=== PATIENT | female | born 1975 | race Caucasian/White ===

== ENCOUNTER → 2016-09-30 | Outpatient (CLI) | payer BC ==
--- NOTE | 2016-09-30 10:00 | US ---
EXAMINATION TYPE: US pelvic complete DATE OF EXAM: 09/30/2016 9:43 AM COMPARISON: No previous CLINICAL HISTORY: R10.2 PELVIC PAIN. 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 Uterus: Surgically absent 2. Endometrium: Surgically absent 3. Right Ovary: not seen due to overlying bowel gas 4. Left Ovary: 2.3 x 1.7 x 2.4cm cystic area 5. Bilateral Adnexa: wnl 6. Posterior cul-de-sac: wnl IMPRESSION: 1. STATUS POST HYSTERECTOMY. 2. SIMPLE APPEARING 2.4 CM LEFT OVARIAN CYST.
== END | disposition home or self-care (01) ==
LOC: RADUSWWP 08:46
PROVIDERS: ATTEND Obstetrics & Gynecology
DX: N83.202 Unspecified ovarian cyst, left side (principal); Z90.710 Acquired absence of both cervix and uterus
CPT/HCPCS: 76830; 76856

== ENCOUNTER → 2016-11-20 | Outpatient (CLI) | payer BC ==
--- NOTE | 2016-11-24 08:10 | MM ---
Reason for exam: screening (asymptomatic). Last mammogram was performed 2 years and 10 months ago. History: Took hormonal contraceptives for 6 years. Physical Findings: A clinical breast exam by your physician is recommended on an annual basis and results should be correlated with mammographic findings. MG Screening Mammo w CAD Bilateral CC and MLO view(s) were taken. Prior study comparison: January 19, 2014, bilateral MG diagnostic mammo w CAD ISAIAS. May 26, 2013, right diagnostic mammogram w/CAD. November 14, 2012, bilateral digital screening mammo w/CAD. There are scattered fibroglandular densities. No significant changes when compared with prior studies. ASSESSMENT: Negative, BI-RAD 1 RECOMMENDATION: Routine screening mammogram of both breasts in 1 year.
== END | disposition home or self-care (01) ==
LOC: RADMAMWWP 09:44
PROVIDERS: ATTEND Family Medicine
DX: Z12.31 Encounter for screening mammogram for malignant neoplasm of breast (principal)

== ENCOUNTER → 2017-01-07 | Outpatient (CLI) | payer BC ==
--- NOTE | 2017-01-07 11:49 | CT ---
EXAMINATION TYPE: CT chest w con DATE OF EXAM: 01/07/2017 COMPARISON: NONE HISTORY: Aaron's granulomatosis CT DLP: 507.8 mGycm Automated exposure control for dose reduction was used. CONTRAST: CT scan of the chest is performed with IV Contrast, patient injected with 100 mL of Omnipaque 300. FINDINGS: There is minimal scarring or atelectasis in the right middle lobe. The lungs are otherwise clear. There is no significant axillary, internal mammary, mediastinal or hilar adenopathy. There is no pleu ral or pericardial fluid. The heart is not enlarged. Within the abdomen, there is fatty infiltration of the liver. Visualized upper abdominal structures a re otherwise normal. No bony destructive lesion is seen. IMPRESSION: 1. Normal CT scan of the chest. 2. Fatty infiltration of the liver.
--- NOTE | 2017-01-07 11:52 | CT ---
EXAMINATION TYPE: CT sinus w con DATE OF EXAM: 01/07/2017 COMPARISON: NONE HISTORY: Aaron's granulomatosis CT DLP: 538.6 mGycm Automated exposure control for dose reduction was used. CONTRAST: Visualized intracranial structures are normal. The soft tissues appear normal. The paranasal sinuses are clear. Both ostiomeatal complexes are patent. The mastoid air cells are roxi ar. IMPRESSION: NORMAL CT SCAN OF THE PARANASAL SINUSES.
== END | disposition home or self-care (01) ==
LOC: RADCTMAIN 11:12
PROVIDERS: ATTEND Internal Medicine Rheumatology
DX: M31.30 Wegener's granulomatosis without renal involvement (principal)
CPT/HCPCS: 71260; 70487; Q9967

== ENCOUNTER 2017-08-26 18:38 | Emergency (ER) | payer BC ==
[2017-08-26 18:50] VITALS: BP 138/83; PULSE 98; RESP 18; TEMP 98.6
[2017-08-26] MEDS ORDERED: DIPH,PERTUS(ACELL)TETVAC-LF 0.5 ML VIAL IM ONE (19:21)
--- NOTE | 2017-08-26 19:47 | XR ---
EXAMINATION TYPE: XR finger RT DATE OF EXAM: 08/26/2017 COMPARISON: NONE HISTORY: Pain TECHNIQUE: 3 views. FINDINGS: I see no fracture nor dislocation. Joint spaces are normal. There is no sign of a foreign body. IMPRESSION: Negative right index finger exam.
--- NOTE | 2017-08-26 20:25 | ED ---
Wound/Laceration HPI - General Chief Complaint: Wound/Laceration Stated Complaint: Cut finger Time Seen by Provider: 08/26/17 19:11 Source: patient, RN notes reviewed Mode of arrival: ambulatory Limitations: no limitations - History of Present Illness Initial Comments: This is a 41-year-old female who presents to the emergency department with chief complaint of right index finger laceration. Patient states that at approximately 6 PM this evening she lacerated the tip of her finger on a kitchen mandolin. States bleeding is controlled. Denies any other injury. States that she does not believe she is up-to-date with her tetanus vaccination. Denies fever, chills, chest pain, shortness of breath, abdominal pain, nausea or vomiting, constipation or diarrhea, dysuria or hematuria, numbness or tingling, headache or vision changes. - Related Data Home Medications Medication Instructions Recorded Confirmed Lisinopril [Zestril] 10 mg PO DAILY 08/26/17 08/26/17 Venlafaxine HCl [Effexor] 75 mg PO DAILY 08/26/17 08/26/17 azaTHIOprine [Imuran] 50 mg PO BID 08/26/17 08/26/17 Previous Rx's Medication Instructions Recorded Cephalexin [Keflex] 500 mg PO Q12HR #20 cap 08/26/17 Allergies Allergy/AdvReac Type Severity Reaction Status Date / Time ciprofloxacin [From Cipro] Allergy Rash/Hives Verified 08/26/17 18:51 erythromycin base Allergy Rash/Hives Verified 08/26/17 18:51 [From Erythrocin] latex Allergy Rash/Hives Verified 08/26/17 18:51 oseltamivir [From Tamiflu] Allergy Rash/Hives Verified 08/26/17 18:51 Penicillins Allergy Rash/Hives Verified 08/26/17 18:51 sulfamethoxazole Allergy Rash/Hives Verified 08/26/17 18:51 [From Bactrim] trimethoprim [From Bactrim] Allergy Rash/Hives Verified 08/26/17 18:51 Review of Systems ROS Statement: Those systems with pertinent positive or pertinent negative responses have been documented in the HPI. ROS Other: All systems not noted in ROS Statement are negative. 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 HEENT: Head atraumatic, normocephalic. Pupils are equal, round and reactive to light. Extraocular movements intact. Neck: Supple. Normal ROM. Cardiovascular: Regular rate and rhythm. No murmurs, rubs or gallops. Chest symmetrical. Respiratory: Lungs clear to auscultation bilaterally. No wheezes, rales or rhonchi. Normal respiratory effort with no use of accessory muscles. s. Musculoskeletal: Patient has normal range of motion of her right index finger. There is an approximately 1.0 cm flap-like laceration distal tip of right index finger with some nail involvement. Bleeding is controlled. Sensation is intact. Radial pulses are 2+ equal and palpable bilaterally. Skin: [place], warm and dry without rashes or lesions. Neurological: Alert and oriented x3. CN II-XII grossly intact. Speech is fluent and answers are appropriate. No focal neuro deficits. Psychiatric: Normal mood and affect. No overt signs of depression or anxiety noted. Limitations: no limitations Course Vital Signs 08/26/17 18:46 Temperature 98.6 F Pulse Rate 98 Respiratory 18 Rate Blood Pressure 138/83 O2 Sat by Pulse 95 Oximetry Procedures - Laceration Laceration #1 Consent Obtained: verbal consent Indication: laceration Site: hand (Distal tip right index finger) Size (cm): 1 Description: flap Depth: simple, single layer Anesthetic Used: lidocaine 1% Anesthesia Technique: nerve block Amount (mls): 3 Pre-repair: wound explored, irrigated extensively, deep structures intact Type of Sutures: nylon Size of Sutures: 5-0 Number of Sutures: 3 Technique: simple, interrupted Patient Tolerated Procedure: well, no complications Medical Decision Making - Medical Decision Making This is a 41-year-old female who presented for evaluation of a right index finger laceration. X-ray revealed no involvement of the bone. Patient sustained a flap-like laceration to the distal tip of her right index finger. 3 sutures were placed and patient tolerated well without complication. She is neurovascularly intact. Patient will be started on a prescription of Keflex. She states that she has a penicillin ALLERGY but has taken Keflex in the past without complications. Patient was made up-to-date with her tetanus vaccination. Recommended removal of sutures in 10-14 days. Patient is in agreement with plan and voices understanding. All questions were answered. - Radiology Data Radiology results: report reviewed Right index finger x-ray findings: I see no fracture nor dislocation. Joint spaces are normal. There is no sign of foreign body. Impression: Negative right index finger exam. Disposition Clinical Impression: Laceration of finger of right hand with damage to nail Disposition: HOME SELF-CARE Condition: Good Instructions: Finger Laceration (ED) Additional Instructions: Please have sutures removed in 10-14 days. Please keep sutures dry for the next 24-48 hours. Please take medications as prescribed. Please follow up with primary care provider within 1-2 days. Return to emergency department if symptoms should worsen or any concerns arise. Prescriptions: Cephalexin [Keflex] 500 mg PO Q12HR #20 cap Referrals: Carlitos Rosas DO [Primary Care Provider] - 1-2 days Time of Disposition: 20:33
== END 2017-08-26 20:46 | disposition home or self-care (01) ==
LOC: EC 18:38
DX: S61.310A Laceration without foreign body of right index finger with damage to nail, initial encounter (principal); Z23 Encounter for immunization; I10 Essential (primary) hypertension; F32.9 Major depressive disorder, single episode, unspecified; Z79.899 Other long term (current) drug therapy; Z88.0 Allergy status to penicillin; Z88.1 Allergy status to other antibiotic agents; Z88.2 Allergy status to sulfonamides; Z91.040 Latex allergy status; Z88.8 Allergy status to other drugs, medicaments and biological substances; W45.8XXA Other foreign body or object entering through skin, initial encounter
CPT/HCPCS: 12001; 90471; 90715; 99283

== ENCOUNTER → 2019-01-26 | Outpatient (CLI) | payer BC ==
[2019-01-26 15:26] LABS: Basophils % (A) 0 %; Eosinophils # (A) 0.1 k/uL (0-0.7); Eosinophils % (A) 1 %; HCT 38.6 % (34.0-46.0); HGB 12.5 gm/dL (11.4-16.0); Lymphocytes # (A) 1.7 k/uL (1.0-4.8); Lymphocytes % (A) 18 %; MCH 32.1 pg (25.0-35.0); MCHC 32.3 g/dL (31.0-37.0); MCV 99.4 fL (80.0-100.0); Macrocytosis Slight; Mean Platelet Volume 6.7; Monocytes # (A) 0.4 k/uL (0-1.0); Monocytes % (A) 5 %; Neutrophils # (A) 6.8 k/uL (1.3-7.7); Neutrophils % (A) 75 %; Platelet Count 362 k/uL (150-450); RBC 3.89 m/uL (3.80-5.40); RDW 15.4 % (11.5-15.5); WBC 9.1 k/uL (3.8-10.6)
[2019-01-26 15:44] LABS: Appearance,Urine Cloudy (Clear); Bacteria,Urine Occasional /hpf; Bilirubin,Urine 1+ (Negative); Blood,Urine Negative (Negative); Color,Urine Yellow; Glucose,Urine (UA) Negative (Negative); Ketones,Urine Negative (Negative); Leukocyte Esterase,Urine Negative (Negative); Mucus,Urine Occasional /hpf; Nitrite,Urine Negative (Negative); Protein,Urine Trace (Negative); RBC,Urine 3 /hpf (0-5); Specific Gravity,Urine 1.024 (1.001-1.035); Squamous Epithelial Cell,Urine 1 /hpf (0-4); Urobilinogen,Urine <2.0 mg/dL (<2.0); WBC,Urine 11 /hpf (0-5)
[2019-01-26 18:37] LABS: African American GFR (CKD) 121.3 (60.0-200.0); Anion Gap 10.7 mmol/L (4.00-12.00); BUN/Creat Ratio 17.14 Ratio (12.00-20.00); C Reactive Protein 2.5 mg/dL (0.0-0.8); Carbon Dioxide 29.3 mmol/L (21.6-31.8); Potassium 3.7 mmol/L (3.5-5.5)
[2019-01-26 19:29] LABS: Creatinine,Urine Random 164.3 mg/dL
[2019-01-26 20:27] LABS: DNA Double-Stranded NEGATIVE (NEGATIVE)
[2019-01-26 20:44] LABS: Total Protein,Urine Random 24.3 mg/dL (0.0-13.5)
[2019-01-27 01:09] LABS: Erythrocyte Sedimentation Rate 22 mm/hr (0-20)
[2019-01-27 14:47] LABS: C-ANCA <1:20 Titer (<1:20); P-ANCA <1:20 Titer (<1:20)
== END ==
LOC: EDSTATUS 10:24 → LABWHC1 14:36
PROVIDERS: ATTEND Internal Medicine Rheumatology
DX: M32.9 Systemic lupus erythematosus, unspecified (principal)
CPT/HCPCS: 36415; 80048; 81001; 82570; 84156; 84450; 84460; 85025; 85652; 86140; 86160; 86162; 86225; 86255

== ENCOUNTER → 2019-04-06 | Outpatient (CLI) | payer BC ==
--- NOTE | 2019-04-11 09:20 | MM ---
Reason for exam: screening (asymptomatic). Last mammogram was performed 2 years and 4 months ago. History: Took hormonal contraceptives for 6 years. Physical Findings: A clinical breast exam by your physician is recommended on an annual basis and results should be correlated with mammographic findings. MG 3D Screening Mammo W/Cad Bilateral CC and MLO view(s) were taken. Prior study comparison: November 20, 2016, bilateral MG screening mammo w CAD. January 19, 2014, bilateral MG diagnostic mammo w CAD ISAIAS. The breast tissue is heterogeneously dense. This may lower the sensitivity of mammography. Focal asymmetry right upper outer quadrant. ASSESSMENT: Incomplete: need additional imaging evaluation, BI-RAD 0 RECOMMENDATION: Special view mammogram of the right breast. If lesion persists on supplemental views, image directed ultrasound is recommended. [facility] will attempt to contact patient to return for supplemental views and ultrasound if indicated.
== END | disposition home or self-care (01) ==
LOC: RADMAMWWP 09:15
PROVIDERS: ATTEND Family Medicine
DX: Z12.31 Encounter for screening mammogram for malignant neoplasm of breast (principal)
CPT/HCPCS: 77063; 77067

== ENCOUNTER → 2019-04-18 | Outpatient (CLI) | payer BC ==
--- NOTE | 2019-04-19 10:27 | MM ---
Reason for exam: additional evaluation requested from abnormal screening. Last mammogram was performed less than 1 month ago. History: Took hormonal contraceptives for 6 years. Physical Findings: Nurse did not find any significant physical abnormalities on exam. MG 3D Work Up W/Cad RT Spot compression CC, spot compression ML, and ML view(s) were taken of the right breast. Prior study comparison: April 06, 2019, bilateral MG 3d screening mammo w/cad. November 20, 2016, bilateral MG screening mammo w CAD. The breast tissue is heterogeneously dense. This may lower the sensitivity of mammography. Right upper outer quadrant focal asymmetry improves on additional views. Precautionary ultrasound will be performed. These results were verbally communicated with the patient and result sheet given to the patient on 04/18/19. ASSESSMENT: Incomplete: need additional imaging evaluation, BI-RAD 0 RECOMMENDATION: Ultrasound of the right breast. (upper outer quadrant)
--- NOTE | 2019-04-19 10:28 | USB ---
Reason for exam: additional evaluation requested from abnormal screening. History: Took hormonal contraceptives for 6 years. US Breast Workup Limited RT Right limited breast ultrasound including focal area of concern, retroareolar and axilla demonstrates no cystic or solid lesion seen. Some scattered areas of dense tissue correspond with the mammographic finding. These results were verbally communicated with the patient and result sheet given to the patient on 04/18/19. ASSESSMENT: Negative, BI-RAD 1 RECOMMENDATION: Return to routine screening mammogram schedule for both breasts.
== END | disposition home or self-care (01) ==
LOC: RADMAMWWP 14:09
PROVIDERS: ATTEND Family Medicine
DX: R92.8 Other abnormal and inconclusive findings on diagnostic imaging of breast (principal)
CPT/HCPCS: 77061; 77065

== ENCOUNTER → 2020-03-12 | Outpatient (CLI) | payer BC ==
[2020-03-12 09:03] LABS: Basophils # (A) 0.1 k/uL (0-0.2); Basophils % (A) 1 %; Eosinophils # (A) 0.1 k/uL (0-0.7); Eosinophils % (A) 2 %; HCT 42.1 % (34.0-46.0); HGB 13.8 gm/dL (11.4-16.0); Lymphocytes % (A) 28 %; MCHC 32.8 g/dL (31.0-37.0); MCV 100.6 fL (80.0-100.0); Macrocytosis Slight; Mean Platelet Volume 6.7; Monocytes # (A) 0.2 k/uL (0-1.0); Monocytes % (A) 3 %; Neutrophils # (A) 4.5 k/uL (1.3-7.7); Neutrophils % (A) 64 %; Platelet Count 275 k/uL (150-450); RBC 4.19 m/uL (3.80-5.40); RDW 13.6 % (11.5-15.5)
[2020-03-12 09:23] LABS: Appearance,Urine Clear (Clear); Bilirubin,Urine Negative (Negative); Blood,Urine Negative (Negative); Color,Urine Light Yellow; Glucose,Urine (UA) Negative (Negative); Ketones,Urine Negative (Negative); Leukocyte Esterase,Urine Negative (Negative); Nitrite,Urine Negative (Negative); PH, Urine 5.5 (5.0-8.0); Protein,Urine Negative (Negative); Specific Gravity,Urine 1.013 (1.001-1.035); Urobilinogen,Urine <2.0 mg/dL (<2.0)
[2020-03-12 17:05] LABS: African American GFR (CKD) 120.4 (60.0-200.0); Albumin 4.7 g/dL (3.80-4.90); Albumin/Globulin Ratio 1.74 (1.60-3.17); Anion Gap 12.7 mmol/L (4.00-12.00); BUN/Creat Ratio 12.86 Ratio (12.00-20.00); Calcium 10.1 mg/dL (8.7-10.3); Carbon Dioxide 30.3 mmol/L (21.6-31.8); Chol/HDL Ratio 3.31; Globulin 2.7 g/dL (1.6-3.3); Non-African American GFR(CKD) 103.9 (60.0-200.0); Potassium 3.9 mmol/L (3.5-5.5); Total Bilirubin 0.6 mg/dL (0.2-1.2); Total Protein 7.4 g/dL (6.2-8.2)
== END | disposition home or self-care (01) ==
LOC: LABWHC1 06:58
PROVIDERS: ATTEND Physician Assistant
DX: Z00.00 Encounter for general adult medical examination without abnormal findings (principal)
CPT/HCPCS: 36415; 80053; 80061; 81003; 84443; 85025

== ENCOUNTER → 2020-04-02 | Outpatient (CLI) | payer BC ==
--- NOTE | 2020-04-02 09:47 | US ---
EXAMINATION TYPE: US transvaginal DATE OF EXAM: 04/02/2020 COMPARISON: US 09/30/16 CLINICAL HISTORY: R10.2 Pelvic and Perineal Pain. TECHNIQUE: Transvaginal (TV). Transabdominal sonographic images of the pelvis were acquired. Trans vaginal sonographic images were medically necessary to better assess the following anatomy: Date of LMP: 2012 EXAM MEASUREMENTS: Uterus: Surgically absent cm Endometrial Stripe: Surgically absent cm Right Ovary: Not seen. cm Left Ovary: Not seen cm 1. Uterus: Surgically absent 2. Endometrium: Surgically absent 3. Right Ovary: Not seen. No masses seen 4. Left Ovary: Not seen. No masses seen Spectral, color and waveform doppler imaging shows good arterial and venous flow within the ovaries ; there is no evidence for ovarian torsion. 5. Bilateral Adnexa: wnl 6. Posterior cul-de-sac: wnl Large amounts of active bowel and bowel gas. IMPRESSION: Postoperative pelvis noted without masses seen.
== END | disposition home or self-care (01) ==
LOC: RADUSWWP 08:15
PROVIDERS: ATTEND Family Medicine
DX: R10.2 Pelvic and perineal pain (principal); Z98.890 Other specified postprocedural states
CPT/HCPCS: 76830

== ENCOUNTER 2020-04-12 05:48 | Emergency (ER) | payer BC ==
[2020-04-12 05:57] VITALS: TEMP 99.5
[2020-04-12] MEDS ORDERED: ACETAMINOPHEN TAB 500 MG TAB PO STA (06:10)
[2020-04-12 06:25] LABS: Appearance,Urine Clear (Clear); Bilirubin,Urine Negative (Negative); Blood,Urine Negative (Negative); Color,Urine Yellow; Glucose,Urine (UA) Negative (Negative); Ketones,Urine Negative (Negative); Leukocyte Esterase,Urine Negative (Negative); Nitrite,Urine Negative (Negative); PH, Urine 5.5 (5.0-8.0); Protein,Urine Trace (Negative); Specific Gravity,Urine 1.015 (1.001-1.035); Urobilinogen,Urine <2.0 mg/dL (<2.0)
--- NOTE | 2020-04-12 06:54 | ED ---
General Adult HPI - General Chief complaint: Urogenital Stated complaint: Abdominal pain, fever Time Seen by Provider: 04/12/20 06:03 Source: patient Mode of arrival: ambulatory Limitations: no limitations - History of Present Illness Initial comments: Patient is a 44-year-old female presenting to the emergency Department with complaints of lower abdominal pressure, urinary frequency. Patient denies any dysuria when she urinates but states this pressure has been building over the past week. Patient states she was having sweats and chills 3 days ago and did stay home from work secondary to this. She did go out and buy a thermometer and her temperature has been 99.9-100. Patient states she does have lower back pain but states this is normal, she is to have an MRI of her lumbar area today. She denies any saddle paresthesia. She denies any increase in her chronic back pain. She denies any nausea, vomiting, diarrhea, chest pain or shortness of breath. She states she has had PID many years ago. She has a history of hysterectomy, she also recently had a transvaginal ultrasound 2 weeks ago. This does not show any abnormalities. She did not take any Tylenol or Motrin today. She has no further complaints. Upon arrival to the ER, her vitals are stable. - Related Data Home Medications Medication Instructions Recorded Confirmed Venlafaxine HCl [Effexor] 75 mg PO DAILY 08/26/17 08/26/17 azaTHIOprine [Imuran] 50 mg PO BID 08/26/17 08/26/17 lisinopriL [Zestril] 10 mg PO DAILY 08/26/17 08/26/17 Previous Rx's Medication Instructions Recorded Cephalexin [Keflex] 500 mg PO Q12HR #20 cap 08/26/17 Amoxicillin/Potassium Clav 1 tab PO BID 10 Days #20 tab 04/12/20 [Augmentin 875-125 Tablet] Allergies Allergy/AdvReac Type Severity Reaction Status Date / Time ciprofloxacin [From Cipro] Allergy Rash/Hives Verified 04/12/20 05:57 erythromycin base Allergy Rash/Hives Verified 04/12/20 05:57 [From Erythrocin] latex Allergy Rash/Hives Verified 04/12/20 05:57 oseltamivir [From Tamiflu] Allergy Rash/Hives Verified 04/12/20 05:57 Penicillins Allergy Rash/Hives Verified 04/12/20 05:57 sulfamethoxazole Allergy Rash/Hives Verified 04/12/20 05:57 [From Bactrim] trimethoprim [From Bactrim] Allergy Rash/Hives Verified 04/12/20 05:57 Review of Systems ROS Statement: Those systems with pertinent positive or pertinent negative responses have been documented in the HPI. ROS Other: All systems not noted in ROS Statement are negative. 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 Patient is nontoxic and in no acute distress. HEAD: Atraumatic, normocephalic. EYES: Pupils equal round and reactive to light, extraocular movements intact, sclera anicteric, conjunctiva are normal. Eyelids were unremarkable. ENT: TMs normal, nares patent, oropharynx clear without exudates. Moist mucous mem branes. NECK: Normal range of motion, supple without lymphadenopathy or JVD. LUNGS: Unlabored respirations. Breath sounds clear to auscultation bilaterally and equal. No wheezes rales or rhonchi. HEART: Regular rate and rhythm without murmurs, rubs or gallops. ABDOMEN: Tender to palpation of the entire lower abdomen. Soft, normoactive bowel sounds. No guarding, no rebound. No masses appreciated. : Deferred MUSCULOSKELETAL: Normal extremities with adequate strength and normal range of motion, no pitting or edema. No clubbing or cyanosis. NEUROLOGICAL: Patient is alert and oriented x 3. Motor and sensory are also intact. Cranial nerves II through XII grossly intact. Symmetrical smile. Normal speech, normal gait. PSYCH: Normal mood, normal affect. SKIN: Warm, Dry, normal turgor, no rashes or lesions noted. Limitations: no limitations Course Vital Signs 04/12/20 04/12/20 05:54 07:29 Temperature 99.5 F Pulse Rate 98 89 Respiratory 20 18 Rate Blood Pressure 123/88 108/78 O2 Sat by Pulse 98 98 Oximetry Medical Decision Making - Medical Decision Making Patient is a 44-year-old female here with lower abdominal pressure, pain as well as urinary frequency for the past week. She has had subjective fevers at home. I did a UA which revealed no evidence of bacteria or WBCs. She also recently had a transvaginal ultrasound which showed no abnormalities. We then did basic labs, CT of the abdomen. Labs show a normal white count, lactic acid is 1.2, liver enzymes are slightly elevated however patient states she is aware of this. CT the abdomen reveals evidence for acute mid sigmoid diverticulitis with [id number] inflammation, no abscess seen. They do recommend direct visualization after treatment. I discussed this with the patient. Patient will be started on Augmentin and I will also give her GI referral. She is in agreement this plan of care. She is stable for discharge. Return parameters were discussed with the patient she verbalized understanding. Case discussed with Dr. Singh. - Lab Data Result diagrams: 04/12/20 06:47 04/12/20 06:47 Lab Results 04/12/20 04/12/20 04/12/20 Range/Units 06:12 06:47 06:47 WBC 9.6 (3.8-10.6) k/uL RBC 4.11 (3.80-5.40) m/uL Hgb 13.8 (11.4-16.0) gm/dL Hct 40.9 (34.0-46.0) % MCV 99.6 (80.0-100.0) fL MCH 33.5 (25.0-35.0) pg MCHC 33.6 (31.0-37.0) g/dL RDW 13.5 (11.5-15.5) % Plt Count 246 (150-450) k/uL Neutrophils % 71 % Lymphocytes % 20 % Monocytes % 4 % Eosinophils % 2 % Basophils % 1 % Neutrophils # 6.8 (1.3-7.7) k/uL Lymphocytes # 1.9 (1.0-4.8) k/uL Monocytes # 0.4 (0-1.0) k/uL Eosinophils # 0.2 (0-0.7) k/uL Basophils # 0.1 (0-0.2) k/uL Sodium 137 (137-145) mmol/L Potassium 3.9 (3.5-5.1) mmol/L Chloride 99 (98-107) mmol/L Carbon Dioxide 27 (22-30) mmol/L Anion Gap 11 mmol/L BUN 9 (7-17) mg/dL Creatinine 0.58 (0.52-1.04) mg/dL Est GFR (CKD-EPI)AfAm >90 (>60 ml/min/1.73 sqM) Est GFR (CKD-EPI)NonAf >90 (>60 ml/min/1.73 sqM) Glucose 107 H (74-99) mg/dL Plasma Lactic Acid Guilherme (0.7-2.0) mmol/L Calcium 10.2 (8.4-10.2) mg/dL Total Bilirubin 1.0 (0.2-1.3) mg/dL AST 42 H (14-36) U/L ALT 39 H (4-34) U/L Alkaline Phosphatase 81 (38-126) U/L Total Protein 8.0 (6.3-8.2) g/dL Albumin 4.8 (3.5-5.0) g/dL Urine Color Yellow Urine Appearance Clear (Clear) Urine pH 5.5 (5.0-8.0) Ur Specific [place] 1.015 (1.001-1.035) Urine Protein Trace H (Negative) Urine Glucose (UA) Negative (Negative) Urine Ketones Negative (Negative) Urine Blood Negative (Negative) Urine Nitrite Negative (Negative) Urine Bilirubin Negative (Negative) Urine Urobilinogen <2.0 (<2.0) mg/dL Ur Leukocyte Esterase Negative (Negative) 04/12/20 Range/Units 06:47 WBC (3.8-10.6) k/uL RBC (3.80-5.40) m/uL Hgb (11.4-16.0) gm/dL Hct (34.0-46.0) % MCV (80.0-100.0) fL MCH (25.0-35.0) pg MCHC (31.0-37.0) g/dL RDW (11.5-15.5) % Plt Count (150-450) k/uL Neutrophils % % Lymphocytes % % Monocytes % % Eosinophils % % Basophils % % Neutrophils # (1.3-7.7) k/uL Lymphocytes # (1.0-4.8) k/uL Monocytes # (0-1.0) k/uL Eosinophils # (0-0.7) k/uL Basophils # (0-0.2) k/uL Sodium (137-145) mmol/L Potassium (3.5-5.1) mmol/L Chloride (98-107) mmol/L Carbon Dioxide (22-30) mmol/L Anion Gap mmol/L BUN (7-17) mg/dL Creatinine (0.52-1.04) mg/dL Est GFR (CKD-EPI)AfAm (>60 ml/min/1.73 sqM) Est GFR (CKD-EPI)NonAf (>60 ml/min/1.73 sqM) Glucose (74-99) mg/dL Plasma Lactic Acid Guilherme 1.2 (0.7-2.0) mmol/L Calcium (8.4-10.2) mg/dL Total Bilirubin (0.2-1.3) mg/dL AST (14-36) U/L ALT (4-34) U/L Alkaline Phosphatase (38-126) U/L Total Protein (6.3-8.2) g/dL Albumin (3.5-5.0) g/dL Urine Color Urine Appearance (Clear) Urine pH (5.0-8.0) Ur Specific [place] (1.001-1.035) Urine Protein (Negative) Urine Glucose (UA) (Negative) Urine Ketones (Negative) Urine Blood (Negative) Urine Nitrite (Negative) Urine Bilirubin (Negative) Urine Urobilinogen (<2.0) mg/dL Ur Leukocyte Esterase (Negative) Disposition Clinical Impression: Sigmoid diverticulitis Disposition: HOME SELF-CARE Condition: Stable Instructions (If sedation given, give patient instructions): Diverticulitis (ED) Additional Instructions: Please return to the Emergency Department if symptoms worsen or any other concerns. Take antibiotic as prescribed. Follow up with GI as discussed. May continue with Tylenol or Motrin as needed for pain. Prescriptions: Amoxicillin/Potassium Clav [Augmentin 875-125 Tablet] 1 tab PO BID 10 Days #20 t ab Is patient prescribed a controlled substance at d/c from ED?: No Referrals: Carlitos Rosas DO [Primary Care Provider] - 1-2 days Maria Fernanda Gonzales MD [STAFF PHYSICIAN] - 1-2 days
[2020-04-12 07:08] LABS: Basophils # (A) 0.1 k/uL (0-0.2); Basophils % (A) 1 %; Eosinophils # (A) 0.2 k/uL (0-0.7); Eosinophils % (A) 2 %; HCT 40.9 % (34.0-46.0); HGB 13.8 gm/dL (11.4-16.0); Lymphocytes # (A) 1.9 k/uL (1.0-4.8); Lymphocytes % (A) 20 %; MCH 33.5 pg (25.0-35.0); MCHC 33.6 g/dL (31.0-37.0); MCV 99.6 fL (80.0-100.0); Mean Platelet Volume 7.2; Monocytes # (A) 0.4 k/uL (0-1.0); Monocytes % (A) 4 %; Neutrophils # (A) 6.8 k/uL (1.3-7.7); Neutrophils % (A) 71 %; Platelet Count 246 k/uL (150-450); RBC 4.11 m/uL (3.80-5.40); RDW 13.5 % (11.5-15.5); WBC 9.6 k/uL (3.8-10.6)
[2020-04-12 07:21] LABS: ALT 39 U/L (4-34); AST 42 U/L (14-36); African American GFR (CKD) >90 (>60 ml/min/1.73 sqM); Albumin 4.8 g/dL (3.5-5.0); Alkaline Phosphatase 81 U/L (38-126); Anion Gap 11 mmol/L; Blood Urea Nitrogen 9 mg/dL (7-17); Calcium 10.2 mg/dL (8.4-10.2); Carbon Dioxide 27 mmol/L (22-30); Chloride 99 mmol/L (98-107); Glucose 107 mg/dL (74-99); Non-African American GFR(CKD) >90 (>60 ml/min/1.73 sqM); Potassium 3.9 mmol/L (3.5-5.1); Sodium 137 mmol/L (137-145)
[2020-04-12 07:30] VITALS: BP 108/78; PULSE 89; RESP 18
--- NOTE | 2020-04-12 07:41 | CT ---
EXAMINATION TYPE: CT abdomen pelvis w con DATE OF EXAM: 04/12/2020 COMPARISON: NONE HISTORY: 44-year-old female with lower abdominal and pelvic pain and fever TECHNIQUE: Contiguous axial scanning of the abdomen and pelvis following administration of 100 ml Iso paul 300 IV contrast. Delayed images through the kidneys and coronal/sagittal reconstructions perform ed. CT DLP: 1597.9 mGycm Automated exposure control for dose reduction was used. FINDINGS: LUNG BASES: No significant abnormality is appreciated. LIVER/GB: Liver enlarged at 23.6 cm. Low attenuation as compared to the spleen. Portal venous system is patent. No biliary ductal dilatation. PANCREAS: No significant abnormality is seen. SPLEEN: No significant abnormality is seen. ADRENALS: No significant abnormality is seen. KIDNEYS: No significant abnormality is seen. LYMPH NODES: Some prominent but not enlarged magnolia hepatic lymph nodes measuring up to 7 mm. 9 mm por tacaval lymph node is also nonenlarged by size criteria. No mesenteric or retroperitoneal lymphadenop athy. BOWEL: Normal appendix. No dilated small bowel, free fluid, or free air. Sigmoid diverticulosis. Mild to moderate short segment wall thickening along the mid sigmoid with a moderate adjacent hazy densit y, refer to axial images 70 through 74. PELVIS: Bladder nondistended. Uterus surgically absent. Both ovaries are visualized. No abnormal flui d collection in the pelvis or pelvic lymphadenopathy. BONES: Sacralized L5 transitional segment. Severe degenerative disc disease above the L4-L5. IMPRESSION: 1. EXAM POSITIVE FOR ACUTE MID SIGMOID DIVERTICULITIS WITH MILD TO MODERATE INFLAMMATION. NO ABSCESS OR FREE AIR. DIRECT VISUALIZATION RECOMMENDED AFTER SUCCESSFUL TREATMENT. 2. HEPATOMEGALY (23.6 CM) WITH HEPATIC STEATOSIS. 3. SACRALIZED L5 TRANSITIONAL SEGMENT. SEVERE DEGENERATIVE DISC DISEASE ABOVE AT L4-L5.
== END 2020-04-12 08:06 | disposition home or self-care (01) ==
LOC: EC 05:48
DX: K57.32 Diverticulitis of large intestine without perforation or abscess without bleeding (principal); R35.0 Frequency of micturition; I10 Essential (primary) hypertension; F32.9 Major depressive disorder, single episode, unspecified; Z79.899 Other long term (current) drug therapy; Z88.0 Allergy status to penicillin; Z88.1 Allergy status to other antibiotic agents; Z88.2 Allergy status to sulfonamides; Z91.040 Latex allergy status; Z90.710 Acquired absence of both cervix and uterus
CPT/HCPCS: 36415; 51798; 74177; 80053; 81003; 83605; 85025; 99284

== ENCOUNTER → 2020-07-22 | Outpatient (CLI) | payer BC ==
--- NOTE | 2020-07-22 13:35 | XR ---
EXAMINATION TYPE: XR chest 2V DATE OF EXAM: 07/22/2020 COMPARISON: NONE TECHNIQUE: PA and lateral views submitted. HISTORY: Cough FINDINGS: The lungs are clear and there is no pneumothorax, pleural effusion, or focal pneumonia. Heart size normal. No overt failure. IMPRESSION: 1. No acute process.
== END | disposition home or self-care (01) ==
LOC: LABWHC1 10:48
PROVIDERS: ATTEND Physician Assistant
DX: R05 Cough (principal)
CPT/HCPCS: 71046; U0003; C9803

== ENCOUNTER → 2020-10-03 | Outpatient (CLI) | payer BC ==
--- NOTE | 2020-10-04 13:57 | MM ---
Reason for exam: screening (asymptomatic). Last mammogram was performed 1 year and 5 months ago. History: Patient is postmenopausal. Took hormonal contraceptives for 6 years. Physical Findings: A clinical breast exam by your physician is recommended on an annual basis and results should be correlated with mammographic findings. MG 3D Screening Mammo W/Cad Bilateral CC and MLO view(s) were taken. Prior study comparison: April 18, 2019, right breast MG 3d work up w/cad RT. April 06, 2019, bilateral MG 3d screening mammo w/cad. The breast tissue is heterogeneously dense. This may lower the sensitivity of mammography. Focal asymmetry upper right breast is stable. No significant changes when compared with prior studies. ASSESSMENT: Benign, BI-RAD 2 RECOMMENDATION: Routine screening mammogram of both breasts in 1 year.
== END ==
LOC: RADMAMWWP 09:11
PROVIDERS: ATTEND Family Medicine
DX: Z12.31 Encounter for screening mammogram for malignant neoplasm of breast (principal)
CPT/HCPCS: 77063; 77067

== ENCOUNTER 2021-01-23 06:21 | Day surgery (SDC) | payer BC ==
[2021-01-22 10:29] VITALS: BMI 32.1
[~2021-01-23 06:21] MED LIST: LACTATED RINGERS 1,000 ML IV SCH
[2021-01-23 06:54] VITALS: TEMP 98.9
[2021-01-23] MEDS ORDERED: LACTATED RINGERS 1,000 ML IV ONE (07:03)
[2021-01-23] MEDS ORDERED: DEXAMETHASONE SOD PHOSPHATE 10 MG/ML 1 ML VIAL ONE (07:35)
[2021-01-23] MEDS ORDERED: fentaNYL (PF) 50 MCG/ML 2 ML AMP ONE (07:35)
[2021-01-23] MEDS ORDERED: IOPAMIDOL M200 10 ML VIAL ONE (07:35)
[2021-01-23] MEDS ORDERED: MIDAZOLAM 2 MG/2 ML VIAL ONE (07:35)
--- NOTE | 2021-01-23 07:53 | P.PCN ---
Date of Procedure: 01/23/21 Anesthesia: MAC Surgeon: uAbrey Stone Pathology: none sent Condition: stable Disposition: PACU Description of Procedure: PROCEDURE 1. Cervical epidural steroid injection under fluoroscopic guidance, C7-T1 in the left paramedian approach. 2. Cervical epidurogram. : PREOPERATIVE DIAGNOSIS: Cervical radiculopathy, cervical spondylosis without myelopathy POSTOPERATIVE DIAGNOSIS: : Same as above ANESTHESIA: Local anesthesia with 1% lidocaine and IV moderate conscious sedation with Versed and Fentanyl . EBL 0 PROCEDURE INDICATION: The patient with neck pain and radiculopathy unresponsive to conservative treatment consents for procedure. PROCEDURE DESCRIPTION / TECHNIQUE: The patient was seen and identified in the preoperative area. Risks, benefits, complications, including but not limited to infections ,bleeding , allergic reactions to the medications ,and not complete pain relief, and alternatives were discussed with the patient, the patient agreed to proceed with the procedure and signed the consent. Patient was taken to the OR and time out was completed. The patient was placed in the prone position on the procedure table. A pillow was placed under the patients chest to increase the flexion of the cervical spine . The cervical area was prepped and draped in the usual sterile fashion. Vital signs were closely monitored during the procedure. Conscious sedation was used during the procedure to decrease patients anxiety. Using anterior-posterior fluoroscopy, the C7-T1 interlaminar space was identified and the skin over this site was marked and then infiltrated with 1% lidocaine subcutaneously. Subsequently, a 20-gauge 3-1/2-inch Tuohy epidural needle was inserted and advanced toward the epidural space by means of loss of resistance to air technique and guided by AP and lateral fluoroscopy. The needle tip contacted the lamina of T1 vertebra first, then it was walked off bone and into the epidural space using the loss of to air and fluoroscopic guidance to identify the epidural space. The correct needle position in the epidural space was verified with the injection of 1 mL of the water soluble contrast dye Isovue and observing an excellent epidurogram with the epidural spread of the dye, after negative aspiration for blood and CSF and in the absence of paresthesias. Again after negative aspiration, 20 mg of Decadron was injected and a washout of epidurogram was seen. Needle was withdrawn intact, skin was cleansed, and bandages were applied. A copy of the needle placement picture was saved to the fluoroscopy machine.
[2021-01-23] MEDS ORDERED: IV FLUID CONTINUATION 1,000 ML IV ONE (07:57)
[2021-01-23 08:14] VITALS: BP 122/78; PULSE 91; RESP 16
--- NOTE | 2021-01-23 09:57 | FL ---
EXAMINATION TYPE: FL guided pain mgmt statistic DATE OF EXAM: 01/23/2021 HISTORY: Fluoroscopy time 8 seconds of fluoroscopy provided. IMPRESSION: 1. Fluoroscopy time.
== END 2021-01-23 08:29 | disposition home or self-care (01) ==
LOC: ORPAIN 06:21
PROVIDERS: ATTEND Anesthesiology
DX: M47.22 Other spondylosis with radiculopathy, cervical region (principal); Z88.2 Allergy status to sulfonamides; Z88.1 Allergy status to other antibiotic agents; Z91.040 Latex allergy status; I10 Essential (primary) hypertension; E78.5 Hyperlipidemia, unspecified
CPT/HCPCS: 62321; J2250; J1100; J3010; Q9966; 99152

== ENCOUNTER 2021-02-06 09:42 | Day surgery (SDC) | payer BC ==
[2021-02-05 08:28] VITALS: BMI 31.9
[2021-02-06] MEDS ORDERED: LIDOCAINE 1% (10MG/ML) FOR IV START INTRADERMA ONE (10:10)
[2021-02-06] MEDS ORDERED: LACTATED RINGERS 1,000 ML IV ONE (10:10)
[2021-02-06 10:11] VITALS: TEMP 97.6
[2021-02-06] MEDS ORDERED: MIDAZOLAM 2 MG/2 ML VIAL ONE (10:14)
[2021-02-06] MEDS ORDERED: fentaNYL (PF) 50 MCG/ML 2 ML AMP ONE (10:14)
[2021-02-06] MEDS ORDERED: DEXAMETHASONE SOD PHOSPHATE 10 MG/ML 1 ML VIAL ONE (10:14)
[2021-02-06] MEDS ORDERED: IOPAMIDOL M200 10 ML VIAL ONE (10:14)
--- NOTE | 2021-02-06 10:25 | P.PCN ---
Date of Procedure: 02/06/21 Procedure(s) Performed: . PROCEDURE 1. Cervical epidural steroid injection under fluoroscopic guidance, C6-7 (fluoroscopy images available in the radiology department ) # 2nd 2. Cervical epidurogram. PREOPERATIVE DIAGNOSIS: 1- Cervical spinal stenosis 2- Cervical radiculopathy., 3-cervical spondylosis with cervical Facet arthropathy without myelopathy POSTOPERATIVE DIAGNOSIS: : 1- Cervical spinal stenosis , 2- Cervical radiculopathy. 3-,cervical spondylosis with cervical Facet arthropathy without myelopathy ANESTHESIA: Local anesthesia with lidocaine 1 % , and moderate sedation, with Versed 2 mg and Fentanyl 50 mcg. EBL 0 PROCEDURE INDICATION: The patient with neck pain and radiculitis unresponsive to conservative treatment consents for procedure. PROCEDURE DESCRIPTION / TECHNIQUE: The patient was seen and identified in the preoperative area. Risks, benefits, complications, including but not limited to infections ,bleeding , allergic reactions to the medications ,and not complete pain releife, and alternatives were discussed with the patient, the patient agreed to proceed with the procedure and signed the consent. Patient was taken to the OR and time out was completed. The patient was placed in the prone position on the procedure table. A pillow was placed under the patients chest to increase the cervical interlaminar space. The cervical area was prepped and draped in the usual sterile fashion. Vital signs were closely monitored during the procedure. Conscious sedation was used during the procedure to decrease patients anxiety. Using anterior-posterior fluoroscopy, the C6-7 interlaminar space was identified and the skin over this site was marked and then infiltrated with 1% lidocaine subcutaneously. Subsequently, a 20-gauge 3-1/2-inch Tuohy epidural needle was inserted ( toward the left paramedial aspect of C6-7 ) and advanced toward the epidural space by means of the ``hanging-drop technique and guided by AP and lateral fluoroscopy. The correct needle position in the epidural space was verified with the injection of 2 mL of the water soluble contrast dye Isovue-200 and observing an excellent epidurogram with the epidural spread of the dye, after negative aspiration for blood and CSF and in the absence of paresthesias. then, mixture containing 20 mg Dexamethasone and 2 ml of preservative-free normal saline injected and a washout of epidurogram was seen. Needle was withdrawn intact, skin was cleansed, and bandages were applied. Complications= none. Disposition= patient was placed in supine position and transferred to the recovery room area in stable condition and there was no evidence of upper or lower extremity motor or sensory deficit after the procedure patient was discharged from recovery room after discharge criteria met and home discharge instructions was given by the staff and patient will follow with the pain clinic in 2-4 weeks
[2021-02-06] MEDS ORDERED: IV FLUID CONTINUATION 700 ML IV ONE (10:29)
[2021-02-06 10:33] VITALS: RESP 20
[2021-02-06] MEDS ORDERED: LACTATED RINGERS 1,000 ML IV SCH (10:34)
[2021-02-06 10:41] VITALS: BP 110/73; PULSE 95
--- NOTE | 2021-02-06 10:44 | FL ---
EXAMINATION TYPE: FL guided pain mgmt statistic DATE OF EXAM: 02/06/2021 HISTORY: Fluoroscopy time 4 seconds of fluoroscopy provided. IMPRESSION: 1. Fluoroscopy time.
== END 2021-02-06 10:58 | disposition home or self-care (01) ==
LOC: ORPAIN 09:42
PROVIDERS: ATTEND Specialist
DX: M47.22 Other spondylosis with radiculopathy, cervical region (principal); M48.02 Spinal stenosis, cervical region; Z88.0 Allergy status to penicillin; Z91.040 Latex allergy status; Z90.710 Acquired absence of both cervix and uterus
CPT/HCPCS: 62321; J2250; J1100; J3010; Q9966

== ENCOUNTER → 2021-03-24 | Outpatient (CLI) | payer BC ==
--- NOTE | 2021-03-24 11:04 | XR ---
EXAMINATION TYPE: XR thoracic spine complete DATE OF EXAM: 03/24/2021 COMPARISON: NONE HISTORY: Pain TECHNIQUE: 3 views submitted FINDINGS: Alignment is anatomic. There is no compression deformities. Mild hypertrophic change and narrowing o f the disc spaces at all levels. IMPRESSION: 1. Mild multilevel degenerative disc disease.
== END | disposition home or self-care (01) ==
LOC: RADXRMAIN 09:32
PROVIDERS: ATTEND Orthopaedic Surgery
DX: M51.34 Other intervertebral disc degeneration, thoracic region (principal)
CPT/HCPCS: 72072

== ENCOUNTER 2021-04-02 15:16 | Observation (INO) | payer BC ==
[2021-04-02 15:22] VITALS: RESP 18
[2021-04-02 16:51] LABS: ALT 197 U/L (4-34); AST 262 U/L (14-36); African American GFR (CKD) >90 (>60 ml/min/1.73 sqM); Albumin 4.8 g/dL (3.5-5.0); Alkaline Phosphatase 821 U/L (38-126); Anion Gap 18 mmol/L; Blood Urea Nitrogen 14 mg/dL (7-17); Calcium 10.1 mg/dL (8.4-10.2); Carbon Dioxide 26 mmol/L (22-30); Chloride 87 mmol/L (98-107); Glucose 112 mg/dL (74-99); Non-African American GFR(CKD) >90 (>60 ml/min/1.73 sqM); Potassium 2.8 mmol/L (3.5-5.1); Sodium 131 mmol/L (137-145); Total Bilirubin 11.4 mg/dL (0.2-1.3); Total Protein 8.2 g/dL (6.3-8.2)
[2021-04-02 16:54] LABS: Basophils # (A) 0.1 k/uL (0-0.2); Basophils % (A) 1 %; Eosinophils # (A) 0.1 k/uL (0-0.7); Eosinophils % (A) 1 %; HCT 40.7 % (34.0-46.0); HGB 13.6 gm/dL (11.4-16.0); Lymphocytes # (A) 1.4 k/uL (1.0-4.8); Lymphocytes % (A) 14 %; MCH 36.7 pg (25.0-35.0); MCHC 33.4 g/dL (31.0-37.0); MCV 109.9 fL (80.0-100.0); Macrocytosis Marked; Mean Platelet Volume 7.6; Monocytes # (A) 0.5 k/uL (0-1.0); Monocytes % (A) 5 %; Neutrophils # (A) 7.6 k/uL (1.3-7.7); Neutrophils % (A) 77 %; Platelet Count 374 k/uL (150-450); WBC 9.9 k/uL (3.8-10.6)
[2021-04-02 17:17] LABS: Prothrombin Time 12.3 sec (9.0-12.0)
--- NOTE | 2021-04-02 17:18 | US ---
EXAMINATION TYPE: US gallbladder DATE OF EXAM: 04/02/2021 COMPARISON: CT CLINICAL HISTORY: jaundice. Jaundice EXAM MEASUREMENTS: Liver Length: 22.5 cm Gallbladder Wall: 0.4 cm CBD: 1.4 cm Right Kidney: 10.1 x 4.0 x 4.7 cm Pancreas: Possible hypoechoic mass at head of the pancreas measuring 2.8 x 2.4 x 2.7 cm. Liver: Enlarged. Slightly hyperechoic and coarsened echotexture. Gallbladder: Normally distended, with dorv-we-kolyflrt sludge. No cholelithiasis, significant gallbl adder wall thickening, or pericholecystic edema. Plater Hot Dip reports negative sonographic Mendez sign. CBD: No intrahepatic biliary ductal dilatation. Common bile duct dilatation measures 1.4 cm. Right Kidney: No hydronephrosis. IMPRESSION: 1. Questionable hypoechoic mass in the pancreatic head measuring 2.8 cm. 2. Mild to moderate gallbladder sludge. No acute cholecystitis. 3. Common bile duct dilated. 4. Recommend MRI MRCP with and without contrast to evaluate the common bile duct dilatation and possi ble pancreatic head mass.
--- NOTE | 2021-04-02 17:27 | ED ---
General Adult HPI - General Chief complaint: Recheck/Abnormal Lab/Rx Stated complaint: Possible Jaundice Source: patient Mode of arrival: ambulatory Limitations: no limitations - History of Present Illness Initial comments: Aracely is a 45-year-old female who presents to the ER today for evaluation of jaundice. She reports that she has a history of an autoimmune disorder with no specific name but has been told her in a levels are elevated the past, she has had elevated liver enzymes in the past. Patient states that she does drink she usually has 2 drinks nightly, commonly wine and then has more drinks on the weekend. She states that she went to work today and her boss noted that she had jaundice of her eyes, patient noted this developing on Wednesday and it has progressively worsened over the weekend. At work today her os insisted that she come to the ER for evaluation. Patient does note that she's had some pruritus. No abdominal pain no nausea or vomiting. - Related Data Home Medications Medication Instructions Recorded Confirmed lisinopriL [Zestril] 20 mg PO DAILY 08/26/17 04/02/21 ALPRAZolam [Xanax] 0.25 tab PO DAILY PRN 01/22/21 04/02/21 Albuterol Inhaler [Ventolin Hfa 2 puff INHALATION RT-QID PRN 01/22/21 04/02/21 Inhaler] Cyclobenzaprine [Flexeril] 10 mg PO DAILY PRN 01/22/21 04/02/21 amLODIPine [Norvasc] 5 mg PO DAILY 01/22/21 04/02/21 hydroCHLOROthiazide [Hydrodiuril] 12.5 mg PO DAILY 01/22/21 04/02/21 traMADol HCL [Ultram] 50 mg PO Q6HR PRN 01/22/21 04/02/21 Meloxicam 15 mg PO DAILY PRN 04/02/21 04/02/21 Venlafaxine HCl [Effexor XR] 150 mg PO DAILY 04/02/21 04/02/21 traZODone HCL [Desyrel] 50 mg PO HS PRN 04/02/21 04/02/21 Allergies Allergy/AdvReac Type Severity Reaction Status Date / Time ciprofloxacin [From Cipro] Allergy Rash/Hives Verified 04/02/21 17:19 erythromycin base Allergy Rash/Hives Verified 04/02/21 17:19 [From Erythrocin] latex Allergy Rash/Hives Verified 04/02/21 17:19 oseltamivir [From Tamiflu] Allergy Rash/Hives Verified 04/02/21 17:19 Penicillins Allergy Rash/Hives Verified 04/02/21 17:19 sulfamethoxazole Allergy Rash/Hives Verified 04/02/21 17:19 [From Bactrim] trimethoprim [From Bactrim] Allergy Rash/Hives Verified 04/02/21 17:19 Review of Systems ROS Statement: Those systems with pertinent positive or pertinent negative responses have been documented in the HPI. ROS Other: All systems not noted in ROS Statement are negative. Past Medical History Past Medical History: Hypertension, Musculoskeletal Disorder Additional Past Medical History / Comment(s): unnamed autoimmune disorder- elevated WENDY, elevated liver enzymes in past, seasonal allergies, cervical degenerative disc disease-has left shoulder pain History of Any Multi-Drug Resistant Organisms: None Reported Past Surgical History: Hernia Repair, Hysterectomy Additional Past Surgical History / Comment(s): lumbar pain procedures Past Anesthesia/Blood Transfusion Reactions: Postoperative Nausea & Vomiting (PONV) Past Psychological History: Anxiety, Depression Smoking Status: Never smoker Past Alcohol Use History: Occasional Past Drug Use History: None Reported - Past Family History Mother Family Medical History: No Reported History General Exam - General Exam Comments Initial Comments: Physical Exam GENERAL: Patient is well-developed and well-nourished. Patient is nontoxic and well- hydrated and is in no distress. HENT: Normocephalic, Atraumatic. EYES: PERRL, EOMI Scleral icterus PULMONARY: Unlabored respirations. No audible rales rhonchi or wheezing was noted. CARDIOVASCULAR: There is a regular rate and rhythm without any murmurs gallops or rubs. ABDOMEN: Soft and nontender with normal bowel sounds. SKIN: Jaundice with excoriations on the arms : Deferred NEUROLOGIC: Patient is alert and oriented x3. Moving all extremities spontaneously MUSCULOSKELETAL: Normal extremities with adequate strength and full range of motion. No lower extremity swelling or edema. No calf tenderness. PSYCHIATRIC: Normal psychiatric evaluation. Limitations: no limitations Course Vital Signs 04/02/21 04/02/21 04/02/21 15:19 17:32 19:04 Temperature 97.8 F Pulse Rate 89 86 90 Respiratory 18 18 18 Rate Blood Pressure 130/83 115/83 116/85 O2 Sat by Pulse 99 98 97 Oximetry 04/02/21 19:57 Temperature Pulse Rate 94 Respiratory 18 Rate Blood Pressure 105/68 O2 Sat by Pulse 95 Oximetry Medical Decision Making - Medical Decision Making the patient was seen and evaluated, history was obtained from the patient 45-year-old female who is a daily drinker but has never had a problem with alcohol never had pancreatitis is presenting to the ER today with painless jaundice Labs were obtained reveal transaminitis and a bilirubin of greater than 11 Ultrasound does reveal dilated common bile duct, gallbladder hydrops and likely pancreatic head Mass. Computed tomography scan of the abdomen was obtained and again shows large gallbladder, common bile duct dilatation and likely pancreatic head Mass. Patient care was discussed with Dr. Gonzales gastroenterology who states the patient can be admitted here for further workup but would recommend eventual transfer to [facility] for evaluation. Patient care was discussed with Dr. Wilcox who accepts the admission patient will be admitted MRI of the abdomen was ordered as recommended by radiology. - Lab Data Result diagrams: 04/02/21 16:31 04/02/21 16:31 Lab Results 04/02/21 04/02/21 04/02/21 Range/Units 16:31 16:31 16:32 WBC 9.9 (3.8-10.6) k/uL RBC 3.70 L (3.80-5.40) m/uL Hgb 13.6 (11.4-16.0) gm/dL Hct 40.7 (34.0-46.0) % MCV 109.9 H (80.0-100.0) fL MCH 36.7 H (25.0-35.0) pg MCHC 33.4 (31.0-37.0) g/dL RDW 15.0 (11.5-15.5) % Plt Count 374 (150-450) k/uL MPV 7.6 Neutrophils % 77 % Lymphocytes % 14 % Monocytes % 5 % Eosinophils % 1 % Basophils % 1 % Neutrophils # 7.6 (1.3-7.7) k/uL Lymphocytes # 1.4 (1.0-4.8) k/uL Monocytes # 0.5 (0-1.0) k/uL Eosinophils # 0.1 (0-0.7) k/uL Basophils # 0.1 (0-0.2) k/uL Macrocytosis Marked A PT 12.3 H (9.0-12.0) sec INR 1.2 H (<1.2) APTT 26.9 (22.0-30.0) sec Sodium 131 L (137-145) mmol/L Potassium 2.8 L (3.5-5.1) mmol/L Chloride 87 L (98-107) mmol/L Carbon Dioxide 26 (22-30) mmol/L Anion Gap 18 mmol/L BUN 14 (7-17) mg/dL Creatinine 0.66 (0.52-1.04) mg/dL Est GFR (CKD-EPI)AfAm >90 (>60 ml/min/1.73 sqM) Est GFR (CKD-EPI)NonAf >90 (>60 ml/min/1.73 sqM) Glucose 112 H (74-99) mg/dL Calcium 10.1 (8.4-10.2) mg/dL Total Bilirubin 11.4 H (0.2-1.3) mg/dL AST 262 H (14-36) U/L ALT 197 H (4-34) U/L Alkaline Phosphatase 821 H (38-126) U/L Total Protein 8.2 (6.3-8.2) g/dL Albumin 4.8 (3.5-5.0) g/dL Disposition Clinical Impression: Pancreatic abnormality, Painless jaundice, Hypokalemia, Transaminitis Disposition: ADMITTED IP TO THIS [facility] Condition: Serious Referrals: Carlitos Rosas DO [Primary Care Provider] - 1-2 days
[2021-04-02 17:46] LABS: INR 1.2 (<1.2); Partial Thromboplastin Time 26.9 sec (22.0-30.0)
[2021-04-02] MEDS ORDERED: Potassium Replacement Protocol 1 EACH MISC MISCELLANE PRN (18:42)
[2021-04-02] MEDS: POTASSIUM CHLORIDE 10 MEQ in WATER FOR INJECTION 1 100ML.BAG IVPB SCH ×3 (19:00→22:52)
[2021-04-02] MEDS: POTASSIUM BICARBONATE/CIT AC 20 MEQ TABLET.EFF NG-TUBE SCH ×3 (19:21→21:07)
[2021-04-02] MEDS ORDERED: ONDANSETRON 4 MG/2 ML VIAL IVP STA (19:55)
--- NOTE | 2021-04-02 20:01 | CT ---
EXAMINATION TYPE: CT abdomen pelvis w con DATE OF EXAM: 04/02/2021 COMPARISON: Same day limited right upper quadrant ultrasound HISTORY: Yellowing of eyes x [address] DLP: 1171.7 mGycm Automated exposure control for dose reduction was used. TECHNIQUE: Helical acquisition of images was performed from the lung bases through the pelvis. CONTRAST: Performed without Oral Contrast and with IV Contrast, patient injected with 100 mL of Isovue 300. FINDINGS: LUNG BASES: Normal. LIVER: Fatty liver. BILIARY SYSTEM: Hydropic gallbladder. There is intrahepatic and extrahepatic biliary ductal dilatatio n redemonstrated. There is abrupt cut off of the distal common bile duct near the hilum. PANCREAS: There is a 0.9 x 1.5 x 1.4 cm hypodense lesion at the uncinate process. The upstream pancre as is normal. SPLEEN: Normal. ADRENALS: Normal. KIDNEYS: Normal. BOWEL: No evidence of bowel obstruction. The proximal sigmoid colon demonstrates a 5.5 cm length seg ment of circumferential wall thickening, and a segment of bowel which is well-distended. There is no significant pericolic inflammatory stranding. Colonic diverticulosis. No acute diverticulitis. Normal appendix. PERITONEUM: No pneumoperitoneum. No free fluid. LYMPH NODES: No lymphadenopathy. PELVIS: Status post hysterectomy. Normal urinary bladder. VASCULATURE: No abdominal aortic aneurysm. MUSCULOSKELETAL: Degenerative changes at L5-S1. IMPRESSION: 1. Gallbladder hydrops. There is intrahepatic and extrahepatic biliary ductal dilatation. Abrupt cut off of the distal common bile duct near the hilum may be due to stricture, mass, or nonvisualized ch oledocholithiasis. MRI abdomen MRCP with and without contrast is again recommended. 2. Pancreatic uncinate process 0.9 x 1.5 x 1.4 cm hypodense lesion is indeterminate. It could be fur ther evaluated on MRI.
[2021-04-02] MEDS ORDERED: NALOXONE 0.4 MG/ML 1 ML VIAL IV PRN (20:37)
[2021-04-02] MEDS: SODIUM CHLORIDE 0.9% 1,000 ML IV SCH (22:51)
[2021-04-02] MEDS: LORazepam 0.5 MG TAB PO PRN (23:11)
[2021-04-03] MEDS: POTASSIUM CHLORIDE 10 MEQ in WATER FOR INJECTION 1 100ML.BAG IVPB SCH ×3 (00:02→02:36)
[2021-04-03 04:46] LABS: Hepatitis A Antibody IgM Non-Reactive (Non-Reactive); Hepatitis B Core IgM Non-Reactive (Non-Reactive); Hepatitis B Surface Antigen Non-Reactive (Non-Reactive); Hepatitis C IgG Antibody Non-Reactive (Non-Reactive)
[2021-04-03] MEDS ORDERED: traMADol 50 MG TAB PO PRN (07:18)
[2021-04-03] MEDS ORDERED: ALBUTEROL NEBULIZED 2.5 MG/3 ML INHALATION PRN (07:18)
[2021-04-03] MEDS ORDERED: traZODone HCL 50 MG TAB PO PRN (07:18)
[2021-04-03] MEDS ORDERED: HEPARIN SODIUM,PORCINE/PF 5,000 UNIT/0.5 ML SYRINGE SQ SCH (09:00)
[2021-04-03] MEDS ORDERED: VENLAFAXINE HCL ER 150 MG CAP PO SCH (09:00)
[2021-04-03] MEDS ORDERED: FAMOTIDINE 20 MG/2 ML VIAL IV SCH (09:00)
[2021-04-03 09:07] LABS: ALT 171 U/L (4-34); AST 220 U/L (14-36); African American GFR (CKD) >90 (>60 ml/min/1.73 sqM); Albumin 4.1 g/dL (3.5-5.0); Albumin/Globulin Ratio 1.4; Alkaline Phosphatase 727 U/L (38-126); Anion Gap 15 mmol/L; Bilirubin, Conjugated 5.2 mg/dL (0.0-0.3); Bilirubin,Unconjugated 1.5 mg/dL (0.0-1.1); Blood Urea Nitrogen 10 mg/dL (7-17); Calcium 9.6 mg/dL (8.4-10.2); Carbon Dioxide 26 mmol/L (22-30); Chloride 95 mmol/L (98-107); Globulin 2.9 g/dL; Glucose 118 mg/dL (74-99); Non-African American GFR(CKD) >90 (>60 ml/min/1.73 sqM); Potassium 4.2 mmol/L (3.5-5.1); Sodium 136 mmol/L (137-145); Total Bilirubin 9.8 mg/dL (0.2-1.3)
[2021-04-03 09:21] LABS: Basophils % (A) 0 %; Eosinophils # (A) 0.1 k/uL (0-0.7); Eosinophils % (A) 1 %; HCT 36.7 % (34.0-46.0); HGB 12.3 gm/dL (11.4-16.0); Lymphocytes # (A) 1.1 k/uL (1.0-4.8); Lymphocytes % (A) 15 %; MCH 36.8 pg (25.0-35.0); MCHC 33.6 g/dL (31.0-37.0); MCV 109.6 fL (80.0-100.0); Macrocytosis Marked; Mean Platelet Volume 7.8; Monocytes # (A) 0.4 k/uL (0-1.0); Monocytes % (A) 5 %; Neutrophils # (A) 5.7 k/uL (1.3-7.7); Neutrophils % (A) 76 %; Platelet Count 328 k/uL (150-450); RBC 3.35 m/uL (3.80-5.40); RDW 15.1 % (11.5-15.5); WBC 7.6 k/uL (3.8-10.6)
[2021-04-03] MEDS ORDERED: ALPRAZolam 0.25 MG TAB PO STA (10:52)
[2021-04-03 11:32] LABS: Stomatocytes Present
[2021-04-03] MEDS ORDERED: LORazepam 2 MG/ML INJ IV PRN (11:43)
--- NOTE | 2021-04-03 11:47 | P.HPIM ---
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 Patient had some poor appetite for 1 week , no significant abdominal pain. At baseline Shahrira and she is she has bowel movement however she feels tired She denies chest pain or dyspnea. No fever Denies smoking, she drinks alcohol every day but she quit about 20 week ago. Illicit drugs. She has history of depression and her depressive symptoms controlled on medication. No suicidal or homicidal ideation Vital signs stable unremarkable cbc, inr basic metabolic panel showing low sodium of 131, low potassium of 2.8, corrected to 4.0, creatinine normal 0.6. Elevated liver enzymes of AST at 262 and ALT 179 with increased bilirubin at 11.4. Hepatitis panel is negative CT of the abdomen and pelvis: Intrahepatic and extrahepatic biliary duct dilatation with abrupt cutoff of the distal common bile duct at the hilum may be due to stricture, mass or visualizecholedocholithiasisandrecommendedMRCP Pancreatic uncinate process 0.9x1.5x1.4cm Proximal sigmoid colon on 5.5 cm length segment of circumferential wall thickening. Differential includes neoplasm and recommended colonoscopy Gallbladder ultrasound: Pancreatic head mass 2.8 cm. Bile sludge but no acute cholecystitis. Dilated common bile duct In the emergency room she received normal saline at 75 mL/h and Zofran. MR of abdomen with and without contrast was ordered GI team were consulted and emergency room. They evaluated the patient and or dered MRI however they recommended transferring the patient to tertiary care center for higher level of care Review of Systems CONSTITUTIONAL: No fever, no malaise, no fatigue. HEENT: No recent visual problems or hearing problems. Denied any sore throat. CARDIOVASCULAR: No orthopnea, PND, no palpitations, no syncope. PULMONARY: No shortness of breath, no cough, no hemoptysis. GASTROINTESTINAL: No diarrhea, no nausea, no vomiting, no abdominal pain. Normoactive bowel sounds. NEUROLOGICAL: No headaches, no weakness, no numbness. HEMATOLOGICAL: Denies any bleeding or petechiae. GENITOURINARY: Denies any burning micturition, frequency, or urgency. MUSCULOSKELETAL/RHEUMATOLOGICAL: Denies any joint pain, swelling, or any muscle pain. ENDOCRINE: Denies any polyuria or polydipsia. Past Medical History Past Medical History: Hypertension, Musculoskeletal Disorder Additional Past Medical History / Comment(s): unnamed autoimmune disorder- elevated WENDY, elevated liver enzymes in past, seasonal allergies, cervical degenerative disc disease-has left shoulder pain History of Any Multi-Drug Resistant Organisms: None Reported Past Surgical History: Hernia Repair, Hysterectomy Additional Past Surgical History / Comment(s): lumbar pain procedures Past Anesthesia/Blood Transfusion Reactions: Postoperative Nausea & Vomiting (PONV) Past Psychological History: Anxiety, Depression Smoking Status: Never smoker Past Alcohol Use History: Heavy Past Drug Use History: None Reported - Past Family History Mother Family Medical History: No Reported History Medications and Allergies Home Medications Medication Instructions Recorded Confirmed Type lisinopriL [Zestril] 20 mg PO DAILY 08/26/17 04/02/21 History ALPRAZolam [Xanax] 0.25 tab PO DAILY PRN 01/22/21 04/02/21 History Albuterol Inhaler [Ventolin Hfa 2 puff INHALATION RT-QID PRN 01/22/21 04/02/21 History Inhaler] Cyclobenzaprine [Flexeril] 10 mg PO DAILY PRN 01/22/21 04/02/21 History amLODIPine [Norvasc] 5 mg PO DAILY 01/22/21 04/02/21 History hydroCHLOROthiazide [Hydrodiuril] 12.5 mg PO DAILY 01/22/21 04/02/21 History traMADol HCL [Ultram] 50 mg PO Q6HR PRN 01/22/21 04/02/21 History Meloxicam 15 mg PO DAILY PRN 04/02/21 04/02/21 History Venlafaxine HCl [Effexor XR] 150 mg PO DAILY 04/02/21 04/02/21 History traZODone HCL [Desyrel] 50 mg PO HS PRN 04/02/21 04/02/21 History Allergies Allergy/AdvReac Type Severity Reaction Status Date / Time ciprofloxacin [From Cipro] Allergy Rash/Hives Verified 04/02/21 17:19 erythromycin base Allergy Rash/Hives Verified 04/02/21 17:19 [From Erythrocin] latex Allergy Rash/Hives Verified 04/02/21 17:19 oseltamivir [From Tamiflu] Allergy Rash/Hives Verified 04/02/21 17:19 Penicillins Allergy Rash/Hives Verified 04/02/21 17:19 sulfamethoxazole Allergy Rash/Hives Verified 04/02/21 17:19 [From Bactrim] trimethoprim [From Bactrim] Allergy Rash/Hives Verified 04/02/21 17:19 Physical Exam Vitals: Vital Signs Temp Pulse Pulse Resp BP BP Pulse Ox 04/03/21 04:49 98.4 F 82 18 100/65 95 04/02/21 21:55 98.7 F 89 18 114/75 96 04/02/21 21:15 97.6 F 90 18 106/66 97 04/02/21 19:57 94 18 105/68 95 04/02/21 19:04 90 18 116/85 97 04/02/21 17:32 86 18 115/83 98 04/02/21 15:19 97.8 F 89 18 130/83 99 Intake and Output 04/02/21 04/03/21 04/03/21 22:59 06:59 14:59 Intake Total 350 Balance 350 Intake: Oral 350 Other: Voiding Method Toilet # Voids 1 Weight 83.007 kg GENERAL: The patient is alert and oriented x3, not in any acute distress. Well developed, well nourished. HEENT: Pupils are round and equally reacting to light. EOMI. No scleral icterus. No conjunctival pallor. Normocephalic, atraumatic. No pharyngeal erythema. No thyromegaly. CARDIOVASCULAR: S1 and S2 present. No murmurs, rubs, or gallops. PULMONARY: Chest is clear to auscultation, no wheezing or crackles. ABDOMEN: Soft, nontender, nondistended, normoactive bowel sounds. No palpable organomegaly. MUSCULOSKELETAL: No joint swelling or deformity. EXTREMITIES: No cyanosis, clubbing, or pedal edema. NEUROLOGICAL: Gross neurological examination did not reveal any focal deficits. SKIN: No rashes. No petechiae Results CBC & Chem 7: 04/03/21 08:29 04/03/21 08:29 Labs: Abnormal Lab Results - Last 24 Hours (Table) 04/02/21 04/02/21 04/02/21 Range/Units 16:31 16:31 16:32 RBC 3.70 L (3.80-5.40) m/uL MCV 109.9 H (80.0-100.0) fL MCH 36.7 H (25.0-35.0) pg Macrocytosis Marked A PT 12.3 H (9.0-12.0) sec INR 1.2 H (<1.2) Sodium 131 L (137-145) mmol/L Potassium 2.8 L (3.5-5.1) mmol/L Chloride 87 L (98-107) mmol/L Glucose 112 H (74-99) mg/dL Total Bilirubin 11.4 H (0.2-1.3) mg/dL AST 262 H (14-36) U/L ALT 197 H (4-34) U/L Alkaline Phosphatase 821 H (38-126) U/L Thrombosis Risk Factor Assmnt - Choose All That Apply Any of the Below Risk Factors Present?: Yes Each Factor Represents 1 point: Age 41-60 years, Obesity (BMI >25) Other Risk Factors: No Other congenital or acquired thrombophilia - If yes, enter type in comment: No Thrombosis Risk Factor Assessment Total Risk Factor Score: 2 Thrombosis Risk Factor Assessment Level: Low Risk Assessment and Plan Assessment: Possible pancreatic mass 0.9 x 1.5 x 1.4 cm Elevated liver enzymes and bilirubin/jaundice with dilated intrahepatic and extrahepatic bile duct Sigmoid colon thickening by 5.5 cm in length questionable pancreatic head mass 2.8 cm, gallbladder sludge but no acute cholecystitis. Common bile duct dilated Alcohol dependent at risk of alcohol withdrawal hypertension History of exactly and depression, not an active issue claustrophobia Plan: This is a pleasant 45 years old female who presents with pancreatic mass, jau ndice and sigmoid colon thickening Continue with IV fluids and symptomatic treatment Follow-up results of MRCP Follow-up recommendation by GI team Hold antihypertensive medication as blood pressure is borderline Labs and medication were reviewed.. Continue same treatment. Continue with symptomatic treatment. Resume home medication. Monitor lytes and vitals. DVT and GI prophylaxis. Further recommendations depends on the clinical course of the patient DVT prophylaxis: Subcutaneous heparin GI Prophylaxis: Pepcid PT/OT: Pending Prognosis is guarded
--- NOTE | 2021-04-03 12:22 | P.CONS ---
History of Present Illness - Reason for Consult Consult date: 04/03/21 Jaundice, pancreatic mass Requesting physician: Remy E Sheet - Chief Complaint Jaundice - History of Present Illness This a pleasant 45-year-old female who was admitted to the hospital with jaundice. Patient states she's been noticing that she's been getting yellow in her eyes up and getting yellow for the last 1-2 weeks. She was at work yesterday and a colleague said she needed to have evaluation and she came to the emergency department. He has a past medical history of hypertension, chronic back pain with cervical degenerative disc disease, fatty liver, and history of alcoholism. Patient states she drinks 2-3 with skin: A day more on the weekend, for the last at least 10 years. States she was told several years ago that she had fatty liver, and this runs in her family. She denies any previous gallbladder disease. Denies any previous pancreatitis. No new medications. On admission she was noted to have WBC 9, hemoglobin 13, hematocrit 40, platelet count 374,000, INR 1.2, total bilirubin 11.4, alkaline phosphatase 821, AST 262, ALT 197, acute hepatitis panel negative. CEA and CA 19 pending. Ultrasound of the gallbladder shows questionable hypoechoic mass in the pancreatic head measuring 2.8 cm. Mild to moderate gallbladder sludge. No acute cholecystitis. Common bile duct dilated. Recommend MRI MRCP with and without contrast to evaluate common bile duct dilation and possible pancreatic head mass. CT of the abdomen and pelvis show gallbladder hydrops. Intrahepatic and extrahepatic biliary ductal dilation. Abrupt cutoff of the distal common bile duct near the hilum may be due to stricture, mass, or nonvisualized choledochal lithiasis. MRI of the abdomen MRCP with and without contrast is again recommended. Pancreatic process 0.9 x 1.5 x 1.4 cm hypodense lesion is indeterminate. Could be further evaluated on MRI. Proximal sigmoid colon 5.5 cm length segment of circumferential wall thickening. Differential includes neoplasm. Recommend correlation with colonoscopy. A shunt denies any abdominal pain, nausea, or vomiting. States that she was supposed to follow-up with gastroenterology in July for a CT of the abdomen that showed diverticulosis with sigmoid wall thickening however patient never followed up. She does state that she has 3-4 loose bowel movements a day with nonbloody. Review of Systems REVIEW OF SYSTEMS: CARDIOPULMONARY: No chest pain or shortness of breath. Gastrointestinal: No nausea or vomiting. No nausea or vomiting. No hematemesis, coffee-ground emesis. No rectal bleeding, or melena. Frequent Loose bowels. GENITOURINARY: No dysuria or hematuria. MUSCULOSKELETAL: Reports normal range of motion., Joint pain. SKIN: No rashes. Jaundice. ENDOCRINE: No chills, fevers. No excessive weight gain or loss. No polydipsia or polyuria. PSYCHIATRIC: Unremarkable. NEUROLOGY: No change in mental status. Denies dizziness, headache. ENT: Vision unremarkable. CONSTITUTIONAL: No recent weight loss. No fever, chills, night sweats. Past Medical History Past Medical History: Hypertension, Musculoskeletal Disorder Additional Past Medical History / Comment(s): unnamed autoimmune disorder- elevated WENDY, elevated liver enzymes in past, seasonal allergies, cervical degenerative disc disease-has left shoulder pain History of Any Multi-Drug Resistant Organisms: None Reported Past Surgical History: Hernia Repair, Hysterectomy Additional Past Surgical History / Comment(s): lumbar pain procedures Past Anesthesia/Blood Transfusion Reactions: Postoperative Nausea & Vomiting (PONV) Past Psychological History: Anxiety, Depression Smoking Status: Never smoker Past Alcohol Use History: Heavy Past Drug Use History: None Reported - Past Family History Mother Family Medical History: No Reported History Medications and Allergies Home Medications Medication Instructions Recorded Confirmed Type lisinopriL [Zestril] 20 mg PO DAILY 08/26/17 04/02/21 History ALPRAZolam [Xanax] 0.25 tab PO DAILY PRN 01/22/21 04/02/21 History Albuterol Inhaler [Ventolin Hfa 2 puff INHALATION RT-QID PRN 01/22/21 04/02/21 History Inhaler] Cyclobenzaprine [Flexeril] 10 mg PO DAILY PRN 01/22/21 04/02/21 History amLODIPine [Norvasc] 5 mg PO DAILY 01/22/21 04/02/21 History hydroCHLOROthiazide [Hydrodiuril] 12.5 mg PO DAILY 01/22/21 04/02/21 History traMADol HCL [Ultram] 50 mg PO Q6HR PRN 01/22/21 04/02/21 History Meloxicam 15 mg PO DAILY PRN 04/02/21 04/02/21 History Venlafaxine HCl [Effexor XR] 150 mg PO DAILY 04/02/21 04/02/21 History traZODone HCL [Desyrel] 50 mg PO HS PRN 04/02/21 04/02/21 History Allergies Allergy/AdvReac Type Severity Reaction Status Date / Time ciprofloxacin [From Cipro] Allergy Rash/Hives Verified 04/02/21 17:19 erythromycin base Allergy Rash/Hives Verified 04/02/21 17:19 [From Erythrocin] latex Allergy Rash/Hives Verified 04/02/21 17:19 oseltamivir [From Tamiflu] Allergy Rash/Hives Verified 04/02/21 17:19 Penicillins Allergy Rash/Hives Verified 04/02/21 17:19 sulfamethoxazole Allergy Rash/Hives Verified 04/02/21 17:19 [From Bactrim] trimethoprim [From Bactrim] Allergy Rash/Hives Verified 04/02/21 17:19 Physical Exam Vitals: Vital Signs Temp Pulse Pulse Resp BP BP Pulse Ox 04/03/21 08:13 106/68 04/03/21 08:00 82 18 04/03/21 04:49 98.4 F 82 18 100/65 95 04/02/21 21:55 98.7 F 89 18 114/75 96 04/02/21 21:15 97.6 F 90 18 106/66 97 04/02/21 19:57 94 18 105/68 95 04/02/21 19:04 90 18 116/85 97 04/02/21 17:32 86 18 115/83 98 04/02/21 15:19 97.8 F 89 18 130/83 99 Intake and Output 04/02/21 04/03/21 04/03/21 22:59 06:59 14:59 Intake Total 350 Balance 350 Intake: Oral 350 Other: Voiding Method Toilet Toilet # Voids 1 Weight 83.007 kg General appearance: The patient is alert, oriented, appears in no acute distress. HET: Head is normocephalic and atraumatic. Conjunctiva pink. Sclera icterus. Neck: Supple without lymphadenopathy. Trachea midline. Heart: S1 S2. Regular rate and rhythm. Lungs: Clear to auscultation. Abdomen: Soft, tender, nondistended with bowel sounds. No guarding or rigidity. Skin: No rashes. Jaundice. Extremities: Normal skin color and turgor. No pedal edema. Neurological: No focal deficits. Alert and oriented 3.. Results CBC & Chem 7: 04/03/21 08:29 04/03/21 08:29 Labs: Abnormal Lab Results - Last 24 Hours (Table) 04/02/21 04/02/21 04/02/21 Range/Units 16:31 16:31 16:32 RBC 3.70 L (3.80-5.40) m/uL MCV 109.9 H (80.0-100.0) fL MCH 36.7 H (25.0-35.0) pg Macrocytosis Marked A PT 12.3 H (9.0-12.0) sec INR 1.2 H (<1.2) Sodium 131 L (137-145) mmol/L Potassium 2.8 L (3.5-5.1) mmol/L Chloride 87 L (98-107) mmol/L Creatinine (0.52-1.04) mg/dL Glucose 112 H (74-99) mg/dL Total Bilirubin 11.4 H (0.2-1.3) mg/dL Conjugated Bilirubin (0.0-0.3) mg/dL Unconjugated Bilirubin (0.0-1.1) mg/dL AST 262 H (14-36) U/L ALT 197 H (4-34) U/L Alkaline Phosphatase 821 H (38-126) U/L 04/03/21 04/03/21 Range/Units 08:29 08:29 RBC 3.35 L (3.80-5.40) m/uL MCV 109.6 H (80.0-100.0) fL MCH 36.8 H (25.0-35.0) pg Macrocytosis Marked A PT (9.0-12.0) sec INR (<1.2) Sodium 136 L (137-145) mmol/L Potassium (3.5-5.1) mmol/L Chloride 95 L (98-107) mmol/L Creatinine 0.49 L (0.52-1.04) mg/dL Glucose 118 H (74-99) mg/dL Total Bilirubin 9.8 H (0.2-1.3) mg/dL Conjugated Bilirubin 5.2 H (0.0-0.3) mg/dL Unconjugated Bilirubin 1.5 H (0.0-1.1) mg/dL AST 220 H (14-36) U/L ALT 171 H (4-34) U/L Alkaline Phosphatase 727 H (38-126) U/L Comments: Ultrasound of the gallbladder shows questionable hypoechoic mass in the pancreatic head measuring 2.8 cm. Mild to moderate gallbladder sludge. No acute cholecystitis. Common bile duct dilated. Recommend MRI MRCP with and without contrast to evaluate common bile duct dilation and possible pancreatic head mass. CT of the abdomen and pelvis show gallbladder hydrops. Intrahepatic and extrahepatic biliary ductal dilation. Abrupt cutoff of the distal common bile duct near the hilum may be due to stricture, mass, or nonvisualized choledochal lithiasis. MRI of the abdomen MRCP with and without contrast is again recommended. Pancreatic process 0.9 x 1.5 x 1.4 cm hypodense lesion is indeterminate. Could be further evaluated on MRI. Proximal sigmoid colon 5.5 cm length segment of circumferential wall thickening. Differential includes neoplasm. Recommend correlation with colonoscopy. Assessment and Plan (1) Painless jaundice Narrative/Plan: Patient is 45-year-old female who presented to the emergency department yesterday for yellowing of skin. She noticed that she started having yellowing of skin 1-2 weeks ago however did not act on it. Yesterday at work a calmly told her she should have evaluation because her eyes were really yellow. She does have a history of alcohol abuse and drinks 2-3 skin color looks daily, more on the weekend. States when she was younger she drank quite heavily. She's been drinking at least 10 years. Patient also states she has a history of fatty liver which was diagnosed several years ago. She states she always has some mild elevation in her LFTs. She denies any history of gallbladder disease, p ancreatitis, no abdominal pain, nausea, or vomiting. Initial labs showed elevation of total bilirubin is 11.4, alkaline phosphatase 821, AST 262, ALT 197. WBC 9, hemoglobin 13, hematocrit 40, platelet count 314,000, INR 1.2. She had a hepatitis panel which was nonreactive. Ultrasound of the gallbladder showed small hypoechoic mass in the pancreatic head measuring 2.8 cm. Mild to moderate gallbladder sludge. No acute cholecystitis. Common bile duct dilated. Recommend MRI MRCP with and without contrast for further evaluation. CT of the abdomen shows gallbladder hydrops intrahepatic and extrahepatic biliary ductal dilation. Upper cutoff of the distal common bile duct near the hilum may be due to stricture'mass, or nonvisualized choledocholithiasis. MRI abdomen MRCP with and without contrast again recommended. Pancreatic ucinate process 0.9 x 1.5 x 1.4 cm hypodense lesion is indeterminate. Could be further evaluated on MRI. Proximal sigmoid colon 5.5 cm in length segment of circum-pharyngeal wall thickening. Differential includes neoplasm. Recommend correlate with colonos copy. Current Visit: Yes Status: Acute Code(s): R17 - UNSPECIFIED JAUNDICE SNOMED Code(s): 43655459 (2) Pancreatic abnormality Current Visit: Yes Status: Acute Code(s): Q45.3 - OTH CONGENITAL MALFO RMATIONS OF PANCREAS AND PANCREATIC DUCT SNOMED Code(s): 9440038 (3) Transaminitis Current Visit: Yes Status: Acute Code(s): R74.01 - ELEVATION OF LEVELS OF LIVER TRANSAMINASE LEVELS SNOMED Code(s): 125339605 Plan: 1. Continue symptomatic and supportive care 2. Repeat daily CMP, lipase 3. Await CA-19 and CEA results 4. MRI canceled 5. Recommend transfer to [facility] or other tertiary center with ced perez endoscopist, further evaluation with EUS/ERCP Thank you for this consultation, we will continue to follow. Dr. Manjula Gonzales I agree with the dictator's note, documented as a scribe by Kayleen Knott.
[2021-04-03] MEDS: SODIUM CHLORIDE 0.9% 1,000 ML IV SCH ×2 (13:01→17:48)
[2021-04-03 14:13] VITALS: BP 117/71; PULSE 96; TEMP 98
[2021-04-03 15:14] LABS: Carcinoembryonic Antigen 0.7 ng/mL (0.0-4.9)
[2021-04-03] MEDS: LORazepam 0.5 MG TAB PO PRN (17:48)
== END 2021-04-03 19:45 | disposition short-term general hospital, planned readmission (82) ==
LOC: EC 15:16 → 5NMEDONC 20:40 → INTOOBSV 20:40 → UNDODISIN 04-03 19:45
PROVIDERS: ADMIT Hospitalist; ATTEND Hospitalist
DX: R74.8 Abnormal levels of other serum enzymes (principal); R17 Unspecified jaundice; E80.6 Other disorders of bilirubin metabolism; R74.01 Elevation of levels of liver transaminase levels; K83.8 Other specified diseases of biliary tract; K82.1 Hydrops of gallbladder; L29.9 Pruritus, unspecified; I10 Essential (primary) hypertension; D89.89 Other specified disorders involving the immune mechanism, not elsewhere classified; J30.2 Other seasonal allergic rhinitis; M50.30 Other cervical disc degeneration, unspecified cervical region; F41.9 Anxiety disorder, unspecified; F32.9 Major depressive disorder, single episode, unspecified; E87.6 Hypokalemia; R63.0 Anorexia; E66.9 Obesity, unspecified; Z68.30 Body mass index [BMI] 30.0-30.9, adult; F10.20 Alcohol dependence, uncomplicated; F40.240 Claustrophobia; G89.29 Other chronic pain; M54.9 Dorsalgia, unspecified; Z20.822 Contact with and (suspected) exposure to COVID-19; Z91.19 Patient's noncompliance with other medical treatment and regimen; Z79.899 Other long term (current) drug therapy; Z88.0 Allergy status to penicillin; Z88.2 Allergy status to sulfonamides; Z88.8 Allergy status to other drugs, medicaments and biological substances; Z88.1 Allergy status to other antibiotic agents; Z91.040 Latex allergy status; Z90.710 Acquired absence of both cervix and uterus; Z98.890 Other specified postprocedural states; Z87.19 Personal history of other diseases of the digestive system
CPT/HCPCS: 96366 ×3; 96372; 96375 ×2; 96365; 99285; 36415; 80053; 80048; 80076; 80074; 82378; 83735; 84132; 85025 ×2; 85610; 85730; 86301; 87635; 76705; 74177; G0378 ×2; J2405; J3480 ×2; Q9967; J1644; 96374

== ENCOUNTER 2021-04-17 20:00 | Emergency (ER) | payer BC, OTHER ==
--- NOTE | 2021-04-17 21:10 | ED ---
General Adult HPI - General Source: patient, RN notes reviewed Mode of arrival: ambulatory Limitations: no limitations <Daniel Meyers - Last Filed: 04/19/21 06:04> - History of Present Illness Onset/Timin -: hour(s) Location: abdomen Quality: aching Consistency: constant Improves with: none Worsens with: none Associated Symptoms: nausea/vomiting Treatments Prior to Arrival: none <Galileo Mack - Last Filed: 04/19/21 13:51> - General Stated complaint: ABD PAIN Time Seen by Provider: 04/17/21 21:08 - History of Present Illness Initial comments: This is a 45-year-old female presents emergency Department chief complaint of increasing abdominal pain. Patient diagnosed with pancreatic cancer 2 weeks ago. Patient was transferred down to [facility] in which she did have a stent placed patient states that she did have jaundice at that time. She states she's not had any pain throughout the last couple weeks was states the pain has been persistent for last 10-12 hours. Patient had increasing nausea, vomiting today. No reported fevers. Patient has seen a surgeon at [facility] in which they have discussed doing a Whipple procedure. Patient has appointment with Dr. Hoyt to discuss possible chemotherapy before after surgery. (Daniel Meyers) - Related Data Home Medications Medication Instructions Recorded Confirmed lisinopriL [Zestril] 20 mg PO DAILY 08/26/17 04/17/21 ALPRAZolam [Xanax] 0.25 tab PO DAILY PRN 01/22/21 04/17/21 Albuterol Inhaler [Ventolin Hfa 2 puff INHALATION RT-QID PRN 01/22/21 04/17/21 Inhaler] Cyclobenzaprine [Flexeril] 10 mg PO DAILY PRN 01/22/21 04/17/21 amLODIPine [Norvasc] 5 mg PO DAILY 01/22/21 04/17/21 traMADol HCL [Ultram] 50 mg PO Q6HR PRN 01/22/21 04/17/21 Meloxicam 15 mg PO DAILY PRN 04/02/21 04/17/21 Previous Rx's Medication Instructions Recorded HYDROcodone/APAP 5-325MG [[place] 1 tab PO Q4HR PRN 3 Days #18 tab 04/17/21 5-325] Ondansetron Odt [Zofran ODT] 4 mg PO Q8HR PRN #10 tab 04/17/21 Allergies Allergy/AdvReac Type Severity Reaction Status Date / Time ciprofloxacin [From Cipro] Allergy Rash/Hives Verified 04/17/21 21:55 erythromycin base Allergy Rash/Hives Verified 04/17/21 21:55 [From Erythrocin] latex Allergy Rash/Hives Verified 04/17/21 21:55 oseltamivir [From Tamiflu] Allergy Rash/Hives Verified 04/17/21 21:55 Penicillins Allergy Rash/Hives Verified 04/17/21 21:55 sulfamethoxazole Allergy Rash/Hives Verified 04/17/21 21:55 [From Bactrim] trimethoprim [From Bactrim] Allergy Rash/Hives Verified 04/17/21 21:55 Review of Systems ROS Other: All systems not noted in ROS Statement are negative. <Daniel Meyers - Last Filed: 04/19/21 06:04> ROS Other: All systems not noted in ROS Statement are negative. Constitutional: Denies: fever, chills Respiratory: Denies: cough, dyspnea Cardiovascular: Denies: chest pain, palpitations Gastrointestinal: Reports: abdominal pain, nausea, vomiting. Denies: diarrhea, constipation, melena, hematochezia Genitourinary: Denies: dysuria, frequency, hematuria Musculoskeletal: Denies: back pain Skin: Denies: rash Neurological: Denies: headache, weakness <Galileo Mack - Last Filed: 04/19/21 13:51> ROS Statement: Those systems with pertinent positive or pertinent negative responses have been documented in the HPI. Past Medical History Past Medical History: Hypertension, Musculoskeletal Disorder Additional Past Medical History / Comment(s): unnamed autoimmune disorder- elevated WENDY, elevated liver enzymes in past, seasonal allergies, cervical degenerative disc disease-has left shoulder pain History of Any Multi-Drug Resistant Organisms: None Reported Past Surgical History: Hernia Repair, Hysterectomy Additional Past Surgical History / Comment(s): lumbar pain procedures Past Anesthesia/Blood Transfusion Reactions: Postoperative Nausea & Vomiting (PONV) Past Psychological History: Anxiety, Depression Smoking Status: Never smoker Past Alcohol Use History: Heavy Past Drug Use History: None Reported - Past Family History Mother Family Medical History: No Reported History <Daniel Meyers - Last Filed: 04/19/21 06:04> General Exam General appearance: alert, in no apparent distress Head exam: Present: atraumatic, normocephalic Eye exam: Present: normal appearance. Absent: scleral icterus, conjunctival injection Respiratory exam: Present: normal lung sounds bilaterally. Absent: respiratory distress, wheezes, rales, rhonchi, stridor Cardiovascular Exam: Present: regular rate, normal rhythm, normal heart sounds. Absent: systolic murmur, diastolic murmur, rubs, gallop GI/Abdominal exam: Present: soft, tenderness (Right upper quadrant), normal bowel sounds. Absent: distended, guarding, rebound, rigid, mass, pulsatile mass, hernia Extremities exam: Present: normal inspection, normal capillary refill. Absent: pedal edema, calf tenderness Back exam: Present: normal inspection. Absent: CVA tenderness (R), CVA tenderness (L) Neurological exam: Present: alert Skin exam: Present: warm, dry, intact, normal color. Absent: rash <Galileo Mack - Last Filed: 04/19/21 13:51> Course Vital Signs 04/17/21 04/17/21 04/18/21 21:05 22:08 00:54 Temperature 98.2 F 98.3 F Pulse Rate 89 78 76 Respiratory 20 18 20 Rate Blood Pressure 156/92 174/98 143/90 O2 Sat by Pulse 98 100 98 Oximetry Medical Decision Making - Lab Data Result diagrams: 04/17/21 21:54 04/17/21 21:54 <Daniel Meyers - Last Filed: 04/19/21 06:04> - Lab Data Result diagrams: 04/17/21 21:54 04/17/21 21:54 <Galileo Mack - Last Filed: 04/19/21 13:51> - Medical Decision Making I saw this patient in conjunction with the physician assistant signal maintainer. I performed independent history and physical exam. Agree with case management. (Galileo Mack) - Lab Data Lab Results 04/17/21 04/17/21 04/17/21 Range/Units 21:54 21:54 21:54 WBC 11.3 H (3.8-10.6) k/uL RBC 3.20 L (3.80-5.40) m/uL Hgb 11.6 (11.4-16.0) gm/dL Hct 33.3 L (34.0-46.0) % MCV 103.9 H D (80.0-100.0) fL MCH 36.3 H (25.0-35.0) pg MCHC 34.9 (31.0-37.0) g/dL RDW 14.6 (11.5-15.5) % Plt Count 337 (150-450) k/uL MPV 6.8 Neutrophils % 83 % Lymphocytes % 10 % Monocytes % 3 % Eosinophils % 2 % Basophils % 0 % Neutrophils # 9.4 H (1.3-7.7) k/uL Lymphocytes # 1.2 (1.0-4.8) k/uL Monocytes # 0.3 (0-1.0) k/uL Eosinophils # 0.2 (0-0.7) k/uL Basophils # 0.0 (0-0.2) k/uL Macrocytosis Slight PT 10.6 (9.0-12.0) sec INR 1.0 (<1.2) APTT 21.4 L (22.0-30.0) sec Sodium (137-145) mmol/L Potassium (3.5-5.1) mmol/L Chloride (98-107) mmol/L Carbon Dioxide (22-30) mmol/L Anion Gap mmol/L BUN (7-17) mg/dL Creatinine (0.52-1.04) mg/dL Est GFR (CKD-EPI)AfAm (>60 ml/min/1.73 sqM) Est GFR (CKD-EPI)NonAf (>60 ml/min/1.73 sqM) Glucose (74-99) mg/dL Plasma Lactic Acid Guilherme (0.7-2.0) mmol/L Calcium (8.4-10.2) mg/dL Total Bilirubin (0.2-1.3) mg/dL AST (14-36) U/L ALT (4-34) U/L Alkaline Phosphatase (38-126) U/L Total Protein (6.3-8.2) g/dL Albumin (3.5-5.0) g/dL Amylase (30-110) U/L Lipase (23-300) U/L Urine Color Dark Yellow Urine Appearance Clear (Clear) Urine pH 6.0 (5.0-8.0) Ur Specific [place] 1.022 (1.001-1.035) Urine Protein Trace H (Negative) Urine Glucose (UA) Negative (Negative) Urine Ketones Negative (Negative) Urine Blood Negative (Negative) Urine Nitrite Negative (Negative) Urine Bilirubin 1+ H (Negative) Urine Urobilinogen 2.0 (<2.0) mg/dL Ur Leukocyte Esterase Negative (Negative) 04/17/21 04/17/21 Range/Units 21:54 21:54 WBC (3.8-10.6) k/uL RBC (3.80-5.40) m/uL Hgb (11.4-16.0) gm/dL Hct (34.0-46.0) % MCV (80.0-100.0) fL MCH (25.0-35.0) pg MCHC (31.0-37.0) g/dL RDW (11.5-15.5) % Plt Count (150-450) k/uL MPV Neutrophils % % Lymphocytes % % Monocytes % % Eosinophils % % Basophils % % Neutrophils # (1.3-7.7) k/uL Lymphocytes # (1.0-4.8) k/uL Monocytes # (0-1.0) k/uL Eosinophils # (0-0.7) k/uL Basophils # (0-0.2) k/uL Macrocytosis PT (9.0-12.0) sec INR (<1.2) APTT (22.0-30.0) sec Sodium 139 (137-145) mmol/L Potassium 3.5 (3.5-5.1) mmol/L Chloride 102 (98-107) mmol/L Carbon Dioxide 25 (22-30) mmol/L Anion Gap 12 mmol/L BUN 5 L (7-17) mg/dL Creatinine 0.41 L (0.52-1.04) mg/dL Est GFR (CKD-EPI)AfAm >90 (>60 ml/min/1.73 sqM) Est GFR (CKD-EPI)NonAf >90 (>60 ml/min/1.73 sqM) Glucose 122 H (74-99) mg/dL Plasma Lactic Acid Guilherme 1.9 (0.7-2.0) mmol/L Calcium 9.7 (8.4-10.2) mg/dL Total Bilirubin 3.6 H (0.2-1.3) mg/dL AST 149 H (14-36) U/L ALT 108 H (4-34) U/L Alkaline Phosphatase 354 H (38-126) U/L Total Protein 6.9 (6.3-8.2) g/dL Albumin 3.9 (3.5-5.0) g/dL Amylase 42 (30-110) U/L Lipase 81 (23-300) U/L Urine Color Urine Appearance (Clear) Urine pH (5.0-8.0) Ur Specific [place] (1.001-1.035) Urine Protein (Negative) Urine Glucose (UA) (Negative) Urine Ketones (Negative) Urine Blood (Negative) Urine Nitrite (Negative) Urine Bilirubin (Negative) Urine Urobilinogen (<2.0) mg/dL Ur Leukocyte Esterase (Negative) Disposition Is patient prescribed a controlled substance at d/c from ED?: Yes <Daniel Meyers - Last Filed: 04/19/21 06:04> Is patient prescribed a controlled substance at d/c from ED?: Yes When asked, does pt state using other controlled substances?: No If prescribed controlled substance>3 days was MAPS reviewed?: Prescribed <3 Days If opioid is for acute pain is fill amount 7 days or less?: Yes If Rx opioid, was Start Talking consent form obtained?: Yes <Galileo Mack - Last Filed: 04/19/21 13:51> Clinical Impression: Abdominal pain Disposition: HOME SELF-CARE Condition: Good Instructions (If sedation given, give patient instructions): Abdominal Pain (ED) Prescriptions: HYDROcodone/APAP 5-325MG [[place] 5-325] 1 tab PO Q4HR PRN 3 Days #18 tab PRN Reason: Pain Ondansetron Odt [Zofran ODT] 4 mg PO Q8HR PRN #10 tab PRN Reason: Nausea Referrals: Carlitos Rosas DO [Primary Care Provider] - 1-2 days
[2021-04-17] MEDS ORDERED: SODIUM CHLORIDE 0.9% 500 ML 500 ML IV STA (21:45)
[2021-04-17] MEDS ORDERED: HYDROmorphone 0.5 MG/0.5 ML SYRINGE IVP STA ×2 (21:45→23:40)
[2021-04-17] MEDS ORDERED: ONDANSETRON 4 MG/2 ML VIAL IVP STA (21:45)
[2021-04-17 22:26] LABS: Basophils % (A) 0 %; Eosinophils # (A) 0.2 k/uL (0-0.7); Eosinophils % (A) 2 %; HCT 33.3 % (34.0-46.0); HGB 11.6 gm/dL (11.4-16.0); Lymphocytes # (A) 1.2 k/uL (1.0-4.8); Lymphocytes % (A) 10 %; MCH 36.3 pg (25.0-35.0); MCHC 34.9 g/dL (31.0-37.0); MCV 103.9 fL (80.0-100.0); Macrocytosis Slight; Mean Platelet Volume 6.8; Monocytes # (A) 0.3 k/uL (0-1.0); Monocytes % (A) 3 %; Neutrophils # (A) 9.4 k/uL (1.3-7.7); Neutrophils % (A) 83 %; Platelet Count 337 k/uL (150-450); RDW 14.6 % (11.5-15.5); WBC 11.3 k/uL (3.8-10.6)
[2021-04-17 22:37] LABS: ALT 108 U/L (4-34); AST 149 U/L (14-36); African American GFR (CKD) >90 (>60 ml/min/1.73 sqM); Albumin 3.9 g/dL (3.5-5.0); Alkaline Phosphatase 354 U/L (38-126); Amylase 42 U/L (30-110); Anion Gap 12 mmol/L; Blood Urea Nitrogen 5 mg/dL (7-17); Calcium 9.7 mg/dL (8.4-10.2); Carbon Dioxide 25 mmol/L (22-30); Chloride 102 mmol/L (98-107); Glucose 122 mg/dL (74-99); Lipase 81 U/L (23-300); Non-African American GFR(CKD) >90 (>60 ml/min/1.73 sqM); Potassium 3.5 mmol/L (3.5-5.1); Sodium 139 mmol/L (137-145); Total Bilirubin 3.6 mg/dL (0.2-1.3); Total Protein 6.9 g/dL (6.3-8.2)
[2021-04-17 22:46] LABS: Partial Thromboplastin Time 21.4 sec (22.0-30.0); Prothrombin Time 10.6 sec (9.0-12.0)
[2021-04-18 00:15] LABS: Appearance,Urine Clear (Clear); Bilirubin,Urine 1+ (Negative); Blood,Urine Negative (Negative); Color,Urine Dark Yellow; Glucose,Urine (UA) Negative (Negative); Ketones,Urine Negative (Negative); Leukocyte Esterase,Urine Negative (Negative); Nitrite,Urine Negative (Negative); Protein,Urine Trace (Negative); Specific Gravity,Urine 1.022 (1.001-1.035)
[2021-04-18 00:57] VITALS: BP 143/90; PULSE 76; RESP 20; TEMP 98.3
== END 2021-04-18 00:57 | disposition home or self-care (01) ==
LOC: EC 20:00
DX: R10.11 Right upper quadrant pain (principal); I10 Essential (primary) hypertension; F32.9 Major depressive disorder, single episode, unspecified; F41.9 Anxiety disorder, unspecified; Z79.51 Long term (current) use of inhaled steroids; Z79.899 Other long term (current) drug therapy; Z88.0 Allergy status to penicillin; Z88.1 Allergy status to other antibiotic agents; Z88.8 Allergy status to other drugs, medicaments and biological substances
CPT/HCPCS: 36415; 80053; 82150; 83605; 83690; 85025; 85610; 85730; 81003; 96374; 96375; 96376; 96361; 99284; J2405; J1170

== ENCOUNTER 2021-05-19 11:27 | Day surgery (SDC) | payer BC, OTHER ==
[2021-05-16 09:46] VITALS: BMI 29.2
[~2021-05-19 11:27] MED LIST changes: +ACETAMINOPHEN TAB 500 MG TAB PO PRN; +HEPARIN SODIUM,PORCINE/PF 5,000 UNIT/0.5 ML SYRINGE SQ PRN; +Pre Op ABX Message 1 EACH MISC MISCELLANE ONE; +fentaNYL (PF) 50 MCG/ML 2 ML AMP IV PRN
[2021-05-19 12:12] VITALS: TEMP 97.9
[2021-05-19] MEDS ORDERED: ONDANSETRON 4 MG/2 ML VIAL ONE (12:40)
[2021-05-19] MEDS ORDERED: MIDAZOLAM 2 MG/2 ML VIAL IVP ONE (12:50)
--- NOTE | 2021-05-19 13:28 | P.GSHP ---
History of Present Illness H&P Date: 05/19/21 Chief Complaint: Pancreatic cancer This is a 45-year-old female who's recently diagnosed cancer. Patient rents today for Port-A-Cath insertion. Past Medical History Past Medical History: Cancer, GERD/Reflux, Hypertension, Musculoskeletal Disorder Additional Past Medical History / Comment(s): Current pancreatic cancer. Unnamed autoimmune disorder-elevated WENDY. Fatty liver, hx elevated liver enzymes, seasonal allergies, cervical degenerative disc disease-has left shoulder pain. History of Any Multi-Drug Resistant Organisms: None Reported Past Surgical History: Hernia Repair, Hysterectomy Additional Past Surgical History / Comment(s): Lumbar pain procedures, Whipple Procedure 04/30/21. Past Anesthesia/Blood Transfusion Reactions: Postoperative Nausea & Vomiting (PONV) Past Psychological History: Anxiety, Depression Smoking Status: Never smoker Past Alcohol Use History: None Reported Past Drug Use History: None Reported - Past Family History Mother Family Medical History: No Reported History Brother(s) Family Medical History: Cancer Additional Family Medical History / Comment(s): Testicular cancer. Medications and Allergies Home Medications Medication Instructions Recorded Confirmed Type lisinopriL [Zestril] 20 mg PO QAM 08/26/17 05/19/21 History ALPRAZolam [Xanax] 0.25 tab PO DAILY PRN 01/22/21 05/16/21 History Albuterol Inhaler [Ventolin Hfa 2 puff INHALATION RT-QID PRN 01/22/21 05/16/21 History Inhaler] Cyclobenzaprine [Flexeril] 10 mg PO DAILY PRN 01/22/21 05/16/21 History amLODIPine [Norvasc] 5 mg PO QAM 01/22/21 05/19/21 History traMADol HCL [Ultram] 50 mg PO Q6HR PRN 01/22/21 05/16/21 History HYDROcodone/APAP 5-325MG [[place] 1 tab PO Q4HR PRN 3 Days #18 tab 04/17/21 05/16/21 Rx 5-325] Ondansetron Odt [Zofran ODT] 4 mg PO Q8HR PRN #10 tab 04/17/21 05/16/21 Rx Omeprazole 20 mg PO QAM 05/16/21 05/19/21 History LORazepam [Ativan] 1 mg PO PRN 05/19/21 History Allergies Allergy/AdvReac Type Severity Reaction Status Date / Time ciprofloxacin [From Cipro] Allergy Rash/Hives Verified 05/19/21 12:19 erythromycin base Allergy Rash/Hives Verified 05/19/21 12:19 [From Erythrocin] latex Allergy Rash/Hives Verified 05/19/21 12:19 oseltamivir [From Tamiflu] Allergy Rash/Hives Verified 05/19/21 12:19 Penicillins Allergy Rash/Hives Verified 05/19/21 12:19 sulfamethoxazole Allergy Rash/Hives Verified 05/19/21 12:19 [From Bactrim] trimethoprim [From Bactrim] Allergy Rash/Hives Verified 05/19/21 12:19 Surgical - Exam Vital Signs Temp Pulse Resp BP Pulse Ox 97.9 F 106 H 16 112/76 98 05/19/21 12:10 05/19/21 12:10 05/19/21 12:10 05/19/21 12:10 05/19/21 12:10 - General well developed, well nourished, no distress - Eyes PERRL - ENT normal pinna - Neck no masses - Respiratory normal expansion - Cardiovascular Rhythm: regular - Abdomen Chevron incision Abdomen: soft, non tender Assessment and Plan Assessment: History of pancreatic cancer. We'll perform Port-A-Cath insertion.
[2021-05-19] MEDS ORDERED: fentaNYL (PF) 50 MCG/ML 2 ML AMP ONE (13:34)
[2021-05-19] MEDS ORDERED: MIDAZOLAM 2 MG/2 ML VIAL ONE (13:34)
[2021-05-19] MEDS ORDERED: PROPOFOL 10 MG/ML 20 ML VIAL IV ONE (13:34)
[2021-05-19] MEDS ORDERED: BUPIVACAINE (PF) 0.25% 30 ML VIAL SQ ONE ×2 (13:36)
[2021-05-19] MEDS ORDERED: SODIUM CHLORIDE 0.9% 100 ML with ceFAZolin 2,000 MG IV ONE ×2 (13:38)
[2021-05-19] MEDS ORDERED: LACTATED RINGERS 1,000 ML IV ONE (14:30)
--- NOTE | 2021-05-19 14:48 | P.OP ---
Date of Procedure: 05/19/21 Preoperative Diagnosis: Pancreatic cancer Postoperative Diagnosis: Pancreatic cancer Procedure(s) Performed: Insertion of left subclavian Port-A-Cath Anesthesia: MAC Surgeon: Yaya Laws Pathology: none sent Condition: stable Disposition: PACU Description of Procedure: MPROCEDURE: The patient was placed on the operating table in the supine position. She received MAC anesthetic. The [left chest was prepped and draped in the usual sterile fashion. The skin underneath the right clavicle was anesth etized with 1% Xylocaine and using Seldinger technique, the right subclavian vein was cannulized. The wire was placed through the needle and positioned under fluoroscopy. Next, the needle was removed and the port site was anesthetized with 1% Xylocaine. Skin was incised with #15 blade and port pocket was made using blunt and sharp dissection. Following this the catheter was attached to the sport and the port was flushed. The port was positioned into the pocket site and was secured with 3-0 Vicryl suture. The catheter was then brought out through the wire site and then the dilator sheath was placed over the wire and the dilator and the wire were removed. The catheter was placed through the sheath and the sheath was removed. The port was flushed with hep- lock solution. Skin was closed with interrupted 3-0 Vicryl sutures. Steri- Strips were applied. The patient tolerated the procedure well. The patient was sent to recovery room for chest x-ray after the procedure.
--- NOTE | 2021-05-19 14:59 | FL ---
EXAMINATION TYPE: FL guided central line placemt DATE OF EXAM: 05/19/2021 CLINICAL HISTORY: Fluoroscopy TECHNIQUE: Fluoroscopy. COMPARISON: None. FINDINGS: Fluoroscopic guidance was provided during procedure. IMPRESSION: As Above.
[2021-05-19 15:12] VITALS: RESP 20
--- NOTE | 2021-05-19 15:23 | XR ---
EXAMINATION TYPE: XR chest 1V portable DATE OF EXAM: 05/19/2021 COMPARISON: Chest x-ray 07/22/2020 HISTORY: Line placement TECHNIQUE: Single frontal view of the chest is obtained. FINDINGS: There is been interval placement of a port in the left pectoral region, catheter courses v ia left subclavian approach, distal tip is overlying superior vena cava. No evident pneumothorax. Exa m is expiratory, patchy basilar density is noted. Prominence of the heart size may be technical. IMPRESSION: No evident complication status post port placement. Distal tip may abut the lateral efrain in of the superior vena cava. There may be basilar atelectasis. Expiratory rotated exam.
[2021-05-19 15:36] VITALS: BP 115/70; PULSE 88
== END 2021-05-19 15:56 | disposition home or self-care (01) ==
LOC: OR 11:27
PROVIDERS: ATTEND Surgery
DX: C25.9 Malignant neoplasm of pancreas, unspecified (principal); K21.9 Gastro-esophageal reflux disease without esophagitis; I10 Essential (primary) hypertension; D89.89 Other specified disorders involving the immune mechanism, not elsewhere classified; K76.0 Fatty (change of) liver, not elsewhere classified; R74.8 Abnormal levels of other serum enzymes; J45.909 Unspecified asthma, uncomplicated; M19.90 Unspecified osteoarthritis, unspecified site; Z98.890 Other specified postprocedural states; F41.9 Anxiety disorder, unspecified; F32.9 Major depressive disorder, single episode, unspecified; Z90.49 Acquired absence of other specified parts of digestive tract; Z90.710 Acquired absence of both cervix and uterus; Z80.8 Family history of malignant neoplasm of other organs or systems; Z80.42 Family history of malignant neoplasm of prostate; Z83.1 Family history of other infectious and parasitic diseases; Z84.89 Family history of other specified conditions; Z80.43 Family history of malignant neoplasm of testis; Z79.899 Other long term (current) drug therapy; Z88.0 Allergy status to penicillin; Z88.2 Allergy status to sulfonamides; Z88.8 Allergy status to other drugs, medicaments and biological substances; Z88.1 Allergy status to other antibiotic agents; Z91.040 Latex allergy status
CPT/HCPCS: 77001; 71045; 36561; C1788; J2250; J2405; J0690; J3010; J1642; J2704; J1644

== ENCOUNTER → 2021-05-30 | Outpatient (CLI) | payer OTHER ==
--- NOTE | 2021-06-02 08:56 | PE ---
EXAMINATION TYPE: PET CT fusion skull to thigh DATE OF EXAM: 05/30/2021 COMPARISON: Most recent CT April 02, 2021 and older CTs HISTORY: Pancreatic cancer diagnosed April 12, 2021 had surgery April 30, 2021 TECHNIQUE: Following the intravenous administration of 9.31 mCi of F-18 FDG, whole body images are p erformed from the skull base to the midthigh. Images are reviewed on the computer in the coronal, ax ial, and sagittal planes. Reconstructed rotating images are created on independent workstation and r eviewed on the computer. A localization and attenuation correction CT is performed in conjunction w ith the PET scan. Blood glucose level equals 104. SCAN: Subsequent Scan FINDINGS: SKULL BASE AND NECK: No areas of abnormal hypermetabolic uptake CHEST, MEDIASTINUM, AND HILAR REGION: No areas of abnormal hypermetabolic uptake. ABDOMEN AND PELVIS: Interval surgical changes from Whipple procedure. Nonspecific hypermetabolic fo cus in the cecum axial image 182 with max SUV 6.47 could reflect villous polyp. Correlate with colono scopy advised. Excretion. No additional areas of abnormal hypermetabolic uptake. OSSEOUS STRUCTURES: No additional areas of abnormal hypermetabolic uptake. OTHER CT: There is left subclavian central venous catheter terminating in SVC. Low lung volumes and c ardiomegaly is present. Ascending aorta measures up to 3.5 cm in diameter. Linear sutures in the stomach and duodenum. Additional surgical clips and sutures are present. [place] ing anterior abdominal wall scarring. Incidental normal-appearing appendix. Incidental sigmoid coloni c diverticula. Uterus is surgically absent. IMPRESSION: Postsurgical changes as detailed above. Nonspecific focus of hypermetabolic uptake in the cecum warrants colonoscopy follow-up if has not been performed recently otherwise no suspicious hype rmetabolic uptake to suggest residual or metastatic disease.
== END | disposition home or self-care (01) ==
LOC: RADPETMAIN 08:02
PROVIDERS: ATTEND Internal Medicine Hematology & Oncology
DX: C25.0 Malignant neoplasm of head of pancreas (principal); Z85.07 Personal history of malignant neoplasm of pancreas
CPT/HCPCS: 78815; A9552

== ENCOUNTER → 2021-07-28 | Outpatient (CLI) | payer OTHER ==
[2021-07-28 11:43] LABS: African American GFR (CKD) >90 (>60 ml/min/1.73 sqM); Blood Urea Nitrogen 8 mg/dL (7-17); Non-African American GFR(CKD) >90 (>60 ml/min/1.73 sqM)
--- NOTE | 2021-07-28 14:33 | CT ---
EXAMINATION TYPE: CT ChestAbdPelvis w con DATE OF EXAM: 07/28/2021 COMPARISON: 05/30/2021, 04/02/2021 HISTORY: 45-year-old female Z03.89, C25.0, Pancreatic cancer, suspected mets TECHNIQUE: Contiguous axial scanning of the chest, abdomen, and pelvis performed with IV Contrast, pa tient injected with 100 mL of Isovue 300. Delayed images through the kidneys were obtained. Coronal/s agittal reconstructions performed. CT DLP: 899.7 mGycm Automated exposure control for dose reduction was used. FINDINGS: CHEST: The heart is normal size without pericardial effusion. Aorta normal caliber with low-lying configuration to the aortic arch. Left anterior chest wall injection port with catheter tip at the mid SVC. No thoracic lymphadenopathy by CT size criteria. Scattered areas of atelectasis in the lower lungs. Tiny 3 mm right mid lung pulmonary nodule, axial image 31. A couple tiny 3 mm left lower lobe pulmonary nodules, axial image 32 and 34. Not clearly seen previously. No pleural effusion. ABDOMEN: Liver is enlarged measuring 23.2 cm with diffuse low-attenuation of focal fatty sparing along the gal lbladder fossa. Portal venous system is patent. Post surgical change of Whipple procedure. Prominent strandy density relating to postoperative change . Metallic stent along the hepaticojejunostomy. Large 1.9 cm arron hepatic lymph node and adjacent 1.0 cm lymph node should be reassessed at follow-u p. Adjacent 7 mm aortocaval lymph node, axial image 64 and a couple borderline-sized 9 mm peripancreatic lymph nodes, axial image 68 and 78 should be reassessed at follow-up. Gallbladder surgically absent. Adrenal glands, kidneys, and residual pancreatic tail show no gross ab normal. Splenomegaly at 15.0 cm versus 13.7 cm, previously. No dilated small bowel, free fluid, or free air. Normal appendix. Oral contrast progressed to the upper descending colon. Left-sided colonic diverticu losis. Moderate stool within the sigmoid colon and rectum. No definite pericolonic inflammatory platt e. PELVIS: Bladder distended. Uterus surgically absent. Suspect visualization of small bilateral ovaries. No abn ormal fluid collection in the pelvis or pelvic lymphadenopathy. BONES: Moderate degenerative disc disease L5-S1. No osseous destructive process. IMPRESSION: 1. STATUS POST WHIPPLE PROCEDURE. RESIDUAL POSTSURGICAL FAT STRANDING ALONG THE RETROPERITONEUM. SANDIP ELATE WITH PATIENT'S SYMPTOMS TO EXCLUDE ANY ACUTE INFLAMMATION/ENTERITIS. 2. AN ENLARGED 1.9 CM AND ADJACENT 1.0 CM ARRON HEPATIC LYMPH NODES. A COUPLE BORDERLINE SIZED PERIPA NCREATIC LYMPH NODES MEASURING 9 MM AND AN ADJACENT 7 MM AORTOCAVAL LYMPH NODE. THESE MAY BE REACTIVE . CLOSE FOLLOW-UP RECOMMENDED TO EXCLUDE EARLY METASTATIC LYMPHADENOPATHY. 3. A COUPLE TINY 3 MM LEFT LOWER LOBE PULMONARY NODULES AND A TINY 3 MM RIGHT MID LUNG PULMONARY NODU LE NOT CLEARLY SEEN PREVIOUSLY. THESE SHOULD ALSO BE REASSESSED AT FOLLOW-UP TO EXCLUDE EARLY PULMONA RY METASTASES. 4. HEPATOSPLENOMEGALY (LIVER 23.2 CM AND SPLEEN 15.0 CM) WITH HEPATIC STEATOSIS.
== END | disposition home or self-care (01) ==
LOC: RADPROMAIN 09:33
PROVIDERS: ATTEND Internal Medicine Hematology & Oncology
DX: C25.0 Malignant neoplasm of head of pancreas (principal); K76.0 Fatty (change of) liver, not elsewhere classified; R16.2 Hepatomegaly with splenomegaly, not elsewhere classified; Z90.49 Acquired absence of other specified parts of digestive tract
CPT/HCPCS: 82565; 84520; 71260; 74177; J1642; Q9967

== ENCOUNTER 2021-08-14 08:54 | Day surgery (SDC) | payer OTHER ==
[2021-08-11 15:37] VITALS: BMI 26.9
[~2021-08-14 08:54] MED LIST changes: -ACETAMINOPHEN TAB 500 MG TAB PO PRN; -HEPARIN SODIUM,PORCINE/PF 5,000 UNIT/0.5 ML SYRINGE SQ PRN; +LIDOCAINE 1% (10MG/ML) FOR IV START INTRADERMA PRN; -Pre Op ABX Message 1 EACH MISC MISCELLANE ONE; -fentaNYL (PF) 50 MCG/ML 2 ML AMP IV PRN
[2021-08-14 10:04] VITALS: RESP 16; TEMP 97.6
[2021-08-14] MEDS ORDERED: LIDOCAINE 1% INJ 10MG/ML (20 ML MDV) ONE (10:34)
[2021-08-14] MEDS ORDERED: PROPOFOL 10 MG/ML 20 ML VIAL IV ONE (10:34)
--- NOTE | 2021-08-14 10:44 | P.GSHP ---
History of Present Illness H&P Date: 08/14/21 Chief Complaint: GI bleed Is a 45-year-old female with history of GI bleed. Patient's is history of pancreas cancer. She presents today for colonoscopy. Past Medical History Past Medical History: Cancer, GERD/Reflux, Hypertension, Musculoskeletal Disorder Additional Past Medical History / Comment(s): Current pancreatic cancer. Unnamed autoimmune disorder-elevated WENDY. Fatty liver, hx elevated liver enzymes, seasonal allergies, cervical degenerative disc disease-has left shoulder pain. History of Any Multi-Drug Resistant Organisms: None Reported Past Surgical History: Hernia Repair, Hysterectomy Additional Past Surgical History / Comment(s): Lumbar pain procedures, Whipple Procedure 04/30/21. Past Anesthesia/Blood Transfusion Reactions: Postoperative Nausea & Vomiting (PONV) Smoking Status: Never smoker - Past Family History Mother Family Medical History: No Reported History Brother(s) Family Medical History: Cancer Additional Family Medical History / Comment(s): Testicular cancer. Medications and Allergies Home Medications Medication Instructions Recorded Confirmed Type lisinopriL [Zestril] 20 mg PO QAM 08/26/17 08/14/21 History Albuterol Inhaler [Ventolin Hfa 2 puff INHALATION RT-QID PRN 01/22/21 08/14/21 History Inhaler] HYDROcodone/APAP 5-325MG [[place] 1 tab PO Q4HR PRN 3 Days #18 tab 04/17/21 08/14/21 Rx 5-325] Ondansetron Odt [Zofran ODT] 4 mg PO Q8HR PRN #10 tab 04/17/21 08/14/21 Rx Omeprazole 20 mg PO QAM 05/16/21 08/14/21 History LORazepam [Ativan] 1 mg PO TID 05/19/21 08/14/21 History Cholecalciferol [Vitamin D3 (10 PO DAILY 08/14/21 History Mcg = 400 Iu)] Folic Acid PO DAILY 08/14/21 History Allergies Allergy/AdvReac Type Severity Reaction Status Date / Time ciprofloxacin [From Cipro] Allergy Rash/Hives Verified 08/14/21 09:50 erythromycin base Allergy Rash/Hives Verified 08/14/21 09:50 [From Erythrocin] latex Allergy Rash/Hives Verified 08/14/21 09:50 oseltamivir [From Tamiflu] Allergy Rash/Hives Verified 08/14/21 09:50 Penicillins Allergy Rash/Hives Verified 08/14/21 09:50 sulfamethoxazole Allergy Rash/Hives Verified 08/14/21 09:50 [From Bactrim] trimethoprim [From Bactrim] Allergy Rash/Hives Verified 08/14/21 09:50 Surgical - Exam Vital Signs Temp Resp BP Pulse Ox 97.6 F 16 118/72 97 08/14/21 10:03 08/14/21 10:03 08/14/21 10:03 08/14/21 10:03 - General well developed, well nourished, no distress - Eyes PERRL - ENT normal pinna - Neck no masses - Respiratory normal expansion - Cardiovascular Rhythm: regular - Abdomen Abdomen: soft, non tender Assessment and Plan Assessment: We'll perform colonoscopy.
--- NOTE | 2021-08-14 11:02 | P.OP ---
Date of Procedure: 08/14/21 Preoperative Diagnosis: GI bleed Postoperative Diagnosis: External hemorrhoids Procedure(s) Performed: Colonoscopy Anesthesia: MAC Surgeon: Yaya Laws Pathology: none sent Condition: stable Disposition: PACU Description of Procedure: The patient's placed on the endoscopy table in the lateral position. She received IV sedation. Digital rectal exam was performed which revealed external hemorrhoids. The possible colonoscope was then placed patient anus passed throughout the entire colon. The ileocecal valve was visualized. The cecum was visualized. The cecum and ascending colon appeared normal. The transverse colon appeared normal the descending; a few scattered diverticula. Scope was br ought back the rectum this appeared normal. Scope withdrawn for patient. Presumed patient's bleeding was due to external hemorrhoids
[2021-08-14 11:40] VITALS: BP 125/79; PULSE 95
== END 2021-08-14 12:13 | disposition home or self-care (01) ==
LOC: ORWHC2ENDO 08:54
PROVIDERS: ATTEND Surgery
DX: K64.4 Residual hemorrhoidal skin tags (principal); Z85.9 Personal history of malignant neoplasm, unspecified; K21.9 Gastro-esophageal reflux disease without esophagitis; I10 Essential (primary) hypertension
CPT/HCPCS: 45378; J2001; J2704

== ENCOUNTER 2021-10-11 17:10 | Emergency (ER) | payer OTHER ==
[2021-10-11 17:21] VITALS: TEMP 100.8
--- NOTE | 2021-10-11 17:53 | ED ---
SOB HPI - General Chief Complaint: Shortness of Breath Stated Complaint: JE Time Seen by Provider: 10/11/21 17:25 Source: patient, family, RN notes reviewed Mode of arrival: ambulatory Limitations: no limitations - History of Present Illness Initial Comments: 46-year-old female with history of pancreatic cancer last chemotherapy was on the for the next one due in 2 days who is had a slight fever last night she states normally runs a low grade temperature at night she was 100.4 last evening 100.8 upon arrival here she has shortness of breath and started yesterday some upper abdominal discomfort she feels tired and fatigued. No runny nose no earache sore throat no overt cough or phlegm. Lyrica. No dysuria. She states her cough is dry she has some wheezing with it today with complaints modifying factors she thought she was eating and drinking well MD Complaint: shortness of breath - Related Data Home Medications Medication Instructions Recorded Confirmed lisinopriL [Zestril] 20 mg PO QAM 08/26/17 08/14/21 Albuterol Inhaler [Ventolin Hfa 2 puff INHALATION RT-QID PRN 01/22/21 08/14/21 Inhaler] Omeprazole 20 mg PO QAM 05/16/21 08/14/21 LORazepam [Ativan] 1 mg PO TID 05/19/21 08/14/21 Cholecalciferol [Vitamin D3 (10 PO DAILY 08/14/21 Mcg = 400 Iu)] Folic Acid PO DAILY 08/14/21 Previous Rx's Medication Instructions Recorded HYDROcodone/APAP 5-325MG [Lerona 1 tab PO Q4HR PRN 3 Days #18 tab 04/17/21 5-325] Ondansetron Odt [Zofran ODT] 4 mg PO Q8HR PRN #10 tab 04/17/21 Allergies Allergy/AdvReac Type Severity Reaction Status Date / Time ciprofloxacin [From Cipro] Allergy Rash/Hives Verified 10/11/21 17:20 erythromycin base Allergy Rash/Hives Verified 10/11/21 17:20 [From Erythrocin] latex Allergy Rash/Hives Verified 10/11/21 17:20 oseltamivir [From Tamiflu] Allergy Rash/Hives Verified 10/11/21 17:20 Penicillins Allergy Rash/Hives Verified 10/11/21 17:20 sulfamethoxazole Allergy Rash/Hives Verified 10/11/21 17:20 [From Bactrim] trimethoprim [From Bactrim] Allergy Rash/Hives Verified 10/11/21 17:20 Review of Systems ROS Statement: Those systems with pertinent positive or pertinent negative responses have been documented in the HPI. ROS Other: All systems not noted in ROS Statement are negative. Past Medical History Past Medical History: Cancer, GERD/Reflux, Hypertension, Musculoskeletal Disorder Additional Past Medical History / Comment(s): Current pancreatic cancer. Unnamed autoimmune disorder-elevated WENDY. Fatty liver, hx elevated liver enzymes, seasonal allergies, cervical degenerative disc disease-has left shoulder pain. History of Any Multi-Drug Resistant Organisms: None Reported Past Surgical History: Hernia Repair, Hysterectomy Additional Past Surgical History / Comment(s): Lumbar pain procedures, Whipple P rocedure 04/30/21. Past Anesthesia/Blood Transfusion Reactions: Postoperative Nausea & Vomiting (PONV) Past Psychological History: Anxiety, Depression Smoking Status: Never smoker Past Alcohol Use History: None Reported Past Drug Use History: None Reported - Past Family History Mother Family Medical History: No Reported History Brother(s) Family Medical History: Cancer Additional Family Medical History / Comment(s): Testicular cancer. General Exam - General Exam Comments Initial Comments: This is a well-developed well-nourished awake alert oriented 3 female Limitations: no limitations General appearance: alert, in no apparent distress Head exam: Present: atraumatic, normocephalic, normal inspection Eye exam: Present: normal appearance, PERRL, EOMI. Absent: scleral icterus, conjunctival injection, periorbital swelling ENT exam: Present: mucous membranes dry Neck exam: Present: normal inspection, full ROM, other (No surgery or bruits). Absent: tenderness, meningismus, lymphadenopathy Respiratory exam: Present: normal lung sounds bilaterally. Absent: respiratory distress, wheezes, rales, rhonchi, stridor Cardiovascular Exam: Present: normal rhythm, tachycardia, normal heart sounds. Absent: systolic murmur, diastolic murmur, rubs, gallop, clicks GI/Abdominal exam: Present: soft, normal bowel sounds. Absent: distended, tenderness, guarding, rebound, rigid Extremities exam: Present: normal inspection, full ROM, normal capillary refill. Absent: tenderness, pedal edema, joint swelling, calf tenderness Back exam: Present: normal inspection Neurological exam: Present: alert, oriented X3, CN II-XII intact Psychiatric exam: Present: normal affect, normal mood Skin exam: Present: warm, dry, intact, normal color. Absent: rash Course Vital Signs 10/11/21 10/11/21 10/11/21 17:16 17:50 19:10 Temperature 100.8 F H Pulse Rate 109 H 104 H Respiratory 22 20 18 Rate Blood Pressure 139/8 128/76 O2 Sat by Pulse 99 100 Oximetry 10/11/21 10/11/21 20:16 21:13 Temperature Pulse Rate 104 H 105 H Respiratory 18 Rate Blood Pressure 139/89 O2 Sat by Pulse 98 99 Oximetry Medical Decision Making - Medical Decision Making I did discuss Pf[employer] the patient and her . Patient is a Jehovah witness and does not want any blood products. She does have potassium and magnesium prescriptions already at home. She is feeling much improved after IV fluids he did get IV magnesium. She does not want to be admitted tonight at this time it appears to be consistent with her typical low-grade temperature she has described previously. No infectious processes are identified at this time after long discussion and discussed return parameters she will be discharged. - Lab Data Result diagrams: 10/11/21 18:24 10/11/21 18:24 Lab Results 10/11/21 10/11/21 10/11/21 Range/Units 18:24 18:24 18:24 WBC 7.8 (3.8-10.6) k/uL RBC 1.90 L (3.80-5.40) m/uL Hgb 6.7 L* (11.4-16.0) gm/dL Hct 19.5 L* (34.0-46.0) % MCV 102.7 H (80.0-100.0) fL MCH 35.2 H (25.0-35.0) pg MCHC 34.3 (31.0-37.0) g/dL RDW 20.5 H (11.5-15.5) % Plt Count 109 L (150-450) k/uL MPV 8.3 Neutrophils % 72 % Lymphocytes % 16 % Monocytes % 10 % Eosinophils % 1 % Basophils % 0 % Neutrophils # 5.6 (1.3-7.7) k/uL Lymphocytes # 1.2 (1.0-4.8) k/uL Monocytes # 0.8 (0-1.0) k/uL Eosinophils # 0.1 (0-0.7) k/uL Basophils # 0.0 (0-0.2) k/uL Hypochromasia Slight Poikilocytosis Slight Anisocytosis Moderate Macrocytosis Moderate PT 13.4 H (9.0-12.0) sec INR 1.3 H (<1.2) APTT 28.7 (22.0-30.0) sec D-Dimer 4.36 H (<0.60) mg/L FEU Sodium 136 L (137-145) mmol/L Potassium 2.3 L* (3.5-5.1) mmol/L Chloride 100 (98-107) mmol/L Carbon Dioxide 25 (22-30) mmol/L Anion Gap 11 mmol/L BUN 6 L (7-17) mg/dL Creatinine 0.42 L (0.52-1.04) mg/dL Est GFR (CKD-EPI)AfAm >90 (>60 ml/min/1.73 sqM) Est GFR (CKD-EPI)NonAf >90 (>60 ml/min/1.73 sqM) Glucose 117 H (74-99) mg/dL Lactic Ac Sepsis Rflx Plasma Lactic Acid Guilherme (0.7-2.0) mmol/L Calcium 8.3 L (8.4-10.2) mg/dL Magnesium 1.5 L (1.6-2.3) mg/dL Total Bilirubin 1.1 (0.2-1.3) mg/dL AST 42 H (14-36) U/L ALT 19 (4-34) U/L Alkaline Phosphatase 214 H (38-126) U/L Troponin I (0.000-0.034) ng/mL NT-Pro-B Natriuret Pep pg/mL Total Protein 6.0 L (6.3-8.2) g/dL Albumin 3.3 L (3.5-5.0) g/dL Urine Color Urine Appearance (Clear) Urine pH (5.0-8.0) Ur Specific [place] (1.001-1.035) Urine Protein (Negative) Urine Glucose (UA) (Negative) Urine Ketones (Negative) Urine Blood (Negative) Urine Nitrite (Negative) Urine Bilirubin (Negative) Urine Urobilinogen (<2.0) mg/dL Ur Leukocyte Esterase (Negative) Influenza Type A (PCR) (Not Detectd) Influenza Type B (PCR) (Not Detectd) RSV (PCR) (Not Detectd) SARS-CoV-2 (PCR) (Not Detectd) 10/11/21 10/11/21 10/11/21 Range/Units 18:24 18:24 18:24 WBC (3.8-10.6) k/uL RBC (3.80-5.40) m/uL Hgb (11.4-16.0) gm/dL Hct (34.0-46.0) % MCV (80.0-100.0) fL MCH (25.0-35.0) pg MCHC (31.0-37.0) g/dL RDW (11.5-15.5) % Plt Count (150-450) k/uL MPV Neutrophils % % Lymphocytes % % Monocytes % % Eosinophils % % Basophils % % Neutrophils # (1.3-7.7) k/uL Lymphocytes # (1.0-4.8) k/uL Monocytes # (0-1.0) k/uL Eosinophils # (0-0.7) k/uL Basophils # (0-0.2) k/uL Hypochromasia Poikilocytosis Anisocytosis Macrocytosis PT (9.0-12.0) sec INR (<1.2) APTT (22.0-30.0) sec D-Dimer (<0.60) mg/L FEU Sodium (137-145) mmol/L Potassium (3.5-5.1) mmol/L Chloride (98-107) mmol/L Carbon Dioxide (22-30) mmol/L Anion Gap mmol/L BUN (7-17) mg/dL Creatinine (0.52-1.04) mg/dL Est GFR (CKD-EPI)AfAm (>60 ml/min/1.73 sqM) Est GFR (CKD-EPI)NonAf (>60 ml/min/1.73 sqM) Glucose (74-99) mg/dL Lactic Ac Sepsis Rflx Plasma Lactic Acid Guilherme 2.6 H* (0.7-2.0) mmol/L Calcium (8.4-10.2) mg/dL Magnesium (1.6-2.3) mg/dL Total Bilirubin (0.2-1.3) mg/dL AST (14-36) U/L ALT (4-34) U/L Alkaline Phosphatase (38-126) U/L Troponin I <0.012 (0.000-0.034) ng/mL NT-Pro-B Natriuret Pep 567 pg/mL Total Protein (6.3-8.2) g/dL Albumin (3.5-5.0) g/dL Urine Color Urine Appearance (Clear) Urine pH (5.0-8.0) Ur Specific [place] (1.001-1.035) Urine Protein (Negative) Urine Glucose (UA) (Negative) Urine Ketones (Negative) Urine Blood (Negative) Urine Nitrite (Negative) Urine Bilirubin (Negative) Urine Urobilinogen (<2.0) mg/dL Ur Leukocyte Esterase (Negative) Influenza Type A (PCR) (Not Detectd) Influenza Type B (PCR) (Not Detectd) RSV (PCR) (Not Detectd) SARS-CoV-2 (PCR) (Not Detectd) 10/11/21 10/11/21 10/11/21 Range/Units 18:28 19:24 20:54 WBC (3.8-10.6) k/uL RBC (3.80-5.40) m/uL Hgb (11.4-16.0) gm/dL Hct (34.0-46.0) % MCV (80.0-100.0) fL MCH (25.0-35.0) pg MCHC (31.0-37.0) g/dL RDW (11.5-15.5) % Plt Count (150-450) k/uL MPV Neutrophils % % Lymphocytes % % Monocytes % % Eosinophils % % Basophils % % Neutrophils # (1.3-7.7) k/uL Lymphocytes # (1.0-4.8) k/uL Monocytes # (0-1.0) k/uL Eosinophils # (0-0.7) k/uL Basophils # (0-0.2) k/uL Hypochromasia Poikilocytosis Anisocytosis Macrocytosis PT (9.0-12.0) sec INR (<1.2) APTT (22.0-30.0) sec D-Dimer (<0.60) mg/L FEU Sodium (137-145) mmol/L Potassium (3.5-5.1) mmol/L Chloride (98-107) mmol/L Carbon Dioxide (22-30) mmol/L Anion Gap mmol/L BUN (7-17) mg/dL Creatinine (0.52-1.04) mg/dL Est GFR (CKD-EPI)AfAm (>60 ml/min/1.73 sqM) Est GFR (CKD-EPI)NonAf (>60 ml/min/1.73 sqM) Glucose (74-99) mg/dL Lactic Ac Sepsis Rflx Y Plasma Lactic Acid Guilherme (0.7-2.0) mmol/L Calcium (8.4-10.2) mg/dL Magnesium (1.6-2.3) mg/dL Total Bilirubin (0.2-1.3) mg/dL AST (14-36) U/L ALT (4-34) U/L Alkaline Phosphatase (38-126) U/L Troponin I (0.000-0.034) ng/mL NT-Pro-B Natriuret Pep pg/mL Total Protein (6.3-8.2) g/dL Albumin (3.5-5.0) g/dL Urine Color Light Yellow Urine Appearance Clear (Clear) Urine pH 7.0 (5.0-8.0) Ur Specific [place] 1.024 (1.001-1.035) Urine Protein Negative (Negative) Urine Glucose (UA) Negative (Negative) Urine Ketones Negative (Negative) Urine Blood Negative (Negative) Urine Nitrite Negative (Negative) Urine Bilirubin Negative (Negative) Urine Urobilinogen <2.0 (<2.0) mg/dL Ur Leukocyte Esterase Negative (Negative) Influenza Type A (PCR) Not Detected (Not Detectd) Influenza Type B (PCR) Not Detected (Not Detectd) RSV (PCR) Not Detected (Not Detectd) SARS-CoV-2 (PCR) Not Detected (Not Detectd) - EKG Data -: EKG Interpreted by Me EKG shows normal: sinus rhythm EKG Comments: Sinus tachycardia rate 100. We'll 136 QRS duration 86 QT since QTC 372/[address]-T wave changes - Radiology Data Radiology results: report reviewed, image reviewed (No evidence of PE same.) Disposition Clinical Impression: Hypomagnesemia, Hypokalemia, Fever, Pancreatic cancer, Anemia Disposition: HOME SELF-CARE Condition: Good Instructions (If sedation given, give patient instructions): Hypokalemia (ED), Hypomagnesemia (ED), Dehydration (ED), Fever in Adults (ED) Is patient prescribed a controlled substance at d/c from ED?: No Referrals: Carlitos Rosas DO [Primary Care Provider] - 1-2 days
[2021-10-11] MEDS ORDERED: SODIUM CHLORIDE 0.9% 1,000 ML IV STA (18:07)
[2021-10-11 19:11] VITALS: RESP 18
--- NOTE | 2021-10-11 19:12 | XR ---
EXAMINATION TYPE: XR chest 2V DATE OF EXAM: 10/11/2021 COMPARISON: 05/19/2021 HISTORY: Short of breath TECHNIQUE: 2 views FINDINGS: There is no heart failure nor confluent pneumonic infiltrate. There is some mild linear den sity left lower lung field. There is left-sided central venous catheter with tip in the superior vena cava. IMPRESSION: Mild subsegmental atelectasis is improved compared to last exam. Normal heart.
[2021-10-11 19:15] LABS: Influenza A Not Detected (Not Detectd); Influenza B Not Detected (Not Detectd)
[2021-10-11 19:23] LABS: ALT 19 U/L (4-34); AST 42 U/L (14-36); African American GFR (CKD) >90 (>60 ml/min/1.73 sqM); Albumin 3.3 g/dL (3.5-5.0); Alkaline Phosphatase 214 U/L (38-126); Anion Gap 11 mmol/L; Blood Urea Nitrogen 6 mg/dL (7-17); Calcium 8.3 mg/dL (8.4-10.2); Carbon Dioxide 25 mmol/L (22-30); Chloride 100 mmol/L (98-107); Glucose 117 mg/dL (74-99); Magnesium 1.5 mg/dL (1.6-2.3); Non-African American GFR(CKD) >90 (>60 ml/min/1.73 sqM); Sodium 136 mmol/L (137-145); Total Bilirubin 1.1 mg/dL (0.2-1.3)
[2021-10-11 19:24] LABS: Potassium 2.3 mmol/L (3.5-5.1)
[2021-10-11 19:41] LABS: INR 1.3 (<1.2); Partial Thromboplastin Time 28.7 sec (22.0-30.0); Prothrombin Time 13.4 sec (9.0-12.0)
[2021-10-11] MEDS ORDERED: MAGNESIUM SULFATE-D5W PMX 1 GM in DEXTROSE/WATER 1 100ML.BAG IVPB ONE (19:55)
[2021-10-11] MEDS ORDERED: POTASSIUM CHLORIDE ER 20 MEQ TAB.ER PO STA (19:56)
[2021-10-11 20:03] LABS: Anisocytosis Moderate; Basophils % (A) 0 %; Eosinophils # (A) 0.1 k/uL (0-0.7); Eosinophils % (A) 1 %; Hypochromasia Slight; Lymphocytes # (A) 1.2 k/uL (1.0-4.8); Lymphocytes % (A) 16 %; MCH 35.2 pg (25.0-35.0); MCHC 34.3 g/dL (31.0-37.0); MCV 102.7 fL (80.0-100.0); Macrocytosis Moderate; Mean Platelet Volume 8.3; Monocytes # (A) 0.8 k/uL (0-1.0); Monocytes % (A) 10 %; Neutrophils # (A) 5.6 k/uL (1.3-7.7); Neutrophils % (A) 72 %; Platelet Count 109 k/uL (150-450); Poikilocytosis Slight; RDW 20.5 % (11.5-15.5); WBC 7.8 k/uL (3.8-10.6)
[2021-10-11 20:09] LABS: HCT 19.5 % (34.0-46.0); HGB 6.7 gm/dL (11.4-16.0)
--- NOTE | 2021-10-11 20:58 | CT ---
EXAMINATION TYPE: CT angio chest DATE OF EXAM: 10/11/2021 COMPARISON: None HISTORY: shortness of breath CT DLP: 352.1 mGycm Automated exposure control for dose reduction was used. CONTRAST: Performed with IV Contrast, patient injected with 100 mL of Isovue 370. There are Three-D postprocessed images. Mediastinum is normal. Thoracic aorta is intact. There is no aneurysm or dissection. The ascending ao rta measures 3.4 cm. There are no hilar masses. There is normal contrast opacification of the pulmona ry arteries. There are no filling defects. There is no pleural effusion. There is some pleural thickening along the left lateral chest wall in t he lingula left upper lobe. This area measures 2 cm. Spleen is enlarged and measures 16.5 cm. There i s some fluid around the liver. There is limited evaluation of the upper abdomen. The thoracic vertebra show normal alignment. There is no compression fracture. Sternum is intact. IMPRESSION: No evidence of pulmonary embolism. There is moderate splenomegaly. There is abdominal ascites which a ppears increased compared to the PET/CT scan of 08/15/2021.
[2021-10-11 21:18] LABS: Appearance,Urine Clear (Clear); Bilirubin,Urine Negative (Negative); Blood,Urine Negative (Negative); Color,Urine Light Yellow; Glucose,Urine (UA) Negative (Negative); Ketones,Urine Negative (Negative); Leukocyte Esterase,Urine Negative (Negative); Nitrite,Urine Negative (Negative); Protein,Urine Negative (Negative); Specific Gravity,Urine 1.024 (1.001-1.035); Urobilinogen,Urine <2.0 mg/dL (<2.0)
[2021-10-11 22:03] VITALS: BP 136/88; PULSE 102
== END 2021-10-11 22:00 | disposition home or self-care (01) ==
LOC: EC 17:10
DX: C25.9 Malignant neoplasm of pancreas, unspecified (principal); E83.42 Hypomagnesemia; E87.6 Hypokalemia; D64.9 Anemia, unspecified; Z20.822 Contact with and (suspected) exposure to COVID-19; I10 Essential (primary) hypertension; K21.9 Gastro-esophageal reflux disease without esophagitis; F32.A Depression, unspecified; F41.9 Anxiety disorder, unspecified; Z79.51 Long term (current) use of inhaled steroids; Z79.899 Other long term (current) drug therapy
CPT/HCPCS: 36415; 93005; 85379; 83880; 80053; 83605; 83735; 84484; 85025; 85610; 85730; 81003; 87040; 87636; 71046; 71275; 99285; 96374; J3475; Q9967

== ENCOUNTER → 2021-10-21 | Outpatient (CLI) | payer OTHER ==
--- NOTE | 2021-10-21 10:05 | XR ---
EXAMINATION TYPE: XR abdomen complete w decub DATE OF EXAM: 10/21/2021 COMPARISON: NONE HISTORY: Pain TECHNIQUE: Supine, upright, and left side down lateral decubitus views of the abdomen are obtained. FINDINGS: The bowel gas pattern is nonspecific. There is a catheter in the right upper quadrant of in determinate etiology. Calcification the right pelvis likely vascular. Arthropathy of the hips. IMPRESSION: 1. Nonspecific abdomen. 2. Nonspecific linear wire or catheter in the right upper quadrant correlate clinically.
--- NOTE | 2021-10-21 13:21 | US ---
EXAMINATION TYPE: US abdomen complete DATE OF EXAM: 10/21/2021 COMPARISON: 04/02/2021 CLINICAL HISTORY: 46-year-old female R140, R109. Abdomen distension. Hx pancreatic cancer. Partial p ancreas removed. GB removed. TECHNIQUE: Multiple sonographic images of the abdomen are obtained. FINDINGS: EXAM MEASUREMENTS: Liver Length: 20.1 cm CBD: 0.5 cm Spleen: 14.7 cm Right Kidney: 9.7 x 4.6 x 4.2 cm Left Kidney: 10.2 x 4.6 x 5.0 cm Pancreas: Limited visualization. Portions seen appear echogenic. Liver: Enlarged in size. Parenchyma is coarse and echogenic. No focal lesion seen. Gallbladder: Surgically absent Evidence for sonographic Mendez's sign: neg CBD: wnl Spleen: Mildly enlarged. Right Kidney: No hydronephrosis or masses seen Left Kidney: No hydronephrosis or masses seen Upper IVC: wnl Abd Aorta: Mid and distal obscured by overlying bowel gas . Mild ascites fluid adjacent to the liver IMPRESSION: 1. Hepatosplenomegaly (liver 20.1 cm and spleen 14.7 cm). 2. In addition, there is echogenic and coarsened liver parenchyma suggesting either hepatic steatosis or nonspecific hepatocellular disease. 3. Status post cholecystectomy. No biliary ductal dilatation.
== END | disposition home or self-care (01) ==
LOC: RADUSWWP 08:54
PROVIDERS: ATTEND Internal Medicine Hematology & Oncology
DX: R16.2 Hepatomegaly with splenomegaly, not elsewhere classified (principal); K76.89 Other specified diseases of liver; Z90.49 Acquired absence of other specified parts of digestive tract
CPT/HCPCS: 74021; 76700

== ENCOUNTER → 2021-11-28 | Outpatient (CLI) | payer OTHER ==
[2021-11-28 15:33] LABS: African American GFR (CKD) >90 (>60 ml/min/1.73 sqM); Blood Urea Nitrogen 8 mg/dL (7-17); Non-African American GFR(CKD) >90 (>60 ml/min/1.73 sqM)
--- NOTE | 2021-11-29 09:31 | CT ---
EXAMINATION TYPE: CT ChestAbdPelvis w con DATE OF EXAM: 11/28/2021 COMPARISON: PET/CT 08/15/2021, CT 07/28/2021, CT 10/11/2021 HISTORY: f/u pancreatic ca CT DLP: 1074.5 mGycm Automated exposure control for dose reduction was used. CONTRAST: CT scan of the chest, abdomen and pelvis is performed with Oral Contrast and with IV Contrast, patien t injected with 100 mL of Isovue 300. FINDINGS: Support the left pectoral region, catheter courses via a left subclavian approach such that the distal tip is near the cavoatrial junction level. A linear density is present within the biliary system coursing into the bowel. By previous reports patient is status post Whipple procedure. Large varix present along the falciform ligament region and anterior to the liver in the subxiphoid region LUNGS: The lungs are grossly clear, there is no concerning parenchymal mass or nodule identified. T here is no pleural effusion or pneumothorax seen. The tracheobronchial tree is patent. MEDIASTINUM: There are no greater than 1 cm hilar or mediastinal lymph nodes. No pericardial effusi on is seen. AORTA: No significant abnormality is seen. OTHER: No additional significant abnormality is seen. LIVER/GB: No significant abnormality is appreciated. PANCREAS: Distortion is present, postop changes, low-attenuation present within the pancreatic body a nd head region similar to prior exams. SPLEEN: Enlarged, splenic vein is dilated, portal vein enlarged. ADRENALS: No significant abnormality is seen. KIDNEYS: No significant abnormality is seen. REPRODUCTIVE ORGANS: No gross abnormality seen. BOWEL: Colonic wall thickening is nonspecific. FREE AIR: No Free Air visible. ASCITES: Mild ascites is present RETROPERITONEAL ADENOPATHY: No retroperitoneal adenopathy is seen. LYMPH NODES: At the level of the retroperitoneum there is soft tissue attenuation present which is mo re conspicuous than on CT dated 2020 towards the root of the mesentery level and adjacent to the supe rior mesenteric vein there is soft tissue present similar to prior exam, overall increased attenuatio n is present within the mesentery. URINARY BLADDER: No significant abnormality is seen. PELVIC ADENOPATHY: None visualized. OSSEOUS STRUCTURES: No significant abnormality is seen. IMPRESSION: There has been progression of ascites since CT dated 2020. Postop changes and splenomegal y. Adenopathy could be obscured by abnormal increased attenuation seen within the retroperitoneal and mesenteric fat.
== END | disposition home or self-care (01) ==
LOC: RADPROMAIN 13:37
PROVIDERS: ATTEND Internal Medicine Hematology & Oncology
DX: C25.9 Malignant neoplasm of pancreas, unspecified (principal); R18.8 Other ascites; R16.1 Splenomegaly, not elsewhere classified
CPT/HCPCS: 82565; 84520; 71260; 74177; 36415; J1642; Q9967

== ENCOUNTER → 2021-12-31 | Outpatient (CLI) | payer OTHER ==
--- NOTE | 2021-12-31 10:02 | XR ---
EXAMINATION TYPE: XR chest 2V DATE OF EXAM: 12/31/2021 COMPARISON: Chest x-ray dated 10/11/2021 HISTORY: C 25.0, I 10 TECHNIQUE: Frontal and lateral views of the chest are obtained. FINDINGS: There is a port in the left pectoral region, catheter courses via subclavian approach, dist al tip is overlying superior vena cava. Catheter shows a stable appearance. There is no focal air spa ce opacity, pleural effusion, or pneumothorax seen. The cardiac silhouette size is within normal peoples its. The osseous structures are intact. IMPRESSION: No acute cardiopulmonary process.
[2021-12-31 10:51] LABS: African American GFR (CKD) >90 (>60 ml/min/1.73 sqM); Blood Urea Nitrogen 9 mg/dL (7-17); Non-African American GFR(CKD) >90 (>60 ml/min/1.73 sqM)
--- NOTE | 2021-12-31 14:59 | CT ---
EXAMINATION TYPE: CT ChestAbdPelvis w con DATE OF EXAM: 12/31/2021 COMPARISON: CT dated 11/28/2021 HISTORY: follow up to pancreas CA CT DLP: 849 mGycm Automated exposure control for dose reduction was used. CONTRAST: CT scan of the chest, abdomen and pelvis is performed with Oral Contrast and with IV Contrast, patien t injected with 100 mL of Isovue 300. FINDINGS: LUNGS: The lungs are grossly clear, there is no concerning parenchymal mass or nodule identified. T here is no pleural effusion or pneumothorax seen. The tracheobronchial tree is patent. MEDIASTINUM: There are no greater than 1 cm hilar or mediastinal lymph nodes. Tiny coronary arterial calcification. No pericardial effusion is seen. OTHER: No aggressive bone lesion. LIVER/GB: Hypodense hepatic parenchyma, possibly due to hepatic steatosis versus hepatic edema. Previ ous cholecystectomy. Suspected choledochojejunostomy. PANCREAS: Atrophic pancreatic body and tail. Nonvisualized pancreatic head likely due to previous res ection. Questionable pancreaticojejunostomy. Significant retroperitoneal fat stranding/infiltration s een posterior to the superior mesenteric vessels and anterior to the abdominal aorta/IVC, appreciated previously. This could be inflammatory/infectious in etiology however residual/recurrent pancreatic cancer cannot be excluded. SPLEEN: Markedly enlarged spleen measuring 17 cm suggestive of portal hypertension. Associated recana lization of the paraumbilical vein. ADRENALS: No significant abnormality is seen. KIDNEYS: No significant abnormality is seen. BOWEL: Previous gastrojejunostomy. No evidence of bowel obstruction. Diffuse wall thickening of the small and large bowel with congested mesenteric vessels, omental nodularity and peritoneal fat strand ing, possibly secondary to portal hypertension however peritoneal carcinomatosis cannot be excluded. Small amount of abdominal and pelvic ascites. Acute small or large bowel inflammation/infection can't be excluded by this CT scan. Normal appendix. REPRODUCTIVE ORGANS: Previous hysterectomy. No gross adnexal mass. LYMPH NODES: No pathologically enlarged pelvic or retroperitoneal lymph nodes. Mesenteric lymph nodes are suboptimally assessed. OSSEOUS STRUCTURES: Degenerative changes of the lower lumbar spine. No aggressive bone lesion. OTHER: Unremarkable abdominal aorta and IVC. IMPRESSION: 1. No evidence of metastatic disease seen in the chest. 2. Postoperative changes as detailed above. 3. Suspected hepatic disease, associated with splenomegaly and portal hypertension as described above . 4. Retroperitoneal fat stranding/infiltration which could be inflammatory/infectious or related to po rtal hypertension however residual/recurrent pancreatic cancer can't be excluded. 5. The described peritoneal changes could be related to portal hypertension however peritoneal carcin omatosis cannot be excluded. Further PET scan assessment can be considered. Other interval changes an d incidental findings as described above.
== END | disposition home or self-care (01) ==
LOC: RADPROMAIN 09:14
PROVIDERS: ATTEND Internal Medicine Hematology & Oncology
DX: C25.0 Malignant neoplasm of head of pancreas (principal); I10 Essential (primary) hypertension; R16.1 Splenomegaly, not elsewhere classified; K76.6 Portal hypertension
CPT/HCPCS: 82565; 84520; 71046; 71260; 74177; J1642; Q9967

== ENCOUNTER → 2022-01-23 | Outpatient (CLI) | payer OTHER ==
--- NOTE | 2022-01-23 15:53 | PE ---
Medicine PET/CT HISTORY: Pancreatic carcinoma, subsequent Patient received 11.3 mCi F-18 FDG intravenously and delayed scanning was performed from the skull ba se to the mid thighs. Localization and attenuation correction CT scan was performed. Average mediastinal uptake 1.7 SUV, average SUV liver 2.1 Chest and neck: There is no supraclavicular or cervical adenopathy. There is a port over the left pec desiree region, catheter courses via subclavian approach, distal tip in the superior vena cava. There i s no endobronchial lesion, pleural or pericardial effusion. No evident lung mass. There is no axillar y, mediastinal, or hilar adenopathy. Coronary artery calcifications present. ABDOMEN: The spleen is markedly enlarged. Postop changes are noted to the abdomen as on prior exam. N o suspicious uptake is evident. Increased attenuation present within the mesentery. Uptake along the colon is felt likely to be physiologic. No pelvic adenopathy. There is some free fluid in the pelvis. Osseous structures show no suspicious uptake, marrow activity has normalized. IMPRESSION: No suspicious uptake is evident.
== END | disposition home or self-care (01) ==
LOC: RADXRMAIN 07:38
PROVIDERS: ATTEND Internal Medicine Hematology & Oncology
DX: C25.0 Malignant neoplasm of head of pancreas (principal)
CPT/HCPCS: 78815; A9552

== ENCOUNTER → 2022-03-06 | Outpatient (CLI) | payer OTHER ==
--- NOTE | 2022-03-06 10:17 | XR ---
Left knee HISTORY: Pain, [id number] I10 N129 C250 3 views of the left knee Bone mineralization, joint spaces, alignment are maintained. No fracture or dislocation. IMPRESSION: No abnormality evident to account for patient's symptoms.
== END | disposition home or self-care (01) ==
LOC: RADXRMAIN 09:52
PROVIDERS: ATTEND Internal Medicine Hematology & Oncology
DX: C25.0 Malignant neoplasm of head of pancreas (principal); I10 Essential (primary) hypertension; M12.9 Arthropathy, unspecified; J45.998 Other asthma

== ENCOUNTER → 2022-04-29 | Outpatient (CLI) | payer OTHER ==
[2022-04-29 12:31] LABS: African American GFR (CKD) >90 (>60 ml/min/1.73 sqM); Blood Urea Nitrogen 11 mg/dL (7-17); Non-African American GFR(CKD) >90 (>60 ml/min/1.73 sqM)
--- NOTE | 2022-04-29 16:07 | CT ---
EXAMINATION TYPE: CT ChestAbdPelvis w con DATE OF EXAM: 04/29/2022 INDICATION: f/u pancreatic ca COMPARISON: PET CT 01/23/2022, CT chest abdomen pelvis 12/31/2021 CT DLP: 734.4 mGycm CONTRAST: Performed with Oral Contrast and with IV Contrast, patient injected with 70cc mL of Isovue 300. TECHNIQUE: Axial images at 5 mm thick sections. Reconstructed images in the coronal plane. Delayed images through the kidneys. FINDINGS: CT CHEST: Portion of the thyroid visualized is normal. No suspicious lung nodules or focal infiltrates are present. No enlarged mediastinal or hilar adenopathy is evident. The ascending aorta diameter at the level of the main pulmonary artery is 3.3 cm. The main pulmonary artery diameter at the bifurcation is 2.[address] ABDOMEN: Liver: Normal Spleen: Enlarged measuring 13.6 cm cranial caudal dimension. Pancreas: There is diffuse increased signal through the mesenteric fat adjacent to the pancreas. Panc reatic head is hypodense and may contain ar 1.8 cm mass. Pancreatic duct dilatation is not identified . Adrenal glands: The adrenal glands are normal. Gallbladder: Normal Kidneys: No masses are evident. No hydronephrosis is present. No cysts are present. Delayed images were obtained through the kidneys, which remain unremarkable. Aorta: Vascular calcification is within the aorta. Inferior vena cava: Normal. CT PELVIS: There is diffuse thickening to the descending colon and sigmoid colon. Correlate for colitis. No sign ificant diverticular changes are evident. There are loops of bowel which are incompletely distended o r lack oral contrast limiting their evaluation. Appendix: Normal as visualized. Urinary bladder: Normal. Genitourinary structures: Uterus and ovaries are not identified. Osseous structures: No suspicious lytic or sclerotic lesions. IMPRESSIONS: 1. Inflammatory changes in the retroperitoneal fat adjacent to the head of the pancreas. Pancreatic h ead hypodensity is present compatible with the patient's known pancreatic cancer. 2. Diffuse thickening through the descending colon and sigmoid colon. Correlate for colitis.
== END | disposition home or self-care (01) ==
LOC: RADPROMAIN 11:50
PROVIDERS: ATTEND Internal Medicine Hematology & Oncology
DX: C25.0 Malignant neoplasm of head of pancreas (principal); K63.89 Other specified diseases of intestine
CPT/HCPCS: 82565; 84520; 71260; 74177; 36415; J1642; Q9967

== ENCOUNTER → 2022-05-18 | Outpatient (CLI) | payer OTHER ==
--- NOTE | 2022-05-19 14:14 | MM ---
Reason for Exam: Screening (asymptomatic). Last mammogram was performed 1 year(s) and 8 month(s) ago. Patient History: Menarche at age 11. Hysterectomy at age 36. Postmenopausal. Pancreatic cancer, age 45. Patient used Hormonal Contraceptives for 6 years. Risk Values: Elizabeth 5 year model risk: 0.7%. NCI Lifetime model risk: 6.7%. Prior Study Comparison: 11/20/2016 Bilateral Screening Mammogram, [facility]. 04/06/2019 Bilateral Screening Mammogram, [facility]. 04/18/2019 Right Diagnostic Mammogram, [facility]. 10/03/2020 Bilateral Screening Mammogram, [facility]. Tissue Density: There are scattered fibroglandular densities. Findings: Analyzed By CAD. There is no suspicious group of microcalcifications or new suspicious mass in either breast. Overall Assessment: Benign, BI-RAD 2 Management: Screening Mammogram of both breasts in 1 year. A clinical breast exam by your physician is recommended on an annual basis and results should be correlated with mammographic findings. Electronically signed and approved by: Gaurav Argueta M.D. Radiologis
== END | disposition home or self-care (01) ==
LOC: RADMAMWWP 07:59
PROVIDERS: ATTEND Internal Medicine Hematology & Oncology
DX: Z12.31 Encounter for screening mammogram for malignant neoplasm of breast (principal)
CPT/HCPCS: 77063; 77067

== ENCOUNTER → 2022-07-15 | Outpatient (CLI) | payer OTHER ==
[2022-07-15 10:35] LABS: African American GFR (CKD) >90 (>60 ml/min/1.73 sqM); Blood Urea Nitrogen 13 mg/dL (7-17); Non-African American GFR(CKD) >90 (>60 ml/min/1.73 sqM)
--- NOTE | 2022-07-15 12:10 | CT ---
EXAMINATION TYPE: CT ChestAbdPelvis w con DATE OF EXAM: 07/15/2022 COMPARISON: Most recent CT April 29, 2021 and older studies. HISTORY: Follow up for pancreatic cancer. Cancer diagnosed April 2021 with surgery that month and completed chemotherapy end 2020. CT DLP: 737.5 mGycm. Automated Exposure Control for Dose Reduction was Utilized. CONTRAST: CT scan of the thorax, abdomen and pelvis is performed without oral and with IV Contrast, patient inj ected with 70ml mL of Isovue 300. FINDINGS: LUNGS: The lungs the remaining grossly clear, there is no concerning new Greater than 5 mm parenchymal mass or nodule identified. There is no pleural effusion or pneumothor ax seen. The tracheobronchial tree is patent. MEDIASTINUM: There are no greater than 1 cm hilar or mediastinal lymph nodes. No cardiomegaly or pe ricardial effusion is seen. OTHER: Stable left subclavian Mediport catheter. LIVER/GB: Persistent hepatomegaly and heterogeneous hypodense liver consistent with fatty infiltrativ e hepatocellular disease. Gallbladder is surgically absent. Patent but slightly tortuous and promine nt portal venous system is redemonstrated. PANCREAS: Pancreas completely surgically absent. Mild soft tissue surrounding celiac artery and SMA w ith more prominent soft tissue surrounding the mid SMA near axial image 65 has similar appearance to most recent prior studies. Some ill-defined fluid at this level is likely present similar to prior st udies. No obvious new mass at this level. Few punctate calcifications at level of the [place] process and inferior negative pancreatic head are redemonstrated. SPLEEN: Persistent splenomegaly measuring 15.7 cm long axis axial image 55. ADRENALS: No significant abnormality is seen. KIDNEYS: No significant abnormality is seen. BOWEL: Surgical changes from distal gastrectomy and small bowel anastomosis are redemonstrated. Remna nt second portion of duodenum has similar appearance to prior study. Ligament of Treitz is right of m idline or has been resected similar to prior. Incidental normal-appearing appendix from base of cecum redemonstrated. Slightly suboptimal evaluation without enteric contrast. A few tiny diverticula in t he sigmoid colon are present. Fluid-filled rectum noted current study. This is abnormal findings sugg esting mild uncomplicated colitis and/or diarrhea. GENITAL ORGANS: Uterus surgically absent. LYMPH NODES: No new greater than 1cm abdominal or pelvic lymph nodes are appreciated. Mild fat strand ing in the mesentery and the anterior peritoneal cavity is slightly more prominent from most recent p rior CT study. OSSEOUS STRUCTURES: Disc space narrowing lumbosacral junction redemonstrated. OTHER: No significant additional abnormality is seen. IMPRESSION: 1. Slightly more prominent mild peritoneal fluid suspected minimal ascites. No definitive new nodula rity or adenopathy or suspicious mass at level of the pancreas to definitively suggest active neoplas tic recurrence. 2. Possible mild uncomplicated distal colitis and/or diarrhea. Correlate clinically.
== END | disposition home or self-care (01) ==
LOC: RADPROMAIN 09:56
PROVIDERS: ATTEND Internal Medicine Hematology & Oncology
DX: C25.0 Malignant neoplasm of head of pancreas (principal)
CPT/HCPCS: 82565; 84520; 71260; 74177; 36415; J1642; Q9967

== ENCOUNTER → 2022-09-04 | Outpatient (CLI) | payer OTHER | END | disposition home or self-care (01) | LOC: LABWHC1 11:00 | PROVIDERS: ATTEND Internal Medicine Gastroenterology | DX: K52.9 Noninfective gastroenteritis and colitis, unspecified (principal) | CPT/HCPCS: 36415; 82656; 83516; 85652; 86140 ==

== ENCOUNTER → 2023-01-18 | Outpatient (CLI) | payer OTHER ==
--- NOTE | 2023-01-19 18:04 | CT ---
EXAMINATION TYPE: CT ChestAbdPelvis w con DATE OF EXAM: 01/18/2023 INDICATION: Follow up for pancreatic cancer. COMPARISON: 10/15/2022 CT DLP: 939.3 mGycm CONTRAST: Performed with Oral Contrast and with IV Contrast, patient injected with r mL of Isovue 300. TECHNIQUE: Axial images at 5 mm thick sections. Reconstructed images in the coronal plane. Delayed images through the kidneys. FINDINGS: CT CHEST: Portion of the thyroid visualized is normal. No suspicious lung nodules or focal infiltrates are present. No enlarged mediastinal or hilar adenopathy is evident. The ascending aorta diameter at the level of the main pulmonary artery is 3.1 cm. The main pulmonary artery diameter at the bifurcation is 2.[address] ABDOMEN: Liver: There is mild fatty infiltration of liver. Spleen: Splenomegaly is present. Pancreas: Pancreas is stable in appearance. Whipple's procedure has been performed. No new masses are evident. Adrenal glands: The adrenal glands are normal. Gallbladder: Normal as visualized Kidneys: No masses are evident. No hydronephrosis is present. No cysts are present. Aorta: Vascular calcification is within the aorta. Inferior vena cava: Normal. CT PELVIS: Loops of bowel within the abdomen and pelvis are normal. Few diverticuli within the sigmoid colon. So me mild wall thickening within the sigmoid colon is not excluded. This could be related to incomplete distention. There are loops of bowel which are incompletely distended or lack oral contrast limit ing their evaluation. Appendix: Normal as visualized. Urinary bladder: Decompressed limiting evaluation. Genitourinary structures: Uterus and ovaries are not identified. Osseous structures: No suspicious lytic or sclerotic lesions. IMPRESSIONS: 1. Diverticulosis without acute diverticulitis. 2. No suspicious interval change within the pancreas suggestive of recurrent or metastatic neoplasm t he pancreas
== END | disposition home or self-care (01) ==
LOC: RADCTMAIN 08:52
PROVIDERS: ATTEND Internal Medicine Hematology & Oncology
DX: C25.0 Malignant neoplasm of head of pancreas (principal); D50.9 Iron deficiency anemia, unspecified; I10 Essential (primary) hypertension; M12.9 Arthropathy, unspecified; K57.30 Diverticulosis of large intestine without perforation or abscess without bleeding
CPT/HCPCS: 71260; 74177; Q9967

== ENCOUNTER → 2023-05-19 | Outpatient (CLI) | payer OTHER ==
--- NOTE | 2023-05-19 13:32 | CT ---
EXAMINATION TYPE: CT ChestAbdPelvis w con DATE OF EXAM: 05/19/2023 COMPARISON: 01/18/2023 and 10/15/2022 HISTORY: 47-year-old female C25.0 MALIGNANT NEOPLASM OF HEAD OF PANCREAS TECHNIQUE: Contiguous axial scanning of the chest, abdomen, and pelvis performed with IV Contrast, pa tient injected with 100 mL of Isovue 300. Delayed images through the kidneys were obtained. Coronal/s agittal reconstructions performed. CT DLP: 1009.3 mGycm Automated exposure control for dose reduction was used. FINDINGS: CHEST: Left anterior chest wall injection port with catheter tip within the SVC. Heart normal size without pericardial effusion. Aorta normal caliber with bovine configuration to the aortic arch. No thoracic lymphadenopathy by CT size criteria. No consolidation or pleural effusion. ABDOMEN: Liver enlarged at 19.8 cm. No focal liver lesion. Portal venous system is patent. However, there aditi ears to be recanalization of the umbilical vein and large caliber to the splenic vein up to 1.6 cm in the main portal vein up to 1.5 cm. There appears to be postsurgical change of Whipple procedure. Extensive soft tissue stranding through out the magnolia hepatis, lesser sac, and upper to mid abdominal retroperitoneum appears similar compare d to prior exam. Atrophic residual body and tail of the pancreas. No suspicious enlarging soft tissue or lymphadenopathy is identified in the abdomen. Adrenal glands and kidneys within normal limits. Spleen enlarged at 14.9 cm. No dilated small bowel, free fluid, or free air. Normal appendix. No significant stool burden. Oral contrast progressed to the rectum. Scattered left- sided colonic diverticulosis. Circumferential wall thickening throughout the left side of the colon a ppears to have been present previously as well and may in part relate to nondistention. PELVIS: Bladder partially distended. Mild presacral stranding/edema. Uterus surgically absent. Small bilatera l ovaries are unchanged. No abnormal fluid collection in the pelvis or pelvic lymphadenopathy. BONES: Moderate degenerative disc disease L5-S1. No osseous destructive process. IMPRESSION: 1. STATUS POST WHIPPLE PROCEDURE. SOFT TISSUE STRANDING THROUGHOUT THE PORTAHEPATIS, LESSER SAC, AND UPPER TO MID RETROPERITONEUM REMAINS LARGELY UNCHANGED. NO SUSPICIOUS LYMPHADENOPATHY OR MASS TO YOSELIN SHUBHAM RECURRENT DISEASE. 2. RECANALIZATION OF THE UMBILICAL VEIN, SPLENOMEGALY (14.9 CM), AND LARGE CALIBER TO THE MAIN PORTAL VEIN AND SPLENIC VEIN. THESE MAY BE INDICATORS OF UNDERLYING PORTAL VENOUS HYPERTENSION. CLINICALLY CORRELATE. 3. SCATTERED COLONIC DIVERTICULOSIS WITHOUT ACUTE DIVERTICULITIS.
== END | disposition home or self-care (01) ==
LOC: RADCTMAIN 08:42
PROVIDERS: ATTEND Internal Medicine Hematology & Oncology
DX: C25.0 Malignant neoplasm of head of pancreas (principal); D50.9 Iron deficiency anemia, unspecified; I10 Essential (primary) hypertension; M12.9 Arthropathy, unspecified; R16.1 Splenomegaly, not elsewhere classified; K57.30 Diverticulosis of large intestine without perforation or abscess without bleeding
CPT/HCPCS: 71260; 74177; Q9967

== ENCOUNTER → 2023-08-20 | Outpatient (CLI) | payer OTHER ==
--- NOTE | 2023-08-23 17:08 | MM ---
Reason for Exam: Screening (asymptomatic). Last mammogram was performed 1 year(s) and 3 month(s) ago. Patient History: Menarche at age 11. Patient has no children. Hysterectomy at age 36. Postmenopausal. Pancreatic cancer, age 45. Previous chemotherapy at age 45. Patient used Hormonal Contraceptives for 6 years. Risk Values: Elizabeth 5 year model risk: 1.0%. NCI Lifetime model risk: 10.0%. Prior Study Comparison: 01/19/2014 Bilateral Diagnostic Mammogram, [facility]. 11/20/2016 Bilateral Screening Mammogram, [facility]. 04/06/2019 Bilateral Screening Mammogram, [facility]. 04/18/2019 Right Diagnostic Mammogram, [facility]. 10/03/2020 Bilateral Screening Mammogram, [facility]. 05/18/2022 Bilateral MG 3D screening mammo w/cad, [facility]. Tissue Density: There are scattered fibroglandular densities. Findings: Analyzed By CAD. Unchanged focal asymmetry right upper outer quadrant. Injection port on the left. There is no suspicious group of microcalcifications or new suspicious mass in either breast. Overall Assessment: Benign, BI-RAD 2 Management: Screening Mammogram of both breasts in 1 year. . Patient should continue monthly self-breast exams. A clinical breast exam by your physician is recommended on an annual basis. This exam should not preclude additional follow-up of suspicious palpable abnormalities. Note on Elizabeth scores and lifetime risk: 1. A Elizabeth score greater than 3% is considered moderate risk. If this is the case, consider specialist referral to assess eligibility for a risk reducing agent. 2. If overall lifetime risk for the development of breast cancer is 20% or higher, the patient may qualify for future screening with alternating mammogram and breast MRI. Electronically signed and approved by: Griselda Thompson M.D. Radiologist
== END | disposition home or self-care (01) ==
LOC: RADMAMWWP 10:48
PROVIDERS: ATTEND Family Medicine
DX: Z12.31 Encounter for screening mammogram for malignant neoplasm of breast (principal); Z78.0 Asymptomatic menopausal state
CPT/HCPCS: 77063; 77067

== ENCOUNTER → 2023-09-21 | Outpatient (CLI) | payer MEDICARE ==
--- NOTE | 2023-09-23 11:46 | CT ---
EXAMINATION TYPE: CT ChestAbdPelvis w con DATE OF EXAM: 09/21/2023 INDICATION: Pancreatic ca, hx whipple, routine follow up, c/o back pain COMPARISON: 05/19/2023 CT DLP: 740.80 mGycm CONTRAST: Performed with Oral Contrast and with IV Contrast, patient injected with 100 mL of Isovue 300. TECHNIQUE: Axial images at 5 mm thick sections. Reconstructed images in the coronal plane. Delayed images through the kidneys. FINDINGS: CT CHEST: Portion of the thyroid visualized is normal. No suspicious lung nodules or focal infiltrates are present. No enlarged mediastinal or hilar adenopathy is evident. The ascending aorta diameter at the level of the main pulmonary artery is 3.3 cm. The main pulmonary artery diameter at the bifurcation is 2.[address] ABDOMEN: Liver: Diffuse diminished density is seen in the liver compatible with moderate fatty infiltration. N o focal mass is evident. Spleen: Prominent Pancreas: Status post Whipple procedure. Distal body and tail of the pancreas appears normal. No unus ual mass density at the junction with the stomach. There is some increased density surrounding the superior mesenteric artery posterior to the splenic a rtery. Splenic artery is prominent. Inflammatory changes are within the soft tissues at the previous pancreatic head level. Findings appear to be present previously without significant interval change. Adrenal glands: The adrenal glands are normal. Gallbladder: Normal as visualized Kidneys: No masses are evident. No hydronephrosis is present. No cysts are present. Delayed images were obtained through the kidneys, which remain unremarkable. Aorta: Normal Inferior vena cava: Normal. CT PELVIS: Some incomplete distention or mild wall thickening to the sigmoid colon may be present. Correlate for mild colitis. No suspicious adjacent inflammatory changes to the sigmoid colon. Findings appear fidelia lar to comparison. Loops of bowel within the abdomen and pelvis are otherwise unremarkable. There are loops of bowel which are incompletely distended or lack oral contrast limiting their evaluation. Appendix: Normal as visualized. The mesenteric inflammatory changes extends towards the right paracol ic gutter. Suspicious inflammatory changes centered on the appendix however are not evident. Urinary bladder: Decompressed, normal is visualized Genitourinary structures: Uterus and ovaries are not identified. Osseous structures: No suspicious lytic or sclerotic lesions. IMPRESSION: 1. Stable appearing inflammatory changes within the upper epigastric region. Suspicious changes for m etastatic or recurrent pancreatic cancer not identified. 2. Patient is status post Whipple procedure. 3. Mild stable wall thickening versus incomplete distention of the sigmoid colon.
== END | disposition home or self-care (01) ==
LOC: RADCTMAIN 08:50
PROVIDERS: ATTEND Internal Medicine Hematology & Oncology
DX: K63.89 Other specified diseases of intestine (principal); C25.0 Malignant neoplasm of head of pancreas; I10 Essential (primary) hypertension; M12.9 Arthropathy, unspecified; D50.9 Iron deficiency anemia, unspecified; Z90.411 Acquired partial absence of pancreas
CPT/HCPCS: 71260; 74177; 36415; Q9967

== ENCOUNTER → 2024-01-21 | Outpatient (CLI) | payer MEDICARE ==
[2024-01-21 16:38] LABS: Appearance,Urine Turbid (Clear); Bilirubin,Urine Negative (Negative); Blood,Urine Negative (Negative); Color,Urine Dark Yellow (Yellow); Ketones,Urine Negative (Negative); Nitrite,Urine Negative (Negative); PH, Urine 5.5; Specific Gravity,Urine 1.017 (1.001-1.030)
[2024-01-21 17:07] LABS: Bacteria,Urine None Seen (None Seen); Calcium Oxalate Crystals,Urine Present (None Seen)
== END | disposition home or self-care (01) ==
LOC: LABWHC1 11:03
PROVIDERS: ATTEND Nurse Practitioner Family
DX: K86.81 Exocrine pancreatic insufficiency (principal); R30.0 Dysuria
CPT/HCPCS: 81001; 82653; 87086

== ENCOUNTER → 2024-01-21 | Outpatient (CLI) | payer MEDICARE ==
--- NOTE | 2024-01-21 14:25 | CT ---
EXAMINATION TYPE: CT ChestAbdPelvis w con DATE OF EXAM: 01/21/2024 COMPARISON: 09/21/2023 HISTORY: f/u pancreatic ca CT DLP: 1304 mGycm Automated exposure control for dose reduction was used. CONTRAST: CT scan of the chest, abdomen and pelvis is performed with Oral Contrast and with IV Contrast, patien t injected with 100 mL of Isovue 300. FINDINGS: CT chest: There is a stable 5 mm left lower lobe pulmonary nodule. There is no abnormal airspace/consolidative density or abnormal interstitial density. There is no pleural effusion, pleural thickening or pneumothorax. The great vessels and chest are normal there is no mediastinal, hilar or axillary adenopathy. No focal osseous lesions are seen. CT abdomen and pelvis: There is surgical absence of the gallbladder.. There a possible changes consistent with a Whipple pro cedure. There is no biliary ductal dilatation. There is diffuse fatty infiltration liver. Previously the spleen measured 14 cm and now measures approximately 15.3 cm consistent with a develop ment of mild splenomegaly. There is no solid renal mass or hydronephrosis. There is no retroperitoneal adenopathy or hemorrhage in the caliber of the abdominal aorta is normal. The bowel loops are normal in caliber and there is no dilatation or obstruction. No inflammatory schmidt ges identified in the bowel wall and mesentery. There is no free intracranial air or fluid. There is no pelvic mass or adenopathy. There is no free fluid within the pelvis. No focal osseous lesions are seen. Soft tissue the abdomen and pelvis are normal. There are surgical absence of the uterus. IMPRESSION: 1. Stable 4 to 5 mm left lower lobe pulmonary nodule. 2. Whipple procedure. 3. Diffuse steatosis. 4. Development of mild splenomegaly 5. No definite evidence of recurrent or metastatic disease
== END | disposition home or self-care (01) ==
LOC: RADCTMAIN 11:51
PROVIDERS: ATTEND Internal Medicine Hematology & Oncology
DX: C25.0 Malignant neoplasm of head of pancreas (principal); R91.1 Solitary pulmonary nodule; R16.1 Splenomegaly, not elsewhere classified; D50.9 Iron deficiency anemia, unspecified; M12.9 Arthropathy, unspecified; I10 Essential (primary) hypertension; E88.89 Other specified metabolic disorders
CPT/HCPCS: 71260; 74177; Q9967

== ENCOUNTER → 2024-05-26 | Outpatient (CLI) | payer MEDICARE ==
--- NOTE | 2024-05-26 16:17 | CT ---
EXAMINATION TYPE: CT ChestAbdPelvis w con CT DLP: 708.2 mGycm, Automated exposure control for dose reduction was used. DATE OF EXAM: 05/26/2024 2:26 PM COMPARISON: Multiple CT Chest Abdomen Pelvis with most recent 01/21/2024 CLINICAL INDICATION:Female, 48 years old with history of C25.0 PANCREATIC; PHH, pancreatic CA Technique: Multiple axial images of the chest, abdomen, and pelvis were obtained following the intrav enous administration of 100 mL Isovue-300. Oral contrast was administered Two-dimensional coronal and sagittal reconstructions were obtained. Findings: CHEST: LUNGS/ PLEURA: No pleural effusion, pneumothorax, focal consolidation. Stable lateral left lower lob e 5 mm nodular density (series 4 image 34). No new or enlarging pulmonary nodules. AIRWAY: Patent and unremarkable.. HEART: Size within normal limits. No pericardial effusion. Small coronary artery calcifications. MEDIASTINUM: No evidence of adenopathy. VASCULATURE: No aortic aneurysm. Left chest wall subclavian approach Mediport catheter distal tip te rminating in the mid SVC. MUSCULOSKELETAL: No acute osseous abnormalities. No aggressive osseous lesion. SOFT TISSUES/LYMPH NODES: Unremarkable. LOWER NECK: No significant findings. ABDOMEN: ABDOMEN LIVER: Diffusely hypoattenuating parenchyma. No focal lesion identified. No definite surface nodulari ty. GALLBLADDER AND BILE DUCTS: Gallbladder surgically absent. PANCREAS: Surgically absent from Whipple procedure. SPLEEN: Enlarged measuring 14.9 cm in AP dimension. ADRENAL GLANDS: Unremarkable. KIDNEYS AND URETERS: No evidence of hydronephrosis or renal calculus. The kidneys enhance symmetrical ly. Contrast demonstrated within both collecting systems on the delayed phase. PELVIS BLADDER: Incompletely distended but grossly unremarkable. REPRODUCTIVE: The uterus is surgically absent. ABDOMEN & PELVIS STOMACH AND BOWEL: Postsurgical changes from Whipple procedure. Enteric contrast reaches the rectum. Distal colonic diverticulosis without evidence for acute diverticulitis. The appendix is within peggy l limits. No evidence of bowel obstruction. PERITONEUM/RETROPERITONEUM: No evidence of pneumoperitoneum or free fluid. Fat stranding within the p geovanna hepatis region and mid and upper retroperitoneum are demonstrated with increasing soft tissue ap pearance measuring 2.2 x 2.0 cm within the upper periportal region (series 3, image 67). Abuts the SM A and SMV. VASCULATURE: No evidence of aortic aneurysm. Dilated portal venous system most pronounced involving t he main portal and splenic veins. Gastrohepatic collateral vessels. Recanalization of umbilical vein. MUSCULOSKELETAL: No acute osseous abnormalities. No aggressive osseous lesion. Degenerative disc dise ase most prominent at L5-S1. LYMPH NODES: No evidence for lymphadenopathy greater than 1 cm short axis.. SOFT TISSUE/ABDOMINAL WALL: Unremarkable IMPRESSION: 1. Postsurgical changes from Whipple procedure with more defined soft tissue appearance within the p eriportal region measuring 2.2 x 2.0 cm just lateral to the SMV and SMA concerning for recurrence. No other evidence for metastatic disease within the visualized abdomen and pelvis. Correlate with CA-19 -9 levels. 2. Redemonstration of dilated portal venous system involving the main portal vein and splenic veins with gastrohepatic collateral vessels, splenomegaly, recanalization of umbilical vein. Findings again suggest portal venous hypertension. 3. Stable left lower lobe 5 mm pulmonary nodule. No new pulmonary nodules. [facility], , 05/26/2024 4:15 PM
== END ==
LOC: RADCTMAIN 10:46
PROVIDERS: ATTEND Internal Medicine Hematology & Oncology
CPT/HCPCS: 71260; 74177

== ENCOUNTER → 2024-06-15 | Outpatient (CLI) | payer MEDICARE ==
--- NOTE | 2024-06-15 17:00 | PE ---
EXAMINATION TYPE: PET CT fusion skull to thigh DATE OF EXAM: 06/15/2024 CLINICAL INDICATION:Female, 48 years old with history of C25.0 PANCREAS CANCER; TECHNIQUE: Following the intravenous administration of 12.11 mCi of F-18 FDG, whole body images are performed from the skull base to the midthigh. Images are reviewed on the computer in the coronal, axial, and sagittal planes. Reconstructed rotating images are created on independent workstation and reviewed on the computer. A non-contrast CT is performed in conjunction with the PET scan. Glucose level 100 mg/dL CT DLP: 288.44 mGycm, Automated exposure control for dose reduction was used. COMPARISON: CT 05/26/2024, 01/21/2024, 09/21/2023, 05/19/2023, 01/18/2023, 10/15/2022, 07/15/2022, PET/CT , 08/15/2021, 05/30/2021, MRI: None FINDINGS: Mediastinal SUV mean is 2.2. Hepatic parenchyma SUV mean is 2.6. SKULL BASE AND NECK: No suspicious radiotracer activity. CHEST, MEDIASTINUM, AND HILAR REGION: No suspicious radiotracer activity. Increasing size of left lower lobe 6.8 mm pulmonary nodule (series 3, image 89). No FDG activity iden tified which may be below the sensitivity of PET CT. ABDOMEN AND PELVIS: Postsurgical changes from Whipple procedure with redemonstration of soft tissue measuring grossly 1.7 x 1.5 cm within the periportal region into the SMA and SMV. This demonstrates FDG activity with a ma ximum SUV of 7.6. Additional focus of adjacent radiotracer activity right lateral and slightly superi or to this which may represent a enlarged lymph node which measures 6 mm. Demonstrates a maximum SUV 5.4. MUSCULOSKELETAL STRUCTURES: No suspicious radiotracer activity. OTHER CT: Left chest wall subclavian approach central venous catheter distal tip terminating in the m id SVC. LAD coronary artery calcifications. Hepatic steatosis. Splenomegaly redemonstrated. Stranding changes redemonstrated throughout the mesentery. Distal colonic diverticulosis. Posthysterectomy lev nges. Recannulation of the umbilical vein with known dilated portal venous system better appreciated on prior CT. IMPRESSION: 1. Previously seen abnormal soft tissue within the periportal region near the SMV and SMA demonstrat es focal FDG activity likely representing recurrence. Additional focus just superior and right latera l may also represent metastatic lymph node/recurrence. No other sites of suspicious radiotracer activ ity. 2. Increasing size of left lower lobe 6.8 mm pulmonary nodule without FDG activity identified. This may be below the sensitivity of PET/CT. Follow-up CT chest in 3 months is recommended. [facility], , 06/15/2024 4:58 PM
== END | disposition home or self-care (01) ==
LOC: RADPETMAIN 07:01
PROVIDERS: ATTEND Internal Medicine Hematology & Oncology
DX: C25.0 Malignant neoplasm of head of pancreas (principal); R91.1 Solitary pulmonary nodule
CPT/HCPCS: 78815; A9552

== ENCOUNTER → 2024-06-26 | Outpatient (CLI) | payer MEDICARE ==
[2024-06-26 08:02] VITALS: BP 144/87; PULSE 89; RESP 16
--- NOTE | 2024-06-26 15:04 | P.PAINPG ---
PQRS Measure Charge Sheet Comment: HISTORY OF PRESENT ILLNESS: A 48 yr old female w and mother at side as a referral from [facility] presents today w severe and chronic abd pain since 2020 secondary to pancreatic CA for evaluation. Pt states pain level is provoked at 5-6 /10 in intensity, constant, localized in the upper abdomen, predominantly axial, achy in character w occasional shooting pain towards the mid back. Pain is provoked by laying supine. Pain is alleviated by medications (Lidoderm), repositioning and rest . PMH: OA, Pancreatic CA, GERD, HTN, an elevated WENDY Disorder, MDD/ Anxiety PSH: Hernia Repair, Hysterectomy, Whipple (2020), Colonoscopy (2021) SH: Negative x3 FH: Mo- No Reported History. Bro- Testicular CA All: See list Meds: See list REVIEW OF ORGAN SYSTEMS: CONSTITUTIONAL: No fevers or chills. No recent weight loss. NEUROLOGICAL: + numbness and tingling along the distal extremities. No seizure disorders or headaches. MUSCULOSKELETAL: + pain PSYCHIATRIC: Denies current depression or suicidal thoughts. Physical Examinations : Constitutional : Cooperative , not in acute distress . Neurologic : Cranial nerve II to XII intact. No focal neurological deficits. Psychiatric : alert & oriented x 3. Matching mood & appropriate affect. Judgment & insight intact. Musculoskeletal : +Diffuse abd TTP Cervical Spine Motor strength in the deltoid and biceps: Normal right side. Normal Left side Motor strength biceps and the wrist extensors: Normal right side . Normal left side Motor strength in the triceps muscle: Normal right side. Normal left side Deep tendon reflexes: Normal at the biceps. Normal at Brachioradialis. Normal at triceps Vertebral body tenderness to deep palpation over Cervical facet loading test: positive bilaterally Spurling test: positive bilaterally Neck distraction test: positive bilaterally Angel sign: positive bilaterally Lumbar spine Poor pedal 2pt discrimination Motor strength lower extremities ,thigh and legs 5/5 Right side , 5/5 Left side Deep tendon reflexes : Normal Knee Jerk. Normal Ankle Jerk Vertebral body tenderness over Livingston Test positive Lumbar facet Loading Test: positive Right / positive Left Range of motion of the lumbar spine Flexion 30 degrees, extension 10 degrees Straight Leg Raise test: Left/ Right positive at degrees Zana test: positive right / positive left. Severe tenderness over the Sacroiliac joint on the Right / Left sides Gaenslen test: positive bilaterally Seated flexion test: positive bilaterally. Sacral spine : Severe tenderness over the Sacroiliac joint: right side / left side Range of motion: Flexion of the lumbar spine <60 degrees Range of motion: Extension of the lumbar spine <20 degrees Gaenslen's Test positive Zana test: positive right side / left side Thigh Thrust Test Sacral Thrust Test Imaging: PET CT skull to [facility] from reviewed CT w contrast Chest/ Abd/ Pelvis from 05/26/[address] w contrast Chest/ Abd/ Pelvis from 01/21/24 reviewed Assessment/ Plan : Pancreatic CA Recommendation of Celiac Plexus Block #1. Risks, benefits of procedure discussed and patient verbalized understanding. Admits to anti- coagulant use or medical history of diabetes. Protocol for discontinuation/ continuation of medications jorge procedure discussed. Minimal anesthesia provided, if clinically indicated, consisting of Versed and Fentanyl. 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 Using Lidoderm 4% OTC patches with little benefit. Would benefit from Lidoderm 5% to apply daily, remove at bedtime G62.0 . All questions answered. I have spent greater than 30 minutes on patient care today. Dr Alvarez was available by phone for the evaluation of this patient. The time was used to review the medical records including relevant urine studies and Prescription history (MAPs), review of the available imaging, evaluation and examination of the patient, coordination of care with the medical staff and if applicable referring physicians, as well as creation of the medical record - Pain Location Back Non-Pharmacological Interventions: Heat, Ice Pharmacological Interventions: Medication, PRN Medication, Topical Medication PQRS Narrative: Smoking Status Never smoker Home Medications: Ambulatory Orders Albuterol Inhaler [Ventolin Hfa Inhaler] 2 puff INHALATION RT-QID PRN 01/22/21 Omeprazole 20 mg PO BID 05/16/21 Acetaminophen Tab [Tylenol Tab] 1,000 mg PO Q6H PRN 10/11/21 Cholecalciferol [Vitamin D3 (125 Mcg = 5000 Iu)] 125 mcg PO DAILY 10/11/21 Cyanocobalamin (Vitamin B-12) [Vitamin B12] 5,000 mcg PO DAILY 10/11/21 Dicyclomine [Bentyl] 10 mg PO DIRECTED 10/11/21 Docusate [Colace] 100 mg PO DAILY PRN 10/11/21 Folic Acid 1 mg PO DAILY 10/11/21 HYDROcodone/APAP 5-325MG [[place] 5-325] 1 tab PO BID 10/11/21 LORazepam [Ativan] 0.5 mg PO BID 10/11/21 Lidocaine(Unknown) 1 applic TOPICAL DAILY PRN 10/11/21 Loperamide HCl [Imodium A-D] 2 - 4 mg PO QID PRN 10/11/21 Magnesium Oxide 400 mg PO DAILY 10/11/21 OLANZapine 5 mg PO DIRECTED 10/11/21 Ondansetron Odt [Zofran ODT] 4 mg PO DIRECTED PRN 10/11/21 Lidocaine 5% Patch [Lidoderm] 1 each TP DAILY 30 Days #30 patch 06/26/24 Controlled Substance Measures - Controlled Substance Measures Is patient prescribed a controlled substance at discharge?: No
== END ==
LOC: PNWHC3 07:41
PROVIDERS: ATTEND Specialist
DX: C25.0 Malignant neoplasm of head of pancreas (principal); Z88.1 Allergy status to other antibiotic agents; Z88.0 Allergy status to penicillin; Z91.040 Latex allergy status; Z88.8 Allergy status to other drugs, medicaments and biological substances; Z88.2 Allergy status to sulfonamides
CPT/HCPCS: 99211

== ENCOUNTER 2024-06-29 11:40 | Day surgery (SDC) | payer MEDICARE ==
[2024-06-29 13:12] VITALS: TEMP 103
[2024-06-29] MEDS: LACTATED RINGERS 1,000 ML BAG IV STA (13:15)
[2024-06-29] MEDS: IV FLUID CONTINUATION 1,000 ML IV ONE ×2 (13:15→14:36)
[2024-06-29] MEDS: LIDOCAINE 1% (10MG/ML) FOR IV START INTRADERMA STA (13:15)
[2024-06-29] MEDS ORDERED: LACTATED RINGERS 1,000 ML IV SCH (13:18)
[2024-06-29] MEDS ORDERED: methylPREDNISolone ACETATE 80 MG/ML 1 ML VIAL ONE (14:10)
[2024-06-29] MEDS ORDERED: IOPAMIDOL M200 10 ML VIAL ONE (14:10)
[2024-06-29] MEDS ORDERED: MIDAZOLAM 2 MG/2 ML VIAL ONE (14:10)
[2024-06-29] MEDS ORDERED: ONDANSETRON 4 MG/2 ML VIAL ONE (14:10)
[2024-06-29] MEDS ORDERED: fentaNYL (PF) 50 MCG/ML 2 ML AMP ONE (14:10)
[2024-06-29] MEDS ORDERED: ROPIVACAINE 5MG/ML 20ML VIAL ONE (14:10)
--- NOTE | 2024-06-29 14:33 | P.PCN ---
Date of Procedure: 06/29/24 Procedure(s) Performed: PREOPERATIVE DIAGNOSIS: Pancreatic cancer with intractable abdominal pain. POSTOPERATIVE DIAGNOSIS: Pancreatic cancer with intractable abdominal pain. PROCEDURE: Diagnostic celiac plexus block under fluoroscopy guidance (fluoroscopy images available in the audiology Department ) ANESTHESIA: Moderate sedation with Versed 4 mg and Fentanyl 200 Mcg (duration started 1410, 1427 ) EBL: Minimal PROCEDURE INDICATION: The patient has a history of abdominal pain secondary to pancreatic cancer that is non responsive to more conservative treatments. PROCEDURE DESCRIPTION: The patient was seen and identified in the preoperative area. Risks, benefits, complications, and alternatives were discussed with the patient. The patient agreed to proceed with the procedure and signed the consent. IV was started, and vital signs were stable. Patient was taken to the OR and time out was completed.The patient was placed in the prone position on procedure table and a pillow was placed under the abdomen to reduce lumbar lordosis. The lumbosacral area was prepped and draped in the usual sterile fashion. Critical pause was taken. Vital signs were closely monitored during the procedure. Conscious sedation was used during the procedure to decrease patients anxiety. The procedure was performed in a similar fashion on the right side and on the left side. Using anterior-posterior fluoroscopy, the L1 spinous process and vertebral body were identified. Then, the fluoroscope was turned obliquely until the transverse process of L1 vertebra was totally behind the L1 vertebral body. Skin was then marked and infiltrated with Lidocaine 1% subcutaneously with a 25-guage needle at the level of the L1 vertebral body. Subsequently, a 20-guage 6-inch spinal needles was inserted and advanced toward anterior side of the L1 vertebral body under oblique fluoroscopic guidance and while keeping a ``tunnel view of the needle. Subsequently, 3 ml of the water soluble dye Omnipaque was injected under life fluoroscopy to confirm needle position. The spread of the dye along the anterior side of the L1 vertebral body was verified with AP and latter fluoroscopy. After satisfactory positioning of the needle and negative aspiration for CSF, blood, or any other contents, a total of 10 mL of 0.5% preservative-free Ropivacaine was injected with 3 ml increments and intermittent aspiration. Washout of the dye was seen and the needle was then withdrawn intact. Procedure was done bilaterally using the same technique on the right and left sides. A total of 20 ml of 0.5% preservative-free Ropivacaine ( mixed with 80 mg Depo-Medrol was used during the procedure.At the end of the procedure, the operated areas were cleaned. Band-Aids were applied. COMPLICATIONS: None DISPOSITION / PLANS: The patient was placed in a supine position and transferred to the recovery area in a stable condition for observation and was discharged from the recovery room after meeting discharge criteria.Home discharge instructions given to the patient by the staff.The patient was reexamined prior to discharge. We will schedule a neurolytic block in one week if patient has more than 50% pain relief from this block.
[2024-06-29 14:50] VITALS: RESP 14
[2024-06-29 15:05] VITALS: BP 120/80; PULSE 95
--- NOTE | 2024-06-29 15:45 | FL ---
EXAMINATION TYPE: FL guided pain mgmt statistic DATE OF EXAM: 06/29/2024 3:01 PM COMPARISON: Pre Operative Images if available both CT/MRI or plain film CLINICAL INDICATION: Female, 48 years old with history of PAIN; TECHNIQUE: FL guided pain mgmt statistic, multiple fluoroscopic images provided for procedure. Total fluoroscopy time: 12.3 seconds Total submitted images to PACS: 5 DAP: [id number] mGym2 Gycm2 uGym2 cGycm2 or equivalent. FINDINGS: Fluoroscopic images during injection for pain management demonstrate multilevel degeneration changes throughout the spine. No evidence for fracture. No acute process identified. IMPRESSION: 1. No evidence for intraoperative complication. 2. Please see the operative/procedural note for further details. [facility], , 06/29/2024 3:42 PM
== END 2024-06-29 15:13 | disposition home or self-care (01) ==
LOC: ORPAIN 11:40
PROVIDERS: ATTEND Specialist
DX: C25.9 Malignant neoplasm of pancreas, unspecified (principal); R10.9 Unspecified abdominal pain
CPT/HCPCS: 99152; 64530; J2250; J2405; J3010; Q9966; J2795; J1010

== ENCOUNTER → 2024-07-17 | Outpatient (CLI) | payer MEDICARE ==
[2024-07-17 07:49] VITALS: BP 128/83; PULSE 101; RESP 16; TEMP 97.7
--- NOTE | 2024-07-17 15:19 | P.PAINPG ---
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 Pt states she experienced 70 % pain relief x 2 wks s/p procedure. Pt states pain level is provoked at 2 /10 in intensity, constant, localized in the upper abdomen, predominantly axial, achy in character w occasional shooting pain towards the mid back. Pain is provoked by laying supine. Pain is alleviated by medications, repositioning and rest . Interventional procedures include Celiac Plexus Block x1 Medications include Lidoderm REVIEW OF ORGAN SYSTEMS: CONSTITUTIONAL: No fevers or chills. No recent weight loss. NEUROLOGICAL: + numbness and tingling along the distal extremities. No seizure disorders or headaches. MUSCULOSKELETAL: + pain PSYCHIATRIC: Denies current depression or suicidal thoughts. Physical Examinations : Constitutional : Cooperative , not in acute distress . Neurologic : Cranial nerve II to XII intact. No focal neurological deficits. Psychiatric : alert & oriented x 3. Matching mood & appropriate affect. Judgment & insight intact. Musculoskeletal : +Diffuse abd TTP Cervical Spine Motor strength in the deltoid and biceps: Normal right side. Normal Left side Motor strength biceps and the wrist extensors: Normal right side . Normal left side Motor strength in the triceps muscle: Normal right side. Normal left side Deep tendon reflexes: Normal at the biceps. Normal at Brachioradialis. Normal at triceps Vertebral body tenderness to deep palpation over Cervical facet loading test: positive bilaterally Spurling test: positive bilaterally Neck distraction test: positive bilaterally Angel sign: positive bilaterally Lumbar spine Poor pedal 2pt discrimination Motor strength lower extremities ,thigh and legs 5/5 Right side , 5/5 Left side Deep tendon reflexes : Normal Knee Jerk. Normal Ankle Jerk Vertebral body tenderness over Livingston Test positive Lumbar facet Loading Test: positive Right / positive Left Range of motion of the lumbar spine Flexion 30 degrees, extension 10 degrees Straight Leg Raise test: Left/ Right positive at degrees Zana test: positive right / positive left. Severe tenderness over the Sacroiliac joint on the Right / Left sides Gaenslen test: positive bilaterally Seated flexion test: positive bilaterally. Sacral spine : Severe tenderness over the Sacroiliac joint: right side / left side Range of motion: Flexion of the lumbar spine <60 degrees Range of motion: Extension of the lumbar spine <20 degrees Gaenslen's Test positive Zana test: positive right side / left side Thigh Thrust Test Sacral Thrust Test Imaging: PET CT skull to tigh from reviewed CT w contrast Chest/ Abd/ Pelvis from 05/26/[address] w contrast Chest/ Abd/ Pelvis from 01/21/24 reviewed Assessment/ Plan : Pancreatic CA Will manage residual pain and may RTC on an as needed basis . All questions answered. I have spent greater than 30 minutes on patient care today. Dr Alvarez was available by phone for the evaluation of this patient. The time was used to review the medical records including relevant urine studies and Prescription history (MAPs), review of the available imaging, evaluation and examination of the patient, coordination of care with the medical staff and if applicable referring physicians, as well as creation of the medical record PQRS Narrative: Smoking Status Never smoker Hx Alcohol Use (MH) No Home Medications: Ambulatory Orders Albuterol Inhaler [Ventolin Hfa Inhaler] 2 puff INHALATION RT-QID PRN 01/22/21 Omeprazole 20 mg PO BID 05/16/21 Acetaminophen Tab [Tylenol Tab] 1,000 mg PO Q6H PRN 10/11/21 Cholecalciferol [Vitamin D3 (125 Mcg = 5000 Iu)] 125 mcg PO DAILY 10/11/21 Cyanocobalamin (Vitamin B-12) [Vitamin B12] 5,000 mcg PO DAILY 10/11/21 Dicyclomine [Bentyl] 10 mg PO BID 10/11/21 Folic Acid 1 mg PO DAILY 10/11/21 LORazepam [Ativan] 0.5 mg PO BID PRN 10/11/21 Lidocaine(Unknown) 1 applic TOPICAL DAILY PRN 10/11/21 Loperamide HCl [Imodium A-D] 2 - 4 mg PO QID PRN 10/11/21 Ondansetron Odt [Zofran ODT] 4 mg PO DIRECTED PRN 10/11/21 Lidocaine 5% Patch [Lidoderm] 1 each TP DAILY 30 Days #30 patch 06/26/24 Floradix 1 dose PO MOWEFR 06/27/24 Milk Thistle 240 mg PO MOWEFR 06/27/24 Controlled Substance Measures - Controlled Substance Measures Is patient prescribed a controlled substance at discharge?: No
== END ==
LOC: PNWHC3 07:36
PROVIDERS: ATTEND Specialist
DX: C25.9 Malignant neoplasm of pancreas, unspecified (principal); Z88.1 Allergy status to other antibiotic agents; Z91.040 Latex allergy status; Z88.0 Allergy status to penicillin; Z88.2 Allergy status to sulfonamides; Z88.8 Allergy status to other drugs, medicaments and biological substances
CPT/HCPCS: 99211

== ENCOUNTER 2024-08-24 17:34 | Emergency (ER) | payer MEDICARE ==
[2024-08-24 18:34] VITALS: RESP 18; TEMP 98.8
--- NOTE | 2024-08-24 18:40 | ED ---
Abdominal Pain HPI - General Source: patient, RN notes reviewed Mode of arrival: ambulatory Limitations: no limitations - History of Present Illness MD Complaint: abdominal pain <Noble Robles - Last Filed: 08/24/24 18:47> <Yaya Rivera - Last Filed: 08/24/24 21:31> - General Chief Complaint: Abdominal Pain Stated Complaint: abd pain from Chemo Time Seen by Provider: 08/24/24 17:47 - History of Present Illness Initial Comments: Quick note: This is a 48-year-old female with history of pancreatic cancer and Whipple procedure presenting with mid abdominal pain (01/16) since last night. Patient states that the epigastric region of her abdomen feels hard following the sixth round of chemotherapy. Patient endorses some associated dry heaving but denies current nausea. States she spoke to Dr. Hoyt who advised an abdominal x-ray to rule out ascites. (Noble Robles) Dictation was produced using [employer] dictation software. please excuse any grammatical, word or spelling errors. Chief Complaint: 48-year-old female with pancreatic cancer presents with abdominal pain History of Present Illness: Patient is a 48-year-old female she is currently on chemotherapy for treatment of pancreatic cancer. Vital signs upon arrival shows heart rate 120, blood pressure 99/57. Patient states she just had chemotherapy 2 days ago. Shortly after she started to have some epigastric abdominal pain and abdominal bloating. Complains of some mild nausea. She states she does have some diarrhea. States that the pain is dull and moderate in nature. States that she has a history of Whipple surgery when she was initially treated for pancreatic cancer years ago. Any fevers. Her oncologist is Dr. Hoyt The ROS documented in this emergency department record has been reviewed and confirmed by me. Those systems with pertinent positive or negative responses have been documented in the HPI. All other systems are other negative and/or noncontributory. (Yaya Rivera) - Related Data Home Medications Medication Instructions Recorded Confirmed Albuterol Inhaler [Ventolin Hfa 2 puff INHALATION RT-QID PRN 01/22/21 07/17/24 Inhaler] Omeprazole 20 mg PO BID 05/16/21 07/17/24 Acetaminophen Tab [Tylenol Tab] 1,000 mg PO Q6H PRN 10/11/21 07/17/24 Cholecalciferol [Vitamin D3 (125 125 mcg PO DAILY 10/11/21 07/17/24 Mcg = 5000 Iu)] Cyanocobalamin (Vitamin B-12) 5,000 mcg PO DAILY 10/11/21 07/17/24 [Vitamin B12] Dicyclomine [Bentyl] 10 mg PO BID 10/11/21 07/17/24 Folic Acid 1 mg PO DAILY 10/11/21 07/17/24 LORazepam [Ativan] 0.5 mg PO BID PRN 10/11/21 07/17/24 Lidocaine(Unknown) 1 applic TOPICAL DAILY PRN 10/11/21 07/17/24 Loperamide HCl [Imodium A-D] 2 - 4 mg PO QID PRN 10/11/21 07/17/24 Ondansetron Odt [Zofran ODT] 4 mg PO DIRECTED PRN 10/11/21 07/17/24 Floradix 1 dose PO MOWEFR 06/27/24 07/17/24 Milk Thistle 240 mg PO MOWEFR 06/27/24 07/17/24 Previous Rx's Medication Instructions Recorded Lidocaine 5% Patch [Lidoderm] 1 each TP DAILY 30 Days #30 patch 06/26/24 Allergies Allergy/AdvReac Type Severity Reaction Status Date / Time ciprofloxacin [From Cipro] Allergy Rash/Hives Verified 08/24/24 18:38 erythromycin base Allergy Rash/Hives Verified 08/24/24 18:38 [From Erythrocin] latex Allergy Rash/Hives Verified 08/24/24 18:38 oseltamivir [From Tamiflu] Allergy Rash/Hives Verified 08/24/24 18:38 Penicillins Allergy Rash/Hives Verified 08/24/24 18:38 sulfamethoxazole Allergy Rash/Hives Verified 08/24/24 18:38 [From Bactrim] trimethoprim [From Bactrim] Allergy Rash/Hives Verified 08/24/24 18:38 Review of Systems ROS Other: All systems not noted in ROS Statement are negative. <Noble Robles - Last Filed: 08/24/24 18:47> ROS Other: All systems not noted in ROS Statement are negative. <Yaya Rivera - Last Filed: 08/24/24 21:31> ROS Statement: Those systems with pertinent positive or pertinent negative responses have been documented in the HPI. Past Medical History Past Medical History: Cancer, GERD/Reflux, Hypertension, Musculoskeletal Disorder Additional Past Medical History / Comment(s): Current pancreatic cancer. Unnamed autoimmune disorder-elevated WENDY. 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 Past Anesthesia/Blood Transfusion Reactions: Postoperative Nausea & Vomiting (PONV) Past Psychological History: Anxiety, Depression Smoking Status: Never smoker Past Alcohol Use History: Occasional Past Drug Use History: None Reported - Past Family History Brother(s) Family Medical History: Cancer Additional Family Medical History / Comment(s): Testicular cancer. <Noble Robles - Last Filed: 08/24/24 18:47> General Exam Limitations: no limitations <Noble Robles - Last Filed: 08/24/24 18:47> <Yaya Rivera - Last Filed: 08/24/24 21:31> - General Exam Comments Initial Comments: Visual Physical Exam Vital signs reviewed General: Well-appearing, nontoxic. Patient tearful Head: Normocephalic, atraumatic Eyes: PERRLA, EOMI ENT: Airway patent Chest: Nonlabored breathing Skin: No visual rash, normal skin tone Neuro: Alert and oriented 3 Musculoskeletal: No gross abnormalities (Noble Robles) PHYSICAL EXAM: General Impression: Alert and oriented x3, not in acute distress HEENT: Normocephalic atraumatic, extra-ocular movements intact, pupils equal and reactive to light bilaterally, mucous membranes moist. Cardiovascular: Heart regular rate and rhythm Chest: Able to complete full sentences, no retractions, no tachypnea Abdomen: abdomen soft, distended, nontympanitic abdomen, no organomegaly fluid wave Musculoskeletal: Pulses present and equal in all extremities, no peripheral edema Motor: no focal deficits noted Neurological: CN II-XII grossly intact, no focal motor or sensory deficits noted Skin: Intact with no visualized rashes Psych: Normal affect and mood (Yaya Rivera) Course Vital Signs 08/24/24 18:25 Temperature 98.8 F Pulse Rate 128 H Respiratory 18 Rate Blood Pressure 99/57 O2 Sat by Pulse 97 Oximetry Medical Decision Making <Noble Robles - Last Filed: 08/24/24 18:47> - Lab Data Result diagrams: 08/24/24 19:08 08/24/24 19:08 <Yaya Rivera - Last Filed: 08/24/24 21:31> - Medical Decision Making I completed the quick note portion of this chart signed CRISTOBAL Torres (Noble Robles) Was pt. sent in by a medical professional or institution (LUAN Muñoz, [employer], urgent care, hospital, or detention...) When possible be specific @ -No Did you speak to anyone other than the patient for history (EMS, parent, family, police, friend...)? What history was obtained from this source @ -No Did you review nursing and triage notes (agree or disagree)? Why? @ -I reviewed and agree with nursing and triage notes Were old charts reviewed (outside hosp., previous admission, EMS record, old EKG, old radiological studies, urgent care reports/EKG's, detention records)? Report findings @ -No old charts were reviewed Differential Diagnosis (chest pain, altered mental status, abdominal pain women, abdominal pain men, vaginal bleeding, musculoskeletal, weakness, fever, dyspnea, syncope, headache, dizziness, GI bleed, back pain, seizure, CVA, palpatations, mental health)? @ -Differential Abdominal Pain Women: Appendicitis, Cholecystitis, diverticulosis, ischemic bowel, pancreatitis, hepatitis, UTI, gastroenteritis, AAA, incarcerated hernia, bowel obstruction, constipation, inflammatory bowel, hepatitis, peptic ulcer disease, splenic infarction, perforated viscus, vulvitis, ovarian torsion, PID, kidney stone, placenta abruption, this is not meant to be an all-inclusive list EKG interpreted by me (3pts min.). @ -None done X-rays interpreted by me (1pt min.). @ -None done CT interpreted by me (1pt min.). @ -Pending CT abdomen pelvis with contrast U/S interpreted by me (1pt. min.). @ -None done What testing was considered but not performed or refused? (CT, X-rays, U/S, labs)? Why? @ -None What meds were considered but not given or refused? Why? @ -None Was smoking cessation discussed for >3mins.? @ -No Were there social determinants of health that impacted care today? How? (Homelessness, low income, unemployed, alcoholism, drug addiction, transportation, low edu. Level, literacy, decrease access to med. care, usp, rehab)? @ -No Was there de-escalation of care discussed even if they declined (Discuss DNR or withdrawal of care, Hospice)? DNR status @ -No What co-morbidities impacted this encounter? (DM, HTN, Smoking, COPD, CAD, Cancer, CVA, ARF, Chemo, Hep., AIDS, mental health diagnosis, sleep apnea, morbid obesity)? @ -Pancreatic cancer Was patient admitted / discharged? Hospital course, mention meds given and route, prescriptions, significant lab abnormalities, going to OR and other pertinent info. @ -48-year-old female presents emergency department for abdominal pain. Patient currently being treated for pancreatic cancer. She had chemotherapy 2 days ago. Patient has tender abdomen. She does have history of abdominal surgery. Rodney evaluation obtained. Mild leukocytosis of 13.9. Hemoglobin 8.7 which is around her baseline. Metabolic panel shows hyponatremia 131 with potassium 3.1. Lactic acidosis 2.2. Rest of labs within acceptable limits. CT abdomen pelvis shows splenomegaly and ascites fluid-filled small bowel loops within the colon suspicious for gastroenteritis this is likely chemotherapy- induced. Patient reevaluated the bedside at 9:29 PM as she feels significantly improved. She is happy to hear that her CT does not show any radiographic evidence of pancreatic cancer. Patient would like to be discharged. She states that she can follow-up closely with her oncologist. She is offered pain medication and other medications for symptomatic treatment she states that she has those at home. Did you discuss the management of the patient with other professionals (professionals i.e. , PA, [employer]PERATOR, lab, RT, psych nurse, social services, job order clerk, teacher, hearing officer, medical case manager)? Give summary @ -No Was critical care preformed (if so, how long)? @ -No Undiagnosed new problem with uncertain prognosis? @ -No Drug Therapy requiring intensive monitoring for toxicity (Heparin, Nitro, Insulin, Cardizem)? @ -No Were any procedures done? @ -No Diagnosis/symptom? Acute, or Chronic, or Acute on Chronic? Uncomplicated (without systemic symptoms) or Complicated (systemic symptoms)? @ -Abdominal pain Side effects of treatment? @ -No Exacerbation, Progression, or Severe Exacerbation? @ -No Poses a threat to life or bodily function? How? (Chest pain, USA, DC, pneumonia, PE, COPD, DKA, ARF, appy, cholecystitis, CVA, Diverticulitis, Homicidal, Suicidal, threat to staff... and all critical care pts) @ -yes (Yaya Rivera) - Lab Data Lab Results 08/24/24 08/24/24 08/24/24 Range/Units 19:08 19:08 19:08 WBC 13.9 H (3.8-10.6) k/uL RBC 2.47 L (3.80-5.40) m/uL Hgb 8.7 L (11.4-16.0) gm/dL Hct 26.4 L (34.0-46.0) % MCV 107.1 H (80.0-100.0) fL MCH 35.1 H (25.0-35.0) pg MCHC 32.8 (31.0-37.0) g/dL RDW 17.5 H (11.5-15.5) % Plt Count 200 (150-450) k/uL MPV 8.4 Neutrophils % 96 % Lymphocytes % 2 % Monocytes % 1 % Eosinophils % 0 % Basophils % 1 % Neutrophils # 13.3 H (1.3-7.7) k/uL Lymphocytes # 0.3 L (1.0-4.8) k/uL Monocytes # 0.1 (0-1.0) k/uL Eosinophils # 0.1 (0-0.7) k/uL Basophils # 0.1 (0-0.2) k/uL Manual Slide Review Performed Hypochromasia Moderate Poikilocytosis Slight Anisocytosis Slight Macrocytosis Marked A Sodium 131 L (137-145) mmol/L Potassium 3.1 L (3.5-5.1) mmol/L Chloride 99 (98-107) mmol/L Carbon Dioxide 24 (22-30) mmol/L Anion Gap 8 mmol/L BUN 11 (7-17) mg/dL Creatinine 0.59 (0.52-1.04) mg/dL Est GFR (CKD-EPI)AfAm >90 (>60 ml/min/1.73 sqM) Est GFR (CKD-EPI)NonAf >90 (>60 ml/min/1.73 sqM) Glucose 108 H (74-99) mg/dL Plasma Lactic Acid Guilherme 2.2 H* (0.7-2.0) mmol/L Calcium 8.2 L (8.4-10.2) mg/dL Total Bilirubin 2.3 H (0.2-1.3) mg/dL AST 46 H (14-36) U/L ALT 18 (4-34) U/L Alkaline Phosphatase 179 H (38-126) U/L Total Protein 5.8 L (6.3-8.2) g/dL Albumin 3.0 L (3.5-5.0) g/dL Lipase <10 L (23-300) U/L Disposition <Noble Robles - Last Filed: 08/24/24 18:47> Is patient prescribed a controlled substance at d/c from ED?: No Time of Disposition: 21:31 <Yaya Rivera - Last Filed: 08/24/24 21:31> Clinical Impression: Abdominal pain Disposition: HOME SELF-CARE Condition: Fair Instructions (If sedation given, give patient instructions): Abdominal Pain (ED) Referrals: Carlitos Rosas DO [Primary Care Provider] - 1-2 [address] [facility] [STAFF PHYSICIAN] - 1-2 days
[2024-08-24 19:21] LABS: Anisocytosis Slight; Basophils # (A) 0.1 k/uL (0-0.2); Basophils % (A) 1 %; Eosinophils # (A) 0.1 k/uL (0-0.7); Eosinophils % (A) 0 %; HCT 26.4 % (34.0-46.0); HGB 8.7 gm/dL (11.4-16.0); Hypochromasia Moderate; Lymphocytes # (A) 0.3 k/uL (1.0-4.8); Lymphocytes % (A) 2 %; MCH 35.1 pg (25.0-35.0); MCHC 32.8 g/dL (31.0-37.0); MCV 107.1 fL (80.0-100.0); Macrocytosis Marked; Mean Platelet Volume 8.4; Monocytes # (A) 0.1 k/uL (0-1.0); Monocytes % (A) 1 %; Neutrophils # (A) 13.3 k/uL (1.3-7.7); Neutrophils % (A) 96 %; Platelet Count 200 k/uL (150-450); Poikilocytosis Slight; RBC 2.47 m/uL (3.80-5.40); RDW 17.5 % (11.5-15.5); WBC 13.9 k/uL (3.8-10.6)
[2024-08-24 19:23] LABS: ALT 18 U/L (4-34); AST 46 U/L (14-36); African American GFR (CKD) >90 (>60 ml/min/1.73 sqM); Alkaline Phosphatase 179 U/L (38-126); Anion Gap 8 mmol/L; Blood Urea Nitrogen 11 mg/dL (7-17); Calcium 8.2 mg/dL (8.4-10.2); Carbon Dioxide 24 mmol/L (22-30); Chloride 99 mmol/L (98-107); Glucose 108 mg/dL (74-99); Lipase <10 U/L (23-300); Non-African American GFR(CKD) >90 (>60 ml/min/1.73 sqM); Potassium 3.1 mmol/L (3.5-5.1); Sodium 131 mmol/L (137-145); Total Bilirubin 2.3 mg/dL (0.2-1.3); Total Protein 5.8 g/dL (6.3-8.2)
[2024-08-24] MEDS: HYDROmorphone 0.5 MG/0.5 ML SYRINGE IVP STA (19:46)
[2024-08-24] MEDS: SODIUM CHLORIDE 0.9% 1,000 ML IV STA (19:47)
--- NOTE | 2024-08-24 21:20 | CT ---
EXAMINATION TYPE: CT abdomen pelvis w con DATE OF EXAM: 08/24/2024 8:49 PM COMPARISON: None. CLINICAL INDICATION: Female, 48 years old with history of abdominal pain, Patient reports pancreatic cancer, having upper abdominal pain/swelling that started last night. TECHNIQUE: Axial images were obtained from above the diaphragm to the pubic rami in the axial plane a t 5 mm thick sections. Reconstructed images are reviewed on the computer in the coronal plane. CONTRAST: 100ml mL of Isovue 300. Study performed without Oral Contrast DLP: 794.7 mGycm, Automated exposure control for dose reduction was used. FINDINGS: Limited CT sections are obtained the lung bases. The lung bases are clear. CT ABDOMEN: Liver: Normal. Small amount of ascites adjacent to the liver. Spleen: Markedly enlarged, this measures 14.3 cm in craniocaudal dimension. Normal less than 12.5 cm. Pancreas: Atrophic. Patient's reported pancreatic cancer is not identified. There is diffuse increase d mesenteric density adjacent to the pancreatic head. This area appears to correlate with the PET/CT findings Adrenal glands: The adrenal glands are normal. Gallbladder: Distended. Small amount of inflammatory change may be adjacent Kidneys: No masses are evident. No hydronephrosis is present. No cysts are present. Delayed images were obtained through the kidneys, which remain unremarkable. Aorta: Normal Inferior vena cava: Normal. CT PELVIS: Fluid filled small bowel loops are present within the abdomen. Small amount of fluid is paracolic gut ters. Colon appears nondilated. A couple of diverticuli within the proximal sigmoid colon. Correlate for gastroenteritis. Appendix: Not identified. No dilated tubular structure or inflammatory change is evident. Urinary bladder: Normal. Genitourinary structures: Uterus and ovaries are not identified. Osseous structures: There is a circumscribed lytic area within the T10 vertebral level on the left. M etastatic lesion is not excluded. IMPRESSION: 1. Patient's reported pancreatic cancer not clearly identified. 2. Possible metastatic lesion to the left T10 vertebral body. 3. Splenomegaly. 4. Ascites. 5. Fluid-filled small bowel loops with some fluid within the colon. Correlate for gastroenteritis. [facility], , 08/24/2024 9:17 PM
[2024-08-24 21:52] VITALS: BP 113/73; PULSE 112
== END 2024-08-24 21:51 | disposition home or self-care (01) ==
LOC: EC 17:34
DX: R10.13 Epigastric pain (principal); E87.1 Hypo-osmolality and hyponatremia; D72.829 Elevated white blood cell count, unspecified; R16.1 Splenomegaly, not elsewhere classified; R18.8 Other ascites; C25.9 Malignant neoplasm of pancreas, unspecified; Z88.1 Allergy status to other antibiotic agents; Z91.040 Latex allergy status; Z88.0 Allergy status to penicillin; Z88.2 Allergy status to sulfonamides; Z88.8 Allergy status to other drugs, medicaments and biological substances; Z90.49 Acquired absence of other specified parts of digestive tract
CPT/HCPCS: 36415; 80053; 83605; 83690; 85025; 74177; 99284; 96374; 96361; J1171; Q9967

== ENCOUNTER → 2024-09-06 | Outpatient (CLI) | payer MEDICARE ==
--- NOTE | 2024-09-06 14:47 | MM ---
Reason for Exam: Screening (asymptomatic). Last screening mammogram was performed 12 month(s) ago. Patient History: Menarche at age 11. Patient has no children. Hysterectomy at age 36. Postmenopausal. Pancreatic cancer, age 45. Previous chemotherapy at age 45. Patient used Hormonal Contraceptives for 6 years. Risk Values: Elizabeth 5 year model risk: 1.1%. NCI Lifetime model risk: 9.9%. Prior Study Comparison: 10/03/2020 Bilateral Screening Mammogram, [facility]. 05/18/2022 Bilateral MG 3D screening mammo w/cad, [facility]. 08/20/2023 Bilateral MG 3D screening mammo w/cad, [facility]. Tissue Density: There are scattered areas of fibroglandular density. Findings: Analyzed By CAD. Right breast: There is no suspicious group of microcalcifications or new suspicious mass. Left breast: There is no suspicious group of microcalcifications or new suspicious mass. Overall Assessment: Negative, BI-RAD 1 Management: Screening Mammogram of both breasts in [address] [facility] will attempt to contact patient to return for supplemental views and ultrasound if indicated. Patient should continue monthly self-breast exams. A clinical breast exam by your physician is recommended on an annual basis. This exam should not preclude additional follow-up of suspicious palpable abnormalities. Note on Elizabeth scores and lifetime risk: 1. A Elizabeth score greater than 3% is considered moderate risk. If this is the case, consider specialist referral to assess eligibility for a risk reducing agent. 2. If overall lifetime risk for the development of breast cancer is 20% or higher, the patient may qualify for future screening with alternating mammogram and breast MRI. [facility], , 09/06/2024 2:44 PM. Electronically signed and approved by: Sadiq Gonzales DO
== END | disposition home or self-care (01) ==
LOC: RADMAMWWP 12:53
PROVIDERS: ATTEND Internal Medicine Hematology & Oncology
DX: Z12.31 Encounter for screening mammogram for malignant neoplasm of breast (principal); R92.323 Mammographic fibroglandular density, bilateral breasts; Z78.0 Asymptomatic menopausal state
CPT/HCPCS: 77063; 77067

== ENCOUNTER → 2024-09-28 | Outpatient (CLI) | payer MEDICARE ==
--- NOTE | 2024-10-01 00:05 | PE ---
EXAMINATION TYPE: PET CT fusion skull to thigh DATE OF EXAM: 09/28/2024 CLINICAL INDICATION:Female, 49 years old with history of C25.0 PANCREATIC CANCER; TECHNIQUE: Following the intravenous administration of 9.71 mCi of F-18 FDG, whole body images are performed from the skull base to the midthigh. Images are reviewed on the computer in the coronal, a xial, and sagittal planes. Reconstructed rotating images are created on independent workstation and reviewed on the computer. A non-contrast CT is performed in conjunction with the PET scan. Glucose level 90 mg/dL CT DLP: 383.01 mGycm, Automated exposure control for dose reduction was used. COMPARISON: CT most recent 08/24/2024, PET/CT 06/15/2024, 01/23/2022, 08/15/2021, 05/30/2021, MRI: None FINDINGS: Mediastinal SUV mean is 1.3. Hepatic parenchyma SUV mean is 1.9. SKULL BASE AND NECK: No suspicious radiotracer activity. CHEST, MEDIASTINUM, AND HILAR REGION: Previously seen left lower lobe pulmonary nodule is not visualized with now mild subsegmental atelect asis is demonstrated in this region. Additional regions of linear atelectasis within the lingula and right middle lobe. Development of nodular opacities within the anterior aspects of the bilateral uppe r lobes. Maximum SUV on the left is 3.6. Max SUV on the right is 2.2. ABDOMEN AND PELVIS: Postsurgical changes from Whipple procedure . Decreased FDG activity at site of previously seen suspe cted recurrence demonstrating a maximum SUV of 4.7. Previously 7.6. Additional decreased FDG activity with the site of the suspected lymph node in the right periportal region. This is a max SUV of 2.3, previously 5.4. FDG activity within the rectum which is likely physiologic. MUSCULOSKELETAL STRUCTURES: Diffuse osseous uptake likely related to posttreatment change. Focal region of radiotracer photopenia involving the T11 vertebral body likely related to post treatment change. Similar lytic lesion involving the left aspect of the T10 vertebral body without focal FDG activity. OTHER CT: Left chest wall subclavian approach central venous catheter distal tip terminating in the m id SVC. LAD coronary artery calcifications. Hepatic steatosis. Splenomegaly redemonstrated. Small to moderate volume ascites throughout the abdomen and pelvis. Distal colonic diverticulosis. Posthystere ctomy changes. Recannulation of the umbilical vein with known dilated portal venous system better aditi reciated on prior CT. Mild diffuse anasarca. IMPRESSION: 1. Positive response to therapy with decreasing FDG activity as suspected regions of pancreatic canc er recurrence and lymphadenopathy in the periportal/pancreatic surgical site. 2. Development of pulmonary nodular opacities within the anterior bilateral upper lobes with indeter minate mild FDG activity. Could represent an infectious/inflammatory nodularity versus developing met astasis. Follow-up CT chest in 3 months is recommended. [facility], , 10/01/2024 12:02 AM
== END | disposition home or self-care (01) ==
LOC: RADPETMAIN 07:54
PROVIDERS: ATTEND Internal Medicine Hematology & Oncology
DX: C25.0 Malignant neoplasm of head of pancreas (principal); R91.1 Solitary pulmonary nodule; K57.30 Diverticulosis of large intestine without perforation or abscess without bleeding; K76.0 Fatty (change of) liver, not elsewhere classified
CPT/HCPCS: 78815; A9552

== ENCOUNTER 2024-10-06 12:49 | Inpatient (IN) | payer MEDICARE ==
--- NOTE | 2024-10-06 13:27 | ED ---
General Adult HPI - General Chief complaint: Shortness of Breath Stated complaint: JE, leg swelling Time Seen by Provider: 10/06/24 13:09 Source: patient, RN notes reviewed Mode of arrival: ambulatory Limitations: no limitations - History of Present Illness Initial comments: 49-year-old female with a past medical history of pancreatic cancer presents to the emergency department for evaluation of shortness of breath and bilateral lower extremity edema. Patient states that this has been ongoing for around a week. She notes that she also has been short of breath and has had to keep the head of her bed elevated. She has a history of pancreatic cancer and follows with Dr. Hoyt. She states that her last chemotherapy was 10 days ago. She gets neulasta after her chemo. She denies any fever, chills. Denies cough, congestion. Denies chest pain. - Related Data Home Medications Medication Instructions Recorded Confirmed Albuterol Inhaler [Ventolin Hfa 2 puff INHALATION RT-Q4H PRN 01/22/21 10/06/24 Inhaler] Omeprazole 20 mg PO BID PRN 05/16/21 10/06/24 Acetaminophen Tab [Tylenol Tab] 1,000 mg PO Q6H PRN 10/11/21 10/06/24 Cholecalciferol [Vitamin D3 (125 125 mcg PO DAILY 10/11/21 10/06/24 Mcg = 5000 Iu)] Cyanocobalamin (Vitamin B-12) 5,000 mcg PO Q48H 10/11/21 10/06/24 [Vitamin B12] Folic Acid 1 mg PO DAILY 10/11/21 10/06/24 LORazepam [Ativan] 0.5 mg PO TID PRN 10/11/21 10/06/24 Loperamide HCl [Imodium A-D] 2 - 4 mg PO QID PRN 10/11/21 10/06/24 Ondansetron Odt [Zofran ODT] 4 mg PO Q6H PRN 10/11/21 10/06/24 Milk Thistle 150 mg PO DAILY 06/27/24 10/06/24 Bitter Apricot Kernels Supplement 1 dose PO DAILY 10/06/24 10/06/24 Adams Superfood Greens Supplement 1 dose PO DAILY 10/06/24 10/06/24 Doxycycline Monohydrate 100 mg PO BID 10/06/24 10/06/24 Floradix Liquid Iron Supplement 1 tbsp PO Q48H 10/06/24 10/06/24 Lipase/Protease/Amylase [Nayla Bhardwaj 3 cap PO TID-W/MEALS 10/06/24 10/06/24 36,000 Unit Capsule] Mirtazapine 7.5 mg PO HS 10/06/24 10/06/24 Nature's Craft Water Away 1 cap PO DAILY 10/06/24 10/06/24 Supplement Potassium Chloride ER [K-Dur 20] 20 meq PO DAILY 10/06/24 10/06/24 Prochlorperazine [Compazine] 10 mg PO Q6H PRN 10/06/24 10/06/24 Pure Herbs Supplement 1 dose PO DAILY 10/06/24 10/06/24 methylPREDNISolone Dose Pack See Taper PO DIRECTED 10/06/24 10/06/24 [Medrol Dose Pack] Allergies Allergy/AdvReac Type Severity Reaction Status Date / Time ciprofloxacin [From Cipro] Allergy Rash/Hives Verified 10/06/24 15:38 erythromycin base Allergy Rash/Hives Verified 10/06/24 15:38 [From Erythrocin] latex Allergy Rash/Hives Verified 10/06/24 15:38 oseltamivir [From Tamiflu] Allergy Rash/Hives Verified 10/06/24 15:38 Penicillins Allergy Rash/Hives Verified 10/06/24 15:38 sulfamethoxazole Allergy Rash/Hives Verified 10/06/24 15:38 [From Bactrim] trimethoprim [From Bactrim] Allergy Rash/Hives Verified 10/06/24 15:38 Review of Systems ROS Statement: Those systems with pertinent positive or pertinent negative responses have been documented in the HPI. ROS Other: All systems not noted in ROS Statement are negative. Past Medical History Past Medical History: Cancer, GERD/Reflux, Hypertension, Musculoskeletal Disorder Additional Past Medical History / Comment(s): Current pancreatic cancer. Unnamed autoimmune disorder-elevated WENDY. 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 Past Anesthesia/Blood Transfusion Reactions: Postoperative Nausea & Vomiting (PONV) Past Psychological History: Anxiety, Depression Smoking Status: Never smoker Past Alcohol Use History: Occasional Past Drug Use History: None Reported - Past Family History Brother(s) Family Medical History: Cancer Additional Family Medical History / Comment(s): Testicular cancer. General Exam Limitations: no limitations General appearance: alert, in no apparent distress Head exam: Present: atraumatic, normocephalic, normal inspection Respiratory exam: Present: wheezes, rhonchi. Absent: respiratory distress, r ales, stridor Cardiovascular Exam: Present: regular rate, normal rhythm, normal heart sounds. Absent: systolic murmur, diastolic murmur, rubs, gallop, clicks GI/Abdominal exam: Present: distended, normal bowel sounds. Absent: tenderness, guarding, rebound, rigid Extremities exam: Present: full ROM, tenderness, pedal edema, other (3+ pitting edema in bilateral leg) Neurological exam: Present: alert, oriented X3 Psychiatric exam: Present: normal affect, normal mood Skin exam: Present: warm, dry, intact, normal color. Absent: rash Course Vital Signs 10/06/24 10/06/24 10/06/24 12:52 14:01 14:23 Temperature 97.8 F Pulse Rate 107 H 93 Pulse Rate [ Chip Loft Worker ] Respiratory 20 19 17 Rate Blood Pressure 131/72 120/71 Blood Pressure [Right Arm] O2 Sat by Pulse 97 93 L Oximetry 10/06/24 10/06/24 10/06/24 16:12 18:42 21:30 Temperature 97.8 F Pulse Rate 92 94 91 Pulse Rate [ Chip Loft Worker ] Respiratory 16 20 18 Rate Blood Pressure 127/79 119/76 114/73 Blood Pressure [Right Arm] O2 Sat by Pulse 94 L 97 93 L Oximetry 10/06/24 10/07/24 10/07/24 23:32 02:00 08:00 Temperature 98.1 F Pulse Rate Pulse Rate [ 87 70 Chip Loft Worker ] Respiratory 18 18 18 Rate Blood Pressure Blood Pressure 125/56 [Right Arm] O2 Sat by Pulse 90 L 95 Oximetry Medical Decision Making - Medical Decision Making Was pt. sent in by a medical professional or institution (, PA, SPEED READING TEACHER, urgent care, hospital, or intermediate...) When possible be specific @ -No Did you speak to anyone other than the patient for history (EMS, parent, family, police, friend...)? What history was obtained from this source @ -No Did you review nursing and triage notes (agree or disagree)? Why? @ -I reviewed and agree with nursing and triage notes Were old charts reviewed (outside hosp., previous admission, EMS record, old EKG, old radiological studies, urgent care reports/EKG's, intermediate records)? Report findings @ -No old charts were reviewed Differential Diagnosis (chest pain, altered mental status, abdominal pain women, abdominal pain men, vaginal bleeding, weakness, fever, dyspnea, syncope, headache, dizziness, GI bleed, back pain, seizure, CVA, palpatations, mental health, musculoskeletal)? @ -Differential Dyspnea: Coronary syndrome, arrhythmia, tamponade, asthma, COPD, pulmonary embolism, pneumonia, pneumothorax, pulmonary effusion, anaphylaxis, diabetic ketoacidosis, flailed chest, pulmonary contusion, diaphragmatic rupture, anemia, neuromuscular, this is not meant to be an all-inclusive list. EKG interpreted by me (3pts min.). @ -EKG at 1339 shows sinus rhythm rate 94, OK 153, QRS 87, QT/QTc [id number] X-rays interpreted by me (1pt min.). @ -Chest x-ray shows evidence of venous congestion CT interpreted by me (1pt min.). @ -None done U/S interpreted by me (1pt. min.). @ -None done What testing was considered but not performed or refused? (CT, X-rays, U/S, labs)? Why? @ -None What meds were considered but not given or refused? Why? @ -None Did you discuss the management of the patient with other professionals (professionals i.e. , PA, SPEED READING TEACHER, lab, RT, psych nurse, certified social workers in health care, metal buggy operator, teacher, fare enforcement officer, rehabilitation case coordinator)? Give summary @ -Case discussed with Dr. Hawkins with [facility] who is accepting of the admission. Was smoking cessation discussed for >3mins.? @ -No Was critical care preformed (if so, how long)? @ -No Were there social determinants of health that impacted care today? How? (Homelessness, low income, unemployed, alcoholism, drug addiction, transportation, low edu. Level, literacy, decrease access to med. care, fdc, rehab)? @ -No Was there de-escalation of care discussed even if they declined (Discuss DNR or withdrawal of care, Hospice)? DNR status @ -No What co-morbidities impacted this encounter? (DM, HTN, Smoking, COPD, CAD, Cancer, CVA, ARF, Chemo, Hep., AIDS, mental health diagnosis, sleep apnea, morbid obesity)? @ -None Was patient admitted / discharged? Hospital course, mention meds given and route, prescriptions, significant lab abnormalities, going to OR and other pertinent info. @ -Admitted. Patient presented emergency department for lower extremity edema and shortness of breath.Laboratory studies obtained revealing leukocytosis at 31.9, hemoglobin 7.1. Patient notes that she receives Neulasta and is likely the source of her leukocytosis. Patient has elevated coagulation studies. She also has hyponatremia at 127, potassium 3.0 likely dilutional due to the patient's fluid retention. Negative troponin. BNP elevated at 3480. Patient was administered 40 mg of Lasix. She be on fluid restricted diet. Case is discussed with Dr. Hooks who is accepting of the admission. Case discussed with Dr. Jenkins Undiagnosed new problem with uncertain prognosis? @ -No Drug Therapy requiring intensive monitoring for toxicity (Heparin, Nitro, Insulin, Cardizem)? @ -No Were any procedures done? @ -No Diagnosis/symptom? @ -Fluid retention, hyponatremia, history of pancreatic cancer Acute, or Chronic, or Acute on Chronic? @ -Acute Uncomplicated (without systemic symptoms) or Complicated (systemic symptoms)? @ -Uncomplicated Side effects of treatment? @ -No Exacerbation, Progression, or Severe Exacerbation? @ -No Poses a threat to life or bodily function? How? (Chest pain, [place], [place], pneumonia, PE, COPD, DKA, ARF, appy, cholecystitis, CVA, Diverticulitis, Homicidal, Suicidal, threat to staff... and all critical care pts) @ -No - Lab Data Result diagrams: 10/07/24 10:51 10/07/24 10:51 Lab Results 10/06/24 10/06/24 10/06/24 Range/Units 14:01 14:01 14:01 WBC 31.9 H (3.8-10.6) k/uL RBC 2.11 L (3.80-5.40) m/uL Hgb 7.1 L D (11.4-16.0) gm/dL Hct 23.3 L (34.0-46.0) % MCV 110.5 H (80.0-100.0) fL MCH 33.5 (25.0-35.0) pg MCHC 30.4 L (31.0-37.0) g/dL RDW 21.1 H (11.5-15.5) % Plt Count 92 L D (150-450) k/uL MPV 8.3 Neutrophils % (Manual) 94 % Band Neuts % (Manual) 1 % Lymphocytes % (Manual) 2 % Monocytes % (Manual) 3 % Metamyelocytes % 1 % Myelocytes % 1 % Neutrophils # (Manual) 30.30 H (1.3-7.7) k/uL Lymphocytes # (Manual) 0.64 L (1.0-4.8) k/uL Monocytes # (Manual) 0.96 (0-1.0) k/uL Metamyelocytes # (Man) 0.32 H (0) k/uL Myelocytes # (Manual) 0.32 H (0) k/uL Nucleated RBCs 0 (0-0) /100 WBC Manual Slide Review Performed Hypochromasia Slight Anisocytosis Moderate Macrocytosis Marked A PT 25.9 H (10.0-12.5) sec INR 2.6 H (<1.2) APTT 33.1 H (22.0-30.0) sec Sodium 127 L (137-145) mmol/L Potassium 3.0 L (3.5-5.1) mmol/L Chloride 94 L (98-107) mmol/L Carbon Dioxide 28 (22-30) mmol/L Anion Gap 5 mmol/L BUN 13 (7-17) mg/dL Creatinine 0.76 (0.52-1.04) mg/dL Est GFR (CKD-EPI)AfAm >90 (>60 ml/min/1.73 sqM) Est GFR (CKD-EPI)NonAf >90 (>60 ml/min/1.73 sqM) Glucose 97 (74-99) mg/dL Calcium 8.1 L (8.4-10.2) mg/dL Total Bilirubin 1.6 H (0.2-1.3) mg/dL AST 128 H (14-36) U/L ALT 24 (4-34) U/L Alkaline Phosphatase 406 H (38-126) U/L Troponin I (0.000-0.034) ng/mL NT-Pro-B Natriuret Pep 3480 pg/mL Total Protein 5.3 L (6.3-8.2) g/dL Albumin 2.4 L (3.5-5.0) g/dL 10/06/24 Range/Units 14:01 WBC (3.8-10.6) k/uL RBC (3.80-5.40) m/uL Hgb (11.4-16.0) gm/dL Hct (34.0-46.0) % MCV (80.0-100.0) fL MCH (25.0-35.0) pg MCHC (31.0-37.0) g/dL RDW (11.5-15.5) % Plt Count (150-450) k/uL MPV Neutrophils % (Manual) % Band Neuts % (Manual) % Lymphocytes % (Manual) % Monocytes % (Manual) % Metamyelocytes % % Myelocytes % % Neutrophils # (Manual) (1.3-7.7) k/uL Lymphocytes # (Manual) (1.0-4.8) k/uL Monocytes # (Manual) (0-1.0) k/uL Metamyelocytes # (Man) (0) k/uL Myelocytes # (Manual) (0) k/uL Nucleated RBCs (0-0) /100 WBC Manual Slide Review Hypochromasia Anisocytosis Macrocytosis PT (10.0-12.5) sec INR (<1.2) APTT (22.0-30.0) sec Sodium (137-145) mmol/L Potassium (3.5-5.1) mmol/L Chloride (98-107) mmol/L Carbon Dioxide (22-30) mmol/L Anion Gap mmol/L BUN (7-17) mg/dL Creatinine (0.52-1.04) mg/dL Est GFR (CKD-EPI)AfAm (>60 ml/min/1.73 sqM) Est GFR (CKD-EPI)NonAf (>60 ml/min/1.73 sqM) Glucose (74-99) mg/dL Calcium (8.4-10.2) mg/dL Total Bilirubin (0.2-1.3) mg/dL AST (14-36) U/L ALT (4-34) U/L Alkaline Phosphatase (38-126) U/L Troponin I <0.012 (0.000-0.034) ng/mL NT-Pro-B Natriuret Pep pg/mL Total Protein (6.3-8.2) g/dL Albumin (3.5-5.0) g/dL Disposition Clinical Impression: Fluid retention, Shortness of breath, History of pancreatic cancer Disposition: ADMITTED IP TO THIS HOSP Condition: Stable Is patient prescribed a controlled substance at d/c from ED?: No
[2024-10-06 14:27] LABS: ALT 24 U/L (4-34); AST 128 U/L (14-36); African American GFR (CKD) >90 (>60 ml/min/1.73 sqM); Albumin 2.4 g/dL (3.5-5.0); Alkaline Phosphatase 406 U/L (38-126); Anion Gap 5 mmol/L; Anisocytosis Moderate; Blood Urea Nitrogen 13 mg/dL (7-17); Calcium 8.1 mg/dL (8.4-10.2); Carbon Dioxide 28 mmol/L (22-30); Chloride 94 mmol/L (98-107); Glucose 97 mg/dL (74-99); HCT 23.3 % (34.0-46.0); Hypochromasia Slight; MCH 33.5 pg (25.0-35.0); MCHC 30.4 g/dL (31.0-37.0); MCV 110.5 fL (80.0-100.0); Macrocytosis Marked; Mean Platelet Volume 8.3; Non-African American GFR(CKD) >90 (>60 ml/min/1.73 sqM); RBC 2.11 m/uL (3.80-5.40); RDW 21.1 % (11.5-15.5); Sodium 127 mmol/L (137-145); Total Bilirubin 1.6 mg/dL (0.2-1.3); Total Protein 5.3 g/dL (6.3-8.2); WBC 31.9 k/uL (3.8-10.6)
[2024-10-06 14:31] LABS: INR 2.6 (<1.2); Partial Thromboplastin Time 33.1 sec (22.0-30.0); Prothrombin Time 25.9 sec (10.0-12.5)
[2024-10-06 14:32] LABS: HGB 7.1 gm/dL (11.4-16.0)
[2024-10-06 14:36] LABS: NT-Pro-B-Type Natriuretic Pept 3480 pg/mL
--- NOTE | 2024-10-06 15:06 | XR ---
EXAMINATION TYPE: XR chest 2V DATE OF EXAM: 10/06/2024 3:02 PM COMPARISON: Whole-body CT May 26, 2024 CLINICAL INDICATION: Female, 49 years old with history of difficulty breathing, TECHNIQUE: Frontal and lateral views of the chest are obtained. FINDINGS: Stable left subclavian Mediport catheter. There is no focal air space opacity, pleural eff usion, or pneumothorax seen. The cardiac silhouette size is within normal limits. The osseous stru ctures are intact. IMPRESSION: No acute pulmonary process. [facility], , 10/06/2024 3:04 PM
[2024-10-06 15:17] LABS: Band Neutrophils % 1 %; Lymphocytes # (M) 0.64 k/uL (1.0-4.8); Metamyelocytes # (M) 0.32 k/uL (0); Metamyelocytes % 1 %; Monocytes # (M) 0.96 k/uL (0-1.0); Myelocytes # (M) 0.32 k/uL (0); Myelocytes % 1 %; Neutrophils % (M) 94 %; Nucleated Red Blood Cells 0 /100 WBC (0-0); Total Cells Counted 200
[2024-10-06 15:20] LABS: Platelet Count 92 k/uL (150-450)
[2024-10-06] MEDS ORDERED: ONDANSETRON 4 MG/2 ML VIAL IVP PRN (16:05)
[2024-10-06] MEDS ORDERED: MORPHINE SULFATE 4 MG/ML SYRINGE IV PRN (16:05)
[2024-10-06] MEDS ORDERED: KETOROLAC 15 MG/ML 1 ML VIAL IVP PRN (16:05)
[2024-10-06] MEDS ORDERED: NALOXONE 0.4 MG/ML 1 ML VIAL IV PRN (16:05)
[2024-10-06] MEDS: POTASSIUM CHLORIDE ER 20 MEQ TAB.ER PO STA (16:15)
[2024-10-06] MEDS: FUROSEMIDE 10 MG/ML 4 ML VIAL IV STA (16:15)
[2024-10-06] MEDS ORDERED: LORazepam 1 MG TAB PO PRN (16:27)
[2024-10-06] MEDS: LORazepam 0.5 MG TAB PO PRN (17:23)
[2024-10-06] MEDS ORDERED: LOPERAMIDE 2 MG CAP PO PRN (20:08)
[2024-10-06] MEDS ORDERED: PANTOPRAZOLE 40 MG TABLET PO PRN (20:08)
[2024-10-06] MEDS ORDERED: ACETAMINOPHEN TAB 500 MG TAB PO PRN (20:08)
[2024-10-06] MEDS ORDERED: methylPREDNISolone 4 MG TAB TAPER PO SCH (20:15)
[2024-10-06 20:39] LABS: Influenza A Detected (Not Detectd); Influenza B Not Detected (Not Detectd); RSV Not Detected (Not Detectd)
[2024-10-06] MEDS: DOXYCYCLINE 100 MG TABLET PO SCH (21:26)
[2024-10-06] MEDS: MIRTAZAPINE 15 MG TAB PO SCH (21:26)
[2024-10-07] MEDS: guaiFENesin-DM 100-10MG/5ML 10 ML CUP PO PRN (01:00)
[2024-10-07] MEDS: LIPASE 20,000/PROTEASE 63,000/AMYLASE 84,000 PO SCH (09:05)
[2024-10-07] MEDS: FOLIC ACID 1 MG TAB PO SCH (09:10)
[2024-10-07] MEDS: POTASSIUM CHLORIDE ER 20 MEQ TAB.ER PO SCH ×2 (09:11→18:53)
[2024-10-07] MEDS: methylPREDNISolone 4 MG TAB PO SCH (09:11)
[2024-10-07] MEDS: CHOLECALCIFEROL 125 MCG (5000 IU) TABLET PO SCH (09:11)
[2024-10-07] MEDS: CYANOCOBALAMIN 500 MCG TAB PO SCH (09:13)
--- NOTE | 2024-10-07 11:14 | P.NPCON ---
History of Present Illness - Reason for Consult hyponatremia - History of Present Illness Reason for consultation: Hyponatremia History of present illness: Patient is a 49-year-old female seen in renal consultation for hyponatremia. Patient was seen and examined in the emergency room. Patient sodium level on admission was 127. Patient states she was initially diagnosed with pancreatic cancer and 2020 and underwent Whipple's procedure and also completed chemotherapy and radiation and was then in remission. Patient states in follow- up 2023 they found another lesion and lymph node and resumed chemotherapy for recurrence of pancreatic cancer. She is awaiting a biopsy of the pancreatic lesion. Patient states over the last week she has noticed swelling in her lower extremities and has gained about 10 pounds in the last week or so. She is currently receiving IV Lasix 20 mg twice daily. Admits to good urine output. No gross hematuria or dysuria. She admits to drinking 50 to 60 ounces of water daily. Denies alcohol abuse. Denies use of diuretics at home. She also complains of a productive cough over the course of last 1 week. Denies any body aches. No fever. Vital signs are stable. General: No acute distress. HEENT: Head exam is unremarkable. LUNGS: No audible rhonchi or wheezes. HEART: Rate and Rhythm are regular. ABDOMEN: Nontender. EXTREMITITES: 2+ edema. Past Medical History Past Medical History: Cancer, GERD/Reflux, Hypertension, Musculoskeletal Disorder Additional Past Medical History / Comment(s): Current pancreatic cancer. Unnamed autoimmune disorder-elevated WENDY. 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 Past Anesthesia/Blood Transfusion Reactions: Postoperative Nausea & Vomiting (PONV) Past Psychological History: Anxiety, Depression Smoking Status: Never smoker Past Alcohol Use History: Occasional Additional Past Alcohol Use History / Comment(s): 4-5 drinks/week Past Drug Use History: None Reported - Past Family History Brother(s) Family Medical History: Cancer Additional Family Medical History / Comment(s): Testicular cancer. Medications and Allergies Home Medications Medication Instructions Recorded Confirmed Type Albuterol Inhaler [Ventolin Hfa 2 puff INHALATION RT-Q4H PRN 01/22/21 10/06/24 History Inhaler] Omeprazole 20 mg PO BID PRN 05/16/21 10/06/24 History Acetaminophen Tab [Tylenol Tab] 1,000 mg PO Q6H PRN 10/11/21 10/06/24 History Cholecalciferol [Vitamin D3 (125 125 mcg PO DAILY 10/11/21 10/06/24 History Mcg = 5000 Iu)] Cyanocobalamin (Vitamin B-12) 5,000 mcg PO Q48H 10/11/21 10/06/24 History [Vitamin B12] Folic Acid 1 mg PO DAILY 10/11/21 10/06/24 History LORazepam [Ativan] 0.5 mg PO TID PRN 10/11/21 10/06/24 History Loperamide HCl [Imodium A-D] 2 - 4 mg PO QID PRN 10/11/21 10/06/24 History Ondansetron Odt [Zofran ODT] 4 mg PO Q6H PRN 10/11/21 10/06/24 History Milk Thistle 150 mg PO DAILY 06/27/24 10/06/24 History Bitter Apricot Kernels Supplement 1 dose PO DAILY 10/06/24 10/06/24 History Adams Superfood Greens Supplement 1 dose PO DAILY 10/06/24 10/06/24 History Doxycycline Monohydrate 100 mg PO BID 10/06/24 10/06/24 History Floradix Liquid Iron Supplement 1 tbsp PO Q48H 10/06/24 10/06/24 History Lipase/Protease/Amylase [Nayla Bhardwaj 3 cap PO TID-W/MEALS 10/06/24 10/06/24 History 36,000 Unit Capsule] Mirtazapine 7.5 mg PO HS 10/06/24 10/06/24 History Nature's Craft Water Away 1 cap PO DAILY 10/06/24 10/06/24 History Supplement Potassium Chloride ER [K-Dur 20] 20 meq PO DAILY 10/06/24 10/06/24 History Prochlorperazine [Compazine] 10 mg PO Q6H PRN 10/06/24 10/06/24 History Pure Herbs Supplement 1 dose PO DAILY 10/06/24 10/06/24 History methylPREDNISolone Dose Pack See Taper PO DIRECTED 10/06/24 10/06/24 History [Medrol Dose Pack] Allergies Allergy/AdvReac Type Severity Reaction Status Date / Time ciprofloxacin [From Cipro] Allergy Rash/Hives Verified 10/06/24 15:38 erythromycin base Allergy Rash/Hives Verified 10/06/24 15:38 [From Erythrocin] latex Allergy Rash/Hives Verified 10/06/24 15:38 oseltamivir [From Tamiflu] Allergy Rash/Hives Verified 10/06/24 15:38 Penicillins Allergy Rash/Hives Verified 10/06/24 15:38 sulfamethoxazole Allergy Rash/Hives Verified 10/06/24 15:38 [From Bactrim] trimethoprim [From Bactrim] Allergy Rash/Hives Verified 10/06/24 15:38 Physical Exam Vitals: Vital Signs Temp Pulse Pulse Resp BP BP Pulse Ox 10/07/24 08:00 98.1 F 70 18 125/56 95 10/07/24 02:00 87 18 90 L 10/06/24 23:32 18 10/06/24 21:30 91 18 114/73 93 L 10/06/24 18:42 94 20 119/76 97 10/06/24 16:12 97.8 F 92 16 127/79 94 L 10/06/24 14:23 17 10/06/24 14:01 93 19 120/71 93 L 10/06/24 12:52 97.8 F 107 H 20 131/72 97 Intake and Output 10/06/24 10/07/24 10/07/24 22:59 06:59 14:59 Other: # Voids 2 Weight 68.946 kg Results - Lab Results Most recent lab results Calcium 8.1 mg/dL (8.4-10.2) L 10/06/24 14:01 10/06/24 14:01 10/06/24 14:01 Assessment and Plan Plan: Assessment: 1. Hypervolemic hyponatremia. Further worsened with respiratory infection and underlying malignancy which can both cause SIADH. Sodium level 127 on admission yesterday. 2. Influenza A infection. 3. Pancreatic cancer maintained on chemotherapy. 4. Hypokalemia from poor intake and diuresis. Replaced. Rule out magnesium deficiency. 5. Pancytopenia likely from underlying malignancy. 6. Fluid overload. Plan: Maintain IV Lasix. Add 1200 cc fluid restriction. Check serum and urine osmolality and urine sodium level. Check TSH. Check magnesium level. Follow-up morning labs. Replace electrolytes as needed. Thank you for the consultation. I will continue to follow the patient with you during her hospital stay.
[2024-10-07 11:18] LABS: African American GFR (CKD) >90 (>60 ml/min/1.73 sqM); Anion Gap 6 mmol/L; Blood Urea Nitrogen 17 mg/dL (7-17); Calcium 7.8 mg/dL (8.4-10.2); Carbon Dioxide 30 mmol/L (22-30); Chloride 94 mmol/L (98-107); Glucose 90 mg/dL (74-99); Non-African American GFR(CKD) >90 (>60 ml/min/1.73 sqM); Potassium 3.1 mmol/L (3.5-5.1); Sodium 130 mmol/L (137-145)
[2024-10-07 11:25] LABS: Anisocytosis Moderate; HCT 22.8 % (34.0-46.0); Hypochromasia Moderate; MCH 34.4 pg (25.0-35.0); MCHC 30.6 g/dL (31.0-37.0); MCV 112.5 fL (80.0-100.0); Macrocytosis Marked; Mean Platelet Volume 8.2; Platelet Count 108 k/uL (150-450); RBC 2.03 m/uL (3.80-5.40); RDW 21.4 % (11.5-15.5); WBC 23.4 k/uL (3.8-10.6)
[2024-10-07 11:47] LABS: Band Neutrophils % 4 %; Metamyelocytes # (M) 0.47 k/uL (0); Metamyelocytes % 2 %; Monocytes # (M) 1.87 k/uL (0-1.0); Myelocytes # (M) 0.23 k/uL (0); Myelocytes % 1 %; Neutrophils % (M) 84 %; Nucleated Red Blood Cells 0 /100 WBC (0-0); Total Cells Counted 200
[2024-10-07 11:49] LABS: Poikilocytosis (M) Present; Tear Drop Cells Present
[2024-10-07] MEDS: FUROSEMIDE 10 MG/ML 2 ML VIAL IV SCH (12:09)
[2024-10-07 12:27] LABS: Magnesium 1.2 mg/dL (1.6-2.3)
[2024-10-07 13:35] LABS: T4, Free (Free Thyroxine) 1.29 ng/dL (0.78-2.19)
--- NOTE | 2024-10-07 16:29 | P.HPIM ---
History of Present Illness H&P Date: 10/07/24 Chief Complaint: Leg swelling/shortness of breath 49-year-old female with a past medical history of hypertension, gastroesophageal reflux disease, pancreatic cancer presents to the emergency department for evaluation of shortness of breath and bilateral lower extremity edema. Patient states that this has been ongoing for around a week. She notes that she also has been short of breath and has had to keep the head of her bed elevated. She has a history of pancreatic cancer and follows with Dr. Hoyt. She states that her last chemotherapy was 10 days ago. She denies any fever, chills. Denies cough, congestion. Denies chest pain. Blood work completed in ED reveals a WBC of 31.9, hemoglobin of 7.1 and platelet count of 92, PT of 25.9, INR 2.6, sodium 127, potassium 3.0, BUNs/creatinine of 13/0.76, total bilirubin 1.6, AST mildly elevated at 128, alkaline phosphatase of 406, BNP of 3480; influenza A PCR is positive Chest x-ray is negative for any acute pulmonary process Review of Systems REVIEW OF SYSTEMS: CONSTITUTIONAL: No fever, no malaise, no fatigue. HEENT: No recent visual problems or hearing problems. Denied any sore throat. CARDIOVASCULAR: No chest pain, orthopnea, PND, no palpitations, no syncope. PULMONARY: No shortness of breath, no cough, no hemoptysis. GASTROINTESTINAL: No diarrhea, no nausea, no vomiting, no abdominal pain. NEUROLOGICAL: No headaches, no weakness, no numbness. HEMATOLOGICAL: Denies any bleeding or petechiae. GENITOURINARY: Denies any burning micturition, frequency, or urgency. MUSCULOSKELETAL/RHEUMATOLOGICAL: Denies any joint pain, swelling, or any muscle pain. ENDOCRINE: Denies any polyuria or polydipsia. The rest of the 14-point review of systems is negative. Past Medical History Past Medical History: Cancer, GERD/Reflux, Hypertension, Musculoskeletal Disorder Additional Past Medical History / Comment(s): Current pancreatic cancer. Unnamed autoimmune disorder-elevated WENDY. 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 Past Anesthesia/Blood Transfusion Reactions: Postoperative Nausea & Vomiting (PONV) Past Psychological History: Anxiety, Depression Smoking Status: Never smoker Past Alcohol Use History: Occasional Additional Past Alcohol Use History / Comment(s): 4-5 drinks/week Past Drug Use History: None Reported - Past Family History Brother(s) Family Medical History: Cancer Additional Family Medical History / Comment(s): Testicular cancer. Medications and Allergies Home Medications Medication Instructions Recorded Confirmed Type Albuterol Inhaler [Ventolin Hfa 2 puff INHALATION RT-Q4H PRN 01/22/21 10/06/24 History Inhaler] Omeprazole 20 mg PO BID PRN 05/16/21 10/06/24 History Acetaminophen Tab [Tylenol Tab] 1,000 mg PO Q6H PRN 10/11/21 10/06/24 History Cholecalciferol [Vitamin D3 (125 125 mcg PO DAILY 10/11/21 10/06/24 History Mcg = 5000 Iu)] Cyanocobalamin (Vitamin B-12) 5,000 mcg PO Q48H 10/11/21 10/06/24 History [Vitamin B12] Folic Acid 1 mg PO DAILY 10/11/21 10/06/24 History LORazepam [Ativan] 0.5 mg PO TID PRN 10/11/21 10/06/24 History Loperamide HCl [Imodium A-D] 2 - 4 mg PO QID PRN 10/11/21 10/06/24 History Ondansetron Odt [Zofran ODT] 4 mg PO Q6H PRN 10/11/21 10/06/24 History Milk Thistle 150 mg PO DAILY 06/27/24 10/06/24 History Bitter Apricot Kernels Supplement 1 dose PO DAILY 10/06/24 10/06/24 History [employer] Greens Supplement 1 dose PO DAILY 10/06/24 10/06/24 History Doxycycline Monohydrate 100 mg PO BID 10/06/24 10/06/24 History Floradix Liquid Iron Supplement 1 tbsp PO Q48H 10/06/24 10/06/24 History Lipase/Protease/Amylase [Creon Dr 3 cap PO TID-W/MEALS 10/06/24 10/06/24 History 36,000 Unit Capsule] Mirtazapine 7.5 mg PO HS 10/06/24 10/06/24 History [employer] Water Away 1 cap PO DAILY 10/06/24 10/06/24 History Supplement Potassium Chloride ER [K-Dur 20] 20 meq PO DAILY 10/06/24 10/06/24 History Prochlorperazine [Compazine] 10 mg PO Q6H PRN 10/06/24 10/06/24 History Pure Herbs Supplement 1 dose PO DAILY 10/06/24 10/06/24 History methylPREDNISolone Dose Pack See Taper PO DIRECTED 10/06/24 10/06/24 History [Medrol Dose Pack] Allergies Allergy/AdvReac Type Severity Reaction Status Date / Time ciprofloxacin [From Cipro] Allergy Rash/Hives Verified 10/06/24 15:38 erythromycin base Allergy Rash/Hives Verified 10/06/24 15:38 [From Erythrocin] latex Allergy Rash/Hives Verified 10/06/24 15:38 oseltamivir [From Tamiflu] Allergy Rash/Hives Verified 10/06/24 15:38 Penicillins Allergy Rash/Hives Verified 10/06/24 15:38 sulfamethoxazole Allergy Rash/Hives Verified 10/06/24 15:38 [From Bactrim] trimethoprim [From Bactrim] Allergy Rash/Hives Verified 10/06/24 15:38 Physical Exam Vitals: Vital Signs Temp Pulse Pulse Resp BP BP Pulse Ox 10/07/24 08:00 98.1 F 70 18 125/56 95 10/07/24 02:00 87 18 90 L 10/06/24 23:32 18 10/06/24 21:30 91 18 114/73 93 L 10/06/24 18:42 94 20 119/76 97 10/06/24 16:12 97.8 F 92 16 127/79 94 L 10/06/24 14:23 17 10/06/24 14:01 93 19 120/71 93 L 10/06/24 12:52 97.8 F 107 H 20 131/72 97 Intake and Output 10/06/24 10/07/24 10/07/24 22:59 06:59 14:59 Other: # Voids 2 Weight 68.946 kg General appearance: alert, in no apparent distress Head exam: Present: atraumatic, normocephalic, normal inspection Respiratory exam: Present: wheezes, rhonchi. Absent: respiratory distress, r ales, stridor Cardiovascular Exam: Present: regular rate, normal rhythm, normal heart sounds. Absent: systolic murmur, diastolic murmur, rubs, gallop, clicks GI/Abdominal exam: Present: distended, normal bowel sounds. Absent: tenderness, guarding, rebound, rigid Extremities exam: Present: full ROM, tenderness, pedal edema, other (3+ pitting edema in bilateral leg) Neurological exam: Present: alert, oriented X3 Psychiatric exam: Present: normal affect, normal mood Skin exam: Present: warm, dry, intact, normal color. Absent: rash Results CBC & Chem 7: 10/07/24 10:51 10/07/24 10:51 Labs: Abnormal Lab Results - Last 24 Hours (Table) 10/06/24 10/06/24 10/06/24 Range/Units 14:01 14:01 14:01 WBC 31.9 H (3.8-10.6) k/uL RBC 2.11 L (3.80-5.40) m/uL Hgb 7.1 L D (11.4-16.0) gm/dL Hct 23.3 L (34.0-46.0) % MCV 110.5 H (80.0-100.0) fL MCHC 30.4 L (31.0-37.0) g/dL RDW 21.1 H (11.5-15.5) % Plt Count 92 L D (150-450) k/uL Neutrophils # (Manual) 30.30 H (1.3-7.7) k/uL Lymphocytes # (Manual) 0.64 L (1.0-4.8) k/uL Metamyelocytes # (Man) 0.32 H (0) k/uL Myelocytes # (Manual) 0.32 H (0) k/uL Macrocytosis Marked A PT 25.9 H (10.0-12.5) sec INR 2.6 H (<1.2) APTT 33.1 H (22.0-30.0) sec Sodium 127 L (137-145) mmol/L Potassium 3.0 L (3.5-5.1) mmol/L Chloride 94 L (98-107) mmol/L Calcium 8.1 L (8.4-10.2) mg/dL Total Bilirubin 1.6 H (0.2-1.3) mg/dL AST 128 H (14-36) U/L Alkaline Phosphatase 406 H (38-126) U/L Total Protein 5.3 L (6.3-8.2) g/dL Albumin 2.4 L (3.5-5.0) g/dL Influenza Type A (PCR) (Not Detectd) 10/06/24 Range/Units 19:55 WBC (3.8-10.6) k/uL RBC (3.80-5.40) m/uL Hgb (11.4-16.0) gm/dL Hct (34.0-46.0) % MCV (80.0-100.0) fL MCHC (31.0-37.0) g/dL RDW (11.5-15.5) % Plt Count (150-450) k/uL Neutrophils # (Manual) (1.3-7.7) k/uL Lymphocytes # (Manual) (1.0-4.8) k/uL Metamyelocytes # (Man) (0) k/uL Myelocytes # (Manual) (0) k/uL Macrocytosis PT (10.0-12.5) sec INR (<1.2) APTT (22.0-30.0) sec Sodium (137-145) mmol/L Potassium (3.5-5.1) mmol/L Chloride (98-107) mmol/L Calcium (8.4-10.2) mg/dL Total Bilirubin (0.2-1.3) mg/dL AST (14-36) U/L Alkaline Phosphatase (38-126) U/L Total Protein (6.3-8.2) g/dL Albumin (3.5-5.0) g/dL Influenza Type A (PCR) Detected A (Not Detectd) Thrombosis Risk Factor Assmnt - Choose All That Apply Any of the Below Risk Factors Present?: Yes Each Factor Represents 1 point: Age 41-60 years, Swollen legs (current) Other Risk Factors: No Other congenital or acquired thrombophilia - If yes, enter type in comment: No Thrombosis Risk Factor Assessment Total Risk Factor Score: 2 Thrombosis Risk Factor Assessment Level: Low Risk Assessment and Plan Assessment: 1. 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 Influenza A infection/acute bronchitis; symptomatic treatment; patient is allergic to oseltamivir; continue with doxycycline 100 mg daily; Medrol Dosepak 3. Hypokalemia; related to diuresis; will supplement and monitor electrolytes 4. Leukocytosis/anemia/thrombocytopenia; likely related to hemotherapy 5. Pancreatic cancer; patient is getting chemotherapy for recurrence of pancreatic cancer 6. Vitamin deficiency; continue vitamin D and vitamin B12 supplement; folic acid 1 mg daily 7. Protein calorie malnutrition; mirtazapine 7.5 mg p.o. q.hs DVT prophylaxis; SCDs CODE STATUS; full code
[2024-10-07] MEDS ORDERED: POTASSIUM CHLORIDE ER 20 MEQ TAB.ER PO STA (17:49)
[2024-10-07] MEDS ORDERED: Magnesium Replacement Protocol 1 EACH MISC MISCELLANE PRN (18:12)
[2024-10-07] MEDS ORDERED: Potassium Replacement Protocol 1 EACH MISC MISCELLANE PRN (18:12)
[2024-10-07] MEDS: MAGNESIUM SULFATE-D5W PMX 1 GM in DEXTROSE/WATER 1 100ML.BAG IVPB SCH (18:52)
[2024-10-08] MEDS: ALBUTEROL NEBULIZED 2.5 MG/3 ML INHALATION PRN (08:48)
[2024-10-08] MEDS: methylPREDNISolone 4 MG TAB PO SCH (09:01)
[2024-10-08 09:58] LABS: BUN/Creat Ratio 21.14 Ratio (12.00-20.00); Blood Urea Nitrogen 14.8 mg/dL (9.0-27.0); Calcium 7.9 mg/dL (8.7-10.3); Carbon Dioxide 26.8 mmol/L (21.6-31.8); Chloride 100 mmol/L (96-109); Glucose 71 mg/dL (70-110); Magnesium 1.7 mg/dL (1.5-2.4); Potassium 3.6 mmol/L (3.5-5.5); Sodium 137 mmol/L (135-145)
[2024-10-08 10:30] LABS: HCT 20.9 % (37.2-46.3); HGB 6.5 g/dL (12.0-15.0); Lymphocytes # (M) 0.22 X 10*3/uL (0.90-5.00); MCH 35.3 pg (27.0-32.0); MCHC 31.1 g/dL (32.0-37.0); MCV 113.6 FL (80.0-97.0); Macrocytosis (M) 2+ (None Seen); Mean Platelet Volume 10.7 FL (9.5-12.2); Monocytes # (M) 0.22 X 10*3/uL (0.20-1.00); Neutrophils % (M) 97 %; Platelet Count 92 X 10*3/uL (140-440); RBC 1.84 X 10*6/uL (4.10-5.20); RDW 21.8 % (11.5-14.5); Stomatocytes 2+ (None Seen); WBC 22.03 X 10*3/uL (4.50-10.00)
[2024-10-08 10:31] LABS: Basophils # (M) 0 X 10*3/uL (0.00-0.10); Eosinophils # (M) 0 X 10*3/uL (0.04-0.35); Metamyelocytes % 1 % (0-0); Neutrophils # (M) 21.37 X 10*3/uL (1.80-7.70)
--- NOTE | 2024-10-08 10:34 | P.PN ---
Subjective Patient is seen in follow-up for hyponatremia. Sodium level better. Admits to good urine output. Vital signs are stable. General: No acute distress. HEENT: Head exam is unremarkable. LUNGS: No audible rhonchi or wheezes. HEART: Rate and Rhythm are regular. ABDOMEN: Nontender. EXTREMITITES: 1+ edema. Objective - Vital Signs Vital signs: Vital Signs Temp 98.2 F 10/08/24 07:41 Pulse 70 10/08/24 08:58 Resp 18 10/08/24 07:41 BP 96/64 10/08/24 07:41 Pulse Ox 91 L 10/08/24 07:41 FiO2 Intake & Output 10/07/24 10/08/24 10/08/24 18:59 06:59 18:59 Other: # Voids 2 1 - Labs CBC & Chem 7: 10/07/24 10:51 10/08/24 05:32 Labs: Abnormal Lab Results - Last 24 Hours (Table) 10/07/24 10/07/24 10/07/24 Range/Units 10:51 10:51 10:51 WBC 23.4 H (3.8-10.6) k/uL RBC 2.03 L (3.80-5.40) m/uL Hgb 7.0 L (11.4-16.0) gm/dL Hct 22.8 L (34.0-46.0) % MCV 112.5 H (80.0-100.0) fL MCHC 30.6 L (31.0-37.0) g/dL RDW 21.4 H (11.5-15.5) % Plt Count 108 L (150-450) k/uL Neutrophils # (Manual) 20.50 H (1.3-7.7) k/uL Lymphocytes # (Manual) 0.70 L (1.0-4.8) k/uL Monocytes # (Manual) 1.87 H (0-1.0) k/uL Metamyelocytes # (Man) 0.47 H (0) k/uL Myelocytes # (Manual) 0.23 H (0) k/uL Macrocytosis Marked A Sodium 130 L (137-145) mmol/L Potassium 3.1 L (3.5-5.1) mmol/L Chloride 94 L (98-107) mmol/L BUN/Creatinine Ratio (12.00-20.00) Ratio Osmolality 274 L (275-295) mOsm/kg Calcium 7.8 L (8.4-10.2) mg/dL Magnesium 1.2 L (1.6-2.3) mg/dL TSH 5.140 H (0.465-4.680) mIU/L Urine Osmolality (400-1100) mOsm/kg 10/07/24 10/08/24 Range/Units 15:47 05:32 WBC (3.8-10.6) k/uL RBC (3.80-5.40) m/uL Hgb (11.4-16.0) gm/dL Hct (34.0-46.0) % MCV (80.0-100.0) fL MCHC (31.0-37.0) g/dL RDW (11.5-15.5) % Plt Count (150-450) k/uL Neutrophils # (Manual) (1.3-7.7) k/uL Lymphocytes # (Manual) (1.0-4.8) k/uL Monocytes # (Manual) (0-1.0) k/uL Metamyelocytes # (Man) (0) k/uL Myelocytes # (Manual) (0) k/uL Macrocytosis Sodium (137-145) mmol/L Potassium (3.5-5.1) mmol/L Chloride (98-107) mmol/L BUN/Creatinine Ratio 21.14 H (12.00-20.00) Ratio Osmolality (275-295) mOsm/kg Calcium 7.9 L (8.4-10.2) mg/dL Magnesium (1.6-2.3) mg/dL TSH (0.465-4.680) mIU/L Urine Osmolality 260 L (400-1100) mOsm/kg Assessment and Plan Plan: Assessment: 1. Hypervolemic hyponatremia. Further worsened with respiratory infection and underlying malignancy which can both cause SIADH. Sodium level 127 on admission September 28, 2024 and is 137 today. Urine osmolality 260. TSH mildly high at 5.1. 2. Influenza A infection. 3. Pancreatic cancer maintained on chemotherapy. 4. Hypokalemia from poor intake and diuresis. Also component of magnesium deficiency. Replaced. 5. Pancytopenia likely from underlying malignancy. 6. Fluid overload. Improved with diuresis. 7. Hypomagnesemia from poor intake and diuresis. Replaced. Better. Plan: Transition to oral Lasix 20 mg twice daily. Maintain potassium supplementation. Add oral magnesium oxide. Encouraged oral intake. Maintain 1200 cc fluid restriction.
[2024-10-08] MEDS: MAGNESIUM OXIDE 400 MG TAB PO SCH (12:33)
[2024-10-08] MEDS: POTASSIUM CHLORIDE ER 20 MEQ TAB.ER PO STA (12:34)
[2024-10-08] MEDS: DARBEPOETIN ALFA 60 MCG/0.3 ML SYRINGE SQ SCH (13:16)
--- NOTE | 2024-10-08 15:13 | P.PN ---
Subjective Progress Note Date: 10/08/24 49-year-old female with a past medical history of hypertension, gastroesophageal reflux disease, pancreatic cancer presents to the emergency department for evaluation of shortness of breath and bilateral lower extremity edema. Patient states that this has been ongoing for around a week. She notes that she also has been short of breath and has had to keep the head of her bed elevated. She has a history of pancreatic cancer and follows with Dr. Hoyt. She states that her last chemotherapy was 10 days ago. She denies any fever, chills. Denies cough, congestion. Denies chest pain. Blood work completed in ED reveals a WBC of 31.9, hemoglobin of 7.1 and platelet count of 92, PT of 25.9, INR 2.6, sodium 127, potassium 3.0, BUNs/creatinine of 13/0.76, total bilirubin 1.6, AST mildly elevated at 128, alkaline phosphatase of 406, BNP of 3480; influenza A PCR is positive Chest x-ray is negative for any acute pulmonary process --Blood work completed this morning reveals sodium level of 137; hemoglobin is down to 6.5; patient is a Hindu and does not take blood transfusion -- Oncology recommending injection of erythropoietin; we will continue to monitor CBC Possible discharge in next 24 hours if hemoglobin stabilizes Objective - Vital Signs Vital signs: Vital Signs Temp 98.2 F 10/08/24 07:41 Pulse 70 10/08/24 08:58 Resp 18 10/08/24 07:41 BP 96/64 10/08/24 07:41 Pulse Ox 91 L 10/08/24 07:41 FiO2 Intake & Output 10/07/24 10/08/24 10/08/24 18:59 06:59 18:59 Other: # Voids 2 1 - Exam General appearance: alert, in no apparent distress Head exam: Present: atraumatic, normocephalic, normal inspection Respiratory exam: Present: wheezes, rhonchi. Absent: respiratory distress, rales, stridor Cardiovascular Exam: Present: regular rate, normal rhythm, normal heart sounds. Absent: systolic murmur, diastolic murmur, rubs, gallop, clicks GI/Abdominal exam: Present: distended, normal bowel sounds. Absent: tenderness, guarding, rebound, rigid Extremities exam: Present: full ROM, tenderness, pedal edema, other (3+ pitting edema in bilateral leg) Neurological exam: Present: alert, oriented X3 Psychiatric exam: Present: normal affect, normal mood Skin exam: Present: warm, dry, intact, normal color. Absent: rash - Labs CBC & Chem 7: 10/08/24 05:32 10/08/24 05:32 Labs: Abnormal Lab Results - Last 24 Hours (Table) 10/07/24 10/07/24 10/07/24 Range/Units 10:51 10:51 10:51 WBC 23.4 H (3.8-10.6) k/uL RBC 2.03 L (3.80-5.40) m/uL Hgb 7.0 L (11.4-16.0) gm/dL Hct 22.8 L (34.0-46.0) % MCV 112.5 H (80.0-100.0) fL MCH (27.0-32.0) pg MCHC 30.6 L (31.0-37.0) g/dL RDW 21.4 H (11.5-15.5) % Plt Count 108 L (150-450) k/uL Neutrophils # (Manual) 20.50 H (1.3-7.7) k/uL Lymphocytes # (Manual) 0.70 L (1.0-4.8) k/uL Monocytes # (Manual) 1.87 H (0-1.0) k/uL Eosinophils # (Manual) (0.04-0.35) X 10*3/uL Metamyelocytes # (Man) 0.47 H (0) k/uL Myelocytes # (Manual) 0.23 H (0) k/uL NRBC/100 WBC Diff (0.00-0.01) X 10*3/uL Macrocytosis Marked A Macrocytosis (manual) (None Seen) Stomatocytes (None Seen) Sodium 130 L (137-145) mmol/L Potassium 3.1 L (3.5-5.1) mmol/L Chloride 94 L (98-107) mmol/L BUN/Creatinine Ratio (12.00-20.00) Ratio Osmolality 274 L (275-295) mOsm/kg Calcium 7.8 L (8.4-10.2) mg/dL Magnesium 1.2 L (1.6-2.3) mg/dL TSH 5.140 H (0.465-4.680) mIU/L Urine Osmolality (400-1100) mOsm/kg 10/07/24 10/08/24 10/08/24 Range/Units 15:47 05:32 05:32 WBC 22.03 H (3.8-10.6) k/uL RBC 1.84 L (3.80-5.40) m/uL Hgb 6.5 A* (11.4-16.0) gm/dL Hct 20.9 L (34.0-46.0) % MCV 113.6 H (80.0-100.0) fL MCH 35.3 H (27.0-32.0) pg MCHC 31.1 L (31.0-37.0) g/dL RDW 21.8 H (11.5-15.5) % Plt Count 92 L (150-450) k/uL Neutrophils # (Manual) 21.37 H (1.3-7.7) k/uL Lymphocytes # (Manual) 0.22 L (1.0-4.8) k/uL Monocytes # (Manual) (0-1.0) k/uL Eosinophils # (Manual) 0 L (0.04-0.35) X 10*3/uL Metamyelocytes # (Man) (0) k/uL Myelocytes # (Manual) (0) k/uL NRBC/100 WBC Diff 0.10 H (0.00-0.01) X 10*3/uL Macrocytosis Macrocytosis (manual) 2+ A (None Seen) Stomatocytes 2+ A (None Seen) Sodium (137-145) mmol/L Potassium (3.5-5.1) mmol/L Chloride (98-107) mmol/L BUN/Creatinine Ratio 21.14 H (12.00-20.00) Ratio Osmolality (275-295) mOsm/kg Calcium 7.9 L (8.4-10.2) mg/dL Magnesium (1.6-2.3) mg/dL TSH (0.465-4.680) mIU/L Urine Osmolality 260 L (400-1100) mOsm/kg Assessment and Plan Assessment: 1. 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 Influenza A infection/acute bronchitis; symptomatic treatment; patient is allergic to oseltamivir; continue with doxycycline 100 mg daily; Medrol Dosepak 3. Hypokalemia; related to diuresis; will supplement and monitor electrolytes 4. Leukocytosis/anemia/thrombocytopenia; likely related to hemotherapy 5. Pancreatic cancer; patient is getting chemotherapy for recurrence of pancreatic cancer 6. Vitamin deficiency; continue vitamin D and vitamin B12 supplement; folic acid 1 mg daily 7. Protein calorie malnutrition; mirtazapine 7.5 mg p.o. q.hs DVT prophylaxis; SCDs CODE STATUS; full code
[2024-10-08] MEDS: FUROSEMIDE 20 MG TAB PO SCH (17:18)
--- NOTE | 2024-10-08 17:39 | P.CONS ---
History of Present Illness - Reason for Consult Consult date: 10/08/24 Pancreatic cancer on chemo Requesting physician: Mona Hooks - Chief Complaint Leg swelling and shortness of breath - History of Present Illness Ms. Hardy is a very pleasant 49-year-old female with a history of locally recurrent pancreatic cancer on chemotherapy with Dr. Terry, who is here for shortness of breath and leg swelling. Workup revealed significant leukocytosis of 31.9, hemoglobin 7.1, platelet 92. Sodium was 127, AST 128, alk phos 406 influenza A was positive. BNP was 3000. She was started on Medrol Dosepak due to allergy to Tamiflu and admitted. Chest x-ray unremarkable. She is status post 3 cycles of Gemzar and Abraxane, C3D15 given on 09/26/24. She was recently treated with antibiotics for an incidentally found pneumonia at [facility] when she was seen in the ER for abdominal distention and found to have ascites, status post paracentesis. She states feeling a little bit better. Says that she has been off of agatha motherapy with the plan of holding this for the next couple weeks so that she can recover. Especially her hemoglobin as this has been low from chemotherapy and she is Sabianism and does not accept blood transfusions. Plan for patient was to hold chemo for a couple weeks and continue ASHLEIGH therapy to maintain her hemoglobin, and proceed with possible repeat biopsy. Oncologic History: Patient follows with Dr. Hoyt. Ms Vizcarra is a pleasant white female, with overall minor and well-controlled medical problems at baseline. 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 Patient had imaging with ultrasound and CT of the abdomen and pelvis. This showed intrahepatic and extra hepatic very ductal addition with cut off of the distal CBD near the hilum. There was a hypodense lesion in the pancreas measur ing 0.9 x 1.5 [address] Liver was noted to be slightly enlarged. On ultrasound the pancreatic mass was about 2.8 x 2.4 cm. The patient was transferred to [facility]. She underwent ERCP with stent placement on 04/05/21. She then had an EUS on 04/07/21. This revealed erosive gastropathy and no adenopathy. A 1.9 x 1.7 cm mass was seen in the pancreatic head, with possibility of invasion into the SMV, manifested by abutment. No suspicious adenopathy was noted. Biopsy of the pelvic mass was positive for adenocarcinoma. The patient had a CT of the chest with IV contrast on 04/06/21 that was negative for metastasis. She had an MRCP also on the same day, that showed no evidence of liver metastasis. There appeared to be some minimal diffuse hepatic steatosis. 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 She was evaluated by surgical oncology and was felt to be a good candidate for upfront surgery. She underwent the same on 04/30/21. Final pathology revealed 3.6 cm grade 2 adenocarcinoma with invasion of the duodenal wall, and vascular bed/growth corresponding to the SMV/portal vein. Lymphovascular and perineural invasion were present. All margins were negative. 07/30 lymph nodes were involved. The patient tolerated surgery well and was discharged after a 5 day hospit alization. She had lost about 20 pounds prior to surgery but after surgery actually has noted significant stabilization of weight and improvement in appetite. At the time of her initial consultation here on 05/13/21 2 felt that she was back to about 70-80% of her baseline in terms of energy. Is no prior personal history of malignancy. Father had a history of low stage cancer and brother was diagnosed with testicular cancer at age 25. The patient was recommended adjuvant chemotherapy with FOLFIRINOX. Case was also discussed with medical oncology at [facility], who confirmed that they would recommend the same regimen. Status post-port placement. She had a PET scan done that showed no evidence of metastatic disease. Nonspecific uptake was noted in the cecum. she started adjuvant chemotherapy with the above regimen on 06/20/21 and is status post 11 cycles. she was unable to receive the 5-FU CI , with C2 as she developed severe chest tightness initially and then with rechallenge though her vitals remained stable. She was however able to tolerate and subsequently with adjustment of premedications. 08/12/21-Pt here today for acute visit. She has urinary symptoms of urgency, dysuria x 2 days, denies fever, diarrhea. Her Hgb and Plt are noted to be significantly lower then previously. Back aches which is not new, no new pains. No other c/o on a 10 point ROS As above. The above symptoms responded with treatment for UTI. Her culture had been positive for Escherichia coli. the patient had a colonoscopy in 08/30 to workup the uptake in the cecum, which was negative for any malignancy. She required dose delay with C 10 and 11, and dose reduction with C 9, due to anemia ( She is a Sabianism). After discussion of risks versus benefit, as well as relative contraindication for erythropoietin supplementation in patients being treated with curative intent, the patient decided to start erythropoietin. She had gone to the ER in early 10/28 with shortness of breath. Her initial workup was negative and she was discharged. Her blood cultures subsequently came back positive for gram-positive cocci. The patient refused to go back to the emergency room, and was given a prescription for Keflex. She states that her symptoms resolved and she had no new issues. She also had abdominal x-ray and ultrasound none subsequently with cycle #10, and she was experiencing increased abdominal bloating. This did not show any evidence of obstruction or excessive fluid. cycle 11 had to be delayed by 2 weeks because of low hemoglobin. She completed 12 cycles on 12/13/21 She had follow-up imaging with CT scans in 12/28 and then PET scan in 01/28, showing no evidence of residual disease. She was therefore referred to radiation oncology for chemoradiation. Her hemoglobin however remained low requiring increase in ASHLEIGH to 40,000 units every week. She started chemo RT on 02/16/22, with Xeloda, and completed the same on 03/26/22 She denied any fever/chills/vomiting. She did have some progressive nausea and blistering on the feet towards the end of her regimen. These have rapidly improved since. She received IV iron in 05/30. she was on ASHLEIGH, every 2 weeks as needed , based on improvement in hemoglobin. she has been off ASHLEIGH since her visit in 01/29 Patient reports some bloating, as well as nausea with her current antidepressant medications. the patient continues follow-up with GI, with adjustment of her pancreatic enzyme supplement depending on her symptoms. They are also following her for her finding of hepatic steatosis/splenomegaly at her visit in 01/30, she was noted to have drop in blood counts again. She therefore underwent a bone marrow aspiration biopsy in 02/03/24. This revealed mildly hypocellular marrow, with nonspecific mild dysplastic changes. Flow cytometric, and MDS FISH were negative. Repeat anemia workup at her follow-up visit in 03/01 showed iron deficiency. Patient therefore received IV iron. She was referred for GI w/ and is scheduled in 08/01. She had reported increased lower back pain, in early 04/01, and MRI was ordered. However the patient decided to cancel the same, as she stated that her symptoms at return back to her usual baseline. Of note she has had on his lower back pain, for which she had been following with PMR even prior to her cancer diagnosis patient's follow-up CT scans in 06/01 showed increase in size of the density in the surgical bed. She therefore had a PET scan done, that showed suspicious uptake in this area, as well as an adjacent nodular density, possibly a lymph node. There was note of a mild increase in size of the left lower lobe lung nodule, into the 6-7mm range, without any FDG uptake however. she reported recurrence of mid back pain, with some radiation to the flank and towards the front. This was not well-controlled with Tylenol and is interfering with her sleep and functioning. Pt was started back on treatment with gemcitabine and Abraxane on 07/04/24. She is status post 3 cycles. She has been supported with G-CSF, as well as ASHLEIGH ( 20K U sq q wk). C2 D15, and C 3D15 had to be delayed because of low hemoglobin. Patient also had a celiac plexus block, with improvement in her symptoms. She canceled her repeat EUS, because of low hemoglobin and has rescheduled it for 10/25/24. She was in the ER 2 days after C2D15 with abdominal pain and distention. CT scan showed mild fluid, not enough for paracentesis, and some nonspecific enteritis. She was sent to the ER again because of abdominal distention and pain, for cycle [address] scan this time did show increase in ascites, and she is scheduled for paracentesis at [facility]. She was incidentally also found to have pneumonia, and started on antibiotic Last seen 10/04/24 in clinic: She denied any fever/chills/vomiting. She typically has some shakiness, nausea lasting for about 1-2 days after each treatment. The patient reports significant cumulative fatigue and weakness. She is continuing on pancreatic enzyme supplement. She has had some mild intermittent diarrhea, as well as alternating constipation. She does have episo dic drops in blood glucose. patient is able to continue to perform all her ADLs. Neuropathy is prominent, although stable, in her feet, but further improved in her hands. She stopped gabapentin in 09/01, as she did not feel it was improving her symptoms. No unusual lymphadenopathy noted. Systems otherwise as per HPI and negative out of 10. The patient is status post 3 cycles, with PET scan showing response in the mass in the tumor bed, as well as adjacent nodes. Nodular opacities, with mild PET uptake are noted 1 in each lung, felt to more likely represent inflammation although early metastasis is not ruled out. Results were discussed with her. - Given the recent diagnosis of pneumonia, and associated symptoms, the findings in the lung are more likely to be inflammation. Complete antibiotic treatment. He'll also be given a prescription for steroid pack as she is having significant cough. Repeat imaging in about 4-5 weeks - The patient will also have paracentesis with fluid cytology performed. - She was advised that if the lung opacity and the ascitic fluid are proven to b e nonmalignant, it would be reasonable for her to have a surgical opinion regarding the possibility of repeat surgery given the localized nature of her recurrence, and response to systemic therapy. She will be referred back to her surgical oncologist - The patient is having significant cumulative fatigue and weakness with treatment and would like to take a break for a few weeks. The patient was therefore be on hold until she is seen back in 4-5 weeks. During that time, she can have her surgical evaluation, her EUS, as well as paracentesis. - The discussed that if indeed more extensive metastatic disease were found, then there will definitely not be any role for definitive surgical intervention. Systemic options, which in that case would be limited, were discussed with her. Past Medical History Past Medical History: Cancer, GERD/Reflux, Hypertension, Musculoskeletal Disorder Additional Past Medical History / Comment(s): Current pancreatic cancer. Unnamed autoimmune disorder-elevated WENDY. 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 Past Anesthesia/Blood Transfusion Reactions: Postoperative Nausea & Vomiting (PONV) Past Psychological History: Anxiety, Depression Smoking Status: Never smoker Past Alcohol Use History: Occasional Past Drug Use History: None Reported - Past Family History Brother(s) Family Medical History: Cancer Additional Family Medical History / Comment(s): Testicular cancer. Medications and Allergies Home Medications Medication Instructions Recorded Confirmed Type Albuterol Inhaler [Ventolin Hfa 2 puff INHALATION RT-Q4H PRN 01/22/21 10/06/24 History Inhaler] Omeprazole 20 mg PO BID PRN 05/16/21 10/06/24 History Acetaminophen Tab [Tylenol Tab] 1,000 mg PO Q6H PRN 10/11/21 10/06/24 History Cholecalciferol [Vitamin D3 (125 125 mcg PO DAILY 10/11/21 10/06/24 History Mcg = 5000 Iu)] Cyanocobalamin (Vitamin B-12) 5,000 mcg PO Q48H 10/11/21 10/06/24 History [Vitamin B12] Folic Acid 1 mg PO DAILY 10/11/21 10/06/24 History LORazepam [Ativan] 0.5 mg PO TID PRN 10/11/21 10/06/24 History Loperamide HCl [Imodium A-D] 2 - 4 mg PO QID PRN 10/11/21 10/06/24 History Ondansetron Odt [Zofran ODT] 4 mg PO Q6H PRN 10/11/21 10/06/24 History Milk Thistle 150 mg PO DAILY 06/27/24 10/06/24 History Bitter Apricot Kernels Supplement 1 dose PO DAILY 10/06/24 10/06/24 History [employer] Greens Supplement 1 dose PO DAILY 10/06/24 10/06/24 History Doxycycline Monohydrate 100 mg PO BID 10/06/24 10/06/24 History Floradix Liquid Iron Supplement 1 tbsp PO Q48H 10/06/24 10/06/24 History Lipase/Protease/Amylase [Creon Dr 3 cap PO TID-W/MEALS 10/06/24 10/06/24 History 36,000 Unit Capsule] Mirtazapine 7.5 mg PO HS 10/06/24 10/06/24 History Nature's Craft Water Away 1 cap PO DAILY 10/06/24 10/06/24 History Supplement Potassium Chloride ER [K-Dur 20] 20 meq PO DAILY 10/06/24 10/06/24 History Prochlorperazine [Compazine] 10 mg PO Q6H PRN 10/06/24 10/06/24 History Pure Herbs Supplement 1 dose PO DAILY 10/06/24 10/06/24 History methylPREDNISolone Dose Pack See Taper PO DIRECTED 10/06/24 10/06/24 History [Medrol Dose Pack] Allergies Allergy/AdvReac Type Severity Reaction Status Date / Time ciprofloxacin [From Cipro] Allergy Rash/Hives Verified 10/06/24 15:38 erythromycin base Allergy Rash/Hives Verified 10/06/24 15:38 [From Erythrocin] latex Allergy Rash/Hives Verified 10/06/24 15:38 oseltamivir [From Tamiflu] Allergy Rash/Hives Verified 10/06/24 15:38 Penicillins Allergy Rash/Hives Verified 10/06/24 15:38 sulfamethoxazole Allergy Rash/Hives Verified 10/06/24 15:38 [From Bactrim] trimethoprim [From Bactrim] Allergy Rash/Hives Verified 10/06/24 15:38 Physical Exam Vitals: Vital Signs Temp Pulse Pulse Resp BP Pulse Ox 10/08/24 07:41 98.2 F 95 18 96/64 91 L 10/08/24 01:41 97.9 F 89 14 106/66 91 L 10/07/24 21:10 92 16 10/07/24 19:04 97.9 F 92 16 109/68 96 10/07/24 14:00 98.4 F 84 18 127/84 98 Intake and Output 10/07/24 10/08/24 10/08/24 22:59 06:59 14:59 Other: # Voids 2 1 Patient appears to be in no significant acute distress. Alert and oriented x 3. She does have 2+ pitting edema in her legs. In no respiratory distress. Results CBC & Chem 7: 10/08/24 05:32 10/08/24 05:32 Labs: Abnormal Lab Results - Last 24 Hours (Table) 10/07/24 10/07/24 10/07/24 Range/Units 10:51 10:51 10:51 WBC 23.4 H (3.8-10.6) k/uL RBC 2.03 L (3.80-5.40) m/uL Hgb 7.0 L (11.4-16.0) gm/dL Hct 22.8 L (34.0-46.0) % MCV 112.5 H (80.0-100.0) fL MCHC 30.6 L (31.0-37.0) g/dL RDW 21.4 H (11.5-15.5) % Plt Count 108 L (150-450) k/uL Neutrophils # (Manual) 20.50 H (1.3-7.7) k/uL Lymphocytes # (Manual) 0.70 L (1.0-4.8) k/uL Monocytes # (Manual) 1.87 H (0-1.0) k/uL Metamyelocytes # (Man) 0.47 H (0) k/uL Myelocytes # (Manual) 0.23 H (0) k/uL Macrocytosis Marked A Sodium 130 L (137-145) mmol/L Potassium 3.1 L (3.5-5.1) mmol/L Chloride 94 L (98-107) mmol/L Calcium 7.8 L (8.4-10.2) mg/dL Magnesium 1.2 L (1.6-2.3) mg/dL TSH 5.140 H (0.465-4.680) mIU/L Chest x-ray: report reviewed Assessment and Plan Assessment: 1. Influenza A 2. Pancreatic cancer on chemotherapy 3. Bicytopenia, anemia and thrombocytopenia, likely due to chemotherapy and viral infection 4. Leukocytosis, likely reactive due to underlying infection 5. Hyponatremia likely due to SIADH 6. Elevated BNP Plan: Ms. Hardy is a very pleasant 49-year-old female with a history of locally recurrent pancreatic cancer status post C3D15 of Gemzar Abraxane on 09/26/2024, who is here for shortness of breath and leg swelling, found to have influenza A and elevated BNP and hyponatremia. -Pancreatic cancer with signs of disease response on recent imaging -Hold chemotherapy until patient's acute illness resolves -Nephrology on board for hyponatremia, appreciate recommendations -Steroids for influenza A as well as symptomatic control, patient allergic to T amiflu -Leukocytosis likely reactive due to infection, will monitor -Anemia and thrombocytopenia likely due to chemotherapy and acute infection, monitor CBC and recommendation is to transfuse to maintain hemoglobin above 7, however patient is Sabianism and declines blood transfusion -Continue ASHLEIGH -monitor for bleeding Discussed with patient she is agreeable to the plan. All of her questions were answered. Discussed with nursing staff
[2024-10-09 08:32] VITALS: RESP 18
[2024-10-09] MEDS: methylPREDNISolone 4 MG TAB PO SCH (08:43)
[2024-10-09 10:58] LABS: Blood Urea Nitrogen 12.6 mg/dL (9.0-27.0); Calcium 8.1 mg/dL (8.7-10.3); Carbon Dioxide 30.5 mmol/L (21.6-31.8); Chloride 97 mmol/L (96-109); Glucose 77 mg/dL (70-110); Magnesium 1.4 mg/dL (1.5-2.4); Sodium 137 mmol/L (135-145)
[2024-10-09 10:59] LABS: Basophils # (M) 0 X 10*3/uL (0.00-0.10); Eosinophils # (M) 0 X 10*3/uL (0.04-0.35); HCT 20.2 % (37.2-46.3); HGB 6.2 g/dL (12.0-15.0); Immature Platelet Fraction 2.1 % (1.1-6.1); Lymphocytes # (M) 0.27 X 10*3/uL (0.90-5.00); MCH 35.4 pg (27.0-32.0); MCHC 30.7 g/dL (32.0-37.0); MCV 115.4 FL (80.0-97.0); Mean Platelet Volume 10.3 FL (9.5-12.2); Metamyelocytes % 1 % (0-0); Monocytes # (M) 0.14 X 10*3/uL (0.20-1.00); NRBC Per 100 WBC 0.04 X 10*3/uL (0.00-0.01); Neutrophils # (M) 13.08 X 10*3/uL (1.80-7.70); Neutrophils % (M) 96 %; Platelet Count 91 X 10*3/uL (140-440); RBC 1.75 X 10*6/uL (4.10-5.20); RDW 22.4 % (11.5-14.5); WBC 13.62 X 10*3/uL (4.50-10.00)
--- NOTE | 2024-10-09 11:15 | P.PN ---
Subjective Patient is seen for follow-up for hyponatremia. Tested positive for influenza A. Currently being diuresed for volume overload. Serum sodium at 137 today. Potassium was low at 3.0. Patient feels much better and wants to go home. Hemoglobin however was 6.2 g/dL today. Objective - Vital Signs Vital signs: Vital Signs Temp 98.4 F 10/09/24 07:55 Pulse 84 10/09/24 08:03 Resp 18 10/09/24 07:55 BP 108/70 10/09/24 07:55 Pulse Ox 100 10/09/24 07:55 FiO2 Intake & Output 10/08/24 10/09/24 10/09/24 18:59 06:59 18:59 Other: Voiding Method Toilet # Voids 1 - Exam Patient is awake, comfortable, no acute distress. Alert oriented x 3 Examination of the heart S1 and S2 Examination of the lungs bilateral breath sounds are heard Abdomen is soft nontender Examination of lower extremities shows edema 1+ bilaterally [employer] exam grossly intact - Labs CBC & Chem 7: 10/09/24 06:28 10/09/24 06:28 Labs: Abnormal Lab Results - Last 24 Hours (Table) 10/09/24 10/09/24 Range/Units 06:28 06:28 WBC 13.62 H (4.50-10.00) X 10*3/uL RBC 1.75 L (4.10-5.20) X 10*6/uL Hgb 6.2 A* (12.0-15.0) g/dL Hct 20.2 L (37.2-46.3) % MCV 115.4 H (80.0-97.0) FL MCH 35.4 H (27.0-32.0) pg MCHC 30.7 L (32.0-37.0) g/dL RDW 22.4 H (11.5-14.5) % Plt Count 91 L (140-440) X 10*3/uL Neutrophils # (Manual) 13.08 H (1.80-7.70) X 10*3/uL Lymphocytes # (Manual) 0.27 L (0.90-5.00) X 10*3/uL Monocytes # (Manual) 0.14 L (0.20-1.00) X 10*3/uL Eosinophils # (Manual) 0 L (0.04-0.35) X 10*3/uL NRBC/100 WBC Diff 0.04 H (0.00-0.01) X 10*3/uL Potassium 3.0 L (3.5-5.5) mmol/L Calcium 8.1 L (8.7-10.3) mg/dL Magnesium 1.4 L (1.5-2.4) mg/dL
[2024-10-09 15:27] VITALS: BP 97/60; TEMP 98.6
--- NOTE | 2024-10-09 15:43 | CDI ---
Documentation Clarification Form Date: 10/09/2024 03:02:06 PM From: Jesika Solitario RN, CCDS Phone: [phone] Admit Date: 10/06/2024 03:22:00 PM Patient Name: Aracely Hardy Visit Number: [id number] Discharge Date: ATTENTION: The Clinical Documentation Specialists (CDI) and [facility] Coding Staff appreciate your assistance in clarifying documentation. Please respond to the clarification below the line at the bottom and electronically sign. The CDI & [facility] Coding staff will review the response and follow-up if needed. Please note: Queries are made part of the Legal Health Record. If you have any questions, please contact the author of this message via ITS. Doctor. Mona Hooks Malnutrition is documented in your H/P and subsequent progress notes. Additional clarification regarding the severity of malnutrition is requested. History/Risk Factors: pancreatic cancer, Vitamin deficiency, on chemotherapy Clinical Indicators: 49-year-old female with pancreatic cancer present to ED with shortness of breath and 3+ bilateral lower extremity edema. Na 127, K+ 3.0, Influenza A Current BMI: 26.1 Pancreatic cancer on chemotherapy 60 lbs. wt. loss with chemo (no time frame given) Treatment: Mirtazapine 7.5 MG PO Q HS 1200 cc fluid restriction Please clarify the severity of malnutrition, if known: [ ] Mild Protein-Calorie Malnutrition [ @@ ] Moderate Protein-Calorie Malnutrition [ ] Severe Protein-Calorie Malnutrition [ ] Other condition, please specify [ ] Unable to Determine (Template Last Revised: February 2023) MTDD
[2024-10-09 15:57] VITALS: PULSE 88
--- NOTE | 2024-10-13 05:23 | P.DS ---
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 Patient will follow-up with Dr. Rosas in the outpatient setting upon discharge. Patient is to continue with current medications and close outpatient follow-up with oncology and nephrology as scheduled. Repeat labs in the outpatient setting. Total time taken is greater than 35 minutes. Hospital course This is a 49-year-old female who was recently admitted with significant hyponatremia along with pancytopenia being closely monitored by oncology as well as nephrology. Patient with significant history of pancreatic cancer currently undergoing chemotherapy treatment. Multiple electrolyte abnormalities noted and corrected and patient is improving. Patient with acute influenza A with no upper respiratory symptoms other than occasional cough and upper respiratory sinus congestion. Patient hemoglobin is low at 6.2 although refusing blood as patient is Jehovah witness. Patient started on Aranesp and will follow-up with neurology outpatient. Patient reports to feeling improved and would like to go home. Patient has been cleared by consultations. Please refer to consultation notes for further HPI. Currently no reports of chest pain, shortness of breath, or palpitations. Patient is afebrile. No reports of nausea or vomiting and patient is tolerating diet. Patient will be discharged home today. Physical exam: Gen: This is a 49-year-old female who is awake, alert and oriented x 3, well- developed, thin built, elderly appearing, ill-appearing HEENT: Head is atraumatic, normocephalic. Pupils equal, round. Sclerae is anicteric. NECK: Supple. No JVD. No lymphadenopathy. No thyromegaly. LUNGS: Diminished breath sounds bilaterally otherwise clear to auscultation. No wheezes or rhonchi. No intercostal retractions. HEART: Regular rate and rhythm. No murmur. ABDOMEN: Soft. Bowel sounds are present. No masses. No tenderness. EXTREMITIES: No pedal edema. No calf tenderness. NEUROLOGICAL: Patient is awake, alert and oriented x3. Cranial nerves 2 through 12 are grossly intact. Please refer to medication reconciliation sheet for a list of medications. The impression and plan of care has been dictated by Ena Suárez, Nurse Practitioner as directed. Dr. Deepali MD I have performed a history and examination and MDM of this patient, discussed the same with the dictator, and agree with the dictator's assessment and plan as written ,documented as a scribe. Based on total visit time, I have performed more than 50% of the visit. Patient Condition at Discharge: Stable Plan - Discharge Summary Discharge Rx Participant: No New Discharge Prescriptions: New Darbepoetin Hank [Aranesp] 60 mcg SQ Q7D 30 Days #4 each Furosemide [Lasix] 20 mg PO BID@0900,1600 #60 tab Magnesium Oxide [Mag-Ox] 400 mg PO DAILY #30 tab guaiFENesin-DM 100-10MG/5ML [Robitussin DM] 10 ml PO Q6HR PRN #120 ml PRN Reason: Cough Continue Albuterol Inhaler [Ventolin Hfa Inhaler] 2 puff INHALATION RT-Q4H PRN PRN Reason: Shortness Of Breath Folic Acid 1 mg PO DAILY Cholecalciferol [Vitamin D3 (125 Mcg = 5000 Iu)] 125 mcg PO DAILY Ondansetron Odt [Zofran ODT] 4 mg PO Q6H PRN PRN Reason: Nausea Pure Herbs Supplement 1 dose PO DAILY [employer] Greens Supplement 1 dose PO DAILY Prochlorperazine [Compazine] 10 mg PO Q6H PRN PRN Reason: Nausea methylPREDNISolone Dose Pack [Medrol Dose Pack] See Taper PO DIRECTED Omeprazole 20 mg PO BID PRN PRN Reason: acid reflux Acetaminophen Tab [Tylenol] 1,000 mg PO Q6H PRN PRN Reason: Fever And/ Or Pain LORazepam [Ativan] 0.5 mg PO TID PRN PRN Reason: Anxiety Cyanocobalamin (Vitamin B-12) [Vitamin B-12] 5,000 mcg PO Q48H Loperamide HCl [Imodium A-D] 2 - 4 mg PO QID PRN PRN Reason: Diarrhea Milk Thistle 150 mg PO DAILY Floradix Liquid Iron Supplement 1 tbsp PO Q48H Bitter Apricot Kernels Supplement 1 dose PO DAILY Mirtazapine 7.5 mg PO HS Nature's Craft Water Away Supplement 1 cap PO DAILY Lipase/Protease/Amylase [Nayla Bhardwaj 36,000 Unit Capsule] 3 cap PO TID-W/MEALS Changed Potassium Chloride ER [K-Dur 20] 20 meq PO BID #60 tab Discontinued Doxycycline Monohydrate 100 mg PO BID Discharge Medication List Albuterol Inhaler [Ventolin Hfa Inhaler] 2 puff INHALATION RT-Q4H PRN 01/22/21 [ History] Omeprazole 20 mg PO BID PRN 05/16/21 [History] Acetaminophen Tab [Tylenol] 1,000 mg PO Q6H PRN 10/11/21 [History] Cholecalciferol [Vitamin D3 (125 Mcg = 5000 Iu)] 125 mcg PO DAILY 10/11/21 [H istory] Cyanocobalamin (Vitamin B-12) [Vitamin B-12] 5,000 mcg PO Q48H 10/11/21 [History] Folic Acid 1 mg PO DAILY 10/11/21 [History] LORazepam [Ativan] 0.5 mg PO TID PRN 10/11/21 [History] Loperamide HCl [Imodium A-D] 2 - 4 mg PO QID PRN 10/11/21 [History] Ondansetron Odt [Zofran ODT] 4 mg PO Q6H PRN 10/11/21 [History] Milk Thistle 150 mg PO DAILY 06/27/24 [History] Bitter Apricot Kernels Supplement 1 dose PO DAILY 10/06/24 [History] [employer] Greens Supplement 1 dose PO DAILY 10/06/24 [History] Floradix Liquid Iron Supplement 1 tbsp PO Q48H 10/06/24 [History] Lipase/Protease/Amylase [Nayla Bhardwaj 36,000 Unit Capsule] 3 cap PO TID-W/MEALS 10/06/24 [History] Mirtazapine 7.5 mg PO HS 10/06/24 [History] Nature's Craft Water Away Supplement 1 cap PO DAILY 10/06/24 [History] Prochlorperazine [Compazine] 10 mg PO Q6H PRN 10/06/24 [History] Pure Herbs Supplement 1 dose PO DAILY 10/06/24 [History] methylPREDNISolone Dose Pack [Medrol Dose Pack] See Taper PO DIRECTED 10/06/24 [History] Darbepoetin Hank [Aranesp] 60 mcg SQ Q7D 30 Days #4 each 10/09/24 [Rx] Furosemide [Lasix] 20 mg PO BID@0900,1600 #60 tab 10/09/24 [Rx] Magnesium Oxide [Mag-Ox] 400 mg PO DAILY #30 tab 10/09/24 [Rx] Potassium Chloride ER [K-Dur 20] 20 meq PO BID #60 tab 10/09/24 [Rx] guaiFENesin-DM 100-10MG/5ML [Robitussin DM] 10 ml PO Q6HR PRN #120 ml 10/09/24 [Rx] Follow up Appointment(s)/Referral(s): Carlitos Rosas DO [Primary Care Provider] - 1-2 days Gurvinder Sumner DO [STAFF PHYSICIAN] - 1 Week Activity/Diet/Wound Care/Special Instructions: Activity limited until follow-up Follow-up with primary care provider on discharge Follow-up with hematology oncology Continue taking medications as prescribed Follow-up with nephrology outpatient Discharge Disposition: HOME SELF-CARE
== END 2024-10-09 16:53 | disposition home or self-care (01) | DRG 644 ==
LOC: EC 12:49 → 5NMEDONC 15:22 → 4SSUR 20:45
PROVIDERS: ADMIT Internal Medicine; ATTEND Internal Medicine
DX: E22.2 Syndrome of inappropriate secretion of antidiuretic hormone (principal); C25.9 Malignant neoplasm of pancreas, unspecified; E44.0 Moderate protein-calorie malnutrition; D61.818 Other pancytopenia; D69.59 Other secondary thrombocytopenia; D64.81 Anemia due to antineoplastic chemotherapy; I10 Essential (primary) hypertension; E87.6 Hypokalemia; E87.70 Fluid overload, unspecified; R79.89 Other specified abnormal findings of blood chemistry; E56.9 Vitamin deficiency, unspecified; E83.42 Hypomagnesemia; J20.9 Acute bronchitis, unspecified; J10.1 Influenza due to other identified influenza virus with other respiratory manifestations; T45.1X5A Adverse effect of antineoplastic and immunosuppressive drugs, initial encounter; Z68.26 Body mass index [BMI] 26.0-26.9, adult; Z88.0 Allergy status to penicillin; Z88.2 Allergy status to sulfonamides; Z88.8 Allergy status to other drugs, medicaments and biological substances; Z88.1 Allergy status to other antibiotic agents; Z91.040 Latex allergy status; Z79.899 Other long term (current) drug therapy; Z90.710 Acquired absence of both cervix and uterus; Z92.3 Personal history of irradiation
CPT/HCPCS: 36415; 71046; 80048; 80053; 83735; 83880; 83930; 83935; 84439; 84443; 84484; 85025; 85610; 85730; 87636; 93005; 94640; 96374; 96376; 99285

== ENCOUNTER 2024-10-23 12:46 | Day surgery (SDC) | payer MEDICARE ==
[2024-10-23 13:24] LABS: Mean Platelet Volume 8.1; Platelet Count 160 k/uL (150-450)
[2024-10-23 13:29] LABS: INR 1.5 (<1.2); Prothrombin Time 15.3 sec (10.0-12.5)
[2024-10-23 14:01] VITALS: RESP 18
--- NOTE | 2024-10-23 15:21 | US ---
EXAMINATION TYPE: US paracentesis abd w/image DATE OF EXAM: October 23, 2024 COMPARISON: None. CLINICAL INDICATION:Female, 49 years old with history of other ascites. Pancreatic cancer. ATTENDING: Dr. Nicolas PROCEDURE: Informed consent was obtained. The risks of the procedure were extensively explained incl uding risk of damage to surrounding bowel with perforation and need for additional procedures. Proced ure was performed in ultrasound suite. Ultrasound imaging of the abdomen demonstrate ascitic fluid. A n appropriate access site was localized to the right lower abdomen. Timeout was taken per protocol. T he skin was prepped and draped in the usual sterile fashion and then locally anesthetized with 1% lid ocaine. The peritoneal cavity was then accessed via a 5-Thai one-step needle/catheter. Approximat leonila 4500 mL of clear straw-colored fluid was obtained. Patient tolerated procedure well without immediate complication. Hemostasis at the procedural site w as obtained with a sterile bandage placed. The patient was monitored in the holding area following th e procedure and was subsequently discharged in stable condition. IMPRESSION: Ultrasound guided paracentesis for diagnostic and therapeutic purposes, with approximately 4500 mL of clear straw-colored fluid drained for therapeutic purposes. No immediate complications were evident. Fluid is sent for further analysis as directed. [facility], , 10/23/2024 3:18 PM
[2024-10-23 15:33] VITALS: BP 121/63; PULSE 106; TEMP 98.2
[2024-10-24 03:54] LABS: Albumin, Fluid Source Ascities
== END 2024-10-23 15:05 | disposition home or self-care (01) ==
LOC: RADPROMAIN 12:46
PROVIDERS: ATTEND Radiology Radiation Oncology
DX: R18.8 Other ascites (principal); Z85.07 Personal history of malignant neoplasm of pancreas
CPT/HCPCS: 36415; 49083; 82042; 85049; 85610

== ENCOUNTER 2024-10-29 11:57 | Observation (INO) | payer MEDICARE ==
--- NOTE | 2024-10-29 13:00 | ED ---
SOB HPI - General Source: patient, RN notes reviewed Mode of arrival: ambulatory Limitations: no limitations <Pura Noyola - Last Filed: 10/29/24 12:58> <Keyur Singh - Last Filed: 10/29/24 15:28> - General Chief Complaint: Shortness of Breath Stated Complaint: JE Time Seen by Provider: 10/29/24 12:58 - History of Present Illness Initial Comments: Quick [id number] female with history of active pancreatic cancer presenting for abdominal fluid buildup with shortness of breath worsening today. Patient is scheduled for a paracentesis in 3 days however reports states she does not think she can make it that long. (Pura Noyola) This is a 49-year-old female who presents to the emergency department stating she has a history of pancreatic cancer and ascites. Patient states she has had a paracentesis twice in the past. Patient states she comes in today because her abdomen is getting bigger but she is also getting increased swelling and it is affecting her breathing because she believes her abdomen is pressing up on her diaphragm. Patient states her last chemotherapy was the the last week of September 1 week october. Patient denies any fevers or chills denies cough de nies any vomiting or diarrhea (Keyur Singh) - Related Data Home Medications Medication Instructions Recorded Confirmed Omeprazole 20 mg PO BID PRN 05/16/21 10/29/24 Acetaminophen Tab [Tylenol] 1,000 mg PO Q6H PRN 10/11/21 10/29/24 Cholecalciferol [Vitamin D3 (125 125 mcg PO DAILY 10/11/21 10/29/24 Mcg = 5000 Iu)] Cyanocobalamin (Vitamin B-12) 5,000 mcg PO Q48H 10/11/21 10/29/24 [Vitamin B-12] Folic Acid 1 mg PO DAILY 10/11/21 10/29/24 LORazepam [Ativan] 0.5 mg PO TID PRN 10/11/21 10/29/24 Loperamide HCl [Imodium A-D] 2 - 4 mg PO QID PRN 10/11/21 10/29/24 Ondansetron Odt [Zofran ODT] 4 mg PO Q6H PRN 10/11/21 10/29/24 Milk Thistle 150 mg PO DAILY 06/27/24 10/29/24 Bitter Apricot Kernels Supplement 1 dose PO DAILY 10/06/24 10/29/24 [employer] Greens Supplement 1 dose PO DAILY 10/06/24 10/29/24 Floradix Liquid Iron Supplement 1 tbsp PO Q48H 10/06/24 10/29/24 Lipase/Protease/Amylase [Nayla Bhardwaj 3 cap PO TID-W/MEALS 10/06/24 10/29/24 36,000 Unit Capsule] Mirtazapine 7.5 mg PO HS 10/06/24 10/29/24 Prochlorperazine [Compazine] 10 mg PO Q6H PRN 10/06/24 10/29/24 Pure Herbs Supplement 1 dose PO DAILY 10/06/24 10/29/24 Anti Viral Tincture 1 dropper SUBLINGUAL TID 10/29/24 10/29/24 Calcium Phosphate Supplement 1 dose PO DAILY 10/29/24 10/29/24 Cell Health Tincture 1 dropper SUBLINGUAL TID 10/29/24 10/29/24 Comstock Phosphate Supplement 1 dose PO DAILY 10/29/24 10/29/24 Leaky Gut Tincture 1 dropper SUBLINGUAL TID 10/29/24 10/29/24 Liver Cleanse Tincture 1 dropper SUBLINGUAL TID 10/29/24 10/29/24 Renapath Tincture 1 dropper SUBLINGUAL TID 10/29/24 10/29/24 Spironolactone [Aldactone] 25 mg PO DAILY 10/29/24 10/29/24 Previous Rx's Medication Instructions Recorded Furosemide [Lasix] 20 mg PO BID@0900,1600 #60 tab 10/09/24 Allergies Allergy/AdvReac Type Severity Reaction Status Date / Time ciprofloxacin [From Cipro] Allergy Rash/Hives Verified 10/29/24 14:41 erythromycin base Allergy Rash/Hives Verified 10/29/24 14:41 [From Erythrocin] latex Allergy Rash/Hives Verified 10/29/24 14:41 oseltamivir [From Tamiflu] Allergy Rash/Hives Verified 10/29/24 14:41 Penicillins Allergy Rash/Hives Verified 10/29/24 14:41 sulfamethoxazole Allergy Rash/Hives Verified 10/29/24 14:41 [From Bactrim] trimethoprim [From Bactrim] Allergy Rash/Hives Verified 10/29/24 14:41 Review of Systems ROS Other: All systems not noted in ROS Statement are negative. <Pura Noyola - Last Filed: 10/29/24 12:58> ROS Other: All systems not noted in ROS Statement are negative. <Keyur Singh - Last Filed: 10/29/24 15:28> ROS Statement: Those systems with pertinent positive or pertinent negative responses have been documented in the HPI. Past Medical History Past Medical History: Cancer, GERD/Reflux, Hypertension, Musculoskeletal Disorder Additional Past Medical History / Comment(s): Current pancreatic cancer. Unnamed autoimmune disorder-elevated WENDY. 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 Past Anesthesia/Blood Transfusion Reactions: Postoperative Nausea & Vomiting (PONV) Additional Past Anesthesia/Blood Transfusion Reaction / Comment(s): Jehovah's wittness - no blood products Past Psychological History: Anxiety, Depression Smoking Status: Never smoker Past Alcohol Use History: Occasional Past Drug Use History: None Reported - Past Family History Brother(s) Family Medical History: Cancer Additional Family Medical History / Comment(s): Testicular cancer. <Pura Noyola - Last Filed: 10/29/24 12:58> General Exam Limitations: no limitations <Pura Noyola - Last Filed: 10/29/24 12:58> <Keyur Singh - Last Filed: 10/29/24 15:28> - General Exam Comments Initial Comments: Visual Physical Exam Vital signs reviewed General: Well-appearing, nontoxic, no acute distress. Head: Normocephalic, atraumatic Eyes: PERRLA, EOMI ENT: Airway patent Chest: Nonlabored breathing Skin: No visual rash, normal skin tone Neuro: Alert and oriented 3 Musculoskeletal: No gross abnormalities (DennysPura) GENERAL: Patient is well-developed and well-nourished. Patient is nontoxic and well- hydrated and is in mild distress. ENT: Neck is soft and supple. No significant lymphadenopathy is noted. Oropharynx is clear. Moist mucous membranes. Neck has full range of motion without eliciting any pain. EYES: The sclera were anicteric and conjunctiva were pink and moist. Extraocular movements were intact and pupils were equal round and reactive to light. Eyelids were unremarkable. PULMONARY: Unlabored respirations. Good breath sounds bilaterally. No audible rales rhon chi or wheezing was noted. CARDIOVASCULAR: There is a regular rate and rhythm without any murmurs gallops or rubs. ABDOMEN: Mid abdomen consistent with ascites. SKIN: Skin is clear with no lesions or rashes and otherwise unremarkable. NEUROLOGIC: Patient is alert and oriented x3. Cranial nerves II through XII are grossly intact. Motor and sensory are also intact. Normal speech, volume and content. Symmetrical smile. MUSCULOSKELETAL: Normal extremities with adequate strength and full range of motion. 2+ edema LYMPHATICS: No significant lymphadenopathy is noted PSYCHIATRIC: Normal psychiatric evaluation. (Keyur Singh) Course Vital Signs 10/29/24 12:21 Temperature 97.8 F Pulse Rate 118 H Respiratory 18 Rate Blood Pressure 127/79 O2 Sat by Pulse 100 Oximetry Medical Decision Making <Pura Noyola - Last Filed: 10/29/24 12:58> - Lab Data Result diagrams: 10/29/24 13:34 10/29/24 13:34 <Keyur Singh - Last Filed: 10/29/24 15:28> - Medical Decision Making I completed the quick note portion of this chart signed Pura Noyola PA-C (Pura Newell) EKG is interpreted by myself EKG shows a sinus rhythm at a rate of 118 bpm [place] interval is 142 QRS is 85 QT interval is 433 QTc is 503. Patient's EKG shows no ST segment elevation. Was pt. sent in by a medical professional or institution (LUAN Muñoz, INDUSTRIAL DESIGN ENGINEER, urgent care, hospital, or custodial...) When possible be specific @ -No Did you speak to anyone other than the patient for history (EMS, parent, family, police, friend...)? What history was obtained from this source @ -No Did you review nursing and triage notes (agree or disagree)? Why? @ -I reviewed and agree with nursing and triage notes Were old charts reviewed (outside hosp., previous admission, EMS record, old EKG, old radiological studies, urgent care reports/EKG's, custodial records)? Report findings @ -No old charts were reviewed Differential Diagnosis? @ -Differential Dyspnea: Coronary syndrome, arrhythmia, tamponade, asthma, COPD, pulmonary embolism, pneumonia, pneumothorax, pulmonary effusion, anaphylaxis, diabetic ketoacidosis, flailed chest, pulmonary contusion, diaphragmatic rupture, anemia, neuromuscular, this is not meant to be an all-inclusive list. EKG interpreted by me (3pts min.). @ -As above X-rays interpreted by me (1pt min.). @ -Chest x-ray shows no acute abnormality CT interpreted by me (1pt min.). @ -None done U/S interpreted by me (1pt. min.). @ -None done What testing was considered but not performed or refused? (CT, X-rays, U/S, labs)? Why? @ -None What meds were considered but not given or refused? Why? @ -None Did you discuss the management of the patient with other professionals (professionals i.e. , PA, INDUSTRIAL DESIGN ENGINEER, lab, RT, psych nurse, social work therapist, gate clerk, t eacher, officer captain, nurse outreach case manager)? Give summary @ -I spoke with Dr. West he agreed to admit the patient admit the patient recommending orders Was smoking cessation discussed for >3mins.? @ -No Was critical care preformed (if so, how long)? @ -No Were there social determinants of health that impacted care today? How? (Homelessness, low income, unemployed, alcoholism, drug addiction, transport ation, low edu. Level, literacy, decrease access to med. care, fci, rehab)? @ -No Was there de-escalation of care discussed even if they declined (Discuss DNR or withdrawal of care, Hospice)? DNR status @ -No What co-morbidities impacted this encounter? (DM, HTN, Smoking, COPD, CAD, Cancer, CVA, ARF, Chemo, Hep., AIDS, mental health diagnosis, sleep apnea, morbid obesity)? @ -None Was patient admitted / discharged? Hospital course, mention meds given and route, prescriptions, significant lab abnormalities, going to OR and other pertinent info. @ -Patient had a low potassium and I replaced it with potassium chloride and K- Dur. Patient also had low sodium but at this time I did not give a fluid bolus secondary to the fact that the patient had quite a bit of ascites and pedal edema Undiagnosed new problem with uncertain prognosis? @ -No Drug Therapy requiring intensive monitoring for toxicity (Heparin, Nitro, Insulin, Cardizem)? @ -No Were any procedures done? @ -No Diagnosis/symptom? @ -Ascites Acute, or Chronic, or Acute on Chronic? @ -acute on chronic Uncomplicated (without systemic symptoms) or Complicated (systemic symptoms)? @ -Complicate Side effects of treatment? @ -No Exacerbation, Progression, or Severe Exacerbation? @ -No Poses a threat to life or bodily function? How? (Chest pain, [place], [place], pneumonia, PE, COPD, DKA, ARF, appy, cholecystitis, CVA, Diverticulitis, Homicidal, Suicidal, threat to staff... and all critical care pts) @ -No Diagnosis/symptom? @ -Hypokalemia Acute, or Chronic, or Acute on Chronic? @ -Acute Uncomplicated (without systemic symptoms) or Complicated (systemic symptoms)? @ -Complicate Side effects of treatment? @ -None Exacerbation, Progression, or Severe Exacerbation] @ -No Poses a threat to life or bodily function? @ -Yes this could lead to an arrhythmia and Diagnosis/symptom? @ -Hyponatremia Acute, or Chronic, or Acute on Chronic? @ -Acute Uncomplicated (without systemic symptoms) or Complicated (systemic symptoms)? @ -Complicated Side effects of treatment? @ -None Exacerbation, Progression, or Severe Exacerbation] @ -No Poses a threat to life or bodily function? @ -No (Keyur Singh) - Lab Data Lab Results 10/29/24 10/29/24 10/29/24 Range/Units 13:34 13:34 13:34 WBC 12.8 H (3.8-10.6) k/uL RBC 3.07 L (3.80-5.40) m/uL Hgb 10.7 L D (11.4-16.0) gm/dL Hct 33.9 L (34.0-46.0) % MCV 110.3 H (80.0-100.0) fL MCH 34.9 (25.0-35.0) pg MCHC 31.6 (31.0-37.0) g/dL RDW 17.2 H (11.5-15.5) % Plt Count 249 (150-450) k/uL MPV 7.6 Neutrophils % 84 % Lymphocytes % 6 % Monocytes % 6 % Eosinophils % 1 % Basophils % 0 % Neutrophils # 10.8 H (1.3-7.7) k/uL Lymphocytes # 0.8 L (1.0-4.8) k/uL Monocytes # 0.8 (0-1.0) k/uL Eosinophils # 0.2 (0-0.7) k/uL Basophils # 0.0 (0-0.2) k/uL Manual Slide Review Performed Hypochromasia Slight Poikilocytosis Slight Anisocytosis Slight Macrocytosis Marked A Tear Drop Cells Present Sodium 126 L (137-145) mmol/L Potassium 2.6 L* (3.5-5.1) mmol/L Chloride 94 L (98-107) mmol/L Carbon Dioxide 21 L (22-30) mmol/L Anion Gap 11 mmol/L BUN 10 (7-17) mg/dL Creatinine 0.67 (0.52-1.04) mg/dL Est GFR (CKD-EPI)AfAm >90 (>60 ml/min/1.73 sqM) Est GFR (CKD-EPI)NonAf >90 (>60 ml/min/1.73 sqM) Glucose 109 H (74-99) mg/dL Plasma Lactic Acid Guilherme (0.7-2.0) mmol/L Calcium 7.9 L (8.4-10.2) mg/dL Total Bilirubin 2.7 H (0.2-1.3) mg/dL AST 70 H (14-36) U/L ALT 24 (4-34) U/L Alkaline Phosphatase 338 H (38-126) U/L Total Protein 6.1 L (6.3-8.2) g/dL Albumin 2.7 L (3.5-5.0) g/dL Lipase 10 L (23-300) U/L Urine Color Colorless Urine Appearance Clear (Clear) Urine pH 5.0 (5.0-8.0) Ur Specific Mcallister 1.004 (1.001-1.035) Urine Protein Negative (Negative) Urine Glucose (UA) Negative (Negative) Urine Ketones Negative (Negative) Urine Blood Negative (Negative) Urine Nitrite Negative (Negative) Urine Bilirubin Negative (Negative) Urine Urobilinogen <2.0 (<2.0) mg/dL Ur Leukocyte Esterase Negative (Negative) 10/29/24 Range/Units 13:34 WBC (3.8-10.6) k/uL RBC (3.80-5.40) m/uL Hgb (11.4-16.0) gm/dL Hct (34.0-46.0) % MCV (80.0-100.0) fL MCH (25.0-35.0) pg MCHC (31.0-37.0) g/dL RDW (11.5-15.5) % Plt Count (150-450) k/uL MPV Neutrophils % % Lymphocytes % % Monocytes % % Eosinophils % % Basophils % % Neutrophils # (1.3-7.7) k/uL Lymphocytes # (1.0-4.8) k/uL Monocytes # (0-1.0) k/uL Eosinophils # (0-0.7) k/uL Basophils # (0-0.2) k/uL Manual Slide Review Hypochromasia Poikilocytosis Anisocytosis Macrocytosis Tear Drop Cells Sodium (137-145) mmol/L Potassium (3.5-5.1) mmol/L Chloride (98-107) mmol/L Carbon Dioxide (22-30) mmol/L Anion Gap mmol/L BUN (7-17) mg/dL Creatinine (0.52-1.04) mg/dL Est GFR (CKD-EPI)AfAm (>60 ml/min/1.73 sqM) Est GFR (CKD-EPI)NonAf (>60 ml/min/1.73 sqM) Glucose (74-99) mg/dL Plasma Lactic Acid Guilherme 2.9 H* (0.7-2.0) mmol/L Calcium (8.4-10.2) mg/dL Total Bilirubin (0.2-1.3) mg/dL AST (14-36) U/L ALT (4-34) U/L Alkaline Phosphatase (38-126) U/L Total Protein (6.3-8.2) g/dL Albumin (3.5-5.0) g/dL Lipase (23-300) U/L Urine Color Urine Appearance (Clear) Urine pH (5.0-8.0) Ur Specific Mcallister (1.001-1.035) Urine Protein (Negative) Urine Glucose (UA) (Negative) Urine Ketones (Negative) Urine Blood (Negative) Urine Nitrite (Negative) Urine Bilirubin (Negative) Urine Urobilinogen (<2.0) mg/dL Ur Leukocyte Esterase (Negative) Disposition <Pura Noyola - Last Filed: 10/29/24 12:58> Is patient prescribed a controlled substance at d/c from ED?: No Time of Disposition: 15:28 <Keyur Singh - Last Filed: 10/29/24 15:28> Clinical Impression: Ascites, Hypokalemia, Hyponatremia Disposition: ADMITTED IP TO THIS HOSP Referrals: Carlitos Rosas DO [Primary Care Provider] - 1-2 days
[2024-10-29 13:46] LABS: Appearance,Urine Clear (Clear); Bilirubin,Urine Negative (Negative); Blood,Urine Negative (Negative); Color,Urine Colorless; Glucose,Urine (UA) Negative (Negative); Ketones,Urine Negative (Negative); Leukocyte Esterase,Urine Negative (Negative); Nitrite,Urine Negative (Negative); Protein,Urine Negative (Negative); Specific Gravity,Urine 1.004 (1.001-1.035); Urobilinogen,Urine <2.0 mg/dL (<2.0)
[2024-10-29 13:50] LABS: Anisocytosis Slight; Basophils % (A) 0 %; Eosinophils # (A) 0.2 k/uL (0-0.7); Eosinophils % (A) 1 %; HCT 33.9 % (34.0-46.0); Hypochromasia Slight; Lymphocytes # (A) 0.8 k/uL (1.0-4.8); Lymphocytes % (A) 6 %; MCH 34.9 pg (25.0-35.0); MCHC 31.6 g/dL (31.0-37.0); MCV 110.3 fL (80.0-100.0); Macrocytosis Marked; Mean Platelet Volume 7.6; Monocytes # (A) 0.8 k/uL (0-1.0); Monocytes % (A) 6 %; Neutrophils # (A) 10.8 k/uL (1.3-7.7); Neutrophils % (A) 84 %; Platelet Count 249 k/uL (150-450); Poikilocytosis Slight; RBC 3.07 m/uL (3.80-5.40); RDW 17.2 % (11.5-15.5); WBC 12.8 k/uL (3.8-10.6)
[2024-10-29 13:53] LABS: HGB 10.7 gm/dL (11.4-16.0)
[2024-10-29 13:54] LABS: ALT 24 U/L (4-34); African American GFR (CKD) >90 (>60 ml/min/1.73 sqM); Albumin 2.7 g/dL (3.5-5.0); Anion Gap 11 mmol/L; Blood Urea Nitrogen 10 mg/dL (7-17); Calcium 7.9 mg/dL (8.4-10.2); Carbon Dioxide 21 mmol/L (22-30); Chloride 94 mmol/L (98-107); Glucose 109 mg/dL (74-99); Lipase 10 U/L (23-300); Non-African American GFR(CKD) >90 (>60 ml/min/1.73 sqM); Sodium 126 mmol/L (137-145); Total Bilirubin 2.7 mg/dL (0.2-1.3); Total Protein 6.1 g/dL (6.3-8.2)
[2024-10-29 14:05] LABS: AST 70 U/L (14-36); Alkaline Phosphatase 338 U/L (38-126); Potassium 2.6 mmol/L (3.5-5.1); Tear Drop Cells Present
--- NOTE | 2024-10-29 14:16 | XR ---
EXAMINATION TYPE: XR chest 2V DATE OF EXAM: 10/29/2024 2:01 PM COMPARISON: Chest radiographs from 10/06/2024 CLINICAL INDICATION: Female, 49 years old with history of Difficulty breathing ; TECHNIQUE: XR chest 2V Frontal and lateral views of the chest. FINDINGS: Lungs/Pleura: There is no evidence of pleural effusion, focal consolidation, or pneumothorax. Pulmonary vascularity: Unremarkable. Heart/mediastinum: Cardiomediastinal silhouette is unremarkable. Musculoskeletal: No acute osseous pathology. Other findings: None Lines/Tubes: [id number]-Foyt projecting over the left hemithorax with distal tip at the cavoatrial junction. IMPRESSION: No acute cardiopulmonary disease/process. [facility], , 10/29/2024 2:13 PM
[2024-10-29] MEDS: POTASSIUM CHLORIDE ER 20 MEQ TAB.ER PO STA (14:52)
[2024-10-29] MEDS: POTASSIUM CHLORIDE 20 MEQ in WATER FOR INJECTION 1 100ML.BAG IVPB STA (14:53)
[2024-10-29 16:08] LABS: Influenza A Not Detected (Not Detectd); Influenza B Not Detected (Not Detectd); RSV Not Detected (Not Detectd)
[2024-10-29] MEDS ORDERED: PROCHLORPERAZINE 10 MG TAB PO PRN (16:50)
[2024-10-29] MEDS ORDERED: Potassium Replacement Protocol 1 EACH MISC MISCELLANE PRN (16:51)
[2024-10-29] MEDS ORDERED: Magnesium Replacement Protocol 1 EACH MISC MISCELLANE PRN (16:51)
[2024-10-29] MEDS: MIRTAZAPINE 15 MG TAB PO SCH (21:03)
[2024-10-29] MEDS: LORazepam 0.5 MG TAB PO PRN (21:03)
[2024-10-29] MEDS ORDERED: IBUPROFEN 400 MG TAB PO PRN (21:09)
[2024-10-29] MEDS: HYDROcodone/APAP 5-325MG 1 EACH TAB PO PRN (21:24)
--- NOTE | 2024-10-29 22:15 | HP ---
HISTORY AND PHYSICAL CHIEF COMPLAINT: Shortness of breath and as well as abdominal distention. HISTORY OF PRESENT ILLNESS: This is a 49-year-old woman with a past medical history of pancreatic cancer, had 2 episodes of abdominal flatus, is being followed by Dr. Hoyt. The next paracentesis due in few days, but the patient has increased shortness of breath and discomfort. The patient came to [facility]. The patient had massive ascites and the patient admitted for further evaluation and possible emergent paracentesis possibly tomorrow also. There is no history of any fever, rigors, or chills at this time. PAST MEDICAL HISTORY: History of pancreatic cancer, history of undetermined autoimmune disease with positive WENDY, Jehovah's Witnesses. Rest of the history and rest of the chart are also reviewed. HOME MEDICATIONS: Reviewed include omeprazole. Dose and rest of medications reviewed. ALLERGIES: Cipro. FAMILY HISTORY: History of testicular cancer. SOCIAL HISTORY: Occasional alcohol. REVIEW OF SYSTEMS: Fourteen-point review of systems is negative except as mentioned earlier. PHYSICAL EXAMINATION: VITAL SIGNS: Pulse is 118, blood pressure 127/70, respirations 18. HEENT: Conjunctivae normal. NECK: No JVD. CARDIOVASCULAR: S1, S2. RESPIRATIONS: Breath sounds diminished at the bases. A few scattered rhonchi and crackles. ABDOMEN: Soft. Massive ascites, tense ascites present. LEGS: No edema. NERVOUS SYSTEM: Nonfocal. LABORATORY DATA: WBC 12.8, sodium 126, potassium 2.6, and lactic acid 2.9. Alkaline phosphatase 338. ASSESSMENT: 1. Massive tense ascites causing shortness of breath secondary from malignant ascites for paracentesis. 2. Pancreatic cancer, on chemotherapy. 3. Severe hypokalemia. 4. Hyponatremia. 5. Anemia, macrocytic. 6. Elevated WBC. 7. Gastroesophageal reflux disease. 8. Hypertension. 9. Rule out sepsis. 10.History of elevated WENDY. RECOMMENDATIONS AND DISCUSSION: This is a 49-year-old woman, who presented with multiple complex medical issues, we will monitor the patient closely. I would recommend Interventional Radiology evaluation. I would also recommend potassium supplementation. I would also recommend repeat lytes, potassium, magnesium supplementation, resume the home medications, empiric antibiotics. Closely follow with Hematology, Oncology. Guarded prognosis. Further recommendations to follow. See orders for further details. MMODL / IJN: [id number] /
[2024-10-30 08:33] LABS: Basophils # (A) 0.03 X 10*3/uL (0.00-0.10); Basophils % (A) 0.3 %; Eosinophils # (A) 0.21 X 10*3/uL (0.04-0.35); Eosinophils % (A) 2.3 %; HCT 26.2 % (37.2-46.3); HGB 8.3 g/dL (12.0-15.0); Lymphocytes # (A) 0.97 X 10*3/uL (0.90-5.00); Lymphocytes % (A) 10.8 %; MCH 35.9 pg (27.0-32.0); MCHC 31.7 g/dL (32.0-37.0); MCV 113.4 FL (80.0-97.0); Mean Platelet Volume 9.7 FL (9.5-12.2); Monocytes # (A) 0.99 X 10*3/uL (0.20-1.00); NRBC Per 100 WBC 0 X 10*3/uL (0.00-0.01); Neutrophils # (A) 6.78 X 10*3/uL (1.80-7.70); Neutrophils % (A) 75.3 %; Platelet Count 162 X 10*3/uL (140-440); RBC 2.31 X 10*6/uL (4.10-5.20); RDW 16.1 % (11.5-14.5); WBC 9.01 X 10*3/uL (4.50-10.00)
[2024-10-30 08:45] LABS: BUN/Creat Ratio 11.88 Ratio (12.00-20.00); Blood Urea Nitrogen 9.5 mg/dL (9.0-27.0); Calcium 7.7 mg/dL (8.7-10.3); Carbon Dioxide 22.1 mmol/L (21.6-31.8); Chloride 97 mmol/L (96-109); Glucose 95 mg/dL (70-110); Magnesium 1.5 mg/dL (1.5-2.4); Potassium 3.1 mmol/L (3.5-5.5); Sodium 129 mmol/L (135-145)
[2024-10-30] MEDS ORDERED: Potassium Replacement Protocol 1 EACH MISC MISCELLANE PRN (09:09)
[2024-10-30] MEDS: POTASSIUM CHLORIDE ER 20 MEQ TAB.ER PO SCH (10:15)
[2024-10-30 11:55] LABS: INR 1.6 (<1.2); Prothrombin Time 16.6 sec (10.0-12.5)
--- NOTE | 2024-10-30 15:56 | US ---
EXAMINATION TYPE: US paracentesis abd w/image DATE OF EXAM: 10/30/2024 3:13 PM COMPARISON: None. Previous Paracentesis CLINICAL INDICATION: Female, 49 years old with history of ascites; , ascites TECHNIQUE/FINDINGS: The procedure was discussed with the patient. The risks, complications, benefits, and alternatives we re discussed and any questions were answered. Informed consent was obtained. The patient was placed s upine on the ultrasound table and prepped and draped in the usual sterile fashion. All elements of maximal barrier technique were utilized. Under ultrasound guidance, access into the left lower quadrant was obtained, via the paracentesis catheter system and direct ultrasound guidance . Approximately 4.7 liters of straw-colored fluid was removed. The patient was stable throughout the pr ocedure and remained stable upon discharge from Department of Radiology. IMPRESSION: Successful paracentesis under ultrasound guidance. [facility], , 10/30/2024 3:54 PM
--- NOTE | 2024-10-30 20:02 | P.CONS ---
History of Present Illness - Reason for Consult Consult date: 10/30/24 pancreatic cancer Requesting physician: Keyur Singh - Chief Complaint abd distension, SOB - History of Present Illness Ms Vizcarra is 49 yr old female with a history of pancreatic cancer, who follows with Dr. Hoyt. The patient had initially presented to [facility] for jaundice. Patient had imaging with ultrasound and CT of the abdomen and pelvis. This showed intrahepatic and extra hepatic very ductal addition with cut off of the distal CBD near the hilum. There was a hypodense lesion in the pancreas measuring 0.9 x 1.5 [address] Liver was noted to be slightly enlarged. On ultrasound the pancreatic mass was about 2.8 x 2.4 cm. The p bertha was transferred to [facility]. She underwent ERCP with stent placement on 04/05/21. She then had an EUS on 04/07/21. This revealed erosive gastropathy and no adenopathy. A 1.9 x 1.7 cm mass was seen in the pancreatic head, with possibility of invasion into the SMV, manifested by abutment. No suspicious adenopathy was noted. Biopsy of the pelvic mass was positive for adenocarcinoma. The patient had a CT of the chest with IV contrast on 04/06/21 that was negative for metastasis. She had an MRCP also on the same day, that showed no evidence of liver metastasis. There appeared to be some minimal diffuse hepatic steatosis. Pancreatic mass was again noted with cystic component measuring 1.8 cm and solid component measuring 3.5 x 2.5 cm. She was evaluated by surgical oncology and was felt to be a good candidate for upfront surgery. She underwent the same on 04/30/21. Final pathology revealed 3.6 cm grade 2 adenocarcinoma with invasion of the duodenal wall, and vascular bed/growth corresponding to the SMV/portal vein. Lymphovascular and perineural invasion were present. All margins were negative. 12 lymph nodes were involved. The patient tolerated surgery well and was discharged after a 5 day hospitalization. The patient was recommended adjuvant chemotherapy with FOLFIRINOX. Case was also discussed with medical oncology at [facility], who confi rmed that they would recommend the same regimen. cement. She had a PET scan done that showed no evidence of metastatic disease. Patient completed 12 cycles of adjuvant FOLFIRINOX. She had follow-up imaging with CT scans in 12/28 and then PET scan in 01/28, showing no evidence of residual disease. She was therefore referred to radiation oncology for chemoradiation. She started chemo RT on 02/16/22, with Xeloda, and completed the same on 03/26/22. Patient's follow-up CT scans in 06/01 showed increase in size of the density in the surgical bed. She therefore had a PET scan done, that showed suspicious uptake in this area, as well as an adjacent nodular density, possibly a lymph node. There was note of a mild increase in size of the left lower lobe lung nodule, into the 6-7mm range, without any FDG uptake however. Pt was started back on treatment with gemcitabine and Abraxane, and completed cycle 3 on 09/26/24. Treatment has been on hold since due to hospital admission and recent pneumonia and influenza. PET scan showing response in the mass in the tumor bed, as well as adjacent nodes. Nodular opacities, with mild PET uptake are noted 1 in each lung, felt to more likely represent inflammation although early metastasis is not ruled out. The patient had a paracentesis at [facility], cytology negative for malignancy.She was seen by surgical oncologist, not felt to be a surgical candidate. Pt had repeat paracentesis 1 week ago, repeat cytology still pending. Underwent lbiopsy last week at [facility], path pending. Patient presented to the emergency room for increasing abdominal distention and associated shortness of breath. Upon admit chest x-ray showed no acute cardiopulmonary processes. IR consulted for paracentesis. UA negative for UTI. Blood cultures pending. WBC 9.0, hemoglobin 8.3, platelets 162,000, creatinine 0.67, GFR greater than 90. Lactic acid initially elevated at 2.9, today 1.6. Bilirubin elevated at 2.7. AST 70, ALT 24, ALP 338. Lipase WNL. Patient de nies nausea vomiting, eating and drinking okay. Review of Systems 10 point ROS is negative except as stated in the HPI Past Medical History Past Medical History: Cancer, GERD/Reflux, Hypertension, Musculoskeletal Disorder Additional Past Medical History / Comment(s): Current pancreatic cancer. Unnamed autoimmune disorder-elevated WENDY. 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 Past Anesthesia/Blood Transfusion Reactions: Postoperative Nausea & Vomiting (PONV) Additional Past Anesthesia/Blood Transfusion Reaction / Comm: Jehovah's wittness - no blood products Smoking Status: Never smoker - Past Family History Brother(s) Family Medical History: Cancer Additional Family Medical History / Comment(s): Testicular cancer. Medications and Allergies Home Medications Medication Instructions Recorded Confirmed Type Omeprazole 20 mg PO BID PRN 05/16/21 10/29/24 History Acetaminophen Tab [Tylenol] 1,000 mg PO Q6H PRN 10/11/21 10/29/24 History Cholecalciferol [Vitamin D3 (125 125 mcg PO DAILY 10/11/21 10/29/24 History Mcg = 5000 Iu)] Cyanocobalamin (Vitamin B-12) 5,000 mcg PO Q48H 10/11/21 10/29/24 History [Vitamin B-12] Folic Acid 1 mg PO DAILY 10/11/21 10/29/24 History LORazepam [Ativan] 0.5 mg PO TID PRN 10/11/21 10/29/24 History Loperamide HCl [Imodium A-D] 2 - 4 mg PO QID PRN 10/11/21 10/29/24 History Ondansetron Odt [Zofran ODT] 4 mg PO Q6H PRN 10/11/21 10/29/24 History Milk Thistle 150 mg PO DAILY 06/27/24 10/29/24 History Bitter Apricot Kernels Supplement 1 dose PO DAILY 10/06/24 10/29/24 History [employer] Greens Supplement 1 dose PO DAILY 10/06/24 10/29/24 History Floradix Liquid Iron Supplement 1 tbsp PO Q48H 10/06/24 10/29/24 History Lipase/Protease/Amylase [Creon Dr 3 cap PO TID-W/MEALS 10/06/24 10/29/24 History 36,000 Unit Capsule] Mirtazapine 7.5 mg PO HS 10/06/24 10/29/24 History Prochlorperazine [Compazine] 10 mg PO Q6H PRN 10/06/24 10/29/24 History Pure Herbs Supplement 1 dose PO DAILY 10/06/24 10/29/24 History Furosemide [Lasix] 20 mg PO BID@0900,1600 #60 tab 10/09/24 10/29/24 Rx Anti Viral Tincture 1 dropper SUBLINGUAL TID 10/29/24 10/29/24 History Calcium Phosphate Supplement 1 dose PO DAILY 10/29/24 10/29/24 History Cell Health Tincture 1 dropper SUBLINGUAL TID 10/29/24 10/29/24 History Elim Phosphate Supplement 1 dose PO DAILY 10/29/24 10/29/24 History Leaky Gut Tincture 1 dropper SUBLINGUAL TID 10/29/24 10/29/24 History Liver Cleanse Tincture 1 dropper SUBLINGUAL TID 10/29/24 10/29/24 History Renapath Tincture 1 dropper SUBLINGUAL TID 10/29/24 10/29/24 History Spironolactone [Aldactone] 25 mg PO DAILY 10/29/24 10/29/24 History Allergies Allergy/AdvReac Type Severity Reaction Status Date / Time ciprofloxacin [From Cipro] Allergy Rash/Hives Verified 10/29/24 14:41 erythromycin base Allergy Rash/Hives Verified 10/29/24 14:41 [From Erythrocin] latex Allergy Rash/Hives Verified 10/29/24 14:41 oseltamivir [From Tamiflu] Allergy Rash/Hives Verified 10/29/24 14:41 Penicillins Allergy Rash/Hives Verified 10/29/24 14:41 sulfamethoxazole Allergy Rash/Hives Verified 10/29/24 14:41 [From Bactrim] trimethoprim [From Bactrim] Allergy Rash/Hives Verified 10/29/24 14:41 Physical Exam Vitals: Vital Signs Temp Pulse Pulse Resp BP BP Pulse Ox 10/30/24 07:39 98.1 F 101 H 18 101/66 99 10/30/24 00:43 98.0 F 99 15 96/67 99 10/29/24 20:59 98.0 F 89 16 116/68 100 10/29/24 20:36 98.0 F 98 14 115/69 98 10/29/24 19:07 101 H 18 117/77 97 Intake and Output 03/23/25 03/24/25 03/24/25 22:59 06:59 14:59 Other: # Voids 1 Weight 63.503 kg - Constitutional General appearance: average body habitus, no acute distress - EENT Eyes: anicteric sclerae, EOMI ENT: hearing grossly normal - Respiratory breathing is even and unlabored Respiratory: bilateral: CTA - Cardiovascular Rhythm: regular - Gastrointestinal General gastrointestinal: distended - Integumentary Integumentary: no cyanotic, no jaundiced - Neurologic Neurologic: CNII-XII intact - Musculoskeletal Musculoskeletal: strength equal bilaterally - Psychiatric Psychiatric: A&O x's 3 Results CBC & Chem 7: 10/30/24 04:01 10/30/24 17:08 Labs: Abnormal Lab Results - Last 24 Hours (Table) 10/29/24 10/29/24 10/29/24 Range/Units 13:34 13:34 13:34 WBC 12.8 H (3.8-10.6) k/uL RBC 3.07 L (3.80-5.40) m/uL Hgb 10.7 L D (11.4-16.0) gm/dL Hct 33.9 L (34.0-46.0) % MCV 110.3 H (80.0-100.0) fL MCH (27.0-32.0) pg MCHC (32.0-37.0) g/dL RDW 17.2 H (11.5-15.5) % Neutrophils # 10.8 H (1.3-7.7) k/uL Lymphocytes # 0.8 L (1.0-4.8) k/uL Macrocytosis Marked A PT (10.0-12.5) sec INR (<1.2) Sodium 126 L (137-145) mmol/L Potassium 2.6 L* (3.5-5.1) mmol/L Chloride 94 L (98-107) mmol/L Carbon Dioxide 21 L (22-30) mmol/L BUN/Creatinine Ratio (12.00-20.00) Ratio Glucose 109 H (74-99) mg/dL Plasma Lactic Acid Guilherme 2.9 H* (0.7-2.0) mmol/L Calcium 7.9 L (8.4-10.2) mg/dL Total Bilirubin 2.7 H (0.2-1.3) mg/dL AST 70 H (14-36) U/L Alkaline Phosphatase 338 H (38-126) U/L Total Protein 6.1 L (6.3-8.2) g/dL Albumin 2.7 L (3.5-5.0) g/dL Lipase 10 L (23-300) U/L 10/30/24 10/30/24 10/30/24 Range/Units 04:01 04:01 11:30 WBC (3.8-10.6) k/uL RBC 2.31 L (3.80-5.40) m/uL Hgb 8.3 L (11.4-16.0) gm/dL Hct 26.2 L (34.0-46.0) % MCV 113.4 H (80.0-100.0) fL MCH 35.9 H (27.0-32.0) pg MCHC 31.7 L (32.0-37.0) g/dL RDW 16.1 H (11.5-15.5) % Neutrophils # (1.3-7.7) k/uL Lymphocytes # (1.0-4.8) k/uL Macrocytosis PT 16.6 H (10.0-12.5) sec INR 1.6 H (<1.2) Sodium 129 L (137-145) mmol/L Potassium 3.1 L (3.5-5.1) mmol/L Chloride (98-107) mmol/L Carbon Dioxide (22-30) mmol/L BUN/Creatinine Ratio 11.88 L (12.00-20.00) Ratio Glucose (74-99) mg/dL Plasma Lactic Acid Guilherme (0.7-2.0) mmol/L Calcium 7.7 L (8.4-10.2) mg/dL Total Bilirubin (0.2-1.3) mg/dL AST (14-36) U/L Alkaline Phosphatase (38-126) U/L Total Protein (6.3-8.2) g/dL Albumin (3.5-5.0) g/dL Lipase (23-300) U/L Abdominal x-ray: report reviewed US - abdomen: report reviewed Assessment and Plan (1) Ascites Current Visit: Yes Status: Acute Priority: High Code(s): R18.8 - OTHER ASCITES SNOMED Code(s): 515807788 (2) History of pancreatic cancer Current Visit: Yes Status: Acute Priority: High Code(s): Z85.07 - PERSONAL HISTORY OF MALIGNANT NEOPLASM OF PANCREAS SNOMED Code(s): 74878480692140 Plan: Recurrent ascites: Patient presented to the emergency room for increasing abdominal distention and associated shortness of breath. -Paracentesis last week on 10/23/24, with 4.5L removed, cytology pending -IR consulted for repeat paracentesis. Fluid studies ordered Pancreatic cancer: -Oncolgy history as dictated in the HPI -Completed cycle 3 of gemcitabine and Abraxane on 09/26/24. Treatment has been on hold since due to hospital admission and recent pneumonia and influenza. Recent PET scan showing response in the mass in the tumor bed, as well as adjacent nodes. Nodular opacities, with mild PET uptake are noted 1 in each lung, felt to more likely represent inflammation although early metastasis is not ruled out. The patient had a paracentesis at [facility], cytology negative for malignancy.She was seen by surgical oncologist, not felt to be a surgical candidate. Underwent biopsy last week at [facility], path pending. -Clinic f/u upon discharge to discuss pending results, and plan of care Doctor attests: I performed a history and physical examination of this patient, developed impression and plan of care. Discussed with dictator. I agree with dictators note, documented as a scribe.
[2024-10-30 20:34] LABS: Glucose, BF Source Ascites; Glucose, Body Fluid 122 mg/dL; T. Protein, Body Fluid Source Ascites; Total Protein, Body Fluid 758 mg/dL
[2024-10-30] MEDS: ACETAMINOPHEN TAB 325 MG TAB PO PRN (21:00)
[2024-10-30] MEDS: POTASSIUM CHLORIDE ER 20 MEQ TAB.ER PO STA (21:12)
[2024-10-30 22:07] LABS: Appearance,BF Hazy (Clear)
[2024-10-31] MEDS: ALBUMIN HUMAN 25% 50 ML in EMPTY BAG 1 BAG IVPB ONE (05:46)
--- NOTE | 2024-10-31 06:16 | P.PN ---
Subjective Progress Note Date: 10/30/24 This is a very pleasant 49-year-old female who was recently admitted with significant abdominal distention and shortness of breath. Patient being followed by oncology as patient has significant past medical history of pancreatic cancer currently undergoing treatment which has been placed on hold due to recent frequent paracentesis and hospitalization with influenza last month. Patient did undergo paracentesis with approximately 4 L removed last week although reported to feeling significantly bloated distended and unable to lay down resulting in some shortness of breath. Interventional radiology is consulted and patient is scheduled to undergo paracentesis and this afternoon. Oncology is following as well. Review of systems: Constitutional: No reports of fatigue, fever, or chills Cardiovascular: No reports of chest pain or palpitations Respiratory: No reports of worsening shortness of breath or cough GI: reports of nausea, no reports of vomiting, reports of feeling significantly bloated : No reports of dysuria or retention Neurovascular: reports of generalized weakness All medications have been reviewed PHYSICAL EXAMINATION: GENERAL: The patient is alert and oriented x4, Well developed, well nourished. Thin built HEENT: Pupils are round and equally reacting to light. EOMI. no scleral icterus. No conjunctival pallor. Normocephalic, atraumatic. No pharyngeal erythema. No thyromegaly. CARDIOVASCULAR: S1 and S2 muffled PULMONARY: diminished breath sounds bilaterally with no wheezing or rhonchi noted. ABDOMEN: soft. Nontender on exam. distended with ascites noted, tympanic, normoactive bowel sounds. No palpable organomegaly. MUSCULOSKELETAL: No joint swelling or deformity. EXTREMITIES: No cyanosis, clubbing, or pedal edema. Mild lower extremity edema 1+ pitting NEUROLOGICAL: Gross neurological examination did not reveal any focal deficits. Diffuse weakness SKIN: No rashes. Assessment: Abdominal pain with distention, massive tense ascites with shortness of breath Pancreatic cancer, on chemotherapy follows with Dr. Hoyt outpatient Severe hypokalemia, replaced and improving Hyponatremia Anemia, macrocytic Elevated WBC GERD Hypertension History of elevated WENDY GI prophylaxis DVT prophylaxis Full code Plan: Recommend to continue with current medications and an interventional radiology has been consult this morning for possible paracentesis. Patient with significant abdominal girth and distention with shortness of breath. Patient also noticing to have lower extremity swelling and was maintained on Lasix and Aldactone which is currently being held. Will await paracentesis report in the event patient will require albumin due to large volume paracentesis Labs ordered per oncology for paracentesis fluid for analysis Encouraged increase activity as tolerated Will follow-up on repeat labs Patient will need outpatient follow-up with oncology Due to multiple complex medical issues, overall prognosis is guarded The impression and plan of care has been dictated by Ena Suárez, nurse practitioner as directed. Dr. Zain MD I have performed a history and examination and MDM of this patient, discussed the same with the dictator, and agree with the dictator's assessment and plan as written ,documented as a scribe. Based on total visit time, I have performed more than 50% of the visit. Any additional findings or plans will be noted. Objective - Vital Signs Vital signs: Vital Signs Temp 98.1 F 10/30/24 07:39 Pulse 101 H 10/30/24 07:39 Resp 18 10/30/24 07:39 BP 101/66 10/30/24 07:39 Pulse Ox 99 10/30/24 07:39 FiO2 Intake & Output 10/29/24 10/30/24 10/30/24 18:59 06:59 18:59 Weight 63.503 kg 63.503 kg Other: # Voids 1 - Labs CBC & Chem 7: 10/30/24 04:01 10/30/24 17:08 Labs: Abnormal Lab Results - Last 24 Hours (Table) 10/29/24 10/29/24 10/29/24 Range/Units 13:34 13:34 13:34 WBC 12.8 H (3.8-10.6) k/uL RBC 3.07 L (3.80-5.40) m/uL Hgb 10.7 L D (11.4-16.0) gm/dL Hct 33.9 L (34.0-46.0) % MCV 110.3 H (80.0-100.0) fL MCH (27.0-32.0) pg MCHC (32.0-37.0) g/dL RDW 17.2 H (11.5-15.5) % Neutrophils # 10.8 H (1.3-7.7) k/uL Lymphocytes # 0.8 L (1.0-4.8) k/uL Macrocytosis Marked A Sodium 126 L (137-145) mmol/L Potassium 2.6 L* (3.5-5.1) mmol/L Chloride 94 L (98-107) mmol/L Carbon Dioxide 21 L (22-30) mmol/L BUN/Creatinine Ratio (12.00-20.00) Ratio Glucose 109 H (74-99) mg/dL Plasma Lactic Acid Guilherme 2.9 H* (0.7-2.0) mmol/L Calcium 7.9 L (8.4-10.2) mg/dL Total Bilirubin 2.7 H (0.2-1.3) mg/dL AST 70 H (14-36) U/L Alkaline Phosphatase 338 H (38-126) U/L Total Protein 6.1 L (6.3-8.2) g/dL Albumin 2.7 L (3.5-5.0) g/dL Lipase 10 L (23-300) U/L 10/30/24 10/30/24 Range/Units 04:01 04:01 WBC (3.8-10.6) k/uL RBC 2.31 L (3.80-5.40) m/uL Hgb 8.3 L (11.4-16.0) gm/dL Hct 26.2 L (34.0-46.0) % MCV 113.4 H (80.0-100.0) fL MCH 35.9 H (27.0-32.0) pg MCHC 31.7 L (32.0-37.0) g/dL RDW 16.1 H (11.5-15.5) % Neutrophils # (1.3-7.7) k/uL Lymphocytes # (1.0-4.8) k/uL Macrocytosis Sodium 129 L (137-145) mmol/L Potassium 3.1 L (3.5-5.1) mmol/L Chloride (98-107) mmol/L Carbon Dioxide (22-30) mmol/L BUN/Creatinine Ratio 11.88 L (12.00-20.00) Ratio Glucose (74-99) mg/dL Plasma Lactic Acid Guilherme (0.7-2.0) mmol/L Calcium 7.7 L (8.4-10.2) mg/dL Total Bilirubin (0.2-1.3) mg/dL AST (14-36) U/L Alkaline Phosphatase (38-126) U/L Total Protein (6.3-8.2) g/dL Albumin (3.5-5.0) g/dL Lipase (23-300) U/L
[2024-10-31 08:21] LABS: Basophils # (A) 0.02 X 10*3/uL (0.00-0.10); Basophils % (A) 0.4 %; Eosinophils # (A) 0.12 X 10*3/uL (0.04-0.35); Eosinophils % (A) 2.4 %; HCT 22.6 % (37.2-46.3); HGB 7.1 g/dL (12.0-15.0); Lymphocytes # (A) 0.74 X 10*3/uL (0.90-5.00); Lymphocytes % (A) 14.9 %; MCHC 31.4 g/dL (32.0-37.0); MCV 111.3 FL (80.0-97.0); Mean Platelet Volume 9.1 FL (9.5-12.2); Monocytes # (A) 0.67 X 10*3/uL (0.20-1.00); Monocytes % (A) 13.5 %; NRBC Per 100 WBC 0 X 10*3/uL (0.00-0.01); Neutrophils # (A) 3.38 X 10*3/uL (1.80-7.70); Neutrophils % (A) 68.4 %; Platelet Count 122 X 10*3/uL (140-440); RBC 2.03 X 10*6/uL (4.10-5.20); RDW 15.9 % (11.5-14.5); WBC 4.95 X 10*3/uL (4.50-10.00)
[2024-10-31 09:00] LABS: Blood Urea Nitrogen 9.6 mg/dL (9.0-27.0); Calcium 7.4 mg/dL (8.7-10.3); Carbon Dioxide 20.4 mmol/L (21.6-31.8); Chloride 100 mmol/L (96-109); Glucose 83 mg/dL (70-110); Magnesium 1.6 mg/dL (1.5-2.4); Potassium 3.6 mmol/L (3.5-5.5); Sodium 129 mmol/L (135-145)
[2024-10-31] MEDS ORDERED: Magnesium Replacement Protocol 1 EACH MISC MISCELLANE PRN (10:38)
[2024-10-31] MEDS ORDERED: Potassium Replacement Protocol 1 EACH MISC MISCELLANE PRN (10:38)
[2024-10-31 11:41] VITALS: BP 94/62; PULSE 106; RESP 16; TEMP 98
[2024-10-31] MEDS: MAGNESIUM SULFATE-D5W PMX 1 GM in DEXTROSE/WATER 1 100ML.BAG IVPB ONE (11:53)
[2024-10-31] MEDS: POTASSIUM CHLORIDE ER 20 MEQ TAB.ER PO SCH (11:53)
[2024-10-31] MEDS: FUROSEMIDE 10 MG/ML 2 ML VIAL IV ONE (13:10)
--- NOTE | 2024-10-31 13:48 | P.PN ---
Subjective Progress Note Date: 10/31/24 Pt reports she had significant improvement in abd distension/discomfort s/p paracentesis yesterday. Reports she had increased abd pain this morning, but still feels definite improvement overall. SOB also improved. WBC 4.95, hgb 7.1, plt 122 Objective - Vital Signs Vital signs: Vital Signs Temp 98.0 F 10/31/24 11:40 Pulse 106 H 10/31/24 11:40 Resp 16 10/31/24 11:40 BP 94/62 10/31/24 11:40 Pulse Ox 100 10/31/24 11:40 FiO2 Intake & Output 10/30/24 10/31/24 10/31/24 18:59 06:59 18:59 Intake Total 120 240 Balance 120 240 Intake: Oral 120 240 Other: Voiding Method Toilet # Voids 1 - Constitutional General appearance: Present: average body habitus, no acute distress - EENT Eyes: Present: anicteric sclerae, EOMI ENT: Present: hearing grossly normal - Respiratory Details: breathing is even and unlabored - Cardiovascular Details: skin warm and dry - Gastrointestinal General gastrointestinal: Present: distended, soft. Absent: tenderness - Integumentary Integumentary: Absent: cyanotic - Neurologic Neurologic: Present: CNII-XII intact - Musculoskeletal Musculoskeletal: Present: strength equal bilaterally - Psychiatric Psychiatric: Present: A&O x's 3 - Labs CBC & Chem 7: 10/31/24 04:22 10/31/24 04:22 Labs: Abnormal Lab Results - Last 24 Hours (Table) 10/30/24 10/31/24 10/31/24 Range/Units 15:00 04:22 04:22 RBC 2.03 L (4.10-5.20) X 10*6/uL Hgb 7.1 L (12.0-15.0) g/dL Hct 22.6 L (37.2-46.3) % MCV 111.3 H (80.0-97.0) FL MCH 35.0 H (27.0-32.0) pg MCHC 31.4 L (32.0-37.0) g/dL RDW 15.9 H (11.5-14.5) % Plt Count 122 L (140-440) X 10*3/uL MPV 9.1 L (9.5-12.2) FL Lymphocytes # 0.74 L (0.90-5.00) X 10*3/uL Sodium 129 L (135-145) mmol/L Carbon Dioxide 20.4 L (21.6-31.8) mmol/L Calcium 7.4 L (8.7-10.3) mg/dL Fluid Appearance Hazy A (Clear) Microbiology - Last 24 Hours (Table) 10/30/24 15:00 Gram Stain - Preliminary Ascites Fluid Body Fluid Culture - Preliminary 10/29/24 17:10 Blood Culture - Preliminary Blood Assessment and Plan (1) Ascites Current Visit: Yes Status: Acute Priority: High Code(s): R18.8 - OTHER CITES SNOMED Code(s): 764602100 (2) History of pancreatic cancer Current Visit: Yes Status: Acute Priority: High Code(s): Z85.07 - PERSONAL HISTORY OF MALIGNANT NEOPLASM OF PANCREAS SNOMED Code(s): 04769892613752 Plan: Recurrent ascites: Patient presented to the emergency room for increasing abdominal distention and associated shortness of breath. -Paracentesis last week on 10/23/24, with 4.5L removed, cytology pending -S/p repeat paracentesis yesterday with 4.7L removed, fluid culture and cytology pending . Fluid studies ordered -Dose of lasix given. Will continue on PO diuretics on discharge. Pt has standing weekly paracentesis orders Pancreatic cancer: -Oncolgy history as dictated in the HPI -Completed cycle 3 of gemcitabine and Abraxane on 09/26/24. Treatment has been on hold since due to hospital admission and recent pneumonia and influenza. Recent PET scan showing response in the mass in the tumor bed, as well as adjacent nodes. Nodular opacities, with mild PET uptake are noted 1 in each lung, felt to more likely represent inflammation although early metastasis is not ruled out. The patient had a paracentesis at [facility], cytology negative for malignancy.She was seen by surgical oncologist, not felt to be a surgical candidate. Underwent biopsy last week at [facility], path pending. -Clinic f/u upon discharge to discuss pending results, and plan of care Discussed case with admitting team, pt is cleared from hem/onc standpoint. Clinic f/u scheduled on 11/08
--- NOTE | 2024-11-02 15:32 | P.DS ---
Providers Date of admission: 10/29/24 15:30 Expected date of discharge: 10/31/24 Attending physician: Remy Caceres MD Consults: 10/29/24 15:28 Consult Physician Urgent Consulting Provider: Mday Sol Consult Reason/Comments: Pancreatic cancer Do you want consulting provider notified?: Yes Primary care physician: [facility] Course: Final diagnosis Abdominal pain with distention, massive tense ascites with shortness of breath, status post paracentesis Pancreatic cancer, on chemotherapy follows with Dr. Hoyt outpatient Severe hypokalemia, replaced and improving Hyponatremia Anemia, macrocytic Elevated WBC GERD Hypertension History of elevated WENDY GI prophylaxis DVT prophylaxis Full code Discharge disposition Patient is being discharged in a stable condition with guarded prognosis to home. Patient will follow-up with Dr. Hoyt in the outpatient setting upon discharge. Patient is to continue with Lasix and Aldactone and close outpatient follow-up with oncology and scheduled paracentesis in the outpatient setting. Total time taken is greater than 35 minutes. Hospital course This is a 49-year-old female who was recently admitted with abdominal distention and pain with massive tense ascites and evaluated by interventional radiology and is status post paracentesis of approximately 4 L removed. Patient will receive albumin and has been instructed to continue with Lasix and Aldactone. Patient also instructed to continue with compression stockings and/or Shahriar wraps on lower extremities and elevate while at rest. Patient is following with oncology and will follow-up in the outpatient setting. Patient reports he follows with [place] oncology outpatient. Patient does have scheduled paracentesis in the outpatient setting already in order. Please refer to other consultation notes for further HPI. Instructed patient to continue with fluid restrictions as well. Currently no reports of chest pain, shortness of breath, or palpitations. Patient is afebrile. No reports of nausea or vomiting and patient is tolerating diet. Patient will be discharged home today. Guarded prognosis and high risk for readmissions given significant comorbidities Physical exam: Gen: This is a [49-year-old female who is awake, alert and oriented x 3, well- developed, well-nourished HEENT: Head is atraumatic, normocephalic. Pupils equal, round. Sclerae is anicteric. NECK: Supple. No JVD. No lymphadenopathy. No thyromegaly. LUNGS: Diminished breath sounds bilaterally otherwise clear to auscultation. No wheezes or rhonchi. No intercostal retractions. HEART: Regular rate and rhythm. No murmur. ABDOMEN: Soft. Mildly distended although improved post paracentesis. Bowel sounds are present. No masses. No tenderness. EXTREMITIES: No pedal edema. No calf tenderness. Mild bilateral lower extremity edema 1+ pitting noted. NEUROLOGICAL: Patient is awake, alert and oriented x3. Cranial nerves 2 through 12 are grossly intact. Please refer to medication reconciliation sheet for a list of medications. The impression and plan of care has been dictated by Ena Suárez, Nurse Practitioner as directed. Dr. Zain MD I have performed a history and examination and MDM of this patient, discussed the same with the dictator, and agree with the dictator's assessment and plan as written ,documented as a scribe. Based on total visit time, I have performed more than 50% of the visit. Patient Condition at Discharge: Good Plan - Discharge Summary Discharge Rx Participant: No New Discharge Prescriptions: New Acetaminophen Tab [Tylenol] 650 mg PO Q6HR PRN tab PRN Reason: Fever and/ or Pain 1-3 cefuroxime axetiL [Ceftin] 500 mg PO BID 5 Days #10 tab Ibuprofen [Motrin] 400 mg PO Q6HR PRN tab PRN Reason: Pain 4-6 Continue Folic Acid 1 mg PO DAILY Cholecalciferol [Vitamin D3 (125 Mcg = 5000 Iu)] 125 mcg PO DAILY Ondansetron Odt [Zofran ODT] 4 mg PO Q6H PRN PRN Reason: Nausea Pure Herbs Supplement 1 dose PO DAILY [employer] Greens Supplement 1 dose PO DAILY Prochlorperazine [Compazine] 10 mg PO Q6H PRN PRN Reason: Nausea Furosemide [Lasix] 20 mg PO BID@0900,1600 #60 tab Liver Cleanse Tincture 1 dropper SUBLINGUAL TID Anti Viral Tincture 1 dropper SUBLINGUAL TID Leaky Gut Tincture 1 dropper SUBLINGUAL TID [place] Phosphate Supplement 1 dose PO DAILY Spironolactone [Aldactone] 25 mg PO DAILY MUJIN Health Tincture 1 dropper SUBLINGUAL TID Omeprazole 20 mg PO BID PRN PRN Reason: acid reflux LORazepam [Ativan] 0.5 mg PO TID PRN PRN Reason: Anxiety Cyanocobalamin (Vitamin B-12) [Vitamin B-12] 5,000 mcg PO Q48H Loperamide HCl [Imodium A-D] 2 - 4 mg PO QID PRN PRN Reason: Diarrhea Milk Thistle 150 mg PO DAILY Floradix Liquid Iron Supplement 1 tbsp PO Q48H Bitter Apricot Kernels Supplement 1 dose PO DAILY Mirtazapine 7.5 mg PO HS Lipase/Protease/Amylase [Nayla Bhardwaj 36,000 Unit Capsule] 3 cap PO TID-W/MEALS Renapath Tincture 1 dropper SUBLINGUAL TID Calcium Phosphate Supplement 1 dose PO DAILY Discontinued Acetaminophen Tab [Tylenol] 1,000 mg PO Q6H PRN PRN Reason: Fever And/ Or Pain Discharge Medication List Omeprazole 20 mg PO BID PRN 05/16/21 [History] Cholecalciferol [Vitamin D3 (125 Mcg = 5000 Iu)] 125 mcg PO DAILY 10/11/21 [History] Cyanocobalamin (Vitamin B-12) [Vitamin B-12] 5,000 mcg PO Q48H 10/11/21 [History] Folic Acid 1 mg PO DAILY 10/11/21 [History] LORazepam [Ativan] 0.5 mg PO TID PRN 10/11/21 [History] Loperamide HCl [Imodium A-D] 2 - 4 mg PO QID PRN 10/11/21 [History] Ondansetron Odt [Zofran ODT] 4 mg PO Q6H PRN 10/11/21 [History] Milk Thistle 150 mg PO DAILY 06/27/24 [History] Bitter Apricot Kernels Supplement 1 dose PO DAILY 10/06/24 [History] [employer] Greens Supplement 1 dose PO DAILY 10/06/24 [History] Floradix Liquid Iron Supplement 1 tbsp PO Q48H 10/06/24 [History] Lipase/Protease/Amylase [Nayla Bhardwaj 36,000 Unit Capsule] 3 cap PO TID-W/MEALS 10/06/24 [History] Mirtazapine 7.5 mg PO HS 10/06/24 [History] Prochlorperazine [Compazine] 10 mg PO Q6H PRN 10/06/24 [History] Pure Herbs Supplement 1 dose PO DAILY 10/06/24 [History] Furosemide [Lasix] 20 mg PO BID@0900,1600 #60 tab 10/09/24 [Rx] Anti Viral Tincture 1 dropper SUBLINGUAL TID 10/29/24 [History] Calcium Phosphate Supplement 1 dose PO DAILY 10/29/24 [History] Cell Health Tincture 1 dropper SUBLINGUAL TID 10/29/24 [History] Damascus Phosphate Supplement 1 dose PO DAILY 10/29/24 [History] Leaky Gut Tincture 1 dropper SUBLINGUAL TID 10/29/24 [History] Liver Cleanse Tincture 1 dropper SUBLINGUAL TID 10/29/24 [History] Renapath Tincture 1 dropper SUBLINGUAL TID 10/29/24 [History] Spironolactone [Aldactone] 25 mg PO DAILY 10/29/24 [History] Acetaminophen Tab [Tylenol] 650 mg PO Q6HR PRN tab 10/31/24 [Rx] Ibuprofen [Motrin] 400 mg PO Q6HR PRN tab 10/31/24 [Rx] cefuroxime axetiL [Ceftin] 500 mg PO BID 5 Days #10 tab 10/31/24 [Rx] Follow up Appointment(s)/Referral(s): [facility] [STAFF PHYSICIAN] - 11/08/24 2:30 pm (injection appointment on 11/07/24 @1:30pm) Carlitos Rosas DO [Primary Care Provider] - 1-2 days (The office will call with a follow up appointment. ) Patient Instructions/Handouts: Cefuroxime (By mouth), Hyponatremia (DC), Hypokalemia (DC), Ascites (DC), Paracentesis (DC) Activity/Diet/Wound Care/Special Instructions: Activity limited until follow-up Follow-up with primary care provider on discharge Follow-up with oncology outpatient Oncology to schedule outpatient labs for follow-up and monitoring Continue medications as prescribed Follow-up outpatient for scheduled paracentesis Discharge Disposition: HOME SELF-CARE
== END 2024-10-31 14:20 | disposition home or self-care (01) ==
LOC: EC 11:57 → 5NMEDONC 15:30 → INTOOBSV 15:30 → 5NMEDONC 16:55
PROVIDERS: ADMIT Internal Medicine; ATTEND Internal Medicine
DX: C25.9 Malignant neoplasm of pancreas, unspecified (principal); R18.0 Malignant ascites; E87.6 Hypokalemia; E87.1 Hypo-osmolality and hyponatremia; D53.9 Nutritional anemia, unspecified; D72.829 Elevated white blood cell count, unspecified; K21.9 Gastro-esophageal reflux disease without esophagitis; I10 Essential (primary) hypertension; F41.9 Anxiety disorder, unspecified; F32.A Depression, unspecified; Z79.899 Other long term (current) drug therapy; Z88.1 Allergy status to other antibiotic agents; Z88.0 Allergy status to penicillin; Z88.2 Allergy status to sulfonamides; Z91.040 Latex allergy status
CPT/HCPCS: 96365 ×2; 96366 ×3; 96367 ×2; 96375; 99285; 36415; 93005; 80053; 80048 ×2; 89050; 83605; 83690; 83735 ×2; 84132; 85025 ×3; 85610; 81003; 87040; 87070; 87205; 82945; 84157; 87636; 71046; 49083; G0378 ×3; J1940; J3480; J0696 ×3; P9047; J3475

== ENCOUNTER → 2024-11-01 | Outpatient (CLI) | payer MEDICARE ==
--- NOTE | 2024-11-01 15:20 | CT ---
EXAMINATION TYPE: CT chest wo con DATE OF EXAM: 11/01/2024 COMPARISON: Most recent prior CT May 26, 2024 and older CTs CLINICAL INDICATION: Female, 49 years old with history of C25.0 MALIGNANT NEOPLASM OF HEAD OF PANCREA S, pneumonia and flu A+ recently. hx of pancreatic ca TECHNIQUE: CT scan of the thorax is performed without IV contrast. CT DLP: 162.90 mGycm. Automated Exposure Control for Dose Reduction was Utilized. FINDINGS: LUNGS: Stable 4 to 5 mm lateral nodule left lower lobe axial image 36. There is new mild to moderate linear scarring and/or atelectasis in the left lower lung. Some new patchy groundglass opacity in the anterior left mid lung and focally in the anterior right midlung image 24 are identified. No suspici ous new pulmonary nodules or masses. HEART: Size within normal limits. Moderate coronary artery calcifications redemonstrated. MEDIASTINUM: Lack of IV contrast is noted to limit evaluation for mediastinal and especially hilar ad enopathy. There are no definitive new greater than 1 cm mediastinal lymph nodes. No pericardial eff usion is seen. OTHER: Stable left-sided subclavian Mediport catheter. Persistent prominent spleen. There is new asc ites surrounding the visualized portion of the liver and spleen. Patient has history of recent severa l paracentesis. Correlate clinically. IMPRESSION: 1. New anterior left midlung groundglass opacity and more focal anterior right midlung groundglass op acity could reflect resolving acute infiltrates given patient history. Stable 4 to 5 mm left lower lo be pulmonary nodule. No new or enlarging nodules. [facility], , 11/01/2024 3:17 PM
== END | disposition home or self-care (01) ==
LOC: RADCTMAIN 11:50
PROVIDERS: ATTEND Internal Medicine Hematology & Oncology
DX: R91.1 Solitary pulmonary nodule (principal); C25.0 Malignant neoplasm of head of pancreas; M12.9 Arthropathy, unspecified; I10 Essential (primary) hypertension; D50.9 Iron deficiency anemia, unspecified
CPT/HCPCS: 71250

== ENCOUNTER 2024-11-07 08:25 | Day surgery (SDC) | payer MEDICARE ==
[2024-11-07 09:01] VITALS: RESP 16; TEMP 97.8
[2024-11-07 09:15] LABS: Mean Platelet Volume 7.3; Platelet Count 136 k/uL (150-450)
[2024-11-07 09:23] LABS: INR 1.4 (<1.2); Prothrombin Time 14.7 sec (10.0-12.5)
[2024-11-07 09:26] LABS: African American GFR (CKD) >90 (>60 ml/min/1.73 sqM); Non-African American GFR(CKD) >90 (>60 ml/min/1.73 sqM)
[2024-11-07] MEDS: ALBUMIN HUMAN 25% 50 ML in EMPTY BAG 1 BAG IVPB SCH ×2 (10:20→10:46)
[2024-11-07 11:02] LABS: Basophils % (A) 0 %; Eosinophils % (A) 1 %; HCT 29.9 % (34.0-46.0); Hypochromasia Marked; Lymphocytes # (A) 0.3 k/uL (1.0-4.8); Lymphocytes % (A) 7 %; MCH 34.2 pg (25.0-35.0); MCHC 30.8 g/dL (31.0-37.0); MCV 111.1 fL (80.0-100.0); Macrocytosis Marked; Monocytes # (A) 0.3 k/uL (0-1.0); Monocytes % (A) 8 %; Neutrophils # (A) 3.6 k/uL (1.3-7.7); Neutrophils % (A) 83 %; RBC 2.69 m/uL (3.80-5.40); RDW 15.3 % (11.5-15.5); WBC 4.4 k/uL (3.8-10.6)
[2024-11-07 11:15] LABS: HGB 9.2 gm/dL (11.4-16.0)
[2024-11-07 11:55] VITALS: BP 107/65; PULSE 62
--- NOTE | 2024-11-08 09:50 | US ---
EXAMINATION TYPE: US paracentesis abd w/image DATE OF EXAM: 11/07/2024 CLINICAL HISTORY: Ascites The procedure was discussed with the patient. The risks, complications, benefits, and alternatives we re discussed and any questions were answered. Informed consent was obtained. The patient was placed s upine on the ultrasound table and prepped and draped in the usual sterile fashion. All elements of maximal barrier technique were utilized. Under ultrasound guidance, access into the right lower quadrant was obtained, via the paracentesis catheter system and direct ultrasound guidanc e. Approximately 5.4 liters of straw-colored fluid was removed. The patient was stable throughout the pr ocedure and remained stable upon discharge from Department of Radiology. IMPRESSION: Successful therapeutic paracentesis under ultrasound guidance. [facility], , 11/08/2024 9:48 AM
== END 2024-11-07 10:55 | disposition home or self-care (01) ==
LOC: RADPROMAIN 08:25
PROVIDERS: ATTEND Radiology Radiation Oncology
DX: R18.8 Other ascites (principal)
CPT/HCPCS: 82565; 85025; 85610; 36415; 49083; P9047

== ENCOUNTER 2024-11-13 08:16 | Day surgery (SDC) | payer MEDICARE ==
[2024-11-13 09:09] LABS: Mean Platelet Volume 7.6; Platelet Count 148 k/uL (150-450)
[2024-11-13 09:17] LABS: Appearance,Urine Clear (Clear); Bilirubin,Urine Negative (Negative); Blood,Urine Negative (Negative); Color,Urine Light Yellow; Glucose,Urine (UA) Negative (Negative); Ketones,Urine Negative (Negative); Leukocyte Esterase,Urine Negative (Negative); Nitrite,Urine Negative (Negative); Protein,Urine Negative (Negative); Specific Gravity,Urine 1.011 (1.001-1.035); Urobilinogen,Urine <2.0 mg/dL (<2.0)
[2024-11-13 09:18] LABS: INR 1.7 (<1.2); Prothrombin Time 17.6 sec (10.0-12.5)
[2024-11-13 09:20] LABS: African American GFR (CKD) >90 (>60 ml/min/1.73 sqM); Anion Gap 7 mmol/L; Blood Urea Nitrogen 8 mg/dL (7-17); Calcium 7.6 mg/dL (8.4-10.2); Carbon Dioxide 21 mmol/L (22-30); Chloride 102 mmol/L (98-107); Glucose 95 mg/dL (74-99); Non-African American GFR(CKD) >90 (>60 ml/min/1.73 sqM); Potassium 3.1 mmol/L (3.5-5.1); Sodium 130 mmol/L (137-145)
[2024-11-13] MEDS: ALBUMIN HUMAN 25% 50 ML in EMPTY BAG 1 BAG IVPB SCH (09:30)
[2024-11-13 10:05] VITALS: RESP 16; TEMP 98.4
[2024-11-13 11:13] VITALS: BP 107/63; PULSE 90
--- NOTE | 2024-11-13 15:10 | US ---
EXAMINATION TYPE: US paracentesis abd w/image DATE OF EXAM: 11/13/2024 CLINICAL HISTORY: 49-year-old female R18.8, other sites, patient with history of pancreatic cancer s tatus post Whipple procedure. The procedure was discussed with the patient. The risks, complications, benefits, and alternatives we re discussed and any questions were answered. Informed consent was obtained. The patient was placed s upine on the ultrasound table and prepped and draped in the usual sterile fashion. All elements of maximal barrier technique were utilized. Ultrasound was utilized to determine the precise skin entry site along the left lower quadrant. A 5 Hebrew One-Step catheter and trocar technique was utilized to access the ascites collection under direct ultrasound guidance. Approximately 5.4 liters of clear, straw-colored fluid was removed. Catheter was removed, hemostasis obtained, and a dressing placed. The patient was stable throughout the procedure and remained stable upon discharge from Department of Radiology. IMPRESSION: Successful therapeutic paracentesis under ultrasound guidance. 5.4 L of fluid removed. [facility], , 11/13/2024 3:07 PM
== END 2024-11-13 10:55 | disposition home or self-care (01) ==
LOC: RADPROMAIN 08:16
PROVIDERS: ATTEND Radiology Radiation Oncology
DX: R18.8 Other ascites (principal); Z85.07 Personal history of malignant neoplasm of pancreas; Z90.411 Acquired partial absence of pancreas
CPT/HCPCS: 84300; 83930; 80048; 85049; 85610; 81003; 83935; 49083; P9047

== ENCOUNTER 2024-11-20 08:20 | Day surgery (SDC) | payer MEDICARE ==
[2024-11-20 09:11] LABS: Mean Platelet Volume 9.5 fL (9.5-12.2)
[2024-11-20 09:33] LABS: Potassium 3.2 mmol/L (3.5-5.1)
[2024-11-20 09:34] LABS: African American GFR (CKD) >90 (>60 ml/min/1.73 sqM); Anion Gap 7 mmol/L; Blood Urea Nitrogen 15 mg/dL (7-17); Calcium 7.8 mg/dL (8.4-10.2); Carbon Dioxide 27 mmol/L (22-30); Chloride 96 mmol/L (98-107); Glucose 106 mg/dL (74-99); Non-African American GFR(CKD) >90 (>60 ml/min/1.73 sqM); Sodium 130 mmol/L (137-145)
[2024-11-20] MEDS: ALBUMIN HUMAN 25% 50 ML in EMPTY BAG 1 BAG IVPB SCH (09:35)
[2024-11-20 09:37] LABS: Platelet Count 42 10*3/uL (140-440)
[2024-11-20 09:51] LABS: INR 1.6 (<1.2); Prothrombin Time 16.4 sec (10.0-12.5)
[2024-11-20 11:07] LABS: Mean Platelet Volume 10.8 fL (9.5-12.2)
--- NOTE | 2024-11-20 11:29 | US ---
EXAMINATION TYPE: US paracentesis abd w/image DATE OF EXAM: October 23, 2024 COMPARISON: None. CLINICAL INDICATION:Female, 49 years old with history of other ascites. Pancreatic cancer. ATTENDING: Dr. Nicolas PROCEDURE: Informed consent was obtained. The risks of the procedure were extensively explained incl uding risk of damage to surrounding bowel with perforation and need for additional procedures. Proced ure was performed in ultrasound suite. Ultrasound imaging of the abdomen demonstrate ascitic fluid. An appropriate access site was localized to the left lower abdomen. Timeout was taken per protocol. The skin was prepped and draped in the us ual sterile fashion and then locally anesthetized with 1% lidocaine. The peritoneal cavity was then accessed via a 5-Omani one-step needle/catheter. Approximately 3800 mL of clear straw-colored fluid was obtained. Patient tolerated procedure well without immediate complication. Hemostasis at the procedural site w as obtained with a sterile bandage placed. The patient was monitored in the holding area following th e procedure and was subsequently discharged in stable condition. IMPRESSION: Ultrasound guided paracentesis for therapeutic purposes, with approximately 3800 mL of clear straw-co lored fluid drained for therapeutic purposes. No immediate complications were evident. [facility], , 11/20/2024 11:26 AM
[2024-11-20 11:30] VITALS: BP 111/70; PULSE 107; RESP 16; TEMP 98.4
[2024-11-20 11:36] LABS: Platelet Count 34 10*3/uL (140-440)
== END 2024-11-20 11:05 | disposition home or self-care (01) ==
LOC: RADPROMAIN 08:20
PROVIDERS: ATTEND Radiology Radiation Oncology
DX: R18.8 Other ascites (principal); C25.9 Malignant neoplasm of pancreas, unspecified
CPT/HCPCS: 80048; 85049; 85610; 49083; P9047; J1642

== ENCOUNTER → 2024-11-20 | Outpatient (CLI) | payer MEDICARE ==
[2024-11-20 16:28] LABS: Appearance,Urine Clear (Clear); Bilirubin,Urine Negative (Negative); Blood,Urine Negative (Negative); Color,Urine Yellow (Yellow); Ketones,Urine Negative (Negative); Nitrite,Urine Negative (Negative); PH, Urine 5.5; Specific Gravity,Urine 1.009 (1.001-1.030); Urobilinogen,Urine 0.2 E.U./DL
[2024-11-20 16:31] LABS: Bacteria,Urine None Seen (None Seen)
== END | disposition home or self-care (01) ==
LOC: LABWHC1 09:24
PROVIDERS: ATTEND Nurse Practitioner Family
DX: I77.6 Arteritis, unspecified (principal); R31.9 Hematuria, unspecified
CPT/HCPCS: 81001; 83935; 84300

== ENCOUNTER 2024-11-27 08:22 | Day surgery (SDC) | payer MEDICARE ==
[2024-11-27 09:26] VITALS: TEMP 97.6
[2024-11-27 09:37] LABS: Mean Platelet Volume 9.5 fL (9.5-12.2)
[2024-11-27 09:39] LABS: Platelet Count 187 10*3/uL (140-440)
[2024-11-27 09:40] LABS: INR 1.6 (<1.2); Prothrombin Time 16.3 sec (10.0-12.5)
[2024-11-27 10:06] LABS: African American GFR (CKD) >90 (>60 ml/min/1.73 sqM); Non-African American GFR(CKD) >90 (>60 ml/min/1.73 sqM)
[2024-11-27] MEDS: ALBUMIN HUMAN 25% 50 ML in EMPTY BAG 1 BAG IVPB SCH (10:15)
[2024-11-27 10:23] VITALS: RESP 16
[2024-11-27 12:32] VITALS: BP 98/54; PULSE 103
--- NOTE | 2024-11-27 12:45 | US ---
EXAMINATION TYPE: US paracentesis abd w/image DATE OF EXAM: 11/27/2024 CLINICAL HISTORY: Ascites The procedure was discussed with the patient. The risks, complications, benefits, and alternatives we re discussed and any questions were answered. Informed consent was obtained. The patient was placed s upine on the ultrasound table and prepped and draped in the usual sterile fashion. All elements of maximal barrier technique were utilized. Under ultrasound guidance, access into the right lower quadrant was obtained, via the paracentesis catheter system and direct ultrasound guidanc e. Approximately 3 liters of straw-colored fluid was removed. The patient was stable throughout the proc edure and remained stable upon discharge from Department of Radiology. IMPRESSION: Successful therapeutic paracentesis under ultrasound guidance. [facility], , 11/27/2024 12:43 PM
[2024-11-28 09:06] LABS: Blood Urea Nitrogen 6.3 mg/dL (9.0-27.0); Calcium 7.8 mg/dL (8.7-10.3); Potassium 3.2 mmol/L (3.5-5.5)
== END 2024-11-27 11:45 | disposition home or self-care (01) ==
LOC: RADPROMAIN 08:22
PROVIDERS: ATTEND Radiology Radiation Oncology
DX: R18.8 Other ascites (principal)
CPT/HCPCS: 83930; 82310; 82435; 82565; 82374; 84132; 84295; 82947; 84520; 85049; 85610; 49083; P9047

== ENCOUNTER → 2024-11-28 | Outpatient (CLI) | payer MEDICARE ==
[2024-11-28 22:08] LABS: Appearance,Urine Turbid (Clear); Bilirubin,Urine Negative (Negative); Blood,Urine Small (Negative); Color,Urine Dark Yellow (Yellow); Ketones,Urine Negative (Negative); Nitrite,Urine Negative (Negative); Specific Gravity,Urine 1.012 (1.001-1.030); Urobilinogen,Urine 0.2 E.U./DL
[2024-11-28 22:44] LABS: Bacteria,Urine 4+ (None Seen)
== END | disposition home or self-care (01) ==
LOC: LABPRL 13:16
PROVIDERS: ATTEND Nurse Practitioner Family
DX: I77.6 Arteritis, unspecified (principal); R31.9 Hematuria, unspecified
CPT/HCPCS: 81001; 83935; 84300

== ENCOUNTER 2024-12-02 04:34 | Inpatient (IN) | payer MEDICARE ==
[2024-12-02] MEDS: SODIUM CHLORIDE 0.9% 500 ML 500 ML IV ONE (04:46)
[2024-12-02 04:52] LABS: Glucose,Whole Blood 153 mg/dL (70-110)
--- NOTE | 2024-12-02 05:04 | CT ---
EXAM: CT Head Without Intravenous Contrast CLINICAL HISTORY: ITS.REASON CT Reason: Altered mental status TECHNIQUE: Axial computed tomography images of the head/brain without intravenous contrast. CTDI is 49.2 mGy and DLP is 1097.4 mGy-cm. This CT exam was performed using one or more of the following dose reduction techniques: automated exposure control, adjustment of the mA and/or kV according to patient size, and/or use of iterative reconstruction technique. COMPARISON: No relevant prior studies available. FINDINGS: No acute intracranial hemorrhage. No midline shift or mass effect. The territorial dejesus-white matter differentiation is maintained throughout. The ventricles and sulci are commensurate with age. The visualized orbits appear grossly unremarkable. The calvarium is intact. The visualized paranasal sinuses and mastoid air cells are grossly clear. IMPRESSION: No acute intracranial hemorrhage, midline shift, or mass effect.
[2024-12-02] MEDS: LORazepam 2 MG/ML INJ IV STA (05:08)
--- NOTE | 2024-12-02 05:14 | XR ---
EXAM: XR Chest, 1 View CLINICAL HISTORY: ITS.REASON XR Reason: altered mental status TECHNIQUE: Frontal view of the chest. COMPARISON: CXR October 29, 2024. FINDINGS: Lungs: Unremarkable. No consolidation. Pleural space: Unremarkable. No pneumothorax. Heart: Unremarkable. No cardiomegaly. Mediastinum: Unremarkable. Bones/joints: Unremarkable. Tubes, lines and devices: LEFT Port-A-Cath terminates in SVC. IMPRESSION: No acute findings in the chest.
--- NOTE | 2024-12-02 05:16 | ED ---
General Adult HPI - General Source: family, EMS, RN notes reviewed, old records reviewed Mode of arrival: EMS Limitations: no limitations <Kaleb Richardson - Last Filed: 12/02/24 06:47> <Iman Jenkins - Last Filed: 12/13/24 00:29> - General Chief complaint: Altered Mental Status Stated complaint: AMS Time Seen by Provider: 12/02/24 04:35 - History of Present Illness Initial comments: Patient is a 49-year-old female presents emergency department for altered mental status. Has a history of pancreatic cancer. History of a Whipple procedure in April 2021. Is currently undergoing chemotherapy. Receives occasional paracenteses. Is normally ANO x 4 but was found sitting on the toilet not respo nding or answering questions tonight. This was shortly prior to arrival. Last known well was around 1700 last night when patient went to bed. Per patient's , it was atypical that she went to bed but not atypical that she was tired at that time. He found her sitting on the toilet, being unable to speak and below her normal baseline. Presents for further evaluation at this time. Patient is unable provide any history. Patient is sitting, with some nonspecific shaking however bilateral hands. Looking around. Able to move all 4 extremities. Presents for further evaluation.Patient's states that there has been some more diarrhea lately. No other obvious source of infection. (Kaleb Richardson) - Related Data Home Medications Medication Instructions Recorded Confirmed Cholecalciferol [Vitamin D3 (125 125 mcg PO DAILY 10/11/21 12/02/24 Mcg = 5000 Iu)] LORazepam [Ativan] 0.5 mg PO TID PRN 10/11/21 12/02/24 Ondansetron Odt [Zofran ODT] 4 mg PO Q6H PRN 10/11/21 12/02/24 Prochlorperazine [Compazine] 10 mg PO Q8H PRN 10/06/24 12/02/24 Spironolactone [Aldactone] 25 mg PO DAILY 10/29/24 12/02/24 Furosemide [Lasix] 20 mg PO BID@0900,1600 11/13/24 12/02/24 Albuterol Sulfate [Albuterol 2 puff INHALATION RT-Q4H PRN 12/02/24 12/02/24 Sulfate Hfa] Magnesium Oxide [Mag-Ox] 400 mg PO DAILY 12/02/24 12/02/24 Potassium Chloride ER [K-Dur 20] 20 meq PO DAILY 12/02/24 12/02/24 hydrOXYzine HCL [Atarax] 25 - 50 mg PO BID PRN 12/02/24 12/02/24 Lipase/Protease/Amylase [Nayla Bhardwaj 1 - 2 cap PO BID PRN 12/05/24 12/05/24 36,000 Unit Capsule] Lipase/Protease/Amylase [Nayla Bhardwaj 3 cap PO QID PRN 12/05/24 12/05/24 36,000 Unit Capsule] Allergies Allergy/AdvReac Type Severity Reaction Status Date / Time ciprofloxacin [From Cipro] Allergy Rash/Hives Verified 12/05/24 11:41 erythromycin base Allergy Rash/Hives Verified 12/05/24 11:41 [From Erythrocin] latex Allergy Rash/Hives Verified 12/05/24 11:41 oseltamivir [From Tamiflu] Allergy Rash/Hives Verified 12/05/24 11:41 Penicillins Allergy Rash/Hives Verified 12/05/24 11:41 sulfamethoxazole Allergy Rash/Hives Verified 12/05/24 11:41 [From Bactrim] trimethoprim [From Bactrim] Allergy Rash/Hives Verified 12/05/24 11:41 Review of Systems ROS Other: All systems not noted in ROS Statement are negative. <Kaleb Richardson - Last Filed: 12/02/24 06:47> ROS Other: All systems not noted in ROS Statement are negative. <Iman Jenkins - Last Filed: 12/13/24 00:29> ROS Statement: Those systems with pertinent positive or pertinent negative responses have been documented in the HPI. Past Medical History Past Medical History: Cancer, GERD/Reflux, Hypertension, Musculoskeletal Disorder Additional Past Medical History / Comment(s): Current pancreatic cancer. Unnamed autoimmune disorder-elevated WENDY. 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 Past Anesthesia/Blood Transfusion Reactions: Postoperative Nausea & Vomiting (PONV) Additional Past Anesthesia/Blood Transfusion Reaction / Comment(s): Madi's wittness - no blood products Past Psychological History: Anxiety, Depression Smoking Status: Never smoker Past Alcohol Use History: Occasional Past Drug Use History: None Reported - Past Family History Brother(s) Family Medical History: Cancer Additional Family Medical History / Comment(s): Testicular cancer. <Kaleb Richardson - Last Filed: 12/02/24 06:47> General Exam Limitations: no limitations <Kaleb Richardson - Last Filed: 12/02/24 06:47> - General Exam Comments Initial Comments: General: Appears anxious in mild distress. HEAD: Normal with no signs of head trauma. EYES: PERRLA, EOMI, conjunctiva normal, no discharge. Pupils are 3 mm and equal bilaterally. ENT: Hearing grossly intact, normal oropharynx. RESPIRATORY: Clear breath sounds bilaterally. No wheezes, rales, or rhonchi. C/V: Tachycardic with regular rhythm. S1 and S2 auscultated, no edema, peripheral pulses 2+ and intact throughout ABD: Abd is soft, nontender, nondistended EXT: Normal range of motion, no obvious deformity SKIN: No rashes or lesions observed on exposed skin. NEURO: Alert but not oriented. Nonverbal. No focal sensory or strength deficits present. Patient is shaking in bilateral hands, which could represent asterixis. Difficult to obtain accurate neurological exam. GCS is 10-11. Primarily deficits are all verbal in nature as she is not speaking for me. (Kaleb Richardson) Course Vital Signs 12/02/24 12/02/24 12/02/24 04:38 05:10 05:21 Temperature 98.4 F Pulse Rate 128 H 119 H 117 H Respiratory 16 20 16 Rate Blood Pressure 103/85 115/66 O2 Sat by Pulse 99 99 98 Oximetry 12/02/24 12/02/24 12/02/24 06:00 06:50 07:51 Temperature 98.6 F Pulse Rate 115 H 117 H 117 H Respiratory 16 18 16 Rate Blood Pressure 97/62 114/70 96/50 O2 Sat by Pulse 99 98 99 Oximetry 12/02/24 12/02/24 09:37 10:02 Temperature Pulse Rate 110 H 112 H Respiratory 16 22 Rate Blood Pressure 118/72 103/64 O2 Sat by Pulse 98 96 Oximetry Medical Decision Making - Lab Data Result diagrams: 12/02/24 04:53 12/02/24 04:53 - EKG Data -: EKG Interpreted by Me <Kaleb Richardson - Last Filed: 12/02/24 06:47> - Lab Data Result diagrams: 12/05/24 12:37 12/05/24 03:45 <HanyIman jiang Mulugeta - Last Filed: 12/13/24 00:29> - Medical Decision Making Was pt. sent in by a medical professional or institution (, PA, ROLL OUT MANAGER, urgent care, hospital, or jail...) When possible be specific @ -No Did you speak to anyone other than the patient for history (EMS, parent, family, police, friend...)? What history was obtained from this source @ -Patient's provides most of the patient's past medical history. HPI history obtained from primarily EMS. Did you review nursing and triage notes (agree or disagree)? Why? @ -I reviewed and agree with nursing and triage notes Were old charts reviewed (outside hosp., previous admission, EMS record, old EKG, old radiological studies, urgent care reports/EKG's, jail records)? Report findings @ -Reviewed charts from October 2024 patient was last admitted. Differential Diagnosis (chest pain, altered mental status, abdominal pain women, abdominal pain men, vaginal bleeding, weakness, fever, dyspnea, syncope, headache, dizziness, GI bleed, back pain, seizure, CVA, palpatations, mental health, musculoskeletal)? @ -Differential Altered Mental Status: Hypoglycemia, DKA, hypercapnia, ETOH, overdose, CO poisoning, trauma, myxedema coma, HTN encephalopathy, infection, encephalitis, psychosis, intercranial hemorrhage, hepatic encephalopathy, meningitis, CVA, this is not meant to be an all-inclusive list EKG interpreted by me (3pts min.). @ -As above X-rays interpreted by me (1pt min.). @ -Chest x-ray shows no obvious acute cardiopulmonary process. CT interpreted by me (1pt min.). @ -CT brain shows no obvious acute intracranial process. CT abdomen pelvis is pending at this time. U/S interpreted by me (1pt. min.). @ -None done What testing was considered but not performed or refused? (CT, X-rays, U/S, labs)? Why? @ -None What meds were considered but not given or refused? Why? @ -None Did you discuss the management of the patient with other professionals (professionals i.e. , PA, ROLL OUT MANAGER, lab, RT, psych nurse, delinquency prevention social worker, administrative assistant office manager, teacher, protective officer, comp field case manager)? Give summary @ -No Was smoking cessation discussed for >3mins.? @ -No Was critical care preformed (if so, how long)? @ -yes, 33 minutes Were there social determinants of health that impacted care today? How? (Homelessness, low income, unemployed, alcoholism, drug addiction, transportation, low edu. Level, literacy, decrease access to med. care, [facility], rehab)? @ -No Was there de-escalation of care discussed even if they declined (Discuss DNR or withdrawal of care, Hospice)? DNR status @ -No What co-morbidities impacted this encounter? (DM, HTN, Smoking, COPD, CAD, Can cer, CVA, ARF, Chemo, Hep., AIDS, mental health diagnosis, sleep apnea, morbid obesity)? @ -Pancreatic cancer Was patient admitted / discharged? Hospital course, mention meds given and route, prescriptions, significant lab abnormalities, going to OR and other pertinent info. @ -Patient presents emergency department for altered mental status in the setting of pancreatic cancer. Difficult to obtain neurological exam however no obvious focal deficits. Patient is currently nonverbal when she is usually ANO x 4. Had some hand shaking/tremors which could be accounts receivable representative of asterixis. We will obtain general altered mental status workup including CT brain. Family was in agreement this plan. Patient is tachycardic and does appear anxious and she will receive IV Ativan with IV fluids, 500 cc normal saline. Family was in agreement this plan. EKG shows sinus tachycardia without any obvious acute ischemic process.Patient's labs returned remarkable for leukocytosis of 17.4. Chronic anemia with a hemoglobin of 9 which is chronic for the patient. Mild hyponatremia of 127 hypochloremia of 93. Mild elevation in coags. Mild chronic elevation in the bilirubin which is at baseline. CT brain and chest x-ray unremarkable. At this time, patient does meet sepsis criteria with her tachycardia as well as leukocytosis. Sepsis criteria met at 0606. Blood culture ordered. Patient placed on broad-spectrum antibiotics cefepime and vancomycin. Due to concern considering the patient is on some fluid restrictions and she does appear mildly fluid overloaded, we will not provide the typical 30 cc/kg fluid bolus. She will receive another 500 cc of IV fluids lactated Ringer's and then be placed on 100 cc an hour of LR. Total is a 1L bolus of fluids with maintenance at 100cc/hr. We will closely monitor volume status. Lactic acid ordered. Cepheid added on. Urine study still pending. I updated the patient's . Patient is resting comfortably but is still tachycardic with stable vitals. Patient has been having increased diarrhea lately. Considering her chemo history, last obtained chemo last week I did recommend that we obtain CT imaging the abdomen pelvis and he was in agreement with this plan. At this time nausea on my shift. Patient signed out to Dr. Jenkins pending results of remaining workup. She will be admitted afterwards. Undiagnosed new problem with uncertain prognosis? @ -No Drug Therapy requiring intensive monitoring for toxicity (Heparin, Nitro, Ins ulin, Cardizem)? @ -No Were any procedures done? @ -No Diagnosis/symptom? @ -Altered mental status, sepsis of unknown source, Hyperammonemia Acute, or Chronic, or Acute on Chronic? @ -Acute Uncomplicated (without systemic symptoms) or Complicated (systemic symptoms)? @ -Complicated Side effects of treatment? @ -None Exacerbation, Progression, or Severe Exacerbation] @ -No Poses a threat to life or bodily function? @ -Yes (Kaleb Richardson) Was patient admitted / discharged? Hospital course, mention meds given and route, prescriptions, significant lab abnormalities, going to OR and other pertinent info. @ -I assumed care of the patient. CT of the abdomen is performed which demonstrates ascites. Patient has hyperammonemia and UTI. She was initiated on antibiotics. She does have improvement in her mentation with fluids. She is able to drink the lactulose. Patient will be admitted for further treatment. Spoke with Dr. Caceres for the admission Undiagnosed new problem with uncertain prognosis? @ -No Drug Therapy requiring intensive monitoring for toxicity (Heparin, Nitro, Insulin, Cardizem)? @ -No Were any procedures done? @ -No Diagnosis/symptom? @ -Acute encephalopathy, acute hyperammonemia, acute UTI, history of pancreatic cancer Acute, or Chronic, or Acute on Chronic? @ -Acute Uncomplicated (without systemic symptoms) or Complicated (systemic symptoms)? @ -Complicated Side effects of treatment? @ -No Exacerbation, Progression, or Severe Exacerbation? @ -No Poses a threat to life or bodily function? How? (Chest pain, [place], NH, pneumonia, PE, COPD, DKA, ARF, appy, cholecystitis, CVA, Diverticulitis, Homicidal, Suicidal, threat to staff... and all critical care pts) @ -Yes this patient is significantly altered with history of cancer (Iman Jenkins) - Lab Data Lab Results 12/02/24 12/02/24 12/02/24 Range/Units 04:50 04:53 04:53 WBC 17.41 H (4.50-10.00) 10*3/uL RBC 2.68 L (4.10-5.20) 10*6/uL Hgb 9.0 L (12.0-15.0) g/dL Hct 26.7 L (37.2-46.3) % MCV 99.6 H (80.0-97.0) fL MCH 33.6 H (27.0-32.0) pg MCHC 33.7 (32.0-37.0) g/dL Plt Count 176 (140-440) 10*3/uL MPV 10.2 (9.5-12.2) fL Immature Gran % (Auto) 0.5 % Neutrophils % 98.1 % Lymphocytes % 0.9 % Monocytes % 0.4 % Eosinophils % 0.0 % Basophils % 0.1 % Immature Gran # 0.09 H (0.00-0.04) 10*3/uL Neutrophils # 17.08 H (1.80-7.70) 10*3/uL Lymphocytes # 0.15 L (0.90-5.00) 10*3/uL Monocytes # 0.07 L (0.20-1.00) 10*3/uL Eosinophils # 0.00 L (0.04-0.35) 10*3/uL Basophils # 0.02 (0.00-0.10) 10*3/uL PT 16.0 H (10.0-12.5) sec INR 1.5 H (<1.2) APTT 30.1 H (22.0-30.0) sec Sodium (137-145) mmol/L Potassium (3.5-5.1) mmol/L Chloride (98-107) mmol/L Carbon Dioxide (22-30) mmol/L Anion Gap mmol/L BUN (7-17) mg/dL Creatinine (0.52-1.04) mg/dL Est GFR (CKD-EPI)AfAm (>60 ml/min/1.73 sqM) Est GFR (CKD-EPI)NonAf (>60 ml/min/1.73 sqM) Glucose (74-99) mg/dL POC Glucose (mg/dL) 153 H (70-110) mg/dL POC Glu Drawing Kiln Supervisor ID [place] Plasma Lactic Acid Guilherme (0.7-2.0) mmol/L Calcium (8.4-10.2) mg/dL Total Bilirubin (0.2-1.3) mg/dL AST (14-36) U/L ALT (4-34) U/L Alkaline Phosphatase (38-126) U/L Ammonia (<30) umol/L Total Protein (6.3-8.2) g/dL Albumin (3.5-5.0) g/dL Folate (4.40-31.00) ng/mL Urine Color Urine Appearance (Clear) Urine pH (5.0-8.0) Ur Specific [place] (1.001-1.035) Urine Protein (Negative) Urine Glucose (UA) (Negative) Urine Ketones (Negative) Urine Blood (Negative) Urine Nitrite (Negative) Urine Bilirubin (Negative) Urine Urobilinogen (<2.0) mg/dL Ur Leukocyte Esterase (Negative) Urine RBC (0-5) /hpf Urine WBC (0-5) /hpf Ur Squamous Epith Cells (0-4) /hpf Urine Bacteria (None) /hpf Urine Mucus (None) /hpf Salicylates mg/dL Urine Opiates Screen (NotDetected) Ur Oxycodone Screen (NotDetected) Urine Methadone Screen (NotDetected) Acetaminophen ug/mL Ur Barbiturates Screen (NotDetected) U Tricyclic Antidepress (NotDetected) Ur Phencyclidine Scrn (NotDetected) Ur Amphetamines Screen (NotDetected) U Methamphetamines Scrn (NotDetected) U Benzodiazepines Scrn (NotDetected) Urine Cocaine Screen (NotDetected) U Marijuana (THC) Screen (NotDetected) Serum Alcohol mg/dL Influenza Type A (PCR) (Not Detectd) Influenza Type B (PCR) (Not Detectd) RSV (PCR) (Not Detectd) SARS-CoV-2 (PCR) (Not Detectd) 12/02/24 12/02/24 12/02/24 Range/Units 04:53 04:53 04:53 WBC (4.50-10.00) 10*3/uL RBC (4.10-5.20) 10*6/uL Hgb (12.0-15.0) g/dL Hct (37.2-46.3) % MCV (80.0-97.0) fL MCH (27.0-32.0) pg MCHC (32.0-37.0) g/dL Plt Count (140-440) 10*3/uL MPV (9.5-12.2) fL Immature Gran % (Auto) % Neutrophils % % Lymphocytes % % Monocytes % % Eosinophils % % Basophils % % Immature Gran # (0.00-0.04) 10*3/uL Neutrophils # (1.80-7.70) 10*3/uL Lymphocytes # (0.90-5.00) 10*3/uL Monocytes # (0.20-1.00) 10*3/uL Eosinophils # (0.04-0.35) 10*3/uL Basophils # (0.00-0.10) 10*3/uL PT (10.0-12.5) sec INR (<1.2) APTT (22.0-30.0) sec Sodium 127 L (137-145) mmol/L Potassium 3.9 (3.5-5.1) mmol/L Chloride 93 L (98-107) mmol/L Carbon Dioxide 24 (22-30) mmol/L Anion Gap 10 mmol/L BUN 14 (7-17) mg/dL Creatinine 0.64 (0.52-1.04) mg/dL Est GFR (CKD-EPI)AfAm >90 (>60 ml/min/1.73 sqM) Est GFR (CKD-EPI)NonAf >90 (>60 ml/min/1.73 sqM) Glucose 138 H (74-99) mg/dL POC Glucose (mg/dL) (70-110) mg/dL POC Glu Drawing Kiln Supervisor ID Plasma Lactic Acid Guilherme (0.7-2.0) mmol/L Calcium 8.3 L (8.4-10.2) mg/dL Total Bilirubin 2.7 H (0.2-1.3) mg/dL AST 48 H (14-36) U/L ALT 24 (4-34) U/L Alkaline Phosphatase 179 H (38-126) U/L Ammonia 134 H (<30) umol/L Total Protein 5.4 L (6.3-8.2) g/dL Albumin 2.6 L (3.5-5.0) g/dL Folate 30.90 (4.40-31.00) ng/mL Urine Color Urine Appearance (Clear) Urine pH (5.0-8.0) Ur Specific [place] (1.001-1.035) Urine Protein (Negative) Urine Glucose (UA) (Negative) Urine Ketones (Negative) Urine Blood (Negative) Urine Nitrite (Negative) Urine Bilirubin (Negative) Urine Urobilinogen (<2.0) mg/dL Ur Leukocyte Esterase (Negative) Urine RBC (0-5) /hpf Urine WBC (0-5) /hpf Ur Squamous Epith Cells (0-4) /hpf Urine Bacteria (None) /hpf Urine Mucus (None) /hpf Salicylates <1.0 mg/dL Urine Opiates Screen (NotDetected) Ur Oxycodone Screen (NotDetected) Urine Methadone Screen (NotDetected) Acetaminophen <10.0 ug/mL Ur Barbiturates Screen (NotDetected) U Tricyclic Antidepress (NotDetected) Ur Phencyclidine Scrn (NotDetected) Ur Amphetamines Screen (NotDetected) U Methamphetamines Scrn (NotDetected) U Benzodiazepines Scrn (NotDetected) Urine Cocaine Screen (NotDetected) U Marijuana (THC) Screen (NotDetected) Serum Alcohol <10 mg/dL Influenza Type A (PCR) (Not Detectd) Influenza Type B (PCR) (Not Detectd) RSV (PCR) (Not Detectd) SARS-CoV-2 (PCR) (Not Detectd) 12/02/24 12/02/24 12/02/24 Range/Units 05:56 05:56 06:22 WBC (4.50-10.00) 10*3/uL RBC (4.10-5.20) 10*6/uL Hgb (12.0-15.0) g/dL Hct (37.2-46.3) % MCV (80.0-97.0) fL MCH (27.0-32.0) pg MCHC (32.0-37.0) g/dL Plt Count (140-440) 10*3/uL MPV (9.5-12.2) fL Immature Gran % (Auto) % Neutrophils % % Lymphocytes % % Monocytes % % Eosinophils % % Basophils % % Immature Gran # (0.00-0.04) 10*3/uL Neutrophils # (1.80-7.70) 10*3/uL Lymphocytes # (0.90-5.00) 10*3/uL Monocytes # (0.20-1.00) 10*3/uL Eosinophils # (0.04-0.35) 10*3/uL Basophils # (0.00-0.10) 10*3/uL PT (10.0-12.5) sec INR (<1.2) APTT (22.0-30.0) sec Sodium (137-145) mmol/L Potassium (3.5-5.1) mmol/L Chloride (98-107) mmol/L Carbon Dioxide (22-30) mmol/L Anion Gap mmol/L BUN (7-17) mg/dL Creatinine (0.52-1.04) mg/dL Est GFR (CKD-EPI)AfAm (>60 ml/min/1.73 sqM) Est GFR (CKD-EPI)NonAf (>60 ml/min/1.73 sqM) Glucose (74-99) mg/dL POC Glucose (mg/dL) (70-110) mg/dL POC Glu Drawing Kiln Supervisor ID Plasma Lactic Acid Guilherme (0.7-2.0) mmol/L Calcium (8.4-10.2) mg/dL Total Bilirubin (0.2-1.3) mg/dL AST (14-36) U/L ALT (4-34) U/L Alkaline Phosphatase (38-126) U/L Ammonia (<30) umol/L Total Protein (6.3-8.2) g/dL Albumin (3.5-5.0) g/dL Folate (4.40-31.00) ng/mL Urine Color Colorless Urine Appearance Clear (Clear) Urine pH 5.5 (5.0-8.0) Ur Specific [place] 1.008 (1.001-1.035) Urine Protein Negative (Negative) Urine Glucose (UA) Negative (Negative) Urine Ketones Negative (Negative) Urine Blood Negative (Negative) Urine Nitrite Positive H (Negative) Urine Bilirubin Negative (Negative) Urine Urobilinogen <2.0 (<2.0) mg/dL Ur Leukocyte Esterase Negative (Negative) Urine RBC <1 (0-5) /hpf Urine WBC 7 H (0-5) /hpf Ur Squamous Epith Cells <1 (0-4) /hpf Urine Bacteria Occasional H (None) /hpf Urine Mucus Rare H (None) /hpf Salicylates mg/dL Urine Opiates Screen Not Detected (NotDetected) Ur Oxycodone Screen Not Detected (NotDetected) Urine Methadone Screen Not Detected (NotDetected) Acetaminophen ug/mL Ur Barbiturates Screen Not Detected (NotDetected) U Tricyclic Antidepress Not Detected (NotDetected) Ur Phencyclidine Scrn Not Detected (NotDetected) Ur Amphetamines Screen Not Detected (NotDetected) U Methamphetamines Scrn Not Detected (NotDetected) U Benzodiazepines Scrn Not Detected (NotDetected) Urine Cocaine Screen Not Detected (NotDetected) U Marijuana (THC) Screen Not Detected (NotDetected) Serum Alcohol mg/dL Influenza Type A (PCR) Not Detected (Not Detectd) Influenza Type B (PCR) Not Detected (Not Detectd) RSV (PCR) Not Detected (Not Detectd) SARS-CoV-2 (PCR) Not Detected (Not Detectd) 12/02/24 Range/Units 06:29 WBC (4.50-10.00) 10*3/uL RBC (4.10-5.20) 10*6/uL Hgb (12.0-15.0) g/dL Hct (37.2-46.3) % MCV (80.0-97.0) fL MCH (27.0-32.0) pg MCHC (32.0-37.0) g/dL Plt Count (140-440) 10*3/uL MPV (9.5-12.2) fL Immature Gran % (Auto) % Neutrophils % % Lymphocytes % % Monocytes % % Eosinophils % % Basophils % % Immature Gran # (0.00-0.04) 10*3/uL Neutrophils # (1.80-7.70) 10*3/uL Lymphocytes # (0.90-5.00) 10*3/uL Monocytes # (0.20-1.00) 10*3/uL Eosinophils # (0.04-0.35) 10*3/uL Basophils # (0.00-0.10) 10*3/uL PT (10.0-12.5) sec INR (<1.2) APTT (22.0-30.0) sec Sodium (137-145) mmol/L Potassium (3.5-5.1) mmol/L Chloride (98-107) mmol/L Carbon Dioxide (22-30) mmol/L Anion Gap mmol/L BUN (7-17) mg/dL Creatinine (0.52-1.04) mg/dL Est GFR (CKD-EPI)AfAm (>60 ml/min/1.73 sqM) Est GFR (CKD-EPI)NonAf (>60 ml/min/1.73 sqM) Glucose (74-99) mg/dL POC Glucose (mg/dL) (70-110) mg/dL POC Glu Drawing Kiln Supervisor ID Plasma Lactic Acid Guilherme 2.0 (0.7-2.0) mmol/L Calcium (8.4-10.2) mg/dL Total Bilirubin (0.2-1.3) mg/dL AST (14-36) U/L ALT (4-34) U/L Alkaline Phosphatase (38-126) U/L Ammonia (<30) umol/L Total Protein (6.3-8.2) g/dL Albumin (3.5-5.0) g/dL Folate (4.40-31.00) ng/mL Urine Color Urine Appearance (Clear) Urine pH (5.0-8.0) Ur Specific [place] (1.001-1.035) Urine Protein (Negative) Urine Glucose (UA) (Negative) Urine Ketones (Negative) Urine Blood (Negative) Urine Nitrite (Negative) Urine Bilirubin (Negative) Urine Urobilinogen (<2.0) mg/dL Ur Leukocyte Esterase (Negative) Urine RBC (0-5) /hpf Urine WBC (0-5) /hpf Ur Squamous Epith Cells (0-4) /hpf Urine Bacteria (None) /hpf Urine Mucus (None) /hpf Salicylates mg/dL Urine Opiates Screen (NotDetected) Ur Oxycodone Screen (NotDetected) Urine Methadone Screen (NotDetected) Acetaminophen ug/mL Ur Barbiturates Screen (NotDetected) U Tricyclic Antidepress (NotDetected) Ur Phencyclidine Scrn (NotDetected) Ur Amphetamines Screen (NotDetected) U Methamphetamines Scrn (NotDetected) U Benzodiazepines Scrn (NotDetected) Urine Cocaine Screen (NotDetected) U Marijuana (THC) Screen (NotDetected) Serum Alcohol mg/dL Influenza Type A (PCR) (Not Detectd) Influenza Type B (PCR) (Not Detectd) RSV (PCR) (Not Detectd) SARS-CoV-2 (PCR) (Not Detectd) - EKG Data EKG Comments: 12-lead Electrocardiogram Interpretation Note EKG was reviewed and interpreted by myself. 12-lead ECG performed at 0442 is interpreted by me as revealing sinus tachycardia at a rate of 123 beats per minute. [place] is normal. [place] interval is 162 ms, QRS duration is 64 ms, QTc is 381 ms.. There were no ST or T wave abnormalities to suggest myocardial ischemia or injury. R wave progression across the precordium was satisfactory. By my interpretation this EKG is non-diagnostic for acute ischemia. (Kaleb Richardson) Critical Care Time Critical Care Time: Yes Total Critical Care Time: 33 <Kaleb Richardson - Last Filed: 12/02/24 06:47> Disposition <Kaleb Richardson - Last Filed: 12/02/24 06:47> Is patient prescribed a controlled substance at d/c from ED?: No Time of Disposition: 09:08 Decision to Admit Reason: Admit from EC Decision Date: 12/02/24 Decision Time: 09:08 <Iman Jenkins - Last Filed: 12/13/24 00:29> Clinical Impression: Sepsis, Altered mental status, Hyperammonemia, UTI (urinary tract infection), History of pancreatic cancer Disposition: ADMITTED IP TO THIS HOSP
[2024-12-02 05:31] LABS: Basophils # (A) 0.02 10*3/uL (0.00-0.10); Basophils % (A) 0.1 %; HCT 26.7 % (37.2-46.3); Lymphocytes # (A) 0.15 10*3/uL (0.90-5.00); Lymphocytes % (A) 0.9 %; MCH 33.6 pg (27.0-32.0); MCHC 33.7 g/dL (32.0-37.0); MCV 99.6 fL (80.0-97.0); Mean Platelet Volume 10.2 fL (9.5-12.2); Monocytes # (A) 0.07 10*3/uL (0.20-1.00); Monocytes % (A) 0.4 %; Neutrophils # (A) 17.08 10*3/uL (1.80-7.70); Neutrophils % (A) 98.1 %; Platelet Count 176 10*3/uL (140-440); RBC 2.68 10*6/uL (4.10-5.20); RDW 17.4 % (11.5-14.5); WBC 17.41 10*3/uL (4.50-10.00)
[2024-12-02 05:50] LABS: INR 1.5 (<1.2); Partial Thromboplastin Time 30.1 sec (22.0-30.0)
[2024-12-02 06:07] LABS: ALT 24 U/L (4-34); AST 48 U/L (14-36); Acetaminophen <10.0 ug/mL; African American GFR (CKD) >90 (>60 ml/min/1.73 sqM); Albumin 2.6 g/dL (3.5-5.0); Alcohol <10 mg/dL; Alkaline Phosphatase 179 U/L (38-126); Anion Gap 10 mmol/L; Blood Urea Nitrogen 14 mg/dL (7-17); Calcium 8.3 mg/dL (8.4-10.2); Carbon Dioxide 24 mmol/L (22-30); Chloride 93 mmol/L (98-107); Glucose 138 mg/dL (74-99); Non-African American GFR(CKD) >90 (>60 ml/min/1.73 sqM); Potassium 3.9 mmol/L (3.5-5.1); Salicylate <1.0 mg/dL; Sodium 127 mmol/L (137-145); Total Bilirubin 2.7 mg/dL (0.2-1.3); Total Protein 5.4 g/dL (6.3-8.2)
[2024-12-02] MEDS ORDERED: VANCOMYCIN IV PER PHARMACY 1 EACH MISC MISCELLANE PRN ×2 (06:10→12:50)
[2024-12-02] MEDS: LACTATED RINGERS 1,000 ML IV SCH (06:19)
[2024-12-02] MEDS: LACTATED RINGERS 500 ML IV ONE (06:20)
[2024-12-02] MEDS: VANCOMYCIN 1,000 MG in SODIUM CHLORIDE 0.9% 250 ML IVPB ONE (07:00)
[2024-12-02] MEDS: CEFEPIME 2 GM in SODIUM CHLORIDE 0.9% 100 ML IVPB SCH (07:01)
[2024-12-02 07:40] LABS: Appearance,Urine Clear (Clear); Bacteria,Urine Occasional /hpf; Bilirubin,Urine Negative (Negative); Blood,Urine Negative (Negative); Color,Urine Colorless; Glucose,Urine (UA) Negative (Negative); Ketones,Urine Negative (Negative); Leukocyte Esterase,Urine Negative (Negative); Mucus,Urine Rare /hpf; Nitrite,Urine Positive (Negative); PH, Urine 5.5 (5.0-8.0); Protein,Urine Negative (Negative); RBC,Urine <1 /hpf (0-5); Specific Gravity,Urine 1.008 (1.001-1.035); Squamous Epithelial Cell,Urine <1 /hpf (0-4); Urobilinogen,Urine <2.0 mg/dL (<2.0); WBC,Urine 7 /hpf (0-5)
[2024-12-02 07:40] LABS: Influenza A Not Detected (Not Detectd); Influenza B Not Detected (Not Detectd); RSV Not Detected (Not Detectd)
[2024-12-02 07:44] LABS: Amphetamine Screen,Urine Not Detected (NotDetected); Barbiturate Screen,Urine Not Detected (NotDetected); Benzodiazepines Screen,Urine Not Detected (NotDetected); Cocaine Screen,Urine Not Detected (NotDetected); Methadone Screen, Urine Not Detected (NotDetected); Opiate Screen,Urine Not Detected (NotDetected); Oxycodone Screen, Urine Not Detected (NotDetected); Phencyclidine Screen,Urine Not Detected (NotDetected); Tricyclic Antidepressant,Urine Not Detected (NotDetected); Urn Cannabinoid Scrn Not Detected (NotDetected)
[2024-12-02] MEDS: LACTULOSE 20 GM/30 ML CUP PO SCH (08:02)
--- NOTE | 2024-12-02 08:07 | CT ---
EXAMINATION TYPE: CT abdomen pelvis w con CT DLP: 1003.6 mGycm, Automated exposure control for dose reduction was used. DATE OF EXAM: 12/02/2024 7:49 AM COMPARISON: CT abdomen pelvis 08/24/2024, PET/CT 09/28/2024 CLINICAL INDICATION:Female, 49 years old with history of sepsis, diarrhea. hx of panc cancer; Sepsis, diarrhea, hx pancreatic ca TECHNIQUE: Standard CT of the abdomen and pelvis following the administration of 100 cc of Isovue 3 00 IV contrast material. Coronal and sagittal reformats were performed. FINDINGS: LOWER CHEST: Posterior dependent subsegmental atelectasis is noted. Stable lateral left lower lobe 6 mm opacity from multiple exams. Cardiomegaly. Partial visualization of left anterior chest wall Medip ort catheter with tip terminating at the superior cavoatrial junction. Dilated main pulmonary artery measuring up to 3.3 cm which can be seen with pulmonary arterial hypertension. Mild coronary artery c alcifications identified. No pericardial effusion. ABDOMEN LIVER: Unremarkable GALLBLADDER AND BILE DUCTS: The gallbladder is surgically absent. No biliary ductal dilatation. PANCREAS: Postsurgical changes from Whipple procedure. There is some residual soft tissue with simila r gross appearance to prior PET/CT within the periportal region. SPLEEN: Enlarged measuring 15.5 cm in AP dimension. ADRENAL GLANDS: Unremarkable. KIDNEYS AND URETERS: No evidence of hydronephrosis or renal calculus. The kidneys enhance symmetrical ly. Contrast is demonstrated within both collecting systems on the delayed phase. PELVIS BLADDER: Unremarkable REPRODUCTIVE: The uterus is surgically absent. ABDOMEN & PELVIS STOMACH AND BOWEL: Postsurgical changes from Whipple procedure.Rectal fecaloma measuring up to 6.3 cm in transverse dimension. No wall thickening identified. Circumferential wall thickening of the ascen ding colon. The appendix appears within normal limits. No evidence of bowel obstruction. PERITONEUM: No evidence of pneumoperitoneum. Moderate volume ascites throughout the abdomen and pelvi s. VASCULATURE: No evidence of aortic aneurysm. Dilated but patent portal venous system. Recanalization of the umbilical vein. Scattered regions of collateral vessels. MUSCULOSKELETAL: No acute osseous abnormalities. Similar lytic lesion involving the T10 vertebral bod y along its left aspect. Mild multilevel degenerative disc disease of the lower lumbar spine. LYMPH NODES: No evidence for lymphadenopathy. SOFT TISSUE/ABDOMINAL WALL: Diffuse anasarca. IMPRESSION: 1. Findings of portal hypertension with splenomegaly, moderate volume ascites, diffuse anasarca, col lateral vessels, and recanalization of umbilical vein. 2. Circumferential wall thickening of the ascending colon which could be seen with an infectious/infl ammatory process versus colopathy related to #1. 3. Postsurgical changes from Whipple procedure with similar small region of soft tissue within the pe riportal region likely representing residual pancreatic neoplasm. 4. Rectal fecaloma without definitive evidence for stercoral colitis. [facility], , 12/02/2024 8:05 AM
[2024-12-02] MEDS ORDERED: NALOXONE 0.4 MG/ML 1 ML VIAL IV PRN (09:09)
[2024-12-02] MEDS ORDERED: ALBUTEROL NEBULIZED 2.5 MG/3 ML INHALATION PRN (12:48)
[2024-12-02] MEDS ORDERED: ONDANSETRON ODT 4 MG TAB PO PRN (12:48)
[2024-12-02] MEDS ORDERED: PROCHLORPERAZINE 10 MG TAB PO PRN (12:48)
[2024-12-02] MEDS ORDERED: hydrOXYzine HCL 25 MG TAB PO PRN (12:48)
--- NOTE | 2024-12-02 12:59 | P.CNNES ---
History of Present Illness Consult date: 12/02/24 Requesting physician: Kaleb Richardson Reason for Consult: [facility] History of Present Illness: This is a 49-year-old woman with history of pancreatic cancer status post with procedure and received chemotherapy then her pancreatic cancer was in remission then had a relapse in 2023 and now she is on intermittent chemotherapy as a sequela has thrombocytopenia as well as anemia, ascites requiring paracentesis who presents emergency department because of episode of unresponsive and body shaking. Patient as well as patient's mother are at the bedside who provide the history. According to the today around 4:00 in the morning the patient went to the bathroom but patient never came back to her room so he checked up on her and he found her in the toilet staring off and he noticed that the patient had shaking of right upper extremity followed by left upper extremity. He cannot tell me exactly how long the episode lasted for. Patient was not responsive during this episode. No drooling of her mouth or any tongue bite or any blood coming out of the mouth. Patient does not have any history of seizure. He feels patient is better compared to earlier. Patient had a recent MRI abdomen/liver recently. Patient does not have any history of seizure or any brain mets. Does have a port for her pancreatic cancer requiring chemotherapy. Some of the workup during this hospital visit consisted of: White blood cell is 17.4 thousand and patient is afebrile Initial serum glucose is 138 and the POC glucose is 153. Sodium is 127 the last 1 month has been hovering in the mid 120s to 130. Ammonia Level is 134. Reviewed the rest of the lab workup. CT of the head is reported as no acute intracranial hemorrhage, midline shift or mass effect. I personally reviewed the CT and agree with the report. Review of Systems As per HPI. Past Medical History Past Medical History: Cancer, GERD/Reflux, Hypertension, Musculoskeletal Disorder Additional Past Medical History / Comment(s): Current pancreatic cancer. Unnamed autoimmune disorder-elevated WENDY. 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 Past Anesthesia/Blood Transfusion Reactions: Postoperative Nausea & Vomiting (PONV) Additional Past Anesthesia/Blood Transfusion Reaction / Comment(s): Madi's wittness - no blood products Past Psychological History: Anxiety, Depression Additional Psychological History / Comment(s): health related Smoking Status: Never smoker Past Alcohol Use History: Occasional Additional Past Alcohol Use History / Comment(s): 4-5 drinks/week Past Drug Use History: None Reported - Past Family History Brother(s) Family Medical History: Cancer Additional Family Medical History / Comment(s): Testicular cancer. Medications and Allergies Home Medications Medication Instructions Recorded Confirmed Type Cholecalciferol [Vitamin D3 (125 125 mcg PO DAILY 10/11/21 12/02/24 History Mcg = 5000 Iu)] LORazepam [Ativan] 0.5 mg PO TID PRN 10/11/21 12/02/24 History Ondansetron Odt [Zofran ODT] 4 mg PO Q6H PRN 10/11/21 12/02/24 History Prochlorperazine [Compazine] 10 mg PO Q8H PRN 10/06/24 12/02/24 History Spironolactone [Aldactone] 25 mg PO DAILY 10/29/24 12/02/24 History Furosemide [Lasix] 20 mg PO BID@0900,1600 11/13/24 12/02/24 History Albuterol Sulfate [Albuterol 2 puff INHALATION RT-Q4H PRN 12/02/24 12/02/24 History Sulfate Hfa] Creon (Unknown Dose) 1 dose PO DIRECTED 12/02/24 12/02/24 History Magnesium Oxide [Mag-Ox] 400 mg PO DAILY 12/02/24 12/02/24 History Potassium Chloride ER [K-Dur 20] 20 meq PO DAILY 12/02/24 12/02/24 History hydrOXYzine HCL [Atarax] 25 - 50 mg PO BID PRN 12/02/24 12/02/24 History Allergies Allergy/AdvReac Type Severity Reaction Status Date / Time ciprofloxacin [From Cipro] Allergy Rash/Hives Verified 12/02/24 10:14 erythromycin base Allergy Rash/Hives Verified 12/02/24 10:14 [From Erythrocin] latex Allergy Rash/Hives Verified 12/02/24 10:14 oseltamivir [From Tamiflu] Allergy Rash/Hives Verified 12/02/24 10:14 Penicillins Allergy Rash/Hives Verified 12/02/24 10:14 sulfamethoxazole Allergy Rash/Hives Verified 12/02/24 10:14 [From Bactrim] trimethoprim [From Bactrim] Allergy Rash/Hives Verified 12/02/24 10:14 Physical Examination - Vital Signs Vital Signs: Vital Signs Temp Pulse Resp BP Pulse Ox 12/02/24 10:02 112 H 22 103/64 96 12/02/24 09:37 110 H 16 118/72 98 12/02/24 07:51 117 H 16 96/50 99 12/02/24 06:50 117 H 18 114/70 98 12/02/24 06:00 98.6 F 115 H 16 97/62 99 12/02/24 05:21 117 H 16 98 12/02/24 05:10 119 H 20 115/66 99 12/02/24 04:38 98.4 F 128 H 16 103/85 99 Intake and Output 12/01/24 12/02/24 12/02/24 22:59 06:59 14:59 Output Total 400 Balance -400 Output: Urine 400 Straight 400 Other: Weight 52.163 kg 52.163 kg General: Lying in bed and does not appear in acute distress. Appears lethargic. Neuro: Limited. Is awake able to voice. She is oriented to self place and she correctly stated the current year. She could not tell me the month even with options she could not answer the month. She did correctly named objects such as pen. Is slow to respond or follow commands. No aphasia from limited language The pupil the right is about 5mm and the left is about 4mm, round and reactive to light. Hard to assess visual sy because of her cooperation. From limitation of extraocular movement there is no nystagmus. No facial weakness. No dysarthria. She had mild facial trembling but she was respond during the episode. Motor: Strength is limited in assessing individual muscle strength but she is able to lift up bilateral upper extremity above gravity. No lower extremity she had antigravity of the ankles symmetrically. Normal tone and bulk. Patient has edema in lower extremity which is old according to the . Cerebellar: Normal [id number] bilaterally. Plantars are mute. Results - Laboratory Findings CBC and BMP: 12/02/24 04:53 12/02/24 04:53 Abnormal Lab Findings: Abnormal Labs 12/02/24 12/02/24 12/02/24 04:50 04:53 04:53 WBC 17.41 H RBC 2.68 L Hgb 9.0 L Hct 26.7 L MCV 99.6 H MCH 33.6 H Immature Gran # 0.09 H Neutrophils # 17.08 H Lymphocytes # 0.15 L Monocytes # 0.07 L Eosinophils # 0.00 L PT 16.0 H INR 1.5 H APTT 30.1 H Sodium Chloride Glucose POC Glucose (mg/dL) 153 H Calcium Total Bilirubin AST Alkaline Phosphatase Ammonia Total Protein Albumin Urine Nitrite Urine WBC Urine Bacteria Urine Mucus 12/02/24 12/02/24 12/02/24 04:53 04:53 05:56 WBC RBC Hgb Hct MCV MCH Immature Gran # Neutrophils # Lymphocytes # Monocytes # Eosinophils # PT INR APTT Sodium 127 L Chloride 93 L Glucose 138 H POC Glucose (mg/dL) Calcium 8.3 L Total Bilirubin 2.7 H AST 48 H Alkaline Phosphatase 179 H Ammonia 134 H Total Protein 5.4 L Albumin 2.6 L Urine Nitrite Positive H Urine WBC 7 H Urine Bacteria Occasional H Urine Mucus Rare H Assessment and Plan Assessment: This is a 49-year-old woman with history of pancreatic cancer status post Whipple procedure, chemotherapy and had remission of her pancreatic cancer in 2023 who presents emergency department because of staring off and initial body jerking of 1 side then 1 to the other side of the upper extremity. She had elevated ammonia. History of unresponsiveness with body jerking seems new onset seizure. Possibly elevated ammonia as well leukocytosis is reactive from her seizure episode. Cannot rule out metabolic dysfunction leading to her seizure-like activity. Leukocytosis Elevated ammonia History of pancreatic cancer status post Whipple procedure and is on chemothera py. She had a relapse of her cancer in 2023 and she is on intermittent chemotherapy. History of a ascites requiring paracentesis History of extremity edema Plan: I ordered MRI of the brain with and without seizure protocol Ordered an EEG which will be completed this Wednesday. I started the patient on Keppra 500 mg twice daily even though this is her first new onset seizure for concerns of further seizures. Will obtain the MRI and EEG and will make further recommendation Seizure precautions seizure pads Patient is on lactulose I started the patient on Ativan 1 mg every 4 hours as needed for seizures Per [facility] because of the seizures, avoid driving for 6 months until seizure-free, avoid heights, avoid swimming assisted or using heavy machinery. Oncology is consulted Will defer the rest of the medical management to primary and other specialist Plan discussed with the patient's who is at bedside as well as her mother as well as discussed with her nurse. Thank you for the consultation. Time with Patient: Greater than 30
--- NOTE | 2024-12-02 13:02 | P.HPIM ---
History of Present Illness This is a pleasant 49 years old female with a known case of pancreatic cancer with ascites. Presents because of. No unresponsiveness. Information was obtained with the help of the family including the mother and her best friend who is her second advocate after her . Her name is Dany. Yesterday wanted to check on his and she was sitting on the toilet unresponsive not talking not moving and they called EMS who brought her to the emergency room. Patient cannot recall of these events or what happened. There is no mention of seizure-like activities. Patient was standing her best friend she was feeling tired and fatigued the whole day yesterday but no other specific symptoms no diarrhea or urinary compl aints or dysuria no vomiting or abdominal pain. No chest pain or dyspnea. Even currently patient denies all the symptoms. Also she denies headache dizziness weakness or numbness. Last Wednesday she underwent paracentesis, Wednesday she got chemotherapy here in [place] with Dr. Hoyt, on Wednesday she had MRI of the abdomen and her liver with department/[facility] [place] she followed up with her oncologist at [facility] who discussed nutrition with her and she was doing well. Also 2 days ago she was doing fine and her symptoms started yesterday. On admission she is hemodynamically stable, slightly hypertensive slightly tachycardic She has leukocytosis of 17.4 and hemoglobin at baseline of 9 with baseline 7-9. Sodium is low 127. Ammonia level elevated with 34, urine drug screen is negative as well as serum salicylate acetaminophen and alcohol. CT of the brain is negative. Chest x-ray showed no acute process. CT of the abdomen and pelvis showing portal hypertension with splenomegaly and ascites with anasarca. Also there is thickening of the wall of the ascending colon suspicious for ascending colitis and rectal fecaloma. Patient was started with IV vancomycin and cefepime Ringer lactate at 100 mL/h and admitted with neurology and hematology/oncology team consult Review of Systems Review of systems CONSTITUTIONAL: No fever, no malaise, no fatigue. HEENT: No recent visual problems or hearing problems. Denied any sore throat. CARDIOVASCULAR: No orthopnea, PND, no palpitations, no syncope. PULMONARY: No shortness of breath, no cough, no hemoptysis. GASTROINTESTINAL: No diarrhea, no nausea, no vomiting, no abdominal pain. Normoactive bowel sounds. NEUROLOGICAL: No headaches, no weakness, no numbness. HEMATOLOGICAL: Denies any bleeding or petechiae. GENITOURINARY: Denies any burning micturition, frequency, or urgency. MUSCULOSKELETAL/RHEUMATOLOGICAL: Denies any joint pain, swelling, or any muscle pain. ENDOCRINE: Denies any polyuria or polydipsia. Past Medical History Past Medical History: Cancer, GERD/Reflux, Hypertension, Musculoskeletal Disorder Additional Past Medical History / Comment(s): Current pancreatic cancer. Unnamed autoimmune disorder-elevated WENDY. 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 Past Anesthesia/Blood Transfusion Reactions: Postoperative Nausea & Vomiting (PONV) Additional Past Anesthesia/Blood Transfusion Reaction / Comment(s): Jehovah's wittness - no blood products Past Psychological History: Anxiety, Depression Additional Psychological History / Comment(s): health related Smoking Status: Never smoker Past Alcohol Use History: Occasional Additional Past Alcohol Use History / Comment(s): 4-5 drinks/week Past Drug Use History: None Reported - Past Family History Brother(s) Family Medical History: Cancer Additional Family Medical History / Comment(s): Testicular cancer. Medications and Allergies Home Medications Medication Instructions Recorded Confirmed Type Cholecalciferol [Vitamin D3 (125 125 mcg PO DAILY 10/11/21 12/02/24 History Mcg = 5000 Iu)] LORazepam [Ativan] 0.5 mg PO TID PRN 10/11/21 12/02/24 History Ondansetron Odt [Zofran ODT] 4 mg PO Q6H PRN 10/11/21 12/02/24 History Prochlorperazine [Compazine] 10 mg PO Q8H PRN 10/06/24 12/02/24 History Spironolactone [Aldactone] 25 mg PO DAILY 10/29/24 12/02/24 History Furosemide [Lasix] 20 mg PO BID@0900,1600 11/13/24 12/02/24 History Albuterol Sulfate [Albuterol 2 puff INHALATION RT-Q4H PRN 12/02/24 12/02/24 History Sulfate Hfa] Creon (Unknown Dose) 1 dose PO DIRECTED 12/02/24 12/02/24 History Magnesium Oxide [Mag-Ox] 400 mg PO DAILY 12/02/24 12/02/24 History Potassium Chloride ER [K-Dur 20] 20 meq PO DAILY 12/02/24 12/02/24 History hydrOXYzine HCL [Atarax] 25 - 50 mg PO BID PRN 12/02/24 12/02/24 History Allergies Allergy/AdvReac Type Severity Reaction Status Date / Time ciprofloxacin [From Cipro] Allergy Rash/Hives Verified 12/02/24 10:14 erythromycin base Allergy Rash/Hives Verified 12/02/24 10:14 [From Erythrocin] latex Allergy Rash/Hives Verified 12/02/24 10:14 oseltamivir [From Tamiflu] Allergy Rash/Hives Verified 12/02/24 10:14 Penicillins Allergy Rash/Hives Verified 12/02/24 10:14 sulfamethoxazole Allergy Rash/Hives Verified 12/02/24 10:14 [From Bactrim] trimethoprim [From Bactrim] Allergy Rash/Hives Verified 12/02/24 10:14 Physical Exam Vitals: Vital Signs Temp Pulse Resp BP Pulse Ox 12/02/24 10:02 112 H 22 103/64 96 12/02/24 09:37 110 H 16 118/72 98 12/02/24 07:51 117 H 16 96/50 99 12/02/24 06:50 117 H 18 114/70 98 12/02/24 06:00 98.6 F 115 H 16 97/62 99 12/02/24 05:21 117 H 16 98 12/02/24 05:10 119 H 20 115/66 99 12/02/24 04:38 98.4 F 128 H 16 103/85 99 Intake and Output 12/01/24 12/02/24 12/02/24 22:59 06:59 14:59 Output Total 400 Balance -400 Output: Urine 400 Straight 400 Other: Weight 52.163 kg 52.163 kg -GENERAL: The patient is alert and oriented x1, confused, does not answer all questions, does not follow all commands appropriately, not in any acute dist ress. Well developed, well nourished. HEENT: Pupils are round and equally reacting to light. EOMI. No scleral icterus. No conjunctival pallor. Normocephalic, atraumatic. No pharyngeal erythema. No th yromegaly. CARDIOVASCULAR: S1 and S2 present. No murmurs, rubs, or gallops. PULMONARY: Chest is clear to auscultation, no wheezing , no crackles. ABDOMEN: Soft, nontender, distended, normoactive bowel sounds. No palpable organomegaly. MUSCULOSKELETAL: No joint swelling or deformity. EXTREMITIES: No cyanosis, clubbing, or pedal edema. NEUROLOGICAL: Gross neurological examination did not reveal any focal deficits. SKIN: No rashes. no petechiae. Results CBC & Chem 7: 12/02/24 04:53 12/02/24 04:53 Labs: Abnormal Lab Results - Last 24 Hours (Table) 12/02/24 12/02/24 12/02/24 Range/Units 04:50 04:53 04:53 WBC 17.41 H (4.50-10.00) 10*3/uL RBC 2.68 L (4.10-5.20) 10*6/uL Hgb 9.0 L (12.0-15.0) g/dL Hct 26.7 L (37.2-46.3) % MCV 99.6 H (80.0-97.0) fL MCH 33.6 H (27.0-32.0) pg Immature Gran # 0.09 H (0.00-0.04) 10*3/uL Neutrophils # 17.08 H (1.80-7.70) 10*3/uL Lymphocytes # 0.15 L (0.90-5.00) 10*3/uL Monocytes # 0.07 L (0.20-1.00) 10*3/uL Eosinophils # 0.00 L (0.04-0.35) 10*3/uL PT 16.0 H (10.0-12.5) sec INR 1.5 H (<1.2) APTT 30.1 H (22.0-30.0) sec Sodium (137-145) mmol/L Chloride (98-107) mmol/L Glucose (74-99) mg/dL POC Glucose (mg/dL) 153 H (70-110) mg/dL Calcium (8.4-10.2) mg/dL Total Bilirubin (0.2-1.3) mg/dL AST (14-36) U/L Alkaline Phosphatase (38-126) U/L Ammonia (<30) umol/L Total Protein (6.3-8.2) g/dL Albumin (3.5-5.0) g/dL Urine Nitrite (Negative) Urine WBC (0-5) /hpf Urine Bacteria (None) /hpf Urine Mucus (None) /hpf 12/02/24 12/02/24 12/02/24 Range/Units 04:53 04:53 05:56 WBC (4.50-10.00) 10*3/uL RBC (4.10-5.20) 10*6/uL Hgb (12.0-15.0) g/dL Hct (37.2-46.3) % MCV (80.0-97.0) fL MCH (27.0-32.0) pg Immature Gran # (0.00-0.04) 10*3/uL Neutrophils # (1.80-7.70) 10*3/uL Lymphocytes # (0.90-5.00) 10*3/uL Monocytes # (0.20-1.00) 10*3/uL Eosinophils # (0.04-0.35) 10*3/uL PT (10.0-12.5) sec INR (<1.2) APTT (22.0-30.0) sec Sodium 127 L (137-145) mmol/L Chloride 93 L (98-107) mmol/L Glucose 138 H (74-99) mg/dL POC Glucose (mg/dL) (70-110) mg/dL Calcium 8.3 L (8.4-10.2) mg/dL Total Bilirubin 2.7 H (0.2-1.3) mg/dL AST 48 H (14-36) U/L Alkaline Phosphatase 179 H (38-126) U/L Ammonia 134 H (<30) umol/L Total Protein 5.4 L (6.3-8.2) g/dL Albumin 2.6 L (3.5-5.0) g/dL Urine Nitrite Positive H (Negative) Urine WBC 7 H (0-5) /hpf Urine Bacteria Occasional H (None) /hpf Urine Mucus Rare H (None) /hpf Thrombosis Risk Factor Assmnt - Choose All That Apply Any of the Below Risk Factors Present?: Yes Each Factor Represents 1 point: Medical pt on bed rest Thrombosis Risk Factor Assessment Total Risk Factor Score: 1 Thrombosis Risk Factor Assessment Level: Low Risk Assessment and Plan Assessment: Acute encephalopathy, rule out seizure on top of metabolic/toxic encephalopathy Hepatic encephalopathy Ascending colitis Sepsis with leukocytosis and tachycardia tachypnea Pancreatic cancers with ascites on chemotherapy Portal hypertension with splenomegaly, could be related to liver disease for example cirrhosis or her malignancy. Hypovolemic hyponatremia Chronic anemia Rectal fecaloma Plan: Continue antibiotic cefepime and IV vancomycin and switch to pharmacy to dose Patient started on Keppra per neurologist Ringer lactate IV at 100 mL/h Follow-up culture results Continue with lactulose Hematology/oncology, neurology and general surgery team. Patient full code per family Further recommendation based on the clinical course GI prophylaxis Pepcid DVT prophylaxis subcu heparin Prognosis is guarded
[2024-12-02] MEDS: levETIRAcetam IV 500 MG/5 ML VIAL IVP SCH (14:08)
--- NOTE | 2024-12-02 16:10 | MR ---
EXAMINATION TYPE: MR brain wo/w con DATE OF EXAM: 12/02/2024 4:00 PM COMPARISON: None. CLINICAL INDICATION: Female, 49 years old with history of seizure, Seizure, pancreatic cancer TECHNIQUE: Multi planar multi sequence imaging of the brain. FINDINGS: The ventricles, basal cisterns and sulci overlying the cerebral convexities are mildly enlarged. There is evidence of mild periventricular white matter ischemic demyelination. Remote deep white matter insults are also noted. Cortical thinning with increased signal involving t he posterior left parietal region on both inversion recovery and T2 weighted imaging. This may reflec t remote insult. No abnormal enhancement or abnormal diffusion in this region. No acute edema is seen on diffusion weighted imaging. There is no evidence for midline shift or mass effect. Acute intracranial hemorrhage or extra-axial collection is not evident. The paranasal sinuses and mastoid air cells are well-aerated. IMPRESSION: Cortical thinning with increased signal involving the posterior left parietal region on both inversio n recovery and T2 weighted imaging. This may reflect remote insult. No abnormal enhancement or abnorm al diffusion in this region. No acute intracranial process seen. [facility], , 12/02/2024 4:08 PM
--- NOTE | 2024-12-02 16:30 | P.CONS ---
History of Present Illness - Reason for Consult Consult date: 12/02/24 Pancreatic cancer - Chief Complaint Metabolic encephalopathy - History of Present Illness Ms. Childress is a 49-year-old woman with a past medical history significant for metastatic pancreatic cancer on gemcitabine/Abraxane with day 8 of cycle 4 given on 11/28/2024 presenting with metabolic encephalopathy. Her noted that she had an episode of nonresponsiveness while using the bathroom prompting admission. She had been having fatigue with no other new signs or symptoms. In the ED, she was noted to have tachycardia with heart rates between the 110s to 120s with systolic blood pressures ranging between the upper 90s to 110s. Labs noted WBC 17.4 (ANC 17.08), hemoglobin 9 (MCV 99.6), platelets 176. CMP noted sodium of 127, total bilirubin 2.7, AST 48, alkaline phosphatase 179, ammonia 134. UA noted positive nitrite with 7 WBCs. Viral PCR was negative as was serum alcohol, acetaminophen, and salicylates with no evidence of illicit drugs on UDS. CT abdomen/pelvis noted portal hypertension with splenomegaly and moderate volume ascites and anasarca along with circumferential wall thickening of the ascending colon and postsurgical changes from prior Whipple in 2020. Of note, she did have MR liver elastography on 11/29/2024 at [facility] that noted evidence of cirrhosis with no evidence of significant iron overload. She has had 2 ascitic fluid cytologies that are negative for malignancy. She has been started on vancomycin and cefepime and was given Ativan IV x 1 in the event she had a seizure. She was started on lactulose and Keppra as well. Neurology has been consulted and has ordered MRI and EEG. Currently, she remains confused compared to her baseline and occasionally has trouble finding words. Review of Systems 14 point review of systems was conducted with pertinent positives and negatives as noted per HPI Past Medical History Past Medical History: Cancer, GERD/Reflux, Hypertension, Musculoskeletal Disorder Additional Past Medical History / Comment(s): Current pancreatic cancer. Unnamed autoimmune disorder-elevated WENDY. 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 Past Anesthesia/Blood Transfusion Reactions: Postoperative Nausea & Vomiting (PONV) Additional Past Anesthesia/Blood Transfusion Reaction / Comm: Jehovah's wittness - no blood products Past Psychological History: Anxiety, Depression Additional Psychological History / Comment(s): health related Smoking Status: Never smoker Past Alcohol Use History: Occasional Additional Past Alcohol Use History / Comment(s): 4-5 drinks/week Past Drug Use History: None Reported - Past Family History Brother(s) Family Medical History: Cancer Additional Family Medical History / Comment(s): Testicular cancer. Medications and Allergies Home Medications Medication Instructions Recorded Confirmed Type Cholecalciferol [Vitamin D3 (125 125 mcg PO DAILY 10/11/21 12/02/24 History Mcg = 5000 Iu)] LORazepam [Ativan] 0.5 mg PO TID PRN 10/11/21 12/02/24 History Ondansetron Odt [Zofran ODT] 4 mg PO Q6H PRN 10/11/21 12/02/24 History Prochlorperazine [Compazine] 10 mg PO Q8H PRN 10/06/24 12/02/24 History Spironolactone [Aldactone] 25 mg PO DAILY 10/29/24 12/02/24 History Furosemide [Lasix] 20 mg PO BID@0900,1600 11/13/24 12/02/24 History Albuterol Sulfate [Albuterol 2 puff INHALATION RT-Q4H PRN 12/02/24 12/02/24 H istory Sulfate Hfa] Creon (Unknown Dose) 1 dose PO DIRECTED 12/02/24 12/02/24 History Magnesium Oxide [Mag-Ox] 400 mg PO DAILY 12/02/24 12/02/24 History Potassium Chloride ER [K-Dur 20] 20 meq PO DAILY 12/02/24 12/02/24 History hydrOXYzine HCL [Atarax] 25 - 50 mg PO BID PRN 12/02/24 12/02/24 History Allergies Allergy/AdvReac Type Severity Reaction Status Date / Time ciprofloxacin [From Cipro] Allergy Rash/Hives Verified 12/02/24 10:14 erythromycin base Allergy Rash/Hives Verified 12/02/24 10:14 [From Erythrocin] latex Allergy Rash/Hives Verified 12/02/24 10:14 oseltamivir [From Tamiflu] Allergy Rash/Hives Verified 12/02/24 10:14 Penicillins Allergy Rash/Hives Verified 12/02/24 10:14 sulfamethoxazole Allergy Rash/Hives Verified 12/02/24 10:14 [From Bactrim] trimethoprim [From Bactrim] Allergy Rash/Hives Verified 12/02/24 10:14 Physical Exam Vitals: Vital Signs Temp Pulse Resp BP Pulse Ox 12/02/24 10:02 112 H 22 103/64 96 12/02/24 09:37 110 H 16 118/72 98 12/02/24 07:51 117 H 16 96/50 99 12/02/24 06:50 117 H 18 114/70 98 12/02/24 06:00 98.6 F 115 H 16 97/62 99 12/02/24 05:21 117 H 16 98 12/02/24 05:10 119 H 20 115/66 99 12/02/24 04:38 98.4 F 128 H 16 103/85 99 Intake and Output 12/01/24 12/02/24 12/02/24 22:59 06:59 14:59 Output Total 400 Balance -400 Output: Urine 400 Straight 400 Other: Weight 52.163 kg 52.163 kg - Constitutional General appearance: cooperative, no acute distress - EENT Eyes: anicteric sclerae - Respiratory Respiratory: bilateral: CTA - Cardiovascular Rhythm: regular - Gastrointestinal General gastrointestinal: distended, soft, no tenderness - Integumentary Integumentary: jaundiced, pale - Neurologic Neurologic: CNII-XII intact - Psychiatric Confused compared to baseline Results CBC & Chem 7: 12/02/24 04:53 12/02/24 04:53 Labs: Abnormal Lab Results - Last 24 Hours (Table) 12/02/24 12/02/24 12/02/24 Range/Units 04:50 04:53 04:53 WBC 17.41 H (4.50-10.00) 10*3/uL RBC 2.68 L (4.10-5.20) 10*6/uL Hgb 9.0 L (12.0-15.0) g/dL Hct 26.7 L (37.2-46.3) % MCV 99.6 H (80.0-97.0) fL MCH 33.6 H (27.0-32.0) pg Immature Gran # 0.09 H (0.00-0.04) 10*3/uL Neutrophils # 17.08 H (1.80-7.70) 10*3/uL Lymphocytes # 0.15 L (0.90-5.00) 10*3/uL Monocytes # 0.07 L (0.20-1.00) 10*3/uL Eosinophils # 0.00 L (0.04-0.35) 10*3/uL PT 16.0 H (10.0-12.5) sec INR 1.5 H (<1.2) APTT 30.1 H (22.0-30.0) sec Sodium (137-145) mmol/L Chloride (98-107) mmol/L Glucose (74-99) mg/dL POC Glucose (mg/dL) 153 H (70-110) mg/dL Calcium (8.4-10.2) mg/dL Total Bilirubin (0.2-1.3) mg/dL AST (14-36) U/L Alkaline Phosphatase (38-126) U/L Ammonia (<30) umol/L Total Protein (6.3-8.2) g/dL Albumin (3.5-5.0) g/dL Urine Nitrite (Negative) Urine WBC (0-5) /hpf Urine Bacteria (None) /hpf Urine Mucus (None) /hpf 12/02/24 12/02/24 12/02/24 Range/Units 04:53 04:53 05:56 WBC (4.50-10.00) 10*3/uL RBC (4.10-5.20) 10*6/uL Hgb (12.0-15.0) g/dL Hct (37.2-46.3) % MCV (80.0-97.0) fL MCH (27.0-32.0) pg Immature Gran # (0.00-0.04) 10*3/uL Neutrophils # (1.80-7.70) 10*3/uL Lymphocytes # (0.90-5.00) 10*3/uL Monocytes # (0.20-1.00) 10*3/uL Eosinophils # (0.04-0.35) 10*3/uL PT (10.0-12.5) sec INR (<1.2) APTT (22.0-30.0) sec Sodium 127 L (137-145) mmol/L Chloride 93 L (98-107) mmol/L Glucose 138 H (74-99) mg/dL POC Glucose (mg/dL) (70-110) mg/dL Calcium 8.3 L (8.4-10.2) mg/dL Total Bilirubin 2.7 H (0.2-1.3) mg/dL AST 48 H (14-36) U/L Alkaline Phosphatase 179 H (38-126) U/L Ammonia 134 H (<30) umol/L Total Protein 5.4 L (6.3-8.2) g/dL Albumin 2.6 L (3.5-5.0) g/dL Urine Nitrite Positive H (Negative) Urine WBC 7 H (0-5) /hpf Urine Bacteria Occasional H (None) /hpf Urine Mucus Rare H (None) /hpf Assessment and Plan (1) Metabolic encephalopathy Current Visit: Yes Status: Acute Code(s): G93.41 - METABOLIC ENCEPHALOPATHY SNOMED Code(s): 68327381 (2) Pancreatic carcinoma metastatic to intra-abdominal lymph node Current Visit: Yes Status: Acute Code(s): C25.9 - MALIGNANT NEOPLASM OF PANCREAS, UNSPECIFIED; C77.2 - SECONDARY AND UNSP MALIGNANT NEOPLASM OF INTRA- ABD NODES SNOMED Code(s): 9701802514 (3) Neutrophilic leukocytosis Current Visit: Yes Status: Acute Code(s): D72.828 - OTHER ELEVATED WHITE BLOOD CELL COUNT SNOMED Code(s): 814159880 (4) Anemia due to antineoplastic agent Current Visit: Yes Status: Acute Code(s): D64.81 - ANEMIA DUE TO ANTINE OPLASTIC CHEMOTHERAPY; T45.1X5A - ADVERSE EFFECT OF ANTINEOPLASTIC AND IMMUNOSUP DRUGS, INIT SNOMED Code(s): 390667314067488 Plan: #Metabolic encephalopathy - Presented with episode of unresponsiveness prior to presentation - Noted to have elevated ammonia of 134 on initial labs - CT on admission as well as MRI on 11/29/2024 at [facility] note evidence of portal hypertension with moderate ascites and splenomegaly with MRI noting evidence of cirrhosis - Agree with lactulose 30 mg 4 times daily as started per primary team - She is undergoing evaluation by neurology to rule out seizure or other etiology - As long as this workup is negative, she more likely has metabolic encephalopathy due to underlying cirrhosis along with possibility of infection with positive UA - She would benefit from evaluation from gastroenterology/hepatology - She likely will need therapeutic paracentesis prior to discharge given the ascites noted on exam #Neutrophilic leukocytosis, anemia - She likely has neutrophilic leukocytosis due to colony growth stimulating factor she is receiving with chemotherapy, last received on 11/28/2024 - She does have positive UA with nitrite and is being treated empirically with antibiotics that could also be contributing - She is receiving ASHLEIGH with chemotherapy as well due to prior persistent anemia from chemotherapy - Continue antibiotics and infectious workup - Monitor CBC daily and transfuse for hemoglobin less than 7 and platelets less than or equal to 10,000 or any bleeding episode #Metastatic pancreatic cancer -Initially diagnosed in March 2021 and underwent surgery with evidence of duodenal involvement and 12 of 22 lymph nodes being positive - She completed 12 cycles of adjuvant FOLFIRINOX followed by concurrent Xeloda/RT to the surgical bed - She had evidence of potential localized recurrence in May 2024 in the surgical bed and abdominal lymph nodes with most recent PET/CT in September 2024 showing evidence of response following 3 cycles of gemcitabine/Abraxane - The episodes of recurrent ascites are likely not due to malignancy as there have been 2 fluid cytologies that have been negative for malignancy and is more likely due to underlying cirrhosis - She next has day 15 of chemotherapy scheduled for 12/05/2024, which may need to be rescheduled pending clinical course Discussed with , sister, and mother at bedside Mady Sol MD
[2024-12-02] MEDS: VANCOMYCIN 1,000 MG in SODIUM CHLORIDE 0.9% 250 ML IVPB SCH (17:45)
[2024-12-02] MEDS: FAMOTIDINE 20 MG/2 ML VIAL IV SCH (22:56)
[2024-12-02] MEDS: HEPARIN SODIUM,PORCINE 5,000 UNIT/ML 1 ML VIAL SQ SCH (22:56)
[2024-12-02] MEDS: HYDROCORTISONE 2.5% RECTAL CREAM 30 GM TUBE RECTAL SCH (22:57)
[2024-12-03] MEDS: LORazepam 0.5 MG TAB PO PRN (02:33)
[2024-12-03] MEDS: SPIRONOLACTONE 25 MG TAB PO SCH (08:34)
[2024-12-03] MEDS: HYDROmorphone 0.5 MG/0.5 ML SYRINGE IVP PRN (08:54)
[2024-12-03 09:51] LABS: Basophils # (A) 0.01 X 10*3/uL (0.00-0.10); Basophils % (A) 0.2 %; Eosinophils # (A) 0 X 10*3/uL (0.04-0.35); Eosinophils % (A) 0 %; HCT 21.5 % (37.2-46.3); Lymphocytes # (A) 0.22 X 10*3/uL (0.90-5.00); Lymphocytes % (A) 4.1 %; MCH 33.5 pg (27.0-32.0); MCHC 32.6 g/dL (32.0-37.0); MCV 102.9 FL (80.0-97.0); Monocytes # (A) 0.08 X 10*3/uL (0.20-1.00); Monocytes % (A) 1.5 %; NRBC Per 100 WBC 0 X 10*3/uL (0.00-0.01); Neutrophils # (A) 5.08 X 10*3/uL (1.80-7.70); Platelet Count 91 X 10*3/uL (140-440); RBC 2.09 X 10*6/uL (4.10-5.20); RDW 17.5 % (11.5-14.5)
--- NOTE | 2024-12-03 10:32 | P.GSCN ---
History of Present Illness Consult date: 12/03/24 Reason for Consult: Fecaloma History of present illness: This is a 49-year-old female with history of metastatic pancreatic cancer. Patient apparently has had issues with constipation. 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 The patient is having some diarrhea around the fecal ball. Past Medical History Past Medical History: Cancer, GERD/Reflux, Hypertension, Musculoskeletal Disorder Additional Past Medical History / Comment(s): Current pancreatic cancer. Unnamed autoimmune disorder-elevated WENDY. 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 Past Anesthesia/Blood Transfusion Reactions: Postoperative Nausea & Vomiting (PONV) Additional Past Anesthesia/Blood Transfusion Reaction / Comm: Jehovah's wittness - no blood products Past Psychological History: Anxiety, Depression Additional Psychological History / Comment(s): health related Smoking Status: Never smoker Past Alcohol Use History: Occasional Additional Past Alcohol Use History / Comment(s): 4-5 drinks/week Past Drug Use History: None Reported - Past Family History Brother(s) Family Medical History: Cancer Additional Family Medical History / Comment(s): Testicular cancer. Medications and Allergies Home Medications Medication Instructions Recorded Confirmed Type Cholecalciferol [Vitamin D3 (125 125 mcg PO DAILY 10/11/21 12/02/24 History Mcg = 5000 Iu)] LORazepam [Ativan] 0.5 mg PO TID PRN 10/11/21 12/02/24 History Ondansetron Odt [Zofran ODT] 4 mg PO Q6H PRN 10/11/21 12/02/24 History Prochlorperazine [Compazine] 10 mg PO Q8H PRN 10/06/24 12/02/24 History Spironolactone [Aldactone] 25 mg PO DAILY 10/29/24 12/02/24 History Furosemide [Lasix] 20 mg PO BID@0900,1600 11/13/24 12/02/24 History Albuterol Sulfate [Albuterol 2 puff INHALATION RT-Q4H PRN 12/02/24 12/02/24 History Sulfate Hfa] Creon (Unknown Dose) 1 dose PO DIRECTED 12/02/24 12/02/24 History Magnesium Oxide [Mag-Ox] 400 mg PO DAILY 12/02/24 12/02/24 History Potassium Chloride ER [K-Dur 20] 20 meq PO DAILY 12/02/24 12/02/24 History hydrOXYzine HCL [Atarax] 25 - 50 mg PO BID PRN 12/02/24 12/02/24 History Allergies Allergy/AdvReac Type Severity Reaction Status Date / Time ciprofloxacin [From Cipro] Allergy Rash/Hives Verified 12/02/24 10:14 erythromycin base Allergy Rash/Hives Verified 12/02/24 10:14 [From Erythrocin] latex Allergy Rash/Hives Verified 12/02/24 10:14 oseltamivir [From Tamiflu] Allergy Rash/Hives Verified 12/02/24 10:14 Penicillins Allergy Rash/Hives Verified 12/02/24 10:14 sulfamethoxazole Allergy Rash/Hives Verified 12/02/24 10:14 [From Bactrim] trimethoprim [From Bactrim] Allergy Rash/Hives Verified 12/02/24 10:14 Surgical - Exam Vital Signs Temp Pulse Resp BP Pulse Ox 98.4 F 128 H 16 103/85 99 12/02/24 04:38 12/02/24 04:38 12/02/24 04:38 12/02/24 04:38 12/02/24 04:38 - General cachectic, chronically ill - Eyes PERRL - ENT normal pinna - Neck no masses - Abdomen Abdomen: soft, tender (Mild tenderness) Results - Labs 12/03/24 03:13 12/02/24 04:53 Abnormal Lab Results - Last 24 Hours (Table) 12/02/24 12/03/24 Range/Units 16:56 03:13 RBC 2.09 L (4.10-5.20) X 10*6/uL Hgb 7.0 L (12.0-15.0) g/dL Hct 21.5 L (37.2-46.3) % MCV 102.9 H (80.0-97.0) FL MCH 33.5 H (27.0-32.0) pg RDW 17.5 H (11.5-14.5) % Plt Count 91 L (140-440) X 10*3/uL Lymphocytes # 0.22 L (0.90-5.00) X 10*3/uL Monocytes # 0.08 L (0.20-1.00) X 10*3/uL Eosinophils # 0 L (0.04-0.35) X 10*3/uL Ammonia 66 H (<30) umol/L Assessment and Plan Plan: Fecaloma. Patient will receive soapsuds enemas today. Hopefully this will be a noninvasive way to flush out the rectal fecal ball. Patient may require manual disimpaction.
[2024-12-03 12:21] LABS: Albumin 2.3 g/dL (3.8-4.9); Albumin/Globulin Ratio 1.15 Ratio (1.60-3.17); Bilirubin, Conjugated 1.34 mg/dL (0.20-0.40); Bilirubin,Unconjugated 0.76 mg/dL (0.20-1.00); Total Bilirubin 2.1 mg/dL (0.3-1.2); Total Protein 4.3 g/dL (6.2-8.2)
--- NOTE | 2024-12-03 13:02 | P.PN ---
Subjective Progress Note Date: 12/03/24 I am following up with the patient and she is accompanied with her , parents who feel patient is drastically better today compared to initial presentation. No further body shaking. According to the he was notified that the patient has cirrhosis. Seems that the patient is very constipated and she is being given an enema. Her ammonia level is lower today. Prior to my examination the patient was given Dilaudid. Objective - Vital Signs Vital signs: Vital Signs Temp 97.5 F L 12/03/24 08:33 Pulse 115 H 12/03/24 08:33 Resp 18 12/03/24 08:33 BP 111/72 12/03/24 08:33 Pulse Ox 100 12/03/24 08:33 FiO2 Intake & Output 12/02/24 12/03/24 12/03/24 18:59 06:59 18:59 Output Total 300 Balance -300 Weight 52.163 kg Output: Urine 300 Straight 100 Other: Voiding Method Bedside Commode # Voids 2 1 # Bowel Movements 1 - Exam General: Lying in bed and is not in acute distress. Neuro: Limited because of her drowsiness and was given Dilaudid. Patient is more awake both today compared to yesterday and she is oriented to self place and time. Is following simple commands. No facial weakness. No dysarthria Motor is left and bilateral upper extremity above gravity. Some of the workup during this hospital visit consisted of: White blood cell is 17.4 thousand and patient is afebrile Initial serum glucose is 138 and the POC glucose is 153. Sodium is 127 the last 1 month has been hovering in the mid 120s to 130. Ammonia Level is 134-->66 Reviewed the rest of the lab workup. CT of the head is reported as no acute intracranial hemorrhage, midline shift or mass effect. I personally reviewed the CT and agree with the report. MRI of the brain is reported as cortical thinning with increased signal invo lving the posterior left parietal region on both inversion recovery and T2 weighted imaging. This may reflect remote insult. No abnormal enhancement or abnormal diffusion in this region. No acute intracranial process seen. - Labs CBC & Chem 7: 12/03/24 03:13 12/02/24 04:53 Labs: Abnormal Lab Results - Last 24 Hours (Table) 04/26/25 04/27/25 04/27/25 Range/Units 16:56 03:13 03:13 RBC 2.09 L (4.10-5.20) X 10*6/uL Hgb 7.0 L (12.0-15.0) g/dL Hct 21.5 L (37.2-46.3) % MCV 102.9 H (80.0-97.0) FL MCH 33.5 H (27.0-32.0) pg RDW 17.5 H (11.5-14.5) % Plt Count 91 L (140-440) X 10*3/uL Lymphocytes # 0.22 L (0.90-5.00) X 10*3/uL Monocytes # 0.08 L (0.20-1.00) X 10*3/uL Eosinophils # 0 L (0.04-0.35) X 10*3/uL Total Bilirubin 2.1 H (0.3-1.2) mg/dL Conjugated Bilirubin 1.34 H (0.20-0.40) mg/dL AST 49 H (13-35) U/L Alkaline Phosphatase 143 H (41-126) U/L Ammonia 66 H (<30) umol/L Total Protein 4.3 L (6.2-8.2) g/dL Albumin 2.3 L (3.8-4.9) g/dL Albumin/Globulin Ratio 1.15 L (1.60-3.17) Ratio Assessment and Plan Assessment: This is a 49-year-old woman with history of pancreatic cancer status post Whipple procedure, chemotherapy and had remission of her pancreatic cancer in 2023 who presents emergency department because of staring off and initial body jerking of 1 side then 1 to the other side of the upper extremity. She had elevated ammonia. Patient has cirrhosis. History of unresponsiveness with body jerking: Upon further detailed of the hi story and her presentation seems more toxic metabolic encephalopathy > seizure--currently is drastically better. MRI of the brain is negative for any acute process or enhancement. There is questionable insult in the left parietal region. Leukocytosis Elevated ammonia--trending down History of pancreatic cancer status post Whipple procedure and is on chemotherapy. She had a relapse of her cancer in 2023 and she is on intermittent chemotherapy. History of a ascites requiring paracentesis History of extremity edema Plan: Pending EEG which will be completed this Wednesday. During this hospital visit, Keppra 500 mg twice daily was started. If EEG is negative for seizure or discharges then recommend the patient to be weaned off Keppra. Initially I wanted to discontinue it but mother wants to keep it until EEG and if negative for seizure or no further seizure-like activity then will wean down. Seizure precautions seizure pads Patient is on lactulose On Ativan 1 mg every 4 hours as needed for seizures Oncology is consulted Will defer the rest of the medical management to primary and other specialist Plan discussed with the patient's who is at bedside as well as her mother. Dr. Ramachandran will resume neurology service tomorrow A.M. Time with Patient: Less than 30
--- NOTE | 2024-12-03 15:11 | P.PN ---
Subjective Progress Note Date: 12/03/24 Principal diagnosis: Pancreatic cancer - MRI yesterday afternoon revealed no acute pathology - No acute events overnight - Continues to feel weak, but has improved mental status and is more conversive Objective - Vital Signs Vital signs: Vital Signs Temp 97.5 F L 12/03/24 08:33 Pulse 115 H 12/03/24 08:33 Resp 18 12/03/24 08:33 BP 111/72 12/03/24 08:33 Pulse Ox 100 12/03/24 08:33 FiO2 Intake & Output 12/02/24 12/03/24 12/03/24 18:59 06:59 18:59 Output Total 300 Balance -300 Weight 52.163 kg Output: Urine 300 Straight 100 Other: Voiding Method Bedside Commode # Voids 2 1 # Bowel Movements 1 - Constitutional General appearance: Present: cooperative, no acute distress - EENT Eyes: Present: EOMI - Respiratory Details: Nonlabored breathing - Cardiovascular Details: Warm and well-perfused - Gastrointestinal General gastrointestinal: Present: distended, soft - Integumentary Integumentary: Present: jaundiced - Neurologic Neurologic: Present: CNII-XII intact. Absent: focal deficits - Psychiatric Psychiatric Comment(s): Waning mental status, improved from yesterday - Labs CBC & Chem 7: 12/03/24 03:13 12/02/24 04:53 Labs: Abnormal Lab Results - Last 24 Hours (Table) 12/02/24 12/03/24 12/03/24 Range/Units 16:56 03:13 03:13 RBC 2.09 L (4.10-5.20) X 10*6/uL Hgb 7.0 L (12.0-15.0) g/dL Hct 21.5 L (37.2-46.3) % MCV 102.9 H (80.0-97.0) FL MCH 33.5 H (27.0-32.0) pg RDW 17.5 H (11.5-14.5) % Plt Count 91 L (140-440) X 10*3/uL Lymphocytes # 0.22 L (0.90-5.00) X 10*3/uL Monocytes # 0.08 L (0.20-1.00) X 10*3/uL Eosinophils # 0 L (0.04-0.35) X 10*3/uL Total Bilirubin 2.1 H (0.3-1.2) mg/dL Conjugated Bilirubin 1.34 H (0.20-0.40) mg/dL AST 49 H (13-35) U/L Alkaline Phosphatase 143 H (41-126) U/L Ammonia 66 H (<30) umol/L Total Protein 4.3 L (6.2-8.2) g/dL Albumin 2.3 L (3.8-4.9) g/dL Albumin/Globulin Ratio 1.15 L (1.60-3.17) Ratio Microbiology - Last 24 Hours (Table) 12/02/24 06:22 Blood Culture - Preliminary Blood Assessment and Plan (1) Metabolic encephalopathy Current Visit: Yes Status: Acute Code(s): G93.41 - METABOLIC ENCEPHALOPATHY SNOMED Code(s): 52004265 (2) Pancreatic carcinoma metastatic to intra-abdominal lymph node Current Visit: Yes Status: Acute Code(s): C25.9 - MALIGNANT NEOPLASM OF PANCREAS, UNSPECIFIED; C77.2 - SECONDARY AND UNSP MALIGNANT NEOPLASM OF INTRA- ABD NODES SNOMED Code(s): 4539104674 (3) Neutrophilic leukocytosis Current Visit: Yes Status: Acute Code(s): D72.828 - OTHER ELEVATED WHITE BLOOD CELL COUNT SNOMED Code(s): 240392995 (4) Anemia due to antineoplastic agent Current Visit: Yes Status: Acute Code(s): D64.81 - ANEMIA DUE TO ANTINEOPLASTIC CHEMOTHERAPY; T45.1X5A - ADVERSE EFFECT OF ANTINEOPLASTIC AND IMMUNOSUP DRUGS, INIT SNOMED Code(s): 744096474482098 Plan: #Metabolic encephalopathy - Presented with episode of unresponsiveness prior to presentation - Noted to have elevated ammonia of 134 on initial labs - CT on admission as well as MRI on 11/29/2024 at [facility] note evidence of portal hypertension with moderate ascites and splenomegaly with MRI noting evidence of cirrhosis - Agree with lactulose 30 mg 4 times daily as started per primary team - MRI of the brain revealed no acute pathology - Per neurology, she will undergo EEG on 12/04/2024. After which, Keppra can be discontinued if there is no evidence of significant abnormality - We discussed that she likely has metabolic encephalopathy due to underlying liver disease - We did have an extended discussion with regards to cirrhosis, but I feel she would ultimately benefit from gastroenterology consultation - Order for paracentesis placed today # Anemia, multifactorial - She is receiving ASHLEIGH with chemotherapy as well due to prior persistent anemia from chemotherapy, last received on 11/28/2024 - In addition, she may have anemia of inflammation secondary to underlying cirrhosis - Continue antibiotics and infectious workup - Anemia workup ordered today - Monitor CBC daily and transfuse for hemoglobin less than 7 and platelets less than or equal to 10,000 or any bleeding episode #Metastatic pancreatic cancer -Initially diagnosed in March 2021 and underwent surgery with evidence of duodenal involvement and 12 of 22 lymph nodes being positive - She completed 12 cycles of adjuvant FOLFIRINOX followed by concurrent Xeloda/RT to the surgical bed - She had evidence of potential localized recurrence in May 2024 in the surgical bed and abdominal lymph nodes with most recent PET/CT in September 2024 showing evidence of response following 3 cycles of gemcitabine/Abraxane - The episodes of recurrent ascites are likely not due to malignancy as there have been 2 fluid cytologies that have been negative for malignancy and is more likely due to underlying cirrhosis - She next has day 15 of chemotherapy scheduled for 12/05/2024, which may need to be rescheduled pending clinical course Discussed with family at bedside Mady Sol MD
[2024-12-03 16:10] LABS: Blood Urea Nitrogen 12.9 mg/dL (9.0-27.0); Chloride 100 mmol/L (96-109); Glucose 142 mg/dL (70-110); Potassium 3.2 mmol/L (3.5-5.5); Sodium 134 mmol/L (135-145)
[2024-12-03 16:11] LABS: Calcium 7.8 mg/dL (8.7-10.3); Carbon Dioxide 21.4 mmol/L (21.6-31.8)
[2024-12-03 17:47] LABS: T4, Free (Free Thyroxine) 1.51 ng/dL (0.78-2.19)
[2024-12-03] MEDS ORDERED: Potassium Replacement Protocol 1 EACH MISC MISCELLANE PRN (20:26)
--- NOTE | 2024-12-03 20:43 | P.PN ---
Subjective This is a pleasant 49 years old female with a known case of pancreatic cancer with ascites. Presents because of. No unresponsiveness. Information was obtained with the help of the family including the mother and her best friend who is her second advocate after her . Her name is Dany. Yesterday wanted to check on his and she was sitting on the toilet unresponsive not talking not moving and they called EMS who brought her to the emergency room. Patient cannot recall of these events or what happened. There is no mention of seizure-like activities. Patient was standing her best friend she was feeling tired and fatigued the whole day yesterday but no other specific symptoms no diarrhea or urinary complaints or dysuria no vomiting or abdominal pain. No chest pain or dyspnea. Even currently patient denies all the symptoms. Also she denies headache dizziness weakness or numbness. Last Wednesday she underwent paracentesis, Wednesday she got chemotherapy here in [place] with Dr. Hoyt, on Wednesday she had MRI of the abdomen and her liver with department/[facility] [place] she followed up with her oncologist at [facility] who discussed nutrition with her and she was doing well. Also 2 days ago she was doing fine and her symptoms started yesterday. On admission she is hemodynamically stable, slightly hypertensive slightly tachycardic She has leukocytosis of 17.4 and hemoglobin at baseline of 9 with baseline 7-9. Sodium is low 127. Ammonia level elevated with 34, urine drug screen is negative as well as serum salicylate acetaminophen and alcohol. CT of the brain is negative. Chest x-ray showed no acute process. CT of the abdomen and pelvis showing portal hypertension with splenomegaly and ascites with anasarca. Also there is thickening of the wall of the ascending colon suspicious for ascending colitis and rectal fecaloma. Patient was started with IV vancomycin and cefepime Ringer lactate at 100 mL/h and admitted with neurology and hematology/oncology team consult 12/03 Patient mentation significantly improved and she is awake alert oriented, she feels tired. MRI of the brain was negative for acute infarct. Neurology plan for EEG however the suspicion of seizure and patient was started on IV Keppra She remains treated for colitis with IV cefepime and IV vancomycin started in the emergency room. IV vancomycin pharmacy to dose. Will request for MRSA screen. Follow-up culture results Patient with abdominal ascites, cirrhosis is suspected with a view of her panc reatic cancer. Patient has portal hypertension and splenomegaly. Liver enzymes are stable. Will check liver enzymes tomorrow. Also paracentesis might benefit the patient. Severe leukocytosis on admission significantly improved 17.9 down to 5.4 and hemoglobin 9 down to 7.0. If it drops less than 7, transfuse monitor for blood. There is no evidence of bleeding Patient has been followed by surgery team for fecal mass in the rectum with enema as tried. Patient may require disimpaction. Blood pressure improved, still mildly tachycardic afebrile Family at bedside all questions answered Active Medications Generic Name Dose Route Start Last Admin Trade Name Freq PRN Reason Stop Dose Admin Albuterol Sulfate 2.5 mg 12/02/24 12:48 Albuterol Nebulized 2.5 Mg/3 Ml INHALATION RT-Q4H PRN Shortness Of Breath Famotidine 20 mg 12/03/24 21:00 Famotidine 20 Mg Tab PO BID JAGJIT Heparin Sodium (Porcine) 5,000 unit 12/02/24 21:00 12/03/24 08:34 Heparin Sodium,Porcine 5,000 Unit/Ml 1 Ml Vial SQ 5,000 unit Q12HR JAGJIT Administration Hydrocortisone 1 applic 12/02/24 21:00 12/03/24 08:35 Hydrocortisone 2.5% Rectal Cream 30 Gm Tube RECTAL 1 applic BID JAGJIT Administration Hydromorphone HCl 0.25 mg 12/03/24 08:27 12/03/24 15:22 Hydromorphone 0.5 Mg/0.5 Ml Syringe IVP 0.25 mg Q4HR PRN Administration Pain Hydroxyzine HCl 25 mg 12/02/24 12:48 Hydroxyzine Hcl 25 Mg Tab PO BID PRN Anxiety Lactated Ringer's 1,000 mls @ 100 mls/hr 12/02/24 06:15 12/03/24 05:26 Lactated Ringers IV 100 mls/hr .Q10H JAGJIT Administration Vancomycin HCl 1,000 mg/ 250 mls @ 125 mls/hr 12/02/24 18:00 12/03/24 17:25 Sodium Chloride IVPB 125 mls/hr Q12H JAGJIT Administration Cefepime HCl 2 gm/ Dextrose/ 100 mls @ 25 mls/hr 12/03/24 00:00 12/03/24 15:21 Water IVPB 25 mls/hr Q8HR JAGJIT Administration Protocol Lactulose 30 gm 12/02/24 07:00 12/03/24 17:25 Lactulose 20 Gm/30 Ml Cup PO 30 gm QID JAGJIT Administration Levetiracetam 500 mg 12/02/24 12:15 12/03/24 08:34 Levetiracetam Iv 500 Mg/5 Ml Vial IVP 500 mg Q12HR JAGJIT Administration Lorazepam 0.5 mg 12/02/24 12:48 12/03/24 02:33 Lorazepam 0.5 Mg Tab PO 0.5 mg TID PRN Administration Anxiety Miscellaneous Information 0 each 12/04/24 05:00 Vancomycin Trough Due 1 Each Misc MISCELLANE 12/04/24 05:01 DIRECTED ONE Naloxone HCl 0.2 mg 12/02/24 09:09 Naloxone 0.4 Mg/Ml 1 Ml Vial IV Q2M PRN Opioid Reversal Ondansetron HCl 4 mg 12/02/24 12:48 Ondansetron Odt 4 Mg Tab PO Q6H PRN Nausea Prochlorperazine Maleate 10 mg 12/02/24 12:48 Prochlorperazine 10 Mg Tab PO Q8H PRN Nausea Spironolactone 25 mg 12/03/24 09:00 12/03/24 08:34 Spironolactone 25 Mg Tab PO 25 mg DAILY JAGJIT Administration Objective - Vital Signs Vital signs: Vital Signs Temp 97.5 F L 12/03/24 08:33 Pulse 115 H 12/03/24 08:33 Resp 18 12/03/24 08:33 BP 111/72 12/03/24 08:33 Pulse Ox 100 12/03/24 08:33 FiO2 Intake & Output 12/02/24 12/03/24 12/03/24 18:59 06:59 18:59 Output Total 300 Balance -300 Weight 52.163 kg Output: Urine 300 Straight 100 Other: Voiding Method Bedside Commode # Voids 2 1 # Bowel Movements 1 - Exam -GENERAL: The patient is alert and oriented x3, lethargic not in any acute distress. Well developed, well nourished. HEENT: Pupils are round and equally reacting to light. EOMI. No scleral icterus. No conjunctival pallor. Normocephalic, atraumatic. No pharyngeal erythema. No thyromegaly. CARDIOVASCULAR: S1 and S2 present. No murmurs, rubs, or gallops. PULMONARY: Chest is clear to auscultation, no wheezing , no crackles. -ABDOMEN: Soft, nontender, distended, normoactive bowel sounds. No palpable organomegaly. MUSCULOSKELETAL: No joint swelling or deformity. -EXTREMITIES: No cyanosis, clubbing. Bilateral leg edema. NEUROLOGICAL: Gross neurological examination did not reveal any focal deficits. SKIN: No rashes. no petechiae. - Labs CBC & Chem 7: 12/03/24 03:13 12/03/24 03:13 Labs: Abnormal Lab Results - Last 24 Hours (Table) 12/02/24 12/03/24 12/03/24 Range/Units 16:56 03:13 03:13 RBC 2.09 L (4.10-5.20) X 10*6/uL Hgb 7.0 L (12.0-15.0) g/dL Hct 21.5 L (37.2-46.3) % MCV 102.9 H (80.0-97.0) FL MCH 33.5 H (27.0-32.0) pg RDW 17.5 H (11.5-14.5) % Plt Count 91 L (140-440) X 10*3/uL Lymphocytes # 0.22 L (0.90-5.00) X 10*3/uL Monocytes # 0.08 L (0.20-1.00) X 10*3/uL Eosinophils # 0 L (0.04-0.35) X 10*3/uL Total Bilirubin 2.1 H (0.3-1.2) mg/dL Conjugated Bilirubin 1.34 H (0.20-0.40) mg/dL AST 49 H (13-35) U/L Alkaline Phosphatase 143 H (41-126) U/L Ammonia 66 H (<30) umol/L Total Protein 4.3 L (6.2-8.2) g/dL Albumin 2.3 L (3.8-4.9) g/dL Albumin/Globulin Ratio 1.15 L (1.60-3.17) Ratio Assessment and Plan Assessment: Acute encephalopathy, rule out seizure on top of metabolic/toxic encephalopathy Hepatic encephalopathy Ascending colitis Sepsis with leukocytosis and tachycardia tachypnea Pancreatic cancers with ascites on chemotherapy Portal hypertension with splenomegaly, could be related to liver disease for example cirrhosis or her malignancy. Hypovolemic hyponatremia Chronic anemia Rectal fecaloma Plan: Continue antibiotic cefepime and IV vancomycin pharmacy to dose Patient started on Keppra per neurologist Ringer lactate IV at 100 mL/h Follow-up culture results Continue with lactulose Hematology/oncology, neurology and general surgery team. Patient full code per family Further recommendation based on the clinical course GI prophylaxis Pepcid DVT prophylaxis subcu heparin Prognosis is guarded
[2024-12-03] MEDS: POTASSIUM CHLORIDE ER 20 MEQ TAB.ER PO SCH (22:08)
[2024-12-03] MEDS: FAMOTIDINE 20 MG TAB PO SCH (22:08)
[2024-12-04] MEDS: VANCOMYCIN TROUGH DUE 1 EACH MISC MISCELLANE ONE (05:57)
[2024-12-04 06:09] LABS: ALT 23 U/L (4-34); AST 37 U/L (14-36); African American GFR (CKD) >90 (>60 ml/min/1.73 sqM); Albumin/Globulin Ratio 0.8; Alkaline Phosphatase 133 U/L (38-126); Anion Gap 7 mmol/L; Bilirubin,Unconjugated 1.9 mg/dL (0.0-1.1); Blood Urea Nitrogen 11 mg/dL (7-17); Calcium 8.2 mg/dL (8.4-10.2); Carbon Dioxide 25 mmol/L (22-30); Chloride 99 mmol/L (98-107); Globulin 2.5 g/dL; Glucose 126 mg/dL (74-99); Magnesium 1.6 mg/dL (1.6-2.3); Non-African American GFR(CKD) >90 (>60 ml/min/1.73 sqM); Sodium 131 mmol/L (137-145); Total Bilirubin 2.6 mg/dL (0.2-1.3); Total Protein 4.5 g/dL (6.3-8.2)
[2024-12-04] MEDS ORDERED: Potassium Replacement Protocol 1 EACH MISC MISCELLANE PRN (07:41)
[2024-12-04] MEDS: POTASSIUM CHLORIDE ER 20 MEQ TAB.ER PO SCH (08:40)
[2024-12-04] MEDS: FUROSEMIDE 40 MG TAB PO SCH (09:10)
[2024-12-04 09:35] LABS: % Iron Saturation 90.12 (12.00-45.00); Iron 73 UG/DL (50-170); Total Iron Binding Capacity 81 UG/DL (228-460)
[2024-12-04 09:49] LABS: HCT 22.2 % (37.2-46.3); HGB 7.1 g/dL (12.0-15.0); Immature Platelet Fraction 1.3 % (1.1-6.1); MCH 33.5 pg (27.0-32.0); MCV 104.7 FL (80.0-97.0); Mean Platelet Volume 10.5 FL (9.5-12.2); NRBC Per 100 WBC 0 X 10*3/uL (0.00-0.01); Platelet Count 59 X 10*3/uL (140-440); RBC 2.12 X 10*6/uL (4.10-5.20); RDW 17.7 % (11.5-14.5); WBC 0.52 X 10*3/uL (4.50-10.00)
[2024-12-04 10:00] LABS: Basophils # (M) 0 X 10*3/uL (0.00-0.10); Eosinophils # (M) 0.01 X 10*3/uL (0.04-0.35); Lymphocytes # (M) 0.23 X 10*3/uL (0.90-5.00); Macrocytosis (M) 2+ (None Seen); Monocytes # (M) 0.01 X 10*3/uL (0.20-1.00); Neutrophils # (M) 0.27 X 10*3/uL (1.80-7.70); Neutrophils % (M) 51 %
[2024-12-04 10:04] LABS: Vitamin B12 >3600.0 pg/mL (200.0-944.0)
--- NOTE | 2024-12-04 10:06 | CT ---
EXAMINATION TYPE: CT abdomen pelvis wo con DATE OF EXAM: 12/04/2024 9:23 AM COMPARISON: 12/02/2024 CLINICAL INDICATION: Female, 49 years old with history of rule out blockage, TECHNIQUE: Axial images with sagittal coronal reformats. Examination of the solid and hollow viscera is limited given the lack of contrast. CT DLP: mGycm, Automated exposure control for dose reduction was used. FINDINGS: LUNG BASES: No evidence for nodule. No evidence for infiltrate. LIVER/GB: The gallbladder is unremarkable. No space-occupying hepatic lesion. There is new linear foc i of air within the central liver. This is unlikely to reflect pneumobilia as was not present previou sly. This does raise the possibility of infarcted bowel. Correlate clinically. PANCREAS: Changes of prior Whipple procedure with persistent soft tissue in the region of the peripor derick region which may reflect residual pancreatic neoplasm. SPLEEN: Splenomegaly with AP measurement of 15 cm. No intrasplenic lesions seen. ADRENALS: No adrenal nodules identified. No evidence for thickening. KIDNEYS: No evidence for renal mass. No nephrolithiasis. No hydronephrosis. BOWEL: There are a couple mural foci of air involving the cecum with surrounding inflammatory changes . This raises the possibility of pneumatosis. See coronal image 41 as well as axial images 64 and 62. There is distended small bowel can be seen in patient's with ileus. No definite transition zone appr eciated. Lymph nodes: No evidence for adenopathy greater than 1 cm. Abdominal aorta: Atheromatous changes seen. No evidence for aneurysm. Genital organs: No significant abnormality. Other: Moderate ascites redemonstrated. IMPRESSION: 1.There is new linear foci of air within the central liver. This is unlikely to reflect pneumobilia a s was not present previously. This does raise the possibility of infarcted bowel. There are a couple mural foci of air involving the cecum with surrounding inflammatory changes. This raises the possibil ity of pneumatosis. Correlate clinically. 2. Changes of Whipple procedure with persistent soft tissue pancreatic head. 3. Changes of portal venous hypertension remain unchanged. A Red level critical message alert has been initiated for Yaya Tolentinoroxannetyron via the [employer] System on 12/04/2024 10:03 AM. This message alert has been sent to Yaya Laws via the preferences provided by the clinician for the receipt of Radiology Critical Findings. Message ID [id number]. [facility], , 12/04/2024 10:04 AM
--- NOTE | 2024-12-04 10:48 | P.PN ---
Progress Note - Text Progress Note Date: 12/04/24 Patient had a repeat CAT scan performed to evaluate her fecaloma the rectum. Patient received soapsuds enemas yesterday. The fecaloma appears to be resolved. The CT findings today show evidence of possible pneumobilia which raises the question of infarcted bowel. I discussed the CT findings with the family, , mother and sister. The family and I both agree the patient is a nonoperative candidate. The patient will be managed medically due to her underlying comorbidities.
--- NOTE | 2024-12-04 12:40 | US ---
EXAMINATION TYPE: US paracentesis abd w/image DATE OF EXAM: December 04 2024 COMPARISON: Most recent ultrasound [address] abdomen and pelvis earlier today. CLINICAL INDICATION:Female, 49 years old with history of other ascites. Pancreatic cancer. Abdominal pain. ATTENDING: Dr. Nicolas PROCEDURE: Informed consent was obtained. The risks of the procedure were extensively explained incl uding risk of damage to surrounding bowel with perforation and need for additional procedures. Proced ure was performed in ultrasound suite. Ultrasound imaging of the abdomen demonstrate small amount ascitic fluid adjacent to liver. An approp riate access site was localized to the right lateral abdomen. Timeout was taken per protocol. The ski n was prepped and draped in the usual sterile fashion and then locally anesthetized with 1% lidocaine . The peritoneal cavity was then accessed via a 5-Khmer one-step needle/catheter. Approximately 95 0 mL of clear straw-colored fluid was obtained for diagnostic and therapeutic purposes. Patient tolerated procedure well without immediate complication. Hemostasis at the procedural site w as obtained with a sterile bandage placed. The patient was monitored in the holding area following th e procedure and subsequently returned to floor in stable condition. IMPRESSION: Ultrasound guided paracentesis for diagnostic and therapeutic purposes, with approximately 950 mL of clear straw-colored fluid drained. No immediate complications were evident. [facility], , 12/04/2024 12:38 PM
--- NOTE | 2024-12-04 14:16 | P.PN ---
Subjective Progress Note Date: 12/04/24 Patient was initially seen by Dr. Riki Gardner. Please refer to his notes for details. Patient is a 49-year-old female with shaking episode, staring off. Patient has history of pancreatic cancer with metastasis, ascites. Ammonia level was 134, significantly elevated. Dr. Gardner feels it is more toxic m etabolic encephalopathy. MRI brain showed likely old lesion left parietal region. Patient had an EEG performed. Patient has been placed on Keppra prophylactically. Multiple family members were present. They believe patient is doing much better. No further seizure-like activity since Wednesday. Patient appears very nervous, anxious "I do not want to ". Some of the workup during this hospital visit consisted of: White blood cell is 17.4 thousand and patient is afebrile Initial serum glucose is 138 and the POC glucose is 153. Sodium is 127 the last 1 month has been hovering in the mid 120s to 130. Ammonia Level is 134-->66 Reviewed the rest of the lab workup. CT of the head is reported as no acute intracranial hemorrhage, midline shift or mass effect. I personally reviewed the CT and agree with the report. MRI of the brain is reported as cortical thinning with increased signal involving the posterior left parietal region on both inversion recovery and T2 weighted imaging. This may reflect remote insult. No abnormal enhancement or abnormal diffusion in this region. No acute intracranial process seen. Objective - Vital Signs Vital signs: Vital Signs Temp 98.4 F 12/04/24 07:10 Pulse 101 H 12/04/24 11:11 Resp 18 12/04/24 11:11 BP 105/64 12/04/24 11:11 Pulse Ox 97 12/04/24 11:11 FiO2 Intake & Output 12/03/24 12/04/24 12/04/24 18:59 06:59 18:59 Intake Total 480 Balance 480 Intake: Oral 480 Other: Voiding Method Bedside Commode Bedside Commode # Voids 3 2 2 # Bowel Movements 3 1 2 - Exam Patient is alert and awake, fully oriented. Patient appears cachectic. Patient knows it is November and the year is 2024 but she thinks the date is (actually ). She knows that she is in [facility] imported on [place]. Speech and language functions are normal. No tremors of outstretched hands. - Labs CBC & Chem 7: 12/04/24 05:45 12/04/24 05:45 Labs: Abnormal Lab Results - Last 24 Hours (Table) 12/03/24 12/03/24 12/04/24 Range/Units 03:13 03:13 05:45 WBC (4.50-10.00) X 10*3/uL RBC (4.10-5.20) X 10*6/uL Hgb (12.0-15.0) g/dL Hct (37.2-46.3) % MCV (80.0-97.0) FL MCH (27.0-32.0) pg RDW (11.5-14.5) % Plt Count (140-440) X 10*3/uL Neutrophils # (Manual) (1.80-7.70) X 10*3/uL Lymphocytes # (Manual) (0.90-5.00) X 10*3/uL Monocytes # (Manual) (0.20-1.00) X 10*3/uL Eosinophils # (Manual) (0.04-0.35) X 10*3/uL Macrocytosis (manual) (None Seen) Sodium 134 L 131 L (135-145) mmol/L Potassium 3.2 L 3.0 L (3.5-5.5) mmol/L Carbon Dioxide 21.4 L (21.6-31.8) mmol/L Anion Gap 12.60 H (4.00-12.00) mmol/L BUN/Creatinine Ratio 21.50 H (12.00-20.00) Ratio Glucose 142 H 126 H (70-110) mg/dL Calcium 7.8 L 8.2 L (8.7-10.3) mg/dL TIBC 81 L (228-460) UG/DL % Saturation 90.12 H (12.00-45.00) Transferrin 57.7 L (204.0-354.0) mg/dL Ferritin 319.0 H (10.0-291.0) ng/mL Total Bilirubin 2.6 H (0.2-1.3) mg/dL Unconjugated Bilirubin 1.9 H (0.0-1.1) mg/dL AST 37 H (14-36) U/L Alkaline Phosphatase 133 H (38-126) U/L Total Protein 4.5 L (6.3-8.2) g/dL Albumin 2.0 L (3.5-5.0) g/dL Vitamin B12 >3600.0 H (200.0-944.0) pg/mL TSH 5.810 H (0.465-4.680) mIU/L 12/04/24 Range/Units 05:45 WBC 0.52 A* (4.50-10.00) X 10*3/uL RBC 2.12 L (4.10-5.20) X 10*6/uL Hgb 7.1 L (12.0-15.0) g/dL Hct 22.2 L (37.2-46.3) % MCV 104.7 H (80.0-97.0) FL MCH 33.5 H (27.0-32.0) pg RDW 17.7 H (11.5-14.5) % Plt Count 59 L (140-440) X 10*3/uL Neutrophils # (Manual) 0.27 A* (1.80-7.70) X 10*3/uL Lymphocytes # (Manual) 0.23 L (0.90-5.00) X 10*3/uL Monocytes # (Manual) 0.01 L (0.20-1.00) X 10*3/uL Eosinophils # (Manual) 0.01 L (0.04-0.35) X 10*3/uL Macrocytosis (manual) 2+ A (None Seen) Sodium (135-145) mmol/L Potassium (3.5-5.5) mmol/L Carbon Dioxide (21.6-31.8) mmol/L Anion Gap (4.00-12.00) mmol/L BUN/Creatinine Ratio (12.00-20.00) Ratio Glucose (70-110) mg/dL Calcium (8.7-10.3) mg/dL TIBC (228-460) UG/DL % Saturation (12.00-45.00) Transferrin (204.0-354.0) mg/dL Ferritin (10.0-291.0) ng/mL Total Bilirubin (0.2-1.3) mg/dL Unconjugated Bilirubin (0.0-1.1) mg/dL AST (14-36) U/L Alkaline Phosphatase (38-126) U/L Total Protein (6.3-8.2) g/dL Albumin (3.5-5.0) g/dL Vitamin B12 (200.0-944.0) pg/mL TSH (0.465-4.680) mIU/L Microbiology - Last 24 Hours (Table) 12/02/24 06:22 Blood Culture - Preliminary Blood Assessment and Plan Assessment: This is a 49-year-old woman with history of pancreatic cancer status post Whipple procedure, chemotherapy and had remission of her pancreatic cancer in 2023 who presents emergency department because of staring off and initial body jerking of 1 side then 1 to the other side of the upper extremity. She had elevated ammonia. Patient has cirrhosis. History of unresponsiveness with body jerking: Upon further detailed of the history and her presentation seems more toxic metabolic encephalopathy > s eizure--currently is drastically better. MRI of the brain is negative for any acute process or enhancement. There is questionable insult in the left parietal region. Leukocytosis Elevated ammonia--trending down History of pancreatic cancer status post Whipple procedure and is on chemotherapy. She had a relapse of her cancer in 2023 and she is on intermittent chemotherapy. History of a ascites requiring paracentesis History of extremity edema Plan: EEG just completed, we will review the results. During this hospital visit, Keppra 500 mg twice daily was started. As per Dr. Gardner's recommendations, if EEG is negative for seizure or discharges then recommend the patient to be weaned off Keppra. Initially Dr. Gardner wanted to discontinue it but mother wants to keep it until EEG and if negative for seizure or no further seizure-like activity then will wean down. Seizure precautions seizure pads Patient is on lactulose On Ativan 0.5 mg every 8 hours as needed for seizures Oncology is consulted Will defer the rest of the medical management to primary and other specialist
--- NOTE | 2024-12-04 16:34 | P.PN ---
Subjective Progress Note Date: 12/04/24 SURGICAL PROGRESS NOTE CHIEF COMPLAINT: Fecaloma HISTORY OF PRESENT ILLNESS: Patient did receive soapsuds enemas. She has had bowel movements. CT scan abdomen pelvis reported new linear foci of air within the central liver. This is unlikely to reflect pneumobilia as was not present previously. Does raise possibility of infarcted bowel. There are a couple mural foci of air of air involving the cecum with surrounding inflammatory changes. This raises possibility of pneumatosis. Dr. Laws reviewed CT scan results and has discussed findings with patient's family. Patient also underwent paracentesis with 950 mL fluid removed. PHYSICAL EXAM: VITAL SIGNS: Reviewed. GENERAL: no acute distress. ABDOMEN: Soft. Nondistended. mild tenderness ASSESSMENT: 1. Fecaloma improved after soapsuds enemas 2. Possible infarcted bowel 3. Metastatic pancreatic cancer PLAN: -Patient is a nonsurgical candidate -Recommend medical management due to her underlying comorbidities Physician Medical Cost Consultant note has been reviewed by physician. Signing provider agrees with the documented findings, assessment, and plan of care. Objective - Vital Signs Vital signs: Vital Signs Temp 98.3 F 12/04/24 13:56 Pulse 112 H 12/04/24 13:56 Resp 20 12/04/24 13:56 BP 99/65 12/04/24 13:56 Pulse Ox 100 12/04/24 13:56 FiO2 Intake & Output 12/03/24 12/04/24 12/04/24 18:59 06:59 18:59 Intake Total 480 Balance 480 Intake: Oral 480 Other: Voiding Method Bedside Commode Bedside Commode # Voids 3 2 2 # Bowel Movements 3 1 2 - Labs CBC & Chem 7: 12/04/24 05:45 12/04/24 05:45 Labs: Abnormal Lab Results - Last 24 Hours (Table) 12/03/24 12/03/24 12/04/24 Range/Units 03:13 03:13 05:45 WBC (4.50-10.00) X 10*3/uL RBC (4.10-5.20) X 10*6/uL Hgb (12.0-15.0) g/dL Hct (37.2-46.3) % MCV (80.0-97.0) FL MCH (27.0-32.0) pg RDW (11.5-14.5) % Plt Count (140-440) X 10*3/uL Neutrophils # (Manual) (1.80-7.70) X 10*3/uL Lymphocytes # (Manual) (0.90-5.00) X 10*3/uL Monocytes # (Manual) (0.20-1.00) X 10*3/uL Eosinophils # (Manual) (0.04-0.35) X 10*3/uL Macrocytosis (manual) (None Seen) Sodium 134 L 131 L (135-145) mmol/L Potassium 3.2 L 3.0 L (3.5-5.5) mmol/L Carbon Dioxide 21.4 L (21.6-31.8) mmol/L Anion Gap 12.60 H (4.00-12.00) mmol/L BUN/Creatinine Ratio 21.50 H (12.00-20.00) Ratio Glucose 142 H 126 H (70-110) mg/dL Calcium 7.8 L 8.2 L (8.7-10.3) mg/dL TIBC 81 L (228-460) UG/DL % Saturation 90.12 H (12.00-45.00) Transferrin 57.7 L (204.0-354.0) mg/dL Ferritin 319.0 H (10.0-291.0) ng/mL Total Bilirubin 2.6 H (0.2-1.3) mg/dL Unconjugated Bilirubin 1.9 H (0.0-1.1) mg/dL AST 37 H (14-36) U/L Alkaline Phosphatase 133 H (38-126) U/L Total Protein 4.5 L (6.3-8.2) g/dL Albumin 2.0 L (3.5-5.0) g/dL Vitamin B12 >3600.0 H (200.0-944.0) pg/mL TSH 5.810 H (0.465-4.680) mIU/L 12/04/24 Range/Units 05:45 WBC 0.52 A* (4.50-10.00) X 10*3/uL RBC 2.12 L (4.10-5.20) X 10*6/uL Hgb 7.1 L (12.0-15.0) g/dL Hct 22.2 L (37.2-46.3) % MCV 104.7 H (80.0-97.0) FL MCH 33.5 H (27.0-32.0) pg RDW 17.7 H (11.5-14.5) % Plt Count 59 L (140-440) X 10*3/uL Neutrophils # (Manual) 0.27 A* (1.80-7.70) X 10*3/uL Lymphocytes # (Manual) 0.23 L (0.90-5.00) X 10*3/uL Monocytes # (Manual) 0.01 L (0.20-1.00) X 10*3/uL Eosinophils # (Manual) 0.01 L (0.04-0.35) X 10*3/uL Macrocytosis (manual) 2+ A (None Seen) Sodium (135-145) mmol/L Potassium (3.5-5.5) mmol/L Carbon Dioxide (21.6-31.8) mmol/L Anion Gap (4.00-12.00) mmol/L BUN/Creatinine Ratio (12.00-20.00) Ratio Glucose (70-110) mg/dL Calcium (8.7-10.3) mg/dL TIBC (228-460) UG/DL % Saturation (12.00-45.00) Transferrin (204.0-354.0) mg/dL Ferritin (10.0-291.0) ng/mL Total Bilirubin (0.2-1.3) mg/dL Unconjugated Bilirubin (0.0-1.1) mg/dL AST (14-36) U/L Alkaline Phosphatase (38-126) U/L Total Protein (6.3-8.2) g/dL Albumin (3.5-5.0) g/dL Vitamin B12 (200.0-944.0) pg/mL TSH (0.465-4.680) mIU/L Microbiology - Last 24 Hours (Table) 12/02/24 06:22 Blood Culture - Preliminary Blood
--- NOTE | 2024-12-04 20:26 | P.PN ---
Progress Note - Text Progress Note Date: 12/04/24 This is a pleasant 49 years old female with a known case of pancreatic cancer with ascites. Presents because of. No unresponsiveness. Information was obtained with the help of the family including the mother and her best friend who is her second advocate after her . Her name is Dany. Yesterday wanted to check on his and she was sitting on the toilet unresponsive not talking not moving and they called EMS who brought her to the emergency room. Patient cannot recall of these events or what happened. There is no mention of seizure-like activities. Patient was standing her best friend she was feeling tired and fatigued the whole day yesterday but no other specific symptoms no diarrhea or urinary complaints or dysuria no vomiting or abdominal pain. No chest pain or dyspnea. Even currently patient denies all the symptoms. Also she denies headache dizziness weakness or numbness. Last Wednesday she underwent paracentesis, Wednesday she got chemotherapy here in [place] with Dr. Hoyt, on Wednesday she had MRI of the abdomen and her liver with department/[facility] she followed up with her oncologist at [facility] who discussed nutrition with her and she was doing well. Also 2 days ago she was doing fine and her symptoms started yesterday. On admission she is hemodynamically stable, slightly hypertensive slightly tachycardic She has leukocytosis of 17.4 and hemoglobin at baseline of 9 with baseline 7-9. Sodium is low 127. Ammonia level elevated with 34, urine drug screen is negative as well as serum salicylate acetaminophen and alcohol. CT of the brain is negative. Chest x-ray showed no acute process. CT of the abdomen and pelvis showing portal hypertension with splenomegaly and ascites with anasarca. Also there is thickening of the wall of the ascending colon suspicious for ascending colitis and rectal fecaloma. Patient was started with IV vancomycin and cefepime Ringer lactate at 100 mL/h and admitted with neurology and hematology/oncology team consult 12/03 Patient mentation significantly improved and she is awake alert oriented, she feels tired. MRI of the brain was negative for acute infarct. Neurology plan for EEG however the suspicion of seizure and patient was started on IV Keppra She remains treated for colitis with IV cefepime and IV vancomycin started in the emergency room. IV vancomycin pharmacy to dose. Will request for MRSA screen. Follow-up culture results Patient with abdominal ascites, cirrhosis is suspected with a view of her pancreatic cancer. Patient has portal hypertension and splenomegaly. Liver enzymes are stable. Will check liver enzymes tomorrow. Also paracentesis might benefit the patient. Severe leukocytosis on admission significantly improved 17.9 down to 5.4 and hemoglobin 9 down to 7.0. If it drops less than 7, transfuse monitor for blood. There is no evidence of bleeding Patient has been followed by surgery team for fecal mass in the rectum with enema as tried. Patient may require disimpaction. Blood pressure improved, still mildly tachycardic afebrile Family at bedside all questions answered December 04: Patient had paracentesis today. About 950 cc of clear straw fluid drained. Has decreased appetite. Does feel tired. EEG being done this aft dennis. Several family members present at the bedside. Including the . Patient's diagnosis and several of the issues was discussed. Including portal hypertension, cirrhosis, appetite, medical debility. Several questions answered. Also have patient sit up in a chair. Consult PT OT. Edema lower extremity. Shahriar wrap. CT scan results discussed with Dr. Laws. Patient not a candidate for any surgical intervention. Patient had bowel movements yesterday. On IV cefepime. IV vancomycin Total time spent today about 50 minutes with over 30 minutes in discussion Active Medications Albuterol Sulfate (Albuterol Nebulized 2.5 Mg/3 Ml) 2.5 mg INHALATION RT-Q4H PRN PRN Reason: Shortness Of Breath Famotidine (Famotidine 20 Mg Tab) 20 mg PO BID [facility] Last Admin: 12/04/24 08:40 Dose: 20 mg Furosemide (Furosemide 40 Mg Tab) 40 mg PO DAILY [facility] Last Admin: 12/04/24 09:10 Dose: 40 mg Heparin Sodium (Porcine) (Heparin Sodium,Porcine 5,000 Unit/Ml 1 Ml Vial) 5,000 unit SQ Q12HR [facility] Last Admin: 12/04/24 08:40 Dose: 5,000 unit Hydrocortisone (Hydrocortisone 2.5% Rectal Cream 30 Gm Tube) 1 applic RECTAL BID [facility] Last Admin: 12/04/24 08:52 Dose: Not Given Hydromorphone HCl (Hydromorphone 0.5 Mg/0.5 Ml Syringe) 0.25 mg IVP Q4HR PRN PRN Reason: Pain Last Admin: 12/03/24 15:22 Dose: 0.25 mg Hydroxyzine HCl (Hydroxyzine Hcl 25 Mg Tab) 25 mg PO BID PRN PRN Reason: Anxiety Lactated Ringer's (Lactated Ringers) 1,000 mls @ 100 mls/hr IV .Q10H [facility] Last Admin: 12/03/24 22:46 Dose: Not Given Cefepime HCl 2 gm/ Dextrose/ (Water) 100 mls @ 25 mls/hr IVPB Q8HR JAGJIT; Protocol Last Admin: 12/04/24 16:01 Dose: 25 mls/hr Vancomycin HCl 1,000 mg/ (Sodium Chloride) 250 mls @ 125 mls/hr IVPB Q16H JAGJIT Lactulose (Lactulose 20 Gm/30 Ml Cup) 30 gm PO QID [facility] Last Admin: 12/04/24 16:00 Dose: Not Given Levetiracetam (Levetiracetam Iv 500 Mg/5 Ml Vial) 500 mg IVP Q12HR [facility] Last Admin: 12/04/24 08:40 Dose: 500 mg Lorazepam (Lorazepam 0.5 Mg Tab) 0.5 mg PO TID PRN PRN Reason: Anxiety Last Admin: 12/04/24 14:16 Dose: 0.5 mg Miscellaneous Information (Potassium Replacement Protocol 1 Each Misc) 1 each MISCELLANE DAILY PRN; Protocol PRN Reason: Per Protocol Naloxone HCl (Naloxone 0.4 Mg/Ml 1 Ml Vial) 0.2 mg IV Q2M PRN PRN Reason: Opioid Reversal Ondansetron HCl (Ondansetron Odt 4 Mg Tab) 4 mg PO Q6H PRN PRN Reason: Nausea Prochlorperazine Maleate (Prochlorperazine 10 Mg Tab) 10 mg PO Q8H PRN PRN Reason: Nausea Spironolactone (Spironolactone 25 Mg Tab) 25 mg PO DAILY [facility] Last Admin: 12/04/24 08:40 Dose: 25 mg On examination: VITAL SIGNS: [98.4, 111, 17, 100/65, 98% room air] GENERAL APPEARANCE: BMI 19.1. Lying in bed. Tired. HEENT: Normal external appearance of nose and ear. Oral cavity normal EYES: Pupils equal. Conjunctiva normal. NECK: JVD not raised. Mass not palpable. RESPIRATORY: Respiratory effort normal. Lungs clear to auscultation. CARDIOVASCULAR: First and second sounds normal. Edema present. ABDOMEN: Soft. Very mild distention. Liver and spleen not palpable. No tenderness. No mass palpable. PSYCHIATRY: Alert and oriented x3. Mood and affect normal. Musculoskeletal: Loss of muscle mass. Loss of subcutaneous fat INVESTIGATIONS, reviewed in the clinical context: December 04: White count 0.5 hemoglobin 7.1 platelets 59 neutrophils 0.27 sodium 131 potassium 3 creatinine 0.5 bilirubin 2.6 albumin 2 December 03: White count 5.4 hemoglobin 7 platelets 91 potassium 3.2 TIBC 81% saturation 90.1 transferrin 57 ferritin 319 AST 49 ALT 24 B12 greater than 3600 Free T41.5 Procalcitonin 0.49 Influenza type A, type B, RSV, SARS-CoV-2: Not detected CT abdomen pelvis [November 26] new linear foci of air within the central liver. Couple mural foci of air involving the cecum with surrounding inflammatory changes. Possible pneumatosis. Changes of portal venous hypertension. Moderate ascites Brain MRI: Some chronic changes Assessment plan: -Acute hepatic encephalopathy from underlying cirrhosis Better with lactulose. Decrease to 3 times daily -Possible localized ischemic colitis from fecaloma Seen by Dr. Laws from general surgery. Patient not a surgical candidate. Patient having bowel movements. IV cefepime, IV vancomycin #Metastatic pancreatic cancer [Per oncology notes] -Initially diagnosed in March 2021 and underwent surgery with evidence of duodenal involvement and 12 of 22 lymph nodes being positive - She completed 12 cycles of adjuvant FOLFIRINOX followed by concurrent Xeloda/RT to the surgical bed - She had evidence of potential localized recurrence in May 2024 in the surgical bed and abdominal lymph nodes with most recent PET/CT in September 2024 showing evidence of response following 3 cycles of gemcitabine/Abraxane - The episodes of recurrent ascites are likely not due to malignancy as there have been 2 fluid cytologies that have been negative for malignancy and is more likely due to underlying cirrhosis - She next has day 15 of chemotherapy scheduled for 12/05/2024, which may need to be rescheduled pending clinical course -Portal hypertension with splenomegaly, secondary to cirrhosis - Ascites secondary to portal hypertension/cirrhosis Paracentesis 950 cc straw-colored done December 04 Change Lasix to Aldactone 50 mg twice daily - Pancytopenia. From chemotherapy. Also contribution from cirrhosis, malignancy Hematology following - Rule out seizures EEG today. On IV Keppra -Hypovolemic hyponatremia -Anemia of chronic disease including malignancy cirrhosis, nutritional -Rectal fecaloma Had bowel movements with lactulose - Anorexia secondary underlying malignancy cirrhosis Add Marinol - Severe hypoalbuminemia. Multifactorial including decreased oral intake - Severe protein calorie malnutrition from decreased oral intake Consult dietitian. - Acute medical debility Multi factorial. PT OT. Have the patient up in chair - Full code Lengthy discussion with and several family members. Prognosis guarded
[2024-12-04] MEDS: VANCOMYCIN 1,000 MG in SODIUM CHLORIDE 0.9% 250 ML IVPB SCH (21:17)
[2024-12-04] MEDS: SPIRONOLACTONE 25 MG TAB PO SCH (21:36)
[2024-12-04] MEDS: DEXTROSE 5%-0.45% NACL 1,000 ML IV SCH (21:36)
[2024-12-05 02:51] LABS: T. Protein, Body Fluid Source Ascites; Total Protein, Body Fluid 909 mg/dL
[2024-12-05 03:06] LABS: Glucose,Whole Blood 125 mg/dL (70-110)
[2024-12-05 03:20] LABS: Albumin, Fluid Source Ascities
[2024-12-05 04:06] LABS: INR 1.8 (<1.2); Partial Thromboplastin Time 43.2 sec (22.0-30.0); Prothrombin Time 18.8 sec (10.0-12.5)
[2024-12-05 04:08] LABS: ALT 21 U/L (4-34); AST 34 U/L (14-36); African American GFR (CKD) >90 (>60 ml/min/1.73 sqM); Albumin/Globulin Ratio 0.8; Alkaline Phosphatase 125 U/L (38-126); Anion Gap 7 mmol/L; Blood Urea Nitrogen 8 mg/dL (7-17); Calcium 7.7 mg/dL (8.4-10.2); Carbon Dioxide 22 mmol/L (22-30); Chloride 98 mmol/L (98-107); Globulin 2.4 g/dL; Glucose 105 mg/dL (74-99); Non-African American GFR(CKD) >90 (>60 ml/min/1.73 sqM); Potassium 3.2 mmol/L (3.5-5.1); Sodium 127 mmol/L (137-145); Total Bilirubin 2.6 mg/dL (0.2-1.3); Total Protein 4.4 g/dL (6.3-8.2)
[2024-12-05 04:15] LABS: Appearance,BF Clear (Clear)
[2024-12-05] MEDS ORDERED: Magnesium Replacement Protocol 1 EACH MISC MISCELLANE PRN (04:45)
--- NOTE | 2024-12-05 04:59 | P.CNPUL ---
History of Present Illness Consult date: 12/05/24 Requesting physician: Hi Pemberton Reason for consult: other (ICU management) Chief complaint: Altered mental status History of present illness: I was called by Dr. Pemberton early this morning in regard to this patient and some rectal bleeding that was noted on the general medical floor. He requested the patient be transferred to the intensive care unit. Patient is a 49-year-old female with past medical history significant for pancreatic cancer. Did undergo Whipple procedure at [facility] in April,. Currently, undergoing chemotherapy, and her last treatment was 1 week ago on Wednesday. Her oncologist is Dr. Hoyt. Also, undergoes occasional abdominal paracentesis. Bro ught into the emergency department by EMS back on 12/02/2024, after noting to be confused by her . Workup in the emergency department including a brain CT which did not show any intracranial hemorrhage or mass effect. Follow-up, brain MRI showing cortical thinning with increased signal involving the posterior left parietal region on both inversion recovery and T2 weighted imaging. Possibly reflecting remote insult. No acute intracranial process was noted. Concerns for sepsis and reports of diarrheal illness. Initially, a CT of the abdomen/pelvis from admission showing circumferential wall thickening of the ascending colon, concerning for colitis. Findings of portal hypertension with splenomegaly, moderate volume ascites, diffuse anasarca, collateral vessels, and recannulization of the umbilical vein. Postsurgical changes from Whipple procedure with similar small region of soft tissue within the periportal region, possibly representing residual pancreatic neoplasm. Additionally, rectal fecaloma without definitive evidence of stercoral colitis. General surgery has been following this patient. Follow-up CT of the abdomen/pelvis showing new linear foci of air within the central liver. Concerning for possible bowel infarction. Couple mural foci of air involving the cecum with surrounding inflammatory changes, raising concern for possible pneumatosis. General surgery, felt patient a poor surgical candidate. Currently, on a combination of cefepime and vancomycin. Most recent labs including a WBC count of 0.52, hemoglobin 7.1, platelets 59,000. BMP: Sodium 131, Tessman 3, chloride 99, serum bicarb 25, BUN 11, creatinine 0.52, glucose 126. Magnesium 1.6. AST 37, ALT 23, ALP 133. Ammonia 66. Urinalysis positive for nitrates and occasional bacteria. Procalcitonin level 0.49. Patient has been transferred to the intensive care unit. She is awake and alert and oriented. Not in any sort of distress. Apparently, patient had 150 cc of bright red blood per rectum. She states that it is probably from her hemorrhoids. She does have external hemorrhoids. She is largely asymptomatic. Abdomen is nontender. No nausea, vomiting, or hematemesis. Blood pressures have remained normotensive. She is not requiring any vasopressors. Significant third spacing and abdominal ascites noted. Yesterday, patient did undergo ultrasound-guided paracentesis with a total of 950 cc removed. Repeat labs are pending. Patient is a Jehovah witness, and is adamant about not receiving red blood cell transfusion, but with accept certain blood fractions. Current vital signs: Temperature 99.3 F, heart rate 111 bpm, blood pressure 111/68 mmHg, nontachypneic, SpO2 recorded at 98% on room air. Review of Systems Constitutional: Reports fatigue, Reports poor appetite, Reports weight gain, Denies chills, Denies fever, Denies weight loss Ears, nose, mouth and throat: Denies headache, Denies nasal congestion, Denies nasal discharge, Denies post-nasal drip, Denies sinus pain, Denies sinus pressure, Denies sore throat Cardiovascular: Reports leg edema, Denies chest pain, Denies lightheadedness, Denies orthopnea, Denies palpitations, Denies paroxysmal nocturnal dyspnea, Den ies syncope Respiratory: Denies congestion, Denies cough, Denies cough with sputum, Denies dyspnea, Denies hemoptysis, Denies pain on inspiration Gastrointestinal: Reports change in bowel habits, Reports diarrhea, Reports hematochezia, Denies abdominal pain, Denies hematemesis, Denies melena, Denies nausea, Denies vomiting Genitourinary: Denies dysuria, Denies flank pain, Denies hematuria, Denies urinary frequency Musculoskeletal: Denies limitation of motion Integumentary: Denies rash, Denies unusual bruising Neurological: Reports confusion, Reports tremors, Reports weakness, Denies change in speech, Denies head injury, Denies headaches, Denies lack of coordination, Denies numbness, Denies paralysis, Denies paresthesias, Denies seizures, Denies syncope, Denies visual changes Psychiatric: Denies anxiety, Denies depression Past Medical History Past Medical History: Cancer, GERD/Reflux, Hypertension, Musculoskeletal Disorder Additional Past Medical History / Comment(s): Current pancreatic cancer. Unnamed autoimmune disorder-elevated WENDY. 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 Past Anesthesia/Blood Transfusion Reactions: Postoperative Nausea & Vomiting (PONV) Additional Past Anesthesia/Blood Transfusion Reaction / Comment(s): Jehovah's wittness - no blood products Past Psychological History: Anxiety, Depression Additional Psychological History / Comment(s): health related Smoking Status: Never smoker Past Alcohol Use History: Occasional Additional Past Alcohol Use History / Comment(s): 4-5 drinks/week Past Drug Use History: None Reported - Past Family History Brother(s) Family Medical History: Cancer Additional Family Medical History / Comment(s): Testicular cancer. Medications and Allergies Home Medications Medication Instructions Recorded Confirmed Type Cholecalciferol [Vitamin D3 (125 125 mcg PO DAILY 10/11/21 12/02/24 History Mcg = 5000 Iu)] LORazepam [Ativan] 0.5 mg PO TID PRN 10/11/21 12/02/24 History Ondansetron Odt [Zofran ODT] 4 mg PO Q6H PRN 10/11/21 12/02/24 History Prochlorperazine [Compazine] 10 mg PO Q8H PRN 10/06/24 12/02/24 History Spironolactone [Aldactone] 25 mg PO DAILY 10/29/24 12/02/24 History Furosemide [Lasix] 20 mg PO BID@0900,1600 11/13/24 12/02/24 History Albuterol Sulfate [Albuterol 2 puff INHALATION RT-Q4H PRN 12/02/24 12/02/24 History Sulfate Hfa] Creon (Unknown Dose) 1 dose PO DIRECTED 12/02/24 12/02/24 History Magnesium Oxide [Mag-Ox] 400 mg PO DAILY 12/02/24 12/02/24 History Potassium Chloride ER [K-Dur 20] 20 meq PO DAILY 12/02/24 12/02/24 History hydrOXYzine HCL [Atarax] 25 - 50 mg PO BID PRN 12/02/24 12/02/24 History Allergies Allergy/AdvReac Type Severity Reaction Status Date / Time ciprofloxacin [From Cipro] Allergy Rash/Hives Verified 12/02/24 10:14 erythromycin base Allergy Rash/Hives Verified 12/02/24 10:14 [From Erythrocin] latex Allergy Rash/Hives Verified 12/02/24 10:14 oseltamivir [From Tamiflu] Allergy Rash/Hives Verified 12/02/24 10:14 Penicillins Allergy Rash/Hives Verified 12/02/24 10:14 sulfamethoxazole Allergy Rash/Hives Verified 12/02/24 10:14 [From Bactrim] trimethoprim [From Bactrim] Allergy Rash/Hives Verified 12/02/24 10:14 Physical Exam Vitals: Vital Signs Temp Pulse Resp BP BP Pulse Ox 12/05/24 01:01 99.3 F 111 H 16 111/68 98 12/04/24 19:46 98.2 F 116 H 19 108/72 99 12/04/24 13:56 98.3 F 112 H 20 99/65 100 12/04/24 11:11 101 H 18 105/64 97 12/04/24 10:30 103 H 18 102/62 97 12/04/24 10:00 103 H 18 101/60 98 12/04/24 07:45 111 H 17 12/04/24 07:10 98.4 F 111 H 17 100/65 98 Intake and Output 12/04/24 12/04/24 12/05/24 14:59 22:59 06:59 Output Total 150 Balance -150 Output: Stool 150 Other: Voiding Method Bedside Commode Bedside Commode # Voids 2 3 # Bowel Movements 2 3 GENERAL EXAM: Alert, 49-year-old female, abdominal ascites and gross anasarca, on room air, comfortable in no apparent distress. HEAD: Normocephalic and atraumatic EYES: Normal reaction of pupils, equal size. No nystagmus. Icteric sclera. NOSE: Clear with pink turbinates. THROAT: No erythema or exudates. NECK: No masses, no JVD. CHEST: No chest wall deformity. LUNGS: Equal air entry with no crackles, wheeze, rhonchi or dullness. No conversational dyspnea or accessory muscle use.. CVS: S1 and S2 normal with no audible murmur, regular rhythm. No extra heart sounds ABDOMEN: Abdominal ascites, active bowel sounds, no guarding or rigidity. SPINE: No scoliosis or deformity SKIN: No rashes. Generalized pallor. CENTRAL NERVOUS SYSTEM: No focal deficits, tone is normal in all 4 extremities. EXTREMITIES: There is gross anasarca. No clubbing or cyanosis. Peripheral pulses are intact. Results - Laboratory Findings CBC and BMP: 12/04/24 05:45 12/05/24 03:45 PT/INR, D-dimer PT 16.0 sec (10.0-12.5) H 12/02/24 04:53 INR 1.5 (<1.2) H 12/02/24 04:53 Abnormal lab findings: Abnormal Labs 12/02/24 12/02/24 12/02/24 04:50 04:53 04:53 WBC 17.41 H RBC 2.68 L Hgb 9.0 L Hct 26.7 L MCV 99.6 H MCH 33.6 H RDW Plt Count Immature Gran # 0.09 H Neutrophils # 17.08 H Neutrophils # (Manual) Lymphocytes # 0.15 L Lymphocytes # (Manual) Monocytes # 0.07 L Monocytes # (Manual) Eosinophils # 0.00 L Eosinophils # (Manual) Macrocytosis (manual) PT 16.0 H INR 1.5 H APTT 30.1 H Sodium Potassium Chloride Carbon Dioxide Anion Gap BUN/Creatinine Ratio Glucose POC Glucose (mg/dL) 153 H Calcium TIBC % Saturation Transferrin Ferritin Total Bilirubin Conjugated Bilirubin Unconjugated Bilirubin AST Alkaline Phosphatase Ammonia Total Protein Albumin Albumin/Globulin Ratio Vitamin B12 TSH Urine Nitrite Urine WBC Urine Bacteria Urine Mucus 12/02/24 12/02/24 12/02/24 04:53 04:53 05:56 WBC RBC Hgb Hct MCV MCH RDW Plt Count Immature Gran # Neutrophils # Neutrophils # (Manual) Lymphocytes # Lymphocytes # (Manual) Monocytes # Monocytes # (Manual) Eosinophils # Eosinophils # (Manual) Macrocytosis (manual) PT INR APTT Sodium 127 L Potassium Chloride 93 L Carbon Dioxide Anion Gap BUN/Creatinine Ratio Glucose 138 H POC Glucose (mg/dL) Calcium 8.3 L TIBC % Saturation Transferrin Ferritin Total Bilirubin 2.7 H Conjugated Bilirubin Unconjugated Bilirubin AST 48 H Alkaline Phosphatase 179 H Ammonia 134 H Total Protein 5.4 L Albumin 2.6 L Albumin/Globulin Ratio Vitamin B12 TSH Urine Nitrite Positive H Urine WBC 7 H Urine Bacteria Occasional H Urine Mucus Rare H 12/02/24 12/03/24 12/03/24 16:56 03:13 03:13 WBC RBC 2.09 L Hgb 7.0 L Hct 21.5 L MCV 102.9 H MCH 33.5 H RDW 17.5 H Plt Count 91 L Immature Gran # Neutrophils # Neutrophils # (Manual) Lymphocytes # 0.22 L Lymphocytes # (Manual) Monocytes # 0.08 L Monocytes # (Manual) Eosinophils # 0 L Eosinophils # (Manual) Macrocytosis (manual) PT INR APTT Sodium 134 L Potassium 3.2 L Chloride Carbon Dioxide 21.4 L Anion Gap 12.60 H BUN/Creatinine Ratio 21.50 H Glucose 142 H POC Glucose (mg/dL) Calcium 7.8 L TIBC % Saturation Transferrin Ferritin Total Bilirubin Conjugated Bilirubin Unconjugated Bilirubin AST Alkaline Phosphatase Ammonia 66 H Total Protein Albumin Albumin/Globulin Ratio Vitamin B12 TSH Urine Nitrite Urine WBC Urine Bacteria Urine Mucus 12/03/24 12/03/24 12/04/24 03:13 03:13 05:45 WBC RBC Hgb Hct MCV MCH RDW Plt Count Immature Gran # Neutrophils # Neutrophils # (Manual) Lymphocytes # Lymphocytes # (Manual) Monocytes # Monocytes # (Manual) Eosinophils # Eosinophils # (Manual) Macrocytosis (manual) PT INR APTT Sodium 131 L Potassium 3.0 L Chloride Carbon Dioxide Anion Gap BUN/Creatinine Ratio Glucose 126 H POC Glucose (mg/dL) Calcium 8.2 L TIBC 81 L % Saturation 90.12 H Transferrin 57.7 L Ferritin 319.0 H Total Bilirubin 2.1 H 2.6 H Conjugated Bilirubin 1.34 H Unconjugated Bilirubin 1.9 H AST 49 H 37 H Alkaline Phosphatase 143 H 133 H Ammonia Total Protein 4.3 L 4.5 L Albumin 2.3 L 2.0 L Albumin/Globulin Ratio 1.15 L Vitamin B12 >3600.0 H TSH 5.810 H Urine Nitrite Urine WBC Urine Bacteria Urine Mucus 12/04/24 12/05/24 05:45 03:05 WBC 0.52 A* RBC 2.12 L Hgb 7.1 L Hct 22.2 L MCV 104.7 H MCH 33.5 H RDW 17.7 H Plt Count 59 L Immature Gran # Neutrophils # Neutrophils # (Manual) 0.27 A* Lymphocytes # Lymphocytes # (Manual) 0.23 L Monocytes # Monocytes # (Manual) 0.01 L Eosinophils # Eosinophils # (Manual) 0.01 L Macrocytosis (manual) 2+ A PT INR APTT Sodium Potassium Chloride Carbon Dioxide Anion Gap BUN/Creatinine Ratio Glucose POC Glucose (mg/dL) 125 H Calcium TIBC % Saturation Transferrin Ferritin Total Bilirubin Conjugated Bilirubin Unconjugated Bilirubin AST Alkaline Phosphatase Ammonia Total Protein Albumin Albumin/Globulin Ratio Vitamin B12 TSH Urine Nitrite Urine WBC Urine Bacteria Urine Mucus - Diagnostic Findings Chest x-ray: image reviewed Assessment and Plan Assessment: Acute abdomen, follow-up CT of the abdomen/pelvis identifying new linear foci of air within the central liver. Concerning for possible bowel infarction. Couple mural foci of air involving the cecum with surrounding inflammatory changes, raising concern for possible pneumatosis. General surgery, felt patient a poor surgical candidate Metastatic pancreatic cancer, with previous Whipple procedure performed at [facility] in April,. Currently, undergoing chemotherapy, with gemcitabine/Abraxane, last treatment was 1 week ago on Wednesday. Her oncologist is Dr. Hoyt. Rectal fecaloma Hematochezia External hemorrhoids Pancytopenia, recently receiving chemotherapy Hypoalbuminemia Hypervolemic hyponatremia Portal hypertension, cirrhotic liver disease, and recurrent abdominal ascites; status post abdominal paracentesis on 12/04/2024. A total of 950 mL was removed Coagulopathy Acute metabolic encephalopathy, improved Plan: Patient was transferred to the intensive care unit for close monitoring Patient had 1 episode of bright red blood per rectum while on the general medical floor Hemodynamically, has remained stable, not requiring vasopressors Repeat labs are pending Patient is a Jehovah witness, and is adamant about abstaining from PRBC. Will accept some blood product fractions. General surgery is following, patient was felt to be a poor surgical candidate. Continues on antibiotics in the form of cefepime and vancomycin Hematology/oncology also following Overall prognosis is poor considering above-mentioned comorbidities I have personally seen and examined the patient, performed the documentation and the assessment and plan as written. Number of minutes spent on the visit:20 Time with Patient: Greater than 30
[2024-12-05 05:16] LABS: HCT 21.8 % (37.2-46.3); MCH 33.3 pg (27.0-32.0); MCHC 32.1 g/dL (32.0-37.0); MCV 103.8 fL (80.0-97.0); Mean Platelet Volume 9.9 fL (9.5-12.2); RDW 17.3 % (11.5-14.5)
[2024-12-05] MEDS: POTASSIUM CHLORIDE ER 20 MEQ TAB.ER PO SCH (05:42)
[2024-12-05] MEDS: MAGNESIUM SULFATE-D5W PMX 1 GM in DEXTROSE/WATER 1 100ML.BAG IVPB SCH (05:42)
[2024-12-05 05:43] LABS: Platelet Count 41 10*3/uL (140-440); WBC 0.86 10*3/uL (4.50-10.00)
[2024-12-05] MEDS: droNABinol 2.5 MG CAP PO SCH (06:46)
[2024-12-05 07:07] LABS: Anisocytosis (M) Present; Poikilocytosis (M) Present
[2024-12-05] MEDS: LACTULOSE 20 GM/30 ML CUP PO SCH (08:13)
--- NOTE | 2024-12-05 10:16 | EEG ---
ELECTROENCEPHALOGRAM REPORT PREAMBLE: This is a 49-year-old female with history of cancer, came with tremors of the right side, rule out seizures. CURRENT MEDICATIONS: Keppra. EEG FINDINGS: This is a 21-channel digital EEG recorded with video component, utilizing 10/20 international system with referential and bipolar montages. Background consists of mixed frequencies of 8 hertz alpha, intermixed with 5 to 6 hertz theta activity seen in bihemispheric region. Background does not seem to be clearly reactive to eye opening or closing. Photic driving response was not seen. Some stage 2 sleep was seen with presence of sleep spindles. Some frontal intermittent rhythmic delta activity was seen sporadically during the study. No definitive focal or generalized epileptiform activity was seen. IMPRESSION: This is an abnormal EEG due to presence of background slowing suggestive of mild-to- moderate encephalopathy. Frontal intermittent rhythmic delta activity has nonspecific finding, can be seen with encephalopathy, or deep structural abnormality, although may also suggest convulsive tendency. No obvious epileptiform activity was seen. No electrographic seizure was recorded. MMODL / IJN: [id number] /
[2024-12-05 12:51] LABS: HCT 21.3 % (37.2-46.3); MCH 33.7 pg (27.0-32.0); MCHC 32.9 g/dL (32.0-37.0); MCV 102.4 fL (80.0-97.0); Mean Platelet Volume 11.4 fL (9.5-12.2); Platelet Count 38 10*3/uL (140-440); RBC 2.08 10*6/uL (4.10-5.20); RDW 17.3 % (11.5-14.5)
[2024-12-05 13:00] LABS: WBC 0.95 10*3/uL (4.50-10.00)
--- NOTE | 2024-12-05 13:48 | P.PN ---
Subjective Progress Note Date: 12/05/24 SURGICAL PROGRESS NOTE CHIEF COMPLAINT: Fecaloma HISTORY OF PRESENT ILLNESS: Patient is currently in the ICU. They are working on transferring patient to a higher level of care. Patient did have bright red blood with bowel movements early this morning and required to transfer to ICU. Patient sitting up in bed. WBC 0.95 Hgb 7.0 platelets 38. They are working on transferring patient to higher level of care PHYSICAL EXAM: VITAL SIGNS: Reviewed. GENERAL: no acute distress. ABDOMEN: Soft. Nondistended. mild tenderness ASSESSMENT: 1. Possible infarcted bowel 2. GI bleed 3. Fecaloma improved after soapsuds enemas 4. Metastatic pancreatic cancer PLAN: -Agree with transferring patient to higher level of care -Patient is a not a surgical candidate due to underlying comorbidities Physician Radio Electronics Officer note has been reviewed by physician. Signing provider agrees with the documented findings, assessment, and plan of care. Objective - Vital Signs Vital signs: Vital Signs Temp 99 F 12/05/24 12:00 Pulse 105 H 12/05/24 12:00 Resp 16 12/05/24 12:00 BP 97/63 12/05/24 12:00 Pulse Ox 97 12/05/24 12:00 FiO2 Intake & Output 12/04/24 12/05/24 12/05/24 18:59 06:59 18:59 Intake Total 40 620 Output Total 250 0 Balance -210 620 Intake: IV 40 120 Cefepime 2 gm In Dextrose 100 5% in Water 100 ml @ 25 mls/hr IVPB Q8HR JAGJIT Rx#: [id number] Dextrose 5%-0.45% NaCl 1, 40 20 000 ml @ 50 mls/hr IV . Q20H JAGJIT Rx#:[id number] Oral 500 Output: Urine 100 0 Stool 150 Other: Voiding Method Bedside Commode Bedside Commode Bedside Commode # Voids 3 1 1 # Bowel Movements 3 1 - Labs CBC & Chem 7: 12/05/24 12:37 12/05/24 03:45 Labs: Abnormal Lab Results - Last 24 Hours (Table) 12/05/24 12/05/24 12/05/24 Range/Units 03:05 03:45 03:45 WBC (4.50-10.00) 10*3/uL RBC (4.10-5.20) 10*6/uL Hgb (12.0-15.0) g/dL Hct (37.2-46.3) % MCV (80.0-97.0) fL MCH (27.0-32.0) pg Plt Count (140-440) 10*3/uL PT 18.8 H (10.0-12.5) sec INR 1.8 H (<1.2) APTT 43.2 H (22.0-30.0) sec Sodium 127 L (137-145) mmol/L Potassium 3.2 L (3.5-5.1) mmol/L Creatinine 0.51 L (0.52-1.04) mg/dL Glucose 105 H (74-99) mg/dL POC Glucose (mg/dL) 125 H (70-110) mg/dL Plasma Lactic Acid Guilherme (0.7-2.0) mmol/L Calcium 7.7 L (8.4-10.2) mg/dL Magnesium (1.6-2.3) mg/dL Total Bilirubin 2.6 H (0.2-1.3) mg/dL Total Protein 4.4 L (6.3-8.2) g/dL Albumin 2.0 L (3.5-5.0) g/dL 12/05/24 12/05/24 12/05/24 Range/Units 03:45 05:04 08:27 WBC 0.86 L* (4.50-10.00) 10*3/uL RBC 2.10 L (4.10-5.20) 10*6/uL Hgb 7.0 L D (12.0-15.0) g/dL Hct 21.8 L (37.2-46.3) % MCV 103.8 H (80.0-97.0) fL MCH 33.3 H (27.0-32.0) pg Plt Count 41 L D (140-440) 10*3/uL PT (10.0-12.5) sec INR (<1.2) APTT (22.0-30.0) sec Sodium (137-145) mmol/L Potassium (3.5-5.1) mmol/L Creatinine (0.52-1.04) mg/dL Glucose (74-99) mg/dL POC Glucose (mg/dL) (70-110) mg/dL Plasma Lactic Acid Guilherme 2.4 H* (0.7-2.0) mmol/L Calcium (8.4-10.2) mg/dL Magnesium 1.5 L (1.6-2.3) mg/dL Total Bilirubin (0.2-1.3) mg/dL Total Protein (6.3-8.2) g/dL Albumin (3.5-5.0) g/dL 12/05/24 12/05/24 Range/Units 11:44 12:37 WBC 0.95 L* (4.50-10.00) 10*3/uL RBC 2.08 L (4.10-5.20) 10*6/uL Hgb 7.0 L (12.0-15.0) g/dL Hct 21.3 L (37.2-46.3) % MCV 102.4 H (80.0-97.0) fL MCH 33.7 H (27.0-32.0) pg Plt Count 38 L (140-440) 10*3/uL PT (10.0-12.5) sec INR (<1.2) APTT (22.0-30.0) sec Sodium (137-145) mmol/L Potassium (3.5-5.1) mmol/L Creatinine (0.52-1.04) mg/dL Glucose (74-99) mg/dL POC Glucose (mg/dL) (70-110) mg/dL Plasma Lactic Acid Guilherme 2.6 H* (0.7-2.0) mmol/L Calcium (8.4-10.2) mg/dL Magnesium (1.6-2.3) mg/dL Total Bilirubin (0.2-1.3) mg/dL Total Protein (6.3-8.2) g/dL Albumin (3.5-5.0) g/dL Microbiology - Last 24 Hours (Table) 12/02/24 06:22 Blood Culture - Preliminary Blood 12/04/24 11:00 Gram Stain - Preliminary Ascites Fluid 12/03/24 23:00 Nasal Screen MRSA/MSSA - Final Nasal Swab
[2024-12-05 13:55] LABS: Anisocytosis (M) Present; Poikilocytosis (M) Present
[2024-12-05 13:58] VITALS: BMI 19.1
[2024-12-05] MEDS: FILGRASTIM-SNDZ 480 MCG/0.8 ML SYRINGE SQ SCH (13:59)
--- NOTE | 2024-12-05 16:41 | P.PN ---
Subjective Progress Note Date: 12/05/24 12/05/2024: Patient was seen for a follow-up. Patient denies headache. Patient is laying comfortably in the bed. Some family members were present. No tremors or seizure-like activity. 12/04/2024: Patient was initially seen by Dr. Riki Gardner. Please refer to his notes for details. Patient is a 49-year-old female with shaking episode, staring off. Patient has history of pancreatic cancer with metastasis, ascites. Ammonia level was 134, significantly elevated. Dr. Gardner feels it is more toxic metabolic encephalopathy. MRI brain showed likely old lesion left parietal region. Patient had an EEG performed. Patient has been placed on Keppra prophylactically. Multiple family members were present. They believe patient is doing much better. No further seizure-like activity since Wednesday. Patient appears very nervous, anxious "I do not want to ". Some of the workup during this hospital visit consisted of: White blood cell is 17.4 thousand and patient is afebrile Initial serum glucose is 138 and the POC glucose is 153. Sodium is 127 the last 1 month has been hovering in the mid 120s to 130. Ammonia Level is 134-->66 Reviewed the rest of the lab workup. CT of the head is reported as no acute intracranial hemorrhage, midline shift or mass effect. I personally reviewed the CT and agree with the report. MRI of the brain is reported as cortical thinning with increased signal involving the posterior left parietal region on both inversion recovery and T2 weighted imaging. This may reflect remote insult. No abnormal enhancement or abnormal diffusion in this region. No acute intracranial process seen. Objective - Vital Signs Vital signs: Vital Signs Temp 98.7 F 12/05/24 08:00 Pulse 109 H 12/05/24 10:00 Resp 17 12/05/24 10:00 BP 102/62 12/05/24 10:00 Pulse Ox 100 12/05/24 09:00 FiO2 Intake & Output 12/04/24 12/05/24 12/05/24 18:59 06:59 18:59 Intake Total 40 620 Output Total 250 0 Balance -210 620 Intake: IV 40 120 Cefepime 2 gm In Dextrose 100 5% in Water 100 ml @ 25 mls/hr IVPB Q8HR [facility] Rx#: [id number] Dextrose 5%-0.45% NaCl 1, 40 20 000 ml @ 20 mls/hr IV . Q24H [facility] Rx#:[id number] Oral 500 Output: Urine 100 0 Stool 150 Other: Voiding Method Bedside Commode Bedside Commode Bedside Commode # Voids 3 1 1 # Bowel Movements 3 1 - Exam Patient is alert and awake, fully oriented. Patient appears cachectic. Patient knows it is November and the year is 2024. She knows that she is in [facility] imported on [place]. Speech and language functions are normal. No tremors of outstretched hands. - Labs CBC & Chem 7: 12/05/24 12:37 12/05/24 03:45 Labs: Abnormal Lab Results - Last 24 Hours (Table) 12/05/24 12/05/24 12/05/24 Range/Units 03:05 03:45 03:45 WBC (4.50-10.00) 10*3/uL RBC (4.10-5.20) 10*6/uL Hgb (12.0-15.0) g/dL Hct (37.2-46.3) % MCV (80.0-97.0) fL MCH (27.0-32.0) pg Plt Count (140-440) 10*3/uL PT 18.8 H (10.0-12.5) sec INR 1.8 H (<1.2) APTT 43.2 H (22.0-30.0) sec Sodium 127 L (137-145) mmol/L Potassium 3.2 L (3.5-5.1) mmol/L Creatinine 0.51 L (0.52-1.04) mg/dL Glucose 105 H (74-99) mg/dL POC Glucose (mg/dL) 125 H (70-110) mg/dL Plasma Lactic Acid Guilherme (0.7-2.0) mmol/L Calcium 7.7 L (8.4-10.2) mg/dL Magnesium (1.6-2.3) mg/dL Total Bilirubin 2.6 H (0.2-1.3) mg/dL Total Protein 4.4 L (6.3-8.2) g/dL Albumin 2.0 L (3.5-5.0) g/dL 12/05/24 12/05/24 12/05/24 Range/Units 03:45 05:04 08:27 WBC 0.86 L* (4.50-10.00) 10*3/uL RBC 2.10 L (4.10-5.20) 10*6/uL Hgb 7.0 L D (12.0-15.0) g/dL Hct 21.8 L (37.2-46.3) % MCV 103.8 H (80.0-97.0) fL MCH 33.3 H (27.0-32.0) pg Plt Count 41 L D (140-440) 10*3/uL PT (10.0-12.5) sec INR (<1.2) APTT (22.0-30.0) sec Sodium (137-145) mmol/L Potassium (3.5-5.1) mmol/L Creatinine (0.52-1.04) mg/dL Glucose (74-99) mg/dL POC Glucose (mg/dL) (70-110) mg/dL Plasma Lactic Acid Guilherme 2.4 H* (0.7-2.0) mmol/L Calcium (8.4-10.2) mg/dL Magnesium 1.5 L (1.6-2.3) mg/dL Total Bilirubin (0.2-1.3) mg/dL Total Protein (6.3-8.2) g/dL Albumin (3.5-5.0) g/dL Microbiology - Last 24 Hours (Table) 12/04/24 11:00 Gram Stain - Preliminary Ascites Fluid 12/03/24 23:00 Nasal Screen MRSA/MSSA - Final Nasal Swab 12/02/24 06:22 Blood Culture - Preliminary Blood Assessment and Plan Assessment: This is a 49-year-old woman with history of pancreatic cancer status post Whipple procedure, chemotherapy and had remission of her pancreatic cancer in 2023 who presents emergency department because of staring off and initial body jerking of 1 side then 1 to the other side of the upper extremity. She had elevated ammonia. Patient has cirrhosis. History of unresponsiveness with body jerking: Upon further detailed of the history and her presentation seems more toxic metabolic encephalopathy > seizure--currently is drastically better. MRI of the brain is negative for any acute process or enhancement. There is questionable insult in the left parietal region. Leukocytosis, now turning to leukopenia. Elevated ammonia--trending down 66 History of pancreatic cancer status post Whipple procedure and is on chemotherapy. She had a relapse of her cancer in 2023 and she is on intermittent chemotherapy. History of a ascites requiring paracentesis History of extremity edema Plan: EEG was abnormal due to presence of background slowing, suggestive of mild to moderate encephalopathy. Frontal intermittent rhythmic delta activity is a nonspecific finding, can be seen with encephalopathy or deep structural abnormality, although may suggest convulsive tendency. No obvious epileptiform activity was seen. No electrographic seizure was recorded. Patient has multiple significant medical issues. No obvious indication for antiepileptic medication. We will stop Keppra. Discussed with primary physic ayala. Seizure precautions seizure pads Patient is on lactulose On Ativan 0.5 mg every 8 hours as needed for seizures Oncology is consulted Patient on cefepime 2 g IVPB every 8 hours and vancomycin. Will defer the rest of the medical management to primary and other specialist We will follow sporadically.
[2024-12-05 16:47] VITALS: TEMP 98.7
--- NOTE | 2024-12-05 17:13 | P.PN ---
Subjective Progress Note Date: 12/05/24 Pt seen in ICU at todays visit. S/p paracentesis with 950 cc removed. Pt denies abd pain. CT AP concerning for ischemic bowel. Pt has been started on IV abx. Pt not felt to be a good surgical candidate. Intensive care team recommending transfer to tertiary center for further management. WBC 0.86. G-CSF started Objective - Vital Signs Vital signs: Vital Signs Temp 98.7 F 12/05/24 08:00 Pulse 109 H 12/05/24 11:00 Resp 17 12/05/24 11:00 BP 99/64 12/05/24 11:00 Pulse Ox 100 12/05/24 11:00 FiO2 Intake & Output 12/04/24 12/05/24 12/05/24 18:59 06:59 18:59 Intake Total 40 620 Output Total 250 0 Balance -210 620 Intake: IV 40 120 Cefepime 2 gm In Dextrose 100 5% in Water 100 ml @ 25 mls/hr IVPB Q8HR [facility] Rx#: [id number] Dextrose 5%-0.45% NaCl 1, 40 20 000 ml @ 50 mls/hr IV . Q20H [facility] Rx#:[id number] Oral 500 Output: Urine 100 0 Stool 150 Other: Voiding Method Bedside Commode Bedside Commode Bedside Commode # Voids 3 1 1 # Bowel Movements 3 1 - Constitutional General appearance: Present: average body habitus, no acute distress - EENT Eyes: Present: EOMI ENT: Present: hearing grossly normal - Respiratory Details: breathing is even and unlabored - Cardiovascular Details: skin warm and dry - Gastrointestinal General gastrointestinal: Present: distended. Absent: tenderness - Integumentary Integumentary: Present: pale. Absent: cyanotic - Musculoskeletal Musculoskeletal: Present: generalized weakness - Psychiatric Psychiatric Comment(s): tearful Psychiatric: Present: A&O x's 3 - Labs CBC & Chem 7: 12/05/24 12:37 12/05/24 03:45 Labs: Abnormal Lab Results - Last 24 Hours (Table) 12/05/24 12/05/24 12/05/24 Range/Units 03:05 03:45 03:45 WBC (4.50-10.00) 10*3/uL RBC (4.10-5.20) 10*6/uL Hgb (12.0-15.0) g/dL Hct (37.2-46.3) % MCV (80.0-97.0) fL MCH (27.0-32.0) pg Plt Count (140-440) 10*3/uL PT 18.8 H (10.0-12.5) sec INR 1.8 H (<1.2) APTT 43.2 H (22.0-30.0) sec Sodium 127 L (137-145) mmol/L Potassium 3.2 L (3.5-5.1) mmol/L Creatinine 0.51 L (0.52-1.04) mg/dL Glucose 105 H (74-99) mg/dL POC Glucose (mg/dL) 125 H (70-110) mg/dL Plasma Lactic Acid Guilherme (0.7-2.0) mmol/L Calcium 7.7 L (8.4-10.2) mg/dL Magnesium (1.6-2.3) mg/dL Total Bilirubin 2.6 H (0.2-1.3) mg/dL Total Protein 4.4 L (6.3-8.2) g/dL Albumin 2.0 L (3.5-5.0) g/dL 12/05/24 12/05/24 12/05/24 Range/Units 03:45 05:04 08:27 WBC 0.86 L* (4.50-10.00) 10*3/uL RBC 2.10 L (4.10-5.20) 10*6/uL Hgb 7.0 L D (12.0-15.0) g/dL Hct 21.8 L (37.2-46.3) % MCV 103.8 H (80.0-97.0) fL MCH 33.3 H (27.0-32.0) pg Plt Count 41 L D (140-440) 10*3/uL PT (10.0-12.5) sec INR (<1.2) APTT (22.0-30.0) sec Sodium (137-145) mmol/L Potassium (3.5-5.1) mmol/L Creatinine (0.52-1.04) mg/dL Glucose (74-99) mg/dL POC Glucose (mg/dL) (70-110) mg/dL Plasma Lactic Acid Guilherme 2.4 H* (0.7-2.0) mmol/L Calcium (8.4-10.2) mg/dL Magnesium 1.5 L (1.6-2.3) mg/dL Total Bilirubin (0.2-1.3) mg/dL Total Protein (6.3-8.2) g/dL Albumin (3.5-5.0) g/dL Microbiology - Last 24 Hours (Table) 12/04/24 11:00 Gram Stain - Preliminary Ascites Fluid 12/03/24 23:00 Nasal Screen MRSA/MSSA - Final Nasal Swab 12/02/24 06:22 Blood Culture - Preliminary Blood Assessment and Plan (1) Altered mental status Current Visit: Yes Status: Acute Code(s): R41.82 - ALTERED MENTAL STATUS, UNSPECIFIED SNOMED Code(s): 322862092 (2) Anemia due to antineoplastic agent Current Visit: Yes Status: Acute Code(s): D64.81 - ANEMIA DUE TO ANTINE OPLASTIC CHEMOTHERAPY; T45.1X5A - ADVERSE EFFECT OF ANTINEOPLASTIC AND IMMUNOSUP DRUGS, INIT SNOMED Code(s): 248967364149233 (3) History of pancreatic cancer Current Visit: Yes Status: Acute Priority: High Code(s): Z85.07 - PERSONAL HISTORY OF MALIGNANT NEOPLASM OF PANCREAS SNOMED Code(s): 08305623761089 (4) Hyperammonemia Current Visit: Yes Status: Acute Code(s): E72.20 - DISORDER OF UREA CYCLE METABOLISM, UNSPECIFIED SNOMED Code(s): 0228676 (5) Metabolic encephalopathy Current Visit: Yes Status: Acute Code(s): G93.41 - METABOLIC ENCEPHALOPATHY SNOMED Code(s): 54460341 Plan: #Metabolic encephalopathy - Presented with episode of unresponsiveness prior to presentation - Noted to have elevated ammonia of 134 on initial labs - CT on admission as well as MRI on 11/29/2024 at [facility] note evidence of portal hypertension with moderate ascites and splenomegaly with MRI noting evidence of cirrhosis - Agree with lactulose 30 mg 4 times daily as started per primary team - MRI of the brain revealed no acute pathology - Underwent EEG, showing background slowing suggestive of mild to moderate encephalopathy. No obvious epileptiform activity was seen. - We discussed that she likely has metabolic encephalopathy due to underlying liver disease - We did have an extended discussion with regards to cirrhosis, but I feel she would ultimately benefit from gastroenterology consultation - S/p paracentesis with 950cc removed, cytology and culture pending # Pancytopenia - She is receiving ASHLEIGH with chemotherapy as well due to prior persistent anemia from chemotherapy, last received on 11/28/2024 - In addition, she may have anemia of inflammation secondary to underlying cirrhosis - Continue antibiotics and infectious workup - Coags elevated, fibrinogen 266. Negative for DIC - Anemia workup ordered. No nutritional deficiencies noted - WBC today 0.86. G-CSF was supposed to be given on 12/06 after completion of cyc le 4. Due to noted neutropenia and concern for ischemic bowel, short acting G- CSF has been started - Monitor CBC daily #Metastatic pancreatic cancer -Initially diagnosed in March 2021 and underwent surgery with evidence of duodenal involvement and 12 of 22 lymph nodes being positive - She completed 12 cycles of adjuvant FOLFIRINOX followed by concurrent Xeloda/RT to the surgical bed - She had evidence of potential localized recurrence in May 2024 in the surgical bed and abdominal lymph nodes with most recent PET/CT in September 2024 showing evidence of response following 3 cycles of gemcitabine/Abraxane - The episodes of recurrent ascites are likely not due to malignancy as there have been 2 fluid cytologies that have been negative for malignancy and is more likely due to underlying cirrhosis - S/p cycle 4, day 8 Gemzar/Abraxane on 11/28/24. Treatment will be on hold pending course of hospitalization Discussed with patient and family at bedside. All questions and concerns Patient had CT AP concerning for ischemic bowel. Pt has been started on IV abx and bowel rest. Per surgery team, pt not felt to be a good surgical candidate. Intensive care team recommending transfer to tertiary center for further management. Transfer to [facility] has been initiated
[2024-12-05] MEDS: MAG HYDROX/AL HYDROX/SIMETH 30 ML, LIDOCAINE VISCOUS 2% 30 ML, diphenhydrAMINE ELIXIR 7... PO SCH (17:27)
[2024-12-05 18:04] VITALS: BP 99/59; PULSE 107; RESP 15
[2024-12-05 18:41] LABS: Glucose,Whole Blood 112 mg/dL (70-110)
--- NOTE | 2024-12-05 19:47 | P.DS ---
Providers Date of admission: 12/02/24 09:09 Expected date of discharge: 12/05/24 Attending physician: Hi Pemberton Consults: 12/02/24 06:43 Consult Physician Routine Consulting Provider: Riki Gardner Consult Reason/Comments: AMS Do you want consulting provider notified?: Yes Consult Physician Routine Consulting Provider: [place] Consult Reason/Comments: pancreatic cancer Do you want consulting provider notified?: Yes 12/02/24 09:52 Consult Physician Routine Consulting Provider: Yaya Laws Consult Reason/Comments: colitis, fecaloma Do you want consulting provider notified?: Yes 12/05/24 01:12 Consult Physician Stat Consulting Provider: Maria Fernanda Gonzales Consult Reason/Comments: Blood in stool Do you want consulting provider notified?: Yes, Notify in am 12/05/24 02:00 Consult Physician Routine Consulting Provider: Omero Banda Consult Reason/Comments: icu management Do you want consulting provider notified?: Already Contacted Primary care physician: [facility] Course: This is a pleasant 49 years old female with a known case of pancreatic cancer with ascites. Presents because of. No unresponsiveness. Information was obtained with the help of the family including the mother and her best friend who is her second advocate after her . Her name is Dany. Yesterday wanted to check on his and she was sitting on the toilet unresponsive not talking not moving and they called EMS who brought her to the emergency room. Patient cannot recall of these events or what happened. There is no mention of seizure-like activities. Patient was standing her best friend she was feeling tired and fatigued the whole day yesterday but no other specific symptoms no diarrhea or urinary complaints or dysuria no vomiting or abdominal pain. No chest pain or dyspnea. Even currently patient denies all the symptoms. Also she denies headache dizziness weakness or numbness. Last Wednesday she underwent paracentesis, Wednesday she got chemotherapy here in [place] with Dr. Hoyt, on Wednesday she had MRI of the abdomen and her liver with department/[facility] she followed up with her oncologist at [facility] who discussed nutrition with her and she was doing well. Also 2 days ago she was doing fine and her symptoms started yesterday. On admission she is hemodynamically stable, slightly hypertensive slightly tachycardic She has leukocytosis of 17.4 and hemoglobin at baseline of 9 with baseline 7-9. Sodium is low 127. Ammonia level elevated with 34, urine drug screen is negative as well as serum salicylate acetaminophen and alcohol. CT of the brain is negative. Chest x-ray showed no acute process. CT of the abdomen and pelvis showing portal hypertension with splenomegaly and ascites with anasarca. Also there is thickening of the wall of the ascending colon suspicious for ascending colitis and rectal fecaloma. Patient was started with IV vancomycin and cefepime Ringer lactate at 100 mL/h and admitted with neurology and hematology/oncology team consult 12/03 Patient mentation significantly improved and she is awake alert oriented, she feels tired. MRI of the brain was negative for acute infarct. Neurology plan for EEG however the suspicion of seizure and patient was started on IV Keppra She remains treated for colitis with IV cefepime and IV vancomycin started in the emergency room. IV vancomycin pharmacy to dose. Will request for MRSA screen. Follow-up culture results Patient with abdominal ascites, cirrhosis is suspected with a view of her pancreatic cancer. Patient has portal hypertension and splenomegaly. Liver enzymes are stable. Will check liver enzymes tomorrow. Also paracentesis might benefit the patient. Severe leukocytosis on admission significantly improved 17.9 down to 5.4 and hemoglobin 9 down to 7.0. If it drops less than 7, transfuse monitor for blood. There is no evidence of bleeding Patient has been followed by surgery team for fecal mass in the rectum with enema as tried. Patient may require disimpaction. Blood pressure improved, still mildly tachycardic afebrile Family at bedside all questions answered December 04: Patient had paracentesis today. About 950 cc of clear straw fluid drained. Has decreased appetite. Does feel tired. EEG being done this afternoon. Several family members present at the bedside. Including the . Patient's diagnosis and several of the issues was discussed. Including portal hypertension, cirrhosis, appetite, medical debility. Several questions answered. Also have patient sit up in a chair. Consult PT OT. Edema lower extremity. Shahriar wrap. CT scan results discussed with Dr. Laws. Patient not a candidate for any surgical intervention. Patient had bowel movements yesterday. On IV cefepime. IV vancomycin Total time spent today about 50 minutes with over 30 minutes in discussion December 05: Overnight patient had about 150 cc of bright red blood per rectum. I moved the patient to the ICU. Did not require pressors. Hemoglobin at 7. Confucianism has no blood transfusion. Spoke to the and patient's friend at the bedside. Agreeable to transfer to [facility]. I spoke to the transfer team and the roads supervisor and blooming mill supervisor. Dr. Alberts. Patient was accepted. Overall prognosis guarded. Bleeding could have been from the ischemic side in the lower bowel or variceal bleed. Patient denies any abdominal pain. Ice chips. Prognosis guarded. Also discussed with the nurse. EEG negative for seizure. LARRY Miranda Discussion and discharge planning more than 35 minutes On examination: VITAL SIGNS: 98.7, 108, 15, 92 x 59, 98% room air GENERAL APPEARANCE: BMI 19.1. Lying in bed. Tired. HEENT: Normal external appearance of nose and ear. Oral cavity normal EYES: Pupils equal. Conjunctiva pale NECK: JVD not raised. Mass not palpable. RESPIRATORY: Respiratory effort normal. Lungs clear to auscultation. CARDIOVASCULAR: First and second sounds normal. Edema present. ABDOMEN: Soft. Very mild distention. Liver and spleen not palpable. No tenderness. No mass palpable. PSYCHIATRY: Alert and oriented x3. Mood and affect normal. Musculoskeletal: Loss of muscle mass. Loss of subcutaneous fat INVESTIGATIONS, reviewed in the clinical context: EEG: Negative for seizure December 05: White count 0.9 hemoglobin 7 platelets 38 December 04: White count 0.5 hemoglobin 7.1 platelets 59 neutrophils 0.27 sodium 131 potassium 3 creatinine 0.5 bilirubin 2.6 albumin 2 December 03: White count 5.4 hemoglobin 7 platelets 91 potassium 3.2 TIBC 81% saturation 90.1 transferrin 57 ferritin 319 AST 49 ALT 24 B12 greater than 3600 Free T41.5 Procalcitonin 0.49 Influenza type A, type B, RSV, SARS-CoV-2: Not detected CT abdomen pelvis [November 26] new linear foci of air within the central liver. Couple mural foci of air involving the cecum with surrounding inflammatory changes. Possible pneumatosis. Changes of portal venous hypertension. Modera te ascites Brain MRI: Some chronic changes Assessment plan: -Acute hepatic encephalopathy from underlying cirrhosis: Better Lactulose 3 times daily -Possible localized ischemic colitis from fecaloma Seen by Dr. Laws from general surgery. Patient not a surgical candidate. Patient having bowel movements. IV cefepime, IV vancomycin - Acute lower GI bleed. About 150 cc of fresh blood. This could be from variceal bleed. Or could be from ischemic colitis site. No GI service available in the hospital. Dr Laws of the case. For higher level of care for intervention patient to be transferred to [facility]. #Metastatic pancreatic cancer [Per oncology notes] -Initially diagnosed in March 2021 and underwent surgery with evidence of duod enal involvement and 12 of 22 lymph nodes being positive - She completed 12 cycles of adjuvant FOLFIRINOX followed by concurrent Xeloda/RT to the surgical bed - She had evidence of potential localized recurrence in May 2024 in the surgical bed and abdominal lymph nodes with most recent PET/CT in September 2024 showing evidence of response following 3 cycles of gemcitabine/Abraxane - The episodes of recurrent ascites are likely not due to malignancy as there have been 2 fluid cytologies that have been negative for malignancy and is more likely due to underlying cirrhosis - She next has day 15 of chemotherapy scheduled for 12/05/2024, which may need to be rescheduled pending clinical course -Portal hypertension with splenomegaly, secondary to cirrhosis - Ascites secondary to portal hypertension/cirrhosis Paracentesis 950 cc straw-colored done December 04 Aldactone 50 mg twice daily - Pancytopenia. From chemotherapy. Also contribution from cirrhosis, malignancy Hematology following -Seizure ruled out EEG negative. As per Dr. 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 Multifactorial including decreased oral intake - Severe protein calorie malnutrition from decreased oral intake Consult dietitian. - Acute medical debility Multi factorial. PT OT. Have the patient up in chair - Full code Disposition: Transfer [facility], [facility] for higher level of care. For GI services Plan - Discharge Summary Discharge Rx Participant: No New Discharge Prescriptions: No Action Cholecalciferol [Vitamin D3 (125 Mcg = 5000 Iu)] 125 mcg PO DAILY Ondansetron Odt [Zofran ODT] 4 mg PO Q6H PRN PRN Reason: Nausea Prochlorperazine [Compazine] 10 mg PO Q8H PRN PRN Reason: Nausea Spironolactone [Aldactone] 25 mg PO DAILY Potassium Chloride ER [K-Dur 20] 20 meq PO DAILY LORazepam [Ativan] 0.5 mg PO TID PRN PRN Reason: Anxiety Furosemide [Lasix] 20 mg PO BID@0900,1600 hydrOXYzine HCL [Atarax] 25 - 50 mg PO BID PRN PRN Reason: Anxiety Albuterol Sulfate [Albuterol Sulfate Hfa] 2 puff INHALATION RT-Q4H PRN PRN Reason: Shortness Of Breath Magnesium Oxide [Mag-Ox] 400 mg PO DAILY Lipase/Protease/Amylase [Nayla Bhardwaj 36,000 Unit Capsule] 3 cap PO QID PRN PRN Reason: WHEN SHE EATS MEALS Lipase/Protease/Amylase [Nayla Bhardwaj 36,000 Unit Capsule] 1 - 2 cap PO BID PRN PRN Reason: WITH SNACKS Discharge Medication List Cholecalciferol [Vitamin D3 (125 Mcg = 5000 Iu)] 125 mcg PO DAILY 10/11/21 [History] LORazepam [Ativan] 0.5 mg PO TID PRN 10/11/21 [History] Ondansetron Odt [Zofran ODT] 4 mg PO Q6H PRN 10/11/21 [History] Prochlorperazine [Compazine] 10 mg PO Q8H PRN 10/06/24 [History] Spironolactone [Aldactone] 25 mg PO DAILY 10/29/24 [History] Furosemide [Lasix] 20 mg PO BID@0900,1600 11/13/24 [History] Albuterol Sulfate [Albuterol Sulfate Hfa] 2 puff INHALATION RT-Q4H PRN 12/02/24 [History] Magnesium Oxide [Mag-Ox] 400 mg PO DAILY 12/02/24 [History] Potassium Chloride ER [K-Dur 20] 20 meq PO DAILY 12/02/24 [History] hydrOXYzine HCL [Atarax] 25 - 50 mg PO BID PRN 12/02/24 [History] Lipase/Protease/Amylase [Nayla Bhardwaj 36,000 Unit Capsule] 1 - 2 cap PO BID PRN 12/05/24 [History] Lipase/Protease/Amylase [Nayla Bhardwaj 36,000 Unit Capsule] 3 cap PO QID PRN 12/05/24 [History] Follow up Appointment(s)/Referral(s): Carlitos Rosas DO [Primary Care Provider] - 1-2 days
--- NOTE | 2024-12-06 15:20 | CDI ---
Date: 12/06/2024 From: Bina [email or web address] Email: [email or web address] Admit Date: 12/02/2024 09:09:00 AM Patient Name: Aracely Hardy Visit Number: [id number] Discharge Date: 12/05/2024 07:43:00 PM ATTENTION: The Clinical Documentation Specialists (CDI) and [facility] Coding Staff appreciate your assistance in clarifying documentation. Please respond to the clarification below the line at the bottom and electronically sign. The CDI & [facility] Coding staff will review the response and follow-up if needed. Please note: Queries are made part of the Legal Health Record. If you have any questions, please contact the author of this message via ITS. Dr. Hi Pemberton, Sepsis is documented in the H&P Report on 12/02/2024 but is not consistently noted in subsequent documentation. Clarification is requested. History/Risk Factors: 49-year-old female presented to [facility] ED for evaluation after she was found unresponsive in the bathroom. PMH: Pancreatic cancer with metastasis to intraabdominal lymph node currently undergoing chemotherapy, hypertension, GERD, unidentified autoimmune disorder, severe protein-calorie malnutrition Clinical Indicators: Documentation Location: Electronic Medical Record H&P Report (12/02/2024): o Ascending colitis o Sepsis with leukocytosis and tachycardia tachypnea o Hepatic encephalopathy o Pancreatic cancer with ascites on chemotherapy o Rectal fecaloma Oncology Consult Note (12/02/2024): Neutrophilic leukocytosis Discharge Summary Report (12/05/2024): o Possible localized ischemic colitis from fecaloma o Pancytopenia. From chemotherapy. Also contribution from cirrhosis, malignancy Vital Sign Trend: Date Time Temperature HR RR BP SpO2 12/02/2024 06:00 98.6 F (Oral) 115 16 97/62 99% on Room Air 12/02/2024 14:01 98.3 F (Oral) 116 16 116/71 N/A 12/03/2024 08:33 97.5 F (Oral) 115 18 111/72 100% on Room Air 12/04/2024 07:10 98.4 F (Oral) 111 17 100/65 98% on Room Air 12/05/2024 08:00 98.7 F (Oral) 99 17 96/58 98% on Room Air Lab Results: 12/02/2024 12/03/2024 12/04/2024 WBC 17.41 5.40 0.52 0.95 Other Clinical Indicators: Blood Cultures (Collected on 12/02/2024): No growth after 72 hours Lactic Acid: (12/02/2024) 2.0 (12/05/2024) 2.4 2.6 3.5 Procalcitonin (12/03/2024): 0.49 Urinalysis (12/02/2024): Positive Nitrite, Occasional Bacteria, Rare Mucus, Appearance: Clear Ascites Fluid Culture (Collected 12/04/2024): No growth after 24 hours (Preliminary Results) Treatment: 0.9% Sodium Chloride IV Bolus x 500mL Lactated Ringers IV Bolus x 500mL Lactated Ringers IV Infusion @ 100mL/hr. Cefepime 2g IVPB Every 8 Hours Vancomycin 1000mg IVPB Every 12 Hours Every 16 Hours Please clarify if the sepsis is: [ + ] Sepsis has been ruled out [ ] Sepsis was present on admission, treated, and resolved [ ] Other condition, please specify [ ] Unable to determine SIRS Criteria (2 or more of the following may indicate SIRS): Temperature < 96.8F (36C) or > 101.0F (38.3C) Heart Rate > 90 bpm Respiratory Rate > 20 breaths/min or PaCO2 < 32 mmHg White Blood Cell Count > 12,000 or < 4,000 cells/mm3 or > 10% bands MTDD
== END 2024-12-05 19:43 | disposition short-term general hospital (02) | DRG 393 ==
LOC: EC 04:34 → 4SSUR 09:09 → 2SICU 12-05 03:46
PROVIDERS: ADMIT Hospitalist; ATTEND Hospitalist
PROC: 4A10X4Z Monitoring of Central Nervous Electrical Activity, External Approach (ICD-10-PCS; principal; 2024-12-04)
PROC: 0W9G3ZZ Drainage of Peritoneal Cavity, Percutaneous Approach (ICD-10-PCS; 2024-12-04)
DX: K55.9 Vascular disorder of intestine, unspecified (principal); D61.810 Antineoplastic chemotherapy induced pancytopenia; E43 Unspecified severe protein-calorie malnutrition; G92.8 Other toxic encephalopathy; C77.2 Secondary and unspecified malignant neoplasm of intra-abdominal lymph nodes; E72.20 Disorder of urea cycle metabolism, unspecified; D68.9 Coagulation defect, unspecified; C25.9 Malignant neoplasm of pancreas, unspecified; D72.819 Decreased white blood cell count, unspecified; K76.6 Portal hypertension; K76.82 Hepatic encephalopathy; F32.A Depression, unspecified; I10 Essential (primary) hypertension; R18.8 Other ascites; E87.1 Hypo-osmolality and hyponatremia; Z68.1 Body mass index [BMI] 19.9 or less, adult; K92.1 Melena; K74.69 Other cirrhosis of liver; E88.09 Other disorders of plasma-protein metabolism, not elsewhere classified; T45.1X5A Adverse effect of antineoplastic and immunosuppressive drugs, initial encounter; F41.9 Anxiety disorder, unspecified; X58.XXXA Exposure to other specified factors, initial encounter; D64.81 Anemia due to antineoplastic chemotherapy; D69.6 Thrombocytopenia, unspecified; E86.1 Hypovolemia; E87.70 Fluid overload, unspecified; K64.4 Residual hemorrhoidal skin tags; K59.00 Constipation, unspecified; K76.0 Fatty (change of) liver, not elsewhere classified; Z79.899 Other long term (current) drug therapy; Z85.07 Personal history of malignant neoplasm of pancreas; Z90.411 Acquired partial absence of pancreas; Z90.710 Acquired absence of both cervix and uterus; Z87.19 Personal history of other diseases of the digestive system; Z88.0 Allergy status to penicillin; Z88.2 Allergy status to sulfonamides; Z88.1 Allergy status to other antibiotic agents; Z91.040 Latex allergy status
CPT/HCPCS: 36415; 49083; 70450; 70553; 71045; 74176; 74177; 80048; 80053; 80076; 80143; 80179; 80202; 80306; 80320; 81001; 82042; 82140; 82607; 82728; 82746; 83540; 83550; 83605; 83735; 84145; 84157; 84439; 84443; 85025; 85384; 85610; 85730; 87040; 87070; 87075; 87205; 87636; 88108; 88305; 88341; 88342; 89050; 93005; 95816; 96361; 96365; 96366; 96368; 96375; 99291